=== PATIENT | female | born 1960 | race Caucasian/White ===

== ENCOUNTER 2019-04-20 16:52 | Emergency (ER) | payer OTHER, MEDICAID, SELFPAY ==
[2019-04-20 17:00] VITALS: BP 142/86; PULSE 65; RESP 19; TEMP 36.6; O2SAT 100; BMI 26.6
--- NOTE | 2019-04-20 17:09 | DI.RAD.S_ITS ---
PROCEDURE: XR CHEST 1V INDICATIONS: chest pain TECHNIQUE: One view of the chest was acquired. COMPARISON: [facility], CHEST 1 VIEW, 05/09/2011, 12:32. [facility], CHEST 2 VIEW, 08/06/2013, 12:28. FINDINGS: Surgical changes and devices: None. Lungs and pleura: Lungs are clear. No pleural effusions or pneumothorax. Mediastinum: The cardiac contours are within normal limits. The aorta demonstrates calcification and tortuosity. Bones and chest wall: No suspicious bony lesions. There is a stable presumed enchondroma seen within the left humeral neck, which is not significantly changed compared to 2011. S-shaped scoliotic curvature is seen. Age-appropriate bony degenerative changes are seen. Overlying soft tissues appear unremarkable. IMPRESSION: Portable chest within normal limits. Dictated by: Rayray Szymanski M.D. on 04/20/2019 at 16:28 Approved by: Rayray Szymanski M.D. on 04/20/2019 at 16:29
--- NOTE | 2019-04-20 17:09 | PC.NURSE ---
states, started taking metoprolol 25mg twice a day, for the last 5 days. for pvc's
[2019-04-20 17:12] VITALS: BP 143/78; PULSE 59; RESP 16; O2SAT 98
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
[2019-04-20] MEDS: SODIUM CHLORIDE 0.9% 1,000 ML 150 ML IV (17:16)
[2019-04-20] MEDS: MAG HYDROX/ALUMINUM/SIMETH SUS 20 ML, LIDOCAINE VISCOUS 2% 15 ML PO (17:16)
[2019-04-20] MEDS: ASPIRIN 81 MG TAB 324 MG PO (17:17)
[2019-04-20 17:18] LABS: Add Manual Diff / Slide Review NO; Basophils Absolute Auto 100 /uL (0-100); Eosinophils Absolute Auto 200 /uL (0-450); Eosinophils Percent Auto 2.5 % (2-4); Hematocrit 42.1 % (36-46); Hemoglobin 14.4 g/dL (12.0-16.0); Lymphocytes Absolute Auto 3500 /uL (1100-4500); Lymphocytes Percent Auto 49.1 % (25-40); Mean Corpuscular HGB Conc 34.2 % (30-36); Mean Corpuscular Hemoglobin 33.1 PG (26-34); Mean Corpuscular Volume 96.6 fL (80-100); Monocytes Absolute Auto 800 /uL (0-900); Monocytes Percent Auto 10.8 % (3-14); Neutrophils Absolute Auto 2600 /uL (1500-7000); Neutrophils Percent Auto 36.6 % (50-75); Platelet Count 239 X10^3/uL (150-400); Red Blood Cell Count 4.36 X10^6/uL (4.0-5.2); Red Cell Distribution Width 13.8 % (11.6-14.8); White Blood Cell Count 7.2 X10^3/uL (4.5-11.0)
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
[2019-04-20 17:24] LABS: D Dimer 364 ng/mL (<230)
[2019-04-20 17:26] LABS: Alanine Aminotransferase 65 IU/L (9-52); Albumin 4.5 g/dL (3.5-5.0); Albumin Globulin Ratio 1.3 (1.0-2.8); Alkaline Phosphatase 94 U/L (38-126); Aspartate Aminotransferase 45 IU/L (14-36); BUN Creatinine Ratio 18.3 (6-22); Bilirubin Total 0.3 mg/dL (0.2-1.3); Blood Urea Nitrogen 11 mg/dL (7-17); Carbon Dioxide 29 mmol/L (22-32); Chloride 104 mmol/L (98-107); Creatine Kinase 71 U/L (30-135); Estimated Glomerular Filt Rate > 60.0 mL/min (>60); Globulin 3.4 g/dL (1.7-4.1); Glucose 103 mg/dL (70-100); HEMOLYSIS < 15 (0-50); Lipase 210 U/L (23-300); Potassium 4.6 mmol/L (3.4-5.1); Sodium 139 mmol/L (137-145); Total Protein 7.9 g/dL (6.3-8.2)
[2019-04-20 17:38] LABS: Troponin I < 0.012 ng/mL (0.01-0.034)
[2019-04-20 17:45] VITALS: BP 126/64; PULSE 54; RESP 19; O2SAT 97
[2019-04-20 18:05] VITALS: BP 124/82; PULSE 50; RESP 14; O2SAT 97
[2019-04-20 18:46] VITALS: BP 121/76; PULSE 54; RESP 13; O2SAT 96
[2019-04-20 19:33] LABS: Troponin I < 0.012 ng/mL (0.01-0.034)
[2019-04-20 19:53] VITALS: BP 126/80; PULSE 56; RESP 18; O2SAT 97
--- NOTE | 2019-05-05 19:00 | PC.NURSE ---
Late entry: fluids started at 1717 running at 150 cc /hour d/c'd @ 194. Approx 375 cc infused. No ill effect.
== END 2019-04-20 20:04 | disposition home or self-care (01) ==
PROVIDERS: Emergency Provider Internal Medicine; Family Provider Internal Medicine; PCP Internal Medicine
DX: R07.89 Other chest pain (principal); K22.4 Dyskinesia of esophagus
CPT/HCPCS: 36415; 36591; 71045; 80053; 82550; 83690; 84484; 85025; 85379; 93005; 93041; 96360; 96361; 99284; 99285

== ENCOUNTER 2019-06-08 04:33 | Emergency (ER) | payer OTHER, MEDICAID, SELFPAY ==
[2019-06-08 04:41] VITALS: BP 143/78; PULSE 60; RESP 18; O2SAT 100; BMI 26.6
--- NOTE | 2019-06-08 04:50 | DI.RAD.S_ITS ---
PROCEDURE: XR CHEST 1V INDICATIONS: chest pain TECHNIQUE: One view of the chest was acquired. COMPARISON: [facility], CR, CHEST 2 VIEW, 08/06/2013, 12:28. [facility], CR, CHEST 2VW, 05/09/2008, 16:35. [facility], CR, CHEST 2VW, 06/09/2007, 12:54. [facility], CR, CHEST 1 VIEW, 05/09/2011, 12:32. [facility], CR, XR CHEST 2V AP/PA AND LAT, 10/07/2016, 1:37 PM. [facility], CR, XR CHEST 1V, 04/20/2019, 17:15. FINDINGS: Surgical changes and devices: None. Lungs and pleura: Mild interstitial prominence appears unchanged. No focal consolidations. No pleural effusions or pneumothorax. Mediastinum: Mediastinal contours appear normal. Heart size is normal. Bones and chest wall: There is a stable sclerotic lesion in the proximal left humerus with serpiginous calcification, most likely an enchondroma. Overlying soft tissues appear unremarkable. IMPRESSION: 1. No acute cardiopulmonary disease. Dictated by: Maryann Melo M.D. on 06/08/2019 at 8:42 Approved by: Maryann Melo M.D. on 06/08/2019 at 8:45
[2019-06-08 04:51] VITALS: BP 122/71; PULSE 56
[2019-06-08] MEDS: NITROGLYCERIN 0.4 MG SL TAB SL ×2 (04:51→04:56)
[2019-06-08] MEDS: ASPIRIN 81 MG TAB 324 MG PO (04:52)
[2019-06-08] MEDS: SODIUM CHLORIDE 0.9% 1,000 ML 150 ML IV (04:54)
[2019-06-08 04:56] VITALS: BP 124/82; PULSE 55
[2019-06-08 05:02] LABS: Add Manual Diff / Slide Review NO; Basophils Absolute Auto 0 /uL (0-100); Basophils Percent Auto 0.6 % (0-2); Eosinophils Absolute Auto 200 /uL (0-450); Eosinophils Percent Auto 3.4 % (2-4); Hemoglobin 14.9 g/dL (12.0-16.0); Lymphocytes Absolute Auto 2500 /uL (1100-4500); Lymphocytes Percent Auto 44.2 % (25-40); Mean Corpuscular HGB Conc 33.8 % (30-36); Mean Corpuscular Hemoglobin 32.8 PG (26-34); Mean Corpuscular Volume 97.1 fL (80-100); Monocytes Absolute Auto 700 /uL (0-900); Monocytes Percent Auto 13.1 % (3-14); Neutrophils Absolute Auto 2200 /uL (1500-7000); Neutrophils Percent Auto 38.7 % (50-75); Platelet Count 213 X10^3/uL (150-400); Red Blood Cell Count 4.53 X10^6/uL (4.0-5.2); Red Cell Distribution Width 13.5 % (11.6-14.8); White Blood Cell Count 5.7 X10^3/uL (4.5-11.0)
[2019-06-08 05:05] LABS: D Dimer 335 ng/mL (<230)
[2019-06-08 05:06] VITALS: BP 108/69; PULSE 56; RESP 18; O2SAT 96
[2019-06-08 05:06] LABS: Alanine Aminotransferase 48 IU/L (9-52); Albumin 4.2 g/dL (3.5-5.0); Albumin Globulin Ratio 1.2 (1.0-2.8); Alkaline Phosphatase 104 U/L (38-126); Aspartate Aminotransferase 35 IU/L (14-36); BUN Creatinine Ratio 18.3 (6-22); Bilirubin Total 0.5 mg/dL (0.2-1.3); Blood Urea Nitrogen 11 mg/dL (7-17); Calcium 8.8 mg/dL (8.4-10.2); Carbon Dioxide 27 mmol/L (22-32); Chloride 105 mmol/L (98-107); Creatine Kinase 54 U/L (30-135); Estimated Glomerular Filt Rate > 60.0 mL/min (>60); Globulin 3.6 g/dL (1.7-4.1); Glucose 107 mg/dL (70-100); HEMOLYSIS 30 (0-50); Lipase 153 U/L (23-300); Potassium 4.1 mmol/L (3.4-5.1); Sodium 140 mmol/L (137-145); Total Protein 7.8 g/dL (6.3-8.2)
[2019-06-08 05:18] LABS: Troponin I < 0.012 ng/mL (0.01-0.034)
--- NOTE | 2019-06-08 05:59 | ED.CHESTPAIN ---
HPI - Chest Pain General Chief Complaint: Chest Pain Stated Complaint: CHEST PAIN, CANT BREATHE Time Seen by Provider: 06/08/19 04:40 Source: patient and family Mode of arrival: ambulatory Limitations: no limitations History of Present Illness HPI narrative: 58-year-old female former smoker presents with her significant other in the chief complaint of sharp and stabbing anterior chest wall pain that may have woken her from sleep. It is much worse with a deep breath and palpation. She denies other provocation. She has no radiation. She denies associated symptoms such as dizziness, weakness or lightheadedness. She denies any nausea, vomiting or diaphoresis. She denies any change with exertion. She denies recent travel, history of cancer or surgery. She denies any cardiac history other than PVCs. She had a normal stress test a few months ago and was here under similar circumstances in April. MD complaint: chest pain Onset (ago): hour(s) Duration: constant Onset: during rest Pain location: substernal Severity: moderate Quality: sharp Pain radiation: none Relieving factors: nothing Exacerbating factors: inspiration, palpation and movement Treatments prior to arrival chest pain: none Related Data On Oral Contraceptives: No Home Medications Medication Instructions Recorded Confirmed ESOMEPRAZOLE SODIUM (NEXIUM) 20 mg PO QDAY #0 cap 08/06/13 ibuprofen [Advil] 600 mg PO TIDP PRN #0 08/06/13 levothyroxine [Synthroid] 50 mcg PO QDAY #0 tab 08/06/13 Allergies Allergy/AdvReac Type Severity Reaction Status Date / Time butalbital [From Fiorinal] Allergy Unknown Verified 04/20/19 17:06 caffeine [From Fiorinal] Allergy Unknown Verified 04/20/19 17:06 RED PEPPER Allergy Unknown Uncoded 04/20/19 17:06 Review of Systems Constitutional Denies chills, Denies fever(s), Denies lethargy and Denies weakness Eyes Denies change in vision, Denies eye discharge, Denies irritation and Denies loss of vision ENT Ears, Nose, Mouth, and Throat: Denies change in voice, Denies neck pain and Denies sore throat Cardiovascular Reports chest pain, Denies irregular heart rhythm, Denies lightheadedness, Denies palpitations, Denies dyspnea, Denies dyspnea on exertion and Denies orthopnea Respiratory Denies cough, Reports pain on inspiration, Reports pain with cough, Denies dyspnea, Denies dyspnea on exertion and Denies wheezing Gastrointestinal Gastrointestinal: Denies abdominal pain, Denies change in bowel habits, Denies diarrhea, Denies nausea and Denies vomiting Genitourinary Denies hematuria, Denies flank pain, Denies urinary incontinence and Denies urinary urgency Musculoskeletal Denies neck pain Integumentary/Breasts Denies pruritus, Denies erythema, Denies rash and Denies wounds Neurologic Denies confusion, Denies loss of vision and Denies weakness Psychiatric Denies anxiety, Denies confusion, Denies depression, Denies homicidal ideation and Denies suicidal ideation Endocrine Denies palpitations Hematologic/Lymphatic Denies easy bruising Allergic/Immunologic Denies wheezing [facility] Medical History Cash's esophagus (Chronic) GERD (gastroesophageal reflux disease) (Chronic) Hypothyroidism (Chronic) PVCs (premature ventricular contractions) (Chronic) Personal history of PE (pulmonary embolism) (Resolved) Surgical History Status post hysterectomy (Resolved) Status post thyroidectomy (Resolved) Social History Smoking Status: Former smoker Social History Smoking Status: Former smoker Exam Narrative Exam Narrative: GENERAL: 58-year-old female appears stated age, obviously uncomfortable in clearly anxious HEAD: Atraumatic. Normocephalic. No temporal or scalp tenderness. EYES: Pupils equal round and reactive. Extraocular motions intact. No scleral icterus. No injection or drainage. ENT: Nose without bleeding, purulent drainage or septal hematoma. Throat without erythema, tonsillar hypertrophy or exudate. Uvula midline. Airway patent. NECK: Trachea midline. No JVD or lymphadenopathy. Supple, nontender, no meningeal signs. CARDIOVASCULAR: Sharp and stabbing anterior chest pain to palpation, this worsens the pain that woke her up and brought her in. Regular rate and rhythm without murmurs, gallops, or rubs. RESPIRATORY: Clear to auscultation. Breath sounds equal bilaterally. No wheezes, rales, or rhonchi. GASTROINTESTINAL: Abdomen soft, non-tender, nondistended. No hepato-splenomegaly, or palpable masses. No guarding. EXTREMITIES: No clubbing, cyanosis, or edema. No joint tenderness, effusion, or edema noted. BACK: Nontender without deformity or crepitance. No flank tenderness. NEURO: AOx3. SKIN: No rash or erythema. Initial Vital Signs Initial Vital Signs: Vital Signs Pulse Rate 60 06/08/19 04:41 Respiratory Rate 18 06/08/19 04:41 Blood Pressure 143/78 H 06/08/19 04:41 Pulse Oximetry 100 06/08/19 04:41 Course Orders Ordered: Discontinued Medications Aspirin (Aspirin Chew) 324 mg PO NOW ONE Stop: 06/08/19 04:51 Last Admin: 06/08/19 04:52 Dose: 324 mg Sodium Chloride (Normal Saline 0.9%) 1,000 mls @ 150 mls/hr IV CONT KANG Last Infusion: 06/08/19 07:27 Dose: 0 mls/hr Infusion: 06/08/19 07:26 Dose: 0 mls/hr Infusion: 06/08/19 06:53 Dose: 150 mls/hr Admin: 06/08/19 04:54 Dose: 150 mls/hr Nitroglycerin (Nitrostat) 0.4 mg SL [id number] PRN PRN Reason: Chest Pain Last Admin: 06/08/19 04:56 Dose: 0.4 mg Admin: 06/08/19 04:51 Dose: 0.4 mg Vital Signs - 8 hr 06/08/19 04:41 06/08/19 04:51 06/08/19 04:56 Pulse Rate 60 56 L 55 L Respiratory Rate 18 Blood Pressure 143/78 H 122/71 124/82 Blood Pressure [Right Arm] Pulse Oximetry 100 06/08/19 05:06 Pulse Rate 56 L Respiratory Rate 18 Blood Pressure Blood Pressure [Right Arm] 108/69 Pulse Oximetry 96 MDM - Chest Pain Lab Data Result diagrams: 06/08/19 04:48 06/08/19 04:48 Lab Results 06/08/19 06/08/19 06/08/19 Range/Units 04:48 04:48 04:48 WBC 5.7 (4.5-11.0) X10^3/uL RBC 4.53 (4.0-5.2) X10^6/uL Hgb 14.9 (12.0-16.0) g/dL Hct 44.0 (36-46) % MCV 97.1 (80-100) fL MCH 32.8 (26-34) PG MCHC 33.8 (30-36) % RDW 13.5 (11.6-14.8) % Plt Count 213 (150-400) X10^3/uL Neut % (Auto) 38.7 L (50-75) % Lymph % (Auto) 44.2 H (25-40) % [place] % (Auto) 13.1 (3-14) % Eos % (Auto) 3.4 (2-4) % Baso % (Auto) 0.6 (0-2) % Neut # (Auto) 2200 (6573-8468) /uL Lymph # (Auto) 2500 (6550-7714) /uL [place] # (Auto) 700 (0-900) /uL Eos # (Auto) 200 (0-450) /uL Baso # (Auto) 0 (0-100) /uL D-Dimer 335 H (<230) ng/mL Sodium 140 (137-145) mmol/L Potassium 4.1 (3.4-5.1) mmol/L Chloride 105 (98-107) mmol/L Carbon Dioxide 27 (22-32) mmol/L BUN 11 (7-17) mg/dL Creatinine 0.60 (0.52-1.04) mg/dL Estimated GFR > 60.0 (>60) mL/min BUN/Creatinine Ratio 18.3 (6-22) Glucose 107 H (70-100) mg/dL Calcium 8.8 (8.4-10.2) mg/dL Total Bilirubin 0.5 (0.2-1.3) mg/dL AST 35 (14-36) IU/L ALT 48 (9-52) IU/L Alkaline Phosphatase 104 (38-126) U/L Total Creatine Kinase 54 (30-135) U/L CK-MB (CK-2) TNP CK-MB (CK-2) Rel Index TNP Troponin I < 0.012 (0.01-0.034) ng/mL Total Protein 7.8 (6.3-8.2) g/dL Albumin 4.2 (3.5-5.0) g/dL Globulin 3.6 (1.7-4.1) g/dL Albumin/Globulin Ratio 1.2 (1.0-2.8) Lipase 153 (23-300) U/L 06/08/19 Range/Units 07:00 WBC (4.5-11.0) X10^3/uL RBC (4.0-5.2) X10^6/uL Hgb (12.0-16.0) g/dL Hct (36-46) % MCV (80-100) fL MCH (26-34) PG MCHC (30-36) % RDW (11.6-14.8) % Plt Count (150-400) X10^3/uL Neut % (Auto) (50-75) % Lymph % (Auto) (25-40) % [place] % (Auto) (3-14) % Eos % (Auto) (2-4) % Baso % (Auto) (0-2) % Neut # (Auto) (2050-8709) /uL Lymph # (Auto) (6533-9128) /uL [place] # (Auto) (0-900) /uL Eos # (Auto) (0-450) /uL Baso # (Auto) (0-100) /uL D-Dimer (<230) ng/mL Sodium (137-145) mmol/L Potassium (3.4-5.1) mmol/L Chloride (98-107) mmol/L Carbon Dioxide (22-32) mmol/L BUN (7-17) mg/dL Creatinine (0.52-1.04) mg/dL Estimated GFR (>60) mL/min BUN/Creatinine Ratio (6-22) Glucose (70-100) mg/dL Calcium (8.4-10.2) mg/dL Total Bilirubin (0.2-1.3) mg/dL AST (14-36) IU/L ALT (9-52) IU/L Alkaline Phosphatase (38-126) U/L Total Creatine Kinase (30-135) U/L CK-MB (CK-2) CK-MB (CK-2) Rel Index Troponin I < 0.012 (0.01-0.034) ng/mL Total Protein (6.3-8.2) g/dL Albumin (3.5-5.0) g/dL Globulin (1.7-4.1) g/dL Albumin/Globulin Ratio (1.0-2.8) Lipase (23-300) U/L Discharge Plan Departure Patient Disposition: Home Clinical Impression: Atypical chest pain Discharge Date/Time: 06/08/19 07:38 Interventions: ED Discharge Assessment Last Done: 06/08/19 07:35 Instructions: DI for Atypical Chest Pain Activity Restrictions/Additional Instructions: *You have been diagnosed with [atypical chest pain] *What to do: * continue to take medications as directed *Follow up with your primary care provider in 2-3 days, call for an appointment. Let them know you were seen in the Emergency Department and that we ask that you be seen in follow up *Return to ER if you should have any new, worsening or concerning symptoms Prescriptions: No Action levothyroxine [Synthroid] 50 MCG tablet 50 mcg PO QDAY Qty: 0 RF: 0 ibuprofen [Advil] 200 MG tablet 600 mg PO TIDP PRNQty: 0 RF: 0 ESOMEPRAZOLE SODIUM (NEXIUM) 20 mg PO QDAY Qty: 0 RF: 0 Referrals: Claudia Simmons [Primary Care Provider] -
[2019-06-08 06:06] VITALS: BP 101/67; PULSE 48; RESP 18; O2SAT 98
--- NOTE | 2019-06-08 06:32 | ED_ITS ---
HPI - Chest Pain General Chief Complaint: Chest Pain Stated Complaint: CHEST PAIN, CANT BREATHE Time Seen by Provider: 06/08/19 04:40 Source: patient and family Mode of arrival: ambulatory Limitations: no limitations History of Present Illness HPI narrative: 58-year-old female former smoker presents with her significant other in the chief complaint of sharp and stabbing anterior chest wall pain that may have woken her from sleep. It is much worse with a deep breath and palpation. She denies other provocation. She has no radiation. She denies associated symptoms such as dizziness, weakness or lightheadedness. She denies any nausea, vomiting or diaphoresis. She denies any change with exertion. She denies recent travel, history of cancer or surgery. She denies any cardiac history other than PVCs. She had a normal stress test a few months ago and was here under similar circumstances in April. MD complaint: chest pain Onset (ago): hour(s) Duration: constant Onset: during rest Pain location: substernal Severity: moderate Quality: sharp Pain radiation: none Relieving factors: nothing Exacerbating factors: inspiration, palpation and movement Treatments prior to arrival chest pain: none Related Data On Oral Contraceptives: No Home Medications Medication Instructions Recorded Confirmed ESOMEPRAZOLE SODIUM (NEXIUM) 20 mg PO QDAY #0 cap 08/06/13 ibuprofen [Advil] 600 mg PO TIDP PRN #0 08/06/13 levothyroxine [Synthroid] 50 mcg PO QDAY #0 tab 08/06/13 Allergies Allergy/AdvReac Type Severity Reaction Status Date / Time butalbital [From Fiorinal] Allergy Unknown Verified 04/20/19 17:06 caffeine [From Fiorinal] Allergy Unknown Verified 04/20/19 17:06 RED PEPPER Allergy Unknown Uncoded 04/20/19 17:06 Review of Systems Constitutional Denies chills, Denies fever(s), Denies lethargy and Denies weakness Eyes Denies change in vision, Denies eye discharge, Denies irritation and Denies loss of vision ENT Ears, Nose, Mouth, and Throat: Denies change in voice, Denies neck pain and Denies sore throat Cardiovascular Reports chest pain, Denies irregular heart rhythm, Denies lightheadedness, Den ies palpitations, Denies dyspnea, Denies dyspnea on exertion and Denies orthopnea Respiratory Denies cough, Reports pain on inspiration, Reports pain with cough, Denies dyspnea, Denies dyspnea on exertion and Denies wheezing Gastrointestinal Gastrointestinal: Denies abdominal pain, Denies change in bowel habits, Denies diarrhea, Denies nausea and Denies vomiting Genitourinary Denies hematuria, Denies flank pain, Denies urinary incontinence and Denies ur inary urgency Musculoskeletal Denies neck pain Integumentary/Breasts Denies pruritus, Denies erythema, Denies rash and Denies wounds Neurologic Denies confusion, Denies loss of vision and Denies weakness Psychiatric Denies anxiety, Denies confusion, Denies depression, Denies homicidal ideation and Denies suicidal ideation Endocrine Denies palpitations Hematologic/Lymphatic Denies easy bruising Allergic/Immunologic Denies wheezing [facility] Medical History Cash's esophagus (Chronic) GERD (gastroesophageal reflux disease) (Chronic) Hypothyroidism (Chronic) PVCs (premature ventricular contractions) (Chronic) Personal history of PE (pulmonary embolism) (Resolved) Surgical History Status post hysterectomy (Resolved) Status post thyroidectomy (Resolved) Social History Smoking Status: Former smoker Social History Smoking Status: Former smoker Exam Narrative Exam Narrative: GENERAL: 58-year-old female appears stated age, obviously uncomfortable in clearly anxious HEAD: Atraumatic. Normocephalic. No temporal or scalp tenderness. EYES: Pupils equal round and reactive. Extraocular motions intact. No scleral icterus. No injection or drainage. ENT: Nose without bleeding, purulent drainage or septal hematoma. Throat without erythema, tonsillar hypertrophy or exudate. Uvula midline. Airway patent. NECK: Trachea midline. No JVD or lymphadenopathy. Supple, nontender, no meningeal signs. CARDIOVASCULAR: Sharp and stabbing anterior chest pain to palpation, this worsens the pain that woke her up and brought her in. Regular rate and rhythm without murmurs, gallops, or rubs. RESPIRATORY: Clear to auscultation. Breath sounds equal bilaterally. No wheezes, rales, or rhonchi. GASTROINTESTINAL: Abdomen soft, non-tender, nondistended. No hepato-splenomeg gisella, or palpable masses. No guarding. EXTREMITIES: No clubbing, cyanosis, or edema. No joint tenderness, effusion, or edema noted. BACK: Nontender without deformity or crepitance. No flank tenderness. NEURO: AOx3. SKIN: No rash or erythema. Initial Vital Signs Initial Vital Signs: Vital Signs Pulse Rate 60 06/08/19 04:41 Respiratory Rate 18 06/08/19 04:41 Blood Pressure 143/78 H 06/08/19 04:41 Pulse Oximetry 100 06/08/19 04:41 Course Orders Ordered: Discontinued Medications Aspirin (Aspirin Chew) 324 mg PO NOW ONE Stop: 06/08/19 04:51 Last Admin: 06/08/19 04:52 Dose: 324 mg Sodium Chloride (Normal Saline 0.9%) 1,000 mls @ 150 mls/hr IV CONT KANG Last Infusion: 06/08/19 07:27 Dose: 0 mls/hr Infusion: 06/08/19 07:26 Dose: 0 mls/hr Infusion: 06/08/19 06:53 Dose: 150 mls/hr Admin: 06/08/19 04:54 Dose: 150 mls/hr Nitroglycerin (Nitrostat) 0.4 mg SL [id number] PRN PRN Reason: Chest Pain Last Admin: 06/08/19 04:56 Dose: 0.4 mg Admin: 06/08/19 04:51 Dose: 0.4 mg Vital Signs - 8 hr 06/08/19 04:41 06/08/19 04:51 06/08/19 04:56 Pulse Rate 60 56 L 55 L Respiratory Rate 18 Blood Pressure 143/78 H 122/71 124/82 Blood Pressure [Right Arm] Pulse Oximetry 100 06/08/19 05:06 Pulse Rate 56 L Respiratory Rate 18 Blood Pressure Blood Pressure [Right Arm] 108/69 Pulse Oximetry 96 MDM - Chest Pain Lab Data Result diagrams: 06/08/19 04:48 06/08/19 04:48 Lab Results 06/08/19 06/08/19 06/08/19 Range/Units 04:48 04:48 04:48 WBC 5.7 (4.5-11.0) X10^3/uL RBC 4.53 (4.0-5.2) X10^6/uL Hgb 14.9 (12.0-16.0) g/dL Hct 44.0 (36-46) % MCV 97.1 (80-100) fL MCH 32.8 (26-34) PG MCHC 33.8 (30-36) % RDW 13.5 (11.6-14.8) % Plt Count 213 (150-400) X10^3/uL Neut % (Auto) 38.7 L (50-75) % Lymph % (Auto) 44.2 H (25-40) % [place] % (Auto) 13.1 (3-14) % Eos % (Auto) 3.4 (2-4) % Baso % (Auto) 0.6 (0-2) % Neut # (Auto) 2200 (8080-5739) /uL Lymph # (Auto) 2500 (6310-6556) /uL [place] # (Auto) 700 (0-900) /uL Eos # (Auto) 200 (0-450) /uL Baso # (Auto) 0 (0-100) /uL D-Dimer 335 H (<230) ng/mL Sodium 140 (137-145) mmol/L Potassium 4.1 (3.4-5.1) mmol/L Chloride 105 (98-107) mmol/L Carbon Dioxide 27 (22-32) mmol/L BUN 11 (7-17) mg/dL Creatinine 0.60 (0.52-1.04) mg/dL Estimated GFR > 60.0 (>60) mL/min BUN/Creatinine Ratio 18.3 (6-22) Glucose 107 H (70-100) mg/dL Calcium 8.8 (8.4-10.2) mg/dL Total Bilirubin 0.5 (0.2-1.3) mg/dL AST 35 (14-36) IU/L ALT 48 (9-52) IU/L Alkaline Phosphatase 104 (38-126) U/L Total Creatine Kinase 54 (30-135) U/L CK-MB (CK-2) TNP CK-MB (CK-2) Rel Index TNP Troponin I < 0.012 (0.01-0.034) ng/mL Total Protein 7.8 (6.3-8.2) g/dL Albumin 4.2 (3.5-5.0) g/dL Globulin 3.6 (1.7-4.1) g/dL Albumin/Globulin Ratio 1.2 (1.0-2.8) Lipase 153 (23-300) U/L 06/08/ Range/Units 07:00 WBC (4.5-11.0) X10^3/uL RBC (4.0-5.2) X10^6/uL Hgb (12.0-16.0) g/dL Hct (36-46) % MCV (80-100) fL MCH (26-34) PG MCHC (30-36) % RDW (11.6-14.8) % Plt Count (150-400) X10^3/uL Neut % (Auto) (50-75) % Lymph % (Auto) (25-40) % [place] % (Auto) (3-14) % Eos % (Auto) (2-4) % Baso % (Auto) (0-2) % Neut # (Auto) (2583-4656) /uL Lymph # (Auto) (9562-3573) /uL [place] # (Auto) (0-900) /uL Eos # (Auto) (0-450) /uL Baso # (Auto) (0-100) /uL D-Dimer (<230) ng/mL Sodium (137-145) mmol/L Potassium (3.4-5.1) mmol/L Chloride (98-107) mmol/L Carbon Dioxide (22-32) mmol/L BUN (7-17) mg/dL Creatinine (0.52-1.04) mg/dL Estimated GFR (>60) mL/min BUN/Creatinine Ratio (6-22) Glucose (70-100) mg/dL Calcium (8.4-10.2) mg/dL Total Bilirubin (0.2-1.3) mg/dL AST (14-36) IU/L ALT (9-52) IU/L Alkaline Phosphatase (38-126) U/L Total Creatine Kinase (30-135) U/L CK-MB (CK-2) CK-MB (CK-2) Rel Index Troponin I < 0.012 (0.01-0.034) ng/mL Total Protein (6.3-8.2) g/dL Albumin (3.5-5.0) g/dL Globulin (1.7-4.1) g/dL Albumin/Globulin Ratio (1.0-2.8) Lipase (23-300) U/L Discharge Plan Departure Patient Disposition: Home Clinical Impression: Atypical chest pain Discharge Date/Time: 06/08/19 07:38 Interventions: ED Discharge Assessment Last Done: 06/08/19 07:35 Instructions: DI for Atypical Chest Pain Activity Restrictions/Additional Instructions: *You have been diagnosed with [atypical chest pain] *What to do: * continue to take medications as directed *Follow up with your primary care provider in 2-3 days, call for an appointment. Let them know you were seen in the Emergency Department and that we ask that you be seen in follow up *Return to ER if you should have any new, worsening or concerning symptoms Prescriptions: No Action levothyroxine [Synthroid] 50 MCG tablet 50 mcg PO QDAY Qty: 0 RF: 0 ibuprofen [Advil] 200 MG tablet 600 mg PO TIDP PRNQty: 0 RF: 0 ESOMEPRAZOLE SODIUM (NEXIUM) 20 mg PO QDAY Qty: 0 RF: 0 Referrals: Claudia Simmons [Primary Care Provider] -
[2019-06-08 07:27] LABS: Troponin I < 0.012 ng/mL (0.01-0.034)
[2019-06-08 07:35] VITALS: BP 111/85; PULSE 45; RESP 18; O2SAT 96
== END 2019-06-08 07:38 | disposition home or self-care (01) ==
PROVIDERS: Emergency Provider Emergency Medicine; Family Provider Internal Medicine; PCP Internal Medicine
DX: R07.89 Other chest pain (principal)
CPT/HCPCS: 36415; 36591; 71045; 80053; 82550; 83690; 84484; 85025; 85379; 93005; 93041; 96360; 96361; 99284; 99285

== ENCOUNTER 2019-06-10 16:30 | Emergency (ER) | payer OTHER, MEDICAID, SELFPAY ==
[2019-06-10 16:49] VITALS: BP 137/83; PULSE 60; RESP 13; TEMP 36.8; O2SAT 98
--- NOTE | 2019-06-10 17:14 | PC.NURSE ---
pt reports, evaluated last for chest pain. yesterday onset of coughing thougt it was phlemn, but coughing up dark red blood. denies fever,nausea or vomiting. denies anticoagulant, denies injuries.
--- NOTE | 2019-06-10 17:35 | DI.RAD.S_ITS ---
PROCEDURE: XR CHEST 2V INDICATIONS: cough TECHNIQUE: 2 views of the chest were acquired. COMPARISON: None. FINDINGS: Surgical changes and devices: None. Lungs and pleura: Lungs are clear. No pleural effusions or pneumothorax. Mediastinum: Mediastinal contours are normal. Heart size is normal. Bones and chest wall: No suspicious bony abnormalities. Soft tissues appear unremarkable. IMPRESSION: No acute cardiopulmonary findings. Dictated by: La Kulkarni M.D. on 06/10/2019 at 17:10 Approved by: La Kulkarni M.D. on 06/10/2019 at 17:10
[2019-06-10 17:38] LABS: Add Manual Diff / Slide Review NO; Basophils Absolute Auto 100 /uL (0-100); Basophils Percent Auto 1.3 % (0-2); Eosinophils Absolute Auto 200 /uL (0-450); Eosinophils Percent Auto 2.8 % (2-4); Hematocrit 40.4 % (36-46); Hemoglobin 13.8 g/dL (12.0-16.0); Lymphocytes Absolute Auto 3300 /uL (1100-4500); Lymphocytes Percent Auto 51.9 % (25-40); Mean Corpuscular HGB Conc 34.1 % (30-36); Mean Corpuscular Hemoglobin 32.7 PG (26-34); Mean Corpuscular Volume 95.9 fL (80-100); Monocytes Absolute Auto 700 /uL (0-900); Monocytes Percent Auto 11.5 % (3-14); Neutrophils Absolute Auto 2000 /uL (1500-7000); Neutrophils Percent Auto 32.5 % (50-75); Platelet Count 204 X10^3/uL (150-400); Red Blood Cell Count 4.21 X10^6/uL (4.0-5.2); Red Cell Distribution Width 13.3 % (11.6-14.8); White Blood Cell Count 6.3 X10^3/uL (4.5-11.0)
[2019-06-10 17:47] LABS: Alanine Aminotransferase 47 IU/L (9-52); Albumin Globulin Ratio 1.3 (1.0-2.8); Alkaline Phosphatase 93 U/L (38-126); Aspartate Aminotransferase 30 IU/L (14-36); BUN Creatinine Ratio 13.3 (6-22); Bilirubin Total 0.4 mg/dL (0.2-1.3); Blood Urea Nitrogen 8 mg/dL (7-17); Calcium 8.8 mg/dL (8.4-10.2); Carbon Dioxide 26 mmol/L (22-32); Chloride 108 mmol/L (98-107); Estimated Glomerular Filt Rate > 60.0 mL/min (>60); Globulin 3.2 g/dL (1.7-4.1); Glucose 93 mg/dL (70-100); HEMOLYSIS < 15 (0-50); Potassium 4.1 mmol/L (3.4-5.1); Sodium 142 mmol/L (137-145); Total Protein 7.2 g/dL (6.3-8.2)
--- NOTE | 2019-06-10 18:14 | ED_ITS ---
HPI - URI/Sore Throat <WISAM Beaver - Last Filed: 06/11/19 01:40> General Chief Complaint: Upper Respiratory Symptoms Stated Complaint: coughing up blood Time Seen by Provider: 06/10/19 17:35 Source: patient and other (the best friend) Mode of arrival: ambulatory Limitations: no limitations History of Present Illness HPI Narrative: This is a 58-year-old female, former smoker, presents with her best friend the chief complaint of hemoptysis. He started 3 hours after getting up this morning expected rating dark color blood than this progressed to a bright red color mucous when she is trying to remove phlegm. She was seen here 2 days ago with atypical chest pain and swelling to upper chest. She had negative chest pain workup done, she felt improved chest pain and discharged to home. She denies of recurring chest pain. She denies fever, chills, nausea, vomiting, chest pain, breathing trouble, coughing, abdominal pain, throat pain. She does reports mild weakness with this. She has a history of PE, lupus, ankylosis spondylitis, thyroidectomy, H pylori which had not been treated, Cash's esophagus and takes esomeprazole 20 mg daily. She denies dark stool, bright red rectal bleeding. Her best friend was concerned of her condition and she was brought in for an evaluation. Related Data Home Medications Medication Instructions Recorded Confirmed ESOMEPRAZOLE SODIUM (NEXIUM) 20 mg PO QDAY #0 cap 08/06/13 ibuprofen [Advil] 600 mg PO TIDP PRN #0 08/06/13 levothyroxine [Synthroid] 50 mcg PO QDAY #0 tab 08/06/13 Previous Rx's Medication Instructions Recorded levofloxacin [Levaquin] 750 mg PO DAILY 6 Days tab 06/10/19 Allergies Allergy/AdvReac Type Severity Reaction Status Date / Time butalbital [From Fiorinal] Allergy Unknown Verified 04/20/19 17:06 caffeine [From Fiorinal] Allergy Unknown Verified 04/20/19 17:06 RED PEPPER Allergy Unknown Uncoded 04/20/19 17:06 Review of Systems <WISAM Beaver - Last Filed: 06/11/19 01:40> Review of Systems General: See HPI HEENT: Denies sinus pain, ear pain, sore throat, difficulty swallowing, dizziness. Respiratory: See HPI. Denies dyspnea, cough, wheezing. Cardiovascular: Denies chest pain, palpitations, orthopnea, edema. Gastrointestinal: See HPI : Denies dysuria, frequency, incontinence, hematuria, urinary retention. Musculoskeletal: Denies worsening weakness, joint pain or bony pain. Skin: Denies rash, skin lesions, or other. Neurologic: Denies weakness, headache, numbness, change in speech, confusion, seizures, incoordination. Psychiatric: No concerning psychosocial issues. 12-point review of systems is negative except for those stated above. PFSH <WISAM Beaver - Last Filed: 06/11/19 01:40> Medical History Cash's esophagus (Chronic) GERD (gastroesophageal reflux disease) (Chronic) Hypothyroidism (Chronic) PVCs (premature ventricular contractions) (Chronic) Personal history of PE (pulmonary embolism) (Resolved) Surgical History Status post hysterectomy (Resolved) Status post thyroidectomy (Resolved) Social History Smoking Status: Former smoker Social History Smoking Status: Former smoker Exam <WISAM Beaver - Last Filed: 06/11/19 01:40> Narrative Exam Narrative: GEN: Alert, oriented x 3, well appearing and nourished, and in no acute distress. Witnessed intermittently expectorating bright red mucous when clearing throat into a tissue. Head: Normal cephalic, atraumatic. No scalp or temporal tenderness, palpable mass or rash. EYES: Pupils are equal, round, and reactive to light and accommodation. Extraocular muscles are intact bilaterally. There is no subconjunctival hemorrhage, exudate and sclera non-icteric. ENT: Bilateral auditory canals and tympanic membranes. Hearing grossly intact. Nose without bleeding, purulent discharge, septal hematoma or deviation. Turbinate without erythema or swelling. Facial sinuses nontender to palpate. Mucous membrane moist, no mucosal lesion. Throat without erythema, tonsillar hypertrophy or exudate. Uvula in midline, airway patent. Neck: Trachea in midline. No JVD, non-tender without lymphadenopathy. No mas ses or thyroid megaly. Supple, non-tender and meningeal signs. CARDIAC: Normal regular rate and rhythm without murmurs, gallops, or rubs. No chest wall tenderness. No peripheral edema, cyanosis or pallor. Capillary refill is less than 2 seconds. RESPIRATORY: Lungs are cleat to auscultate bilaterally. No cough, wheezes, rales, or rhonchi. No stridor, respiratory distress, increase work of br eathing, or accessary muscle used. ABD: Abdomen soft, nontender and non-distended. No guarding or rebound tenderness to palpate. Bowel sounds are normal in all 4 quadrants. There is no palpable masses or organomegaly. EXT: Full painless ROM of all extremities with no loss of sensation, strength, effusion or edema. SKIN: Warm, dry, normal color for patient. No erythema, lesions or rash. BACK: Nontender without deformity or crepitance. No flank tenderness. NEUROLOGICAL: Alert and oriented to place, time and person. Sensation and motor function intact bilaterally. No facial droops, dysphasia. PSYCHIATRIC: Good judgement and reason, without hallucinations, abnormal affect or abnormal behaviors during the examination. Patient is not suicidal. Initial Vital Signs Initial Vital Signs: Vital Signs Temperature 98.2 F 06/10/19 16:49 Pulse Rate 60 06/10/19 16:49 Respiratory Rate 13 06/10/19 16:49 Blood Pressure 137/83 06/10/19 16:49 Pulse Oximetry 98 06/10/19 16:49 <Ahsan Cano DO - Last Filed: 06/11/19 01:49> Initial Vital Signs Initial Vital Signs: Vital Signs Temperature 98.2 F 06/10/19 16:49 Pulse Rate 60 06/10/19 16:49 Respiratory Rate 13 06/10/19 16:49 Blood Pressure 137/83 06/10/19 16:49 Pulse Oximetry 98 06/10/19 16:49 Course <WISAM Beaver - Last Filed: 06/11/19 01:40> Orders Ordered: ED Orders 06/10/19 17:30 CMP [Comprehensive Metabolic Panel] Stat Complete Blood Count AUTO DIFF Stat D Dimer Stat Prothrombin Time INR Stat Troponin & CK Cardiac Panel Stat 06/10/19 17:35 XR chest 2V Stat 06/10/19 18:49 CT angio chest PE protocol Stat Discontinued Medications Levofloxacin (Levaquin) 750 mg PO NOW ONE Stop: 06/10/19 20:32 Last Admin: 06/10/19 20:38 Dose: 750 mg Vital Signs - 8 hr 06/10/19 18:46 06/10/19 20:45 Pulse Rate 57 L 52 L Respiratory Rate 18 16 Blood Pressure [Left Arm] 121/72 138/80 Pulse Oximetry 95 100 <Ahsan Cano DO - Last Filed: 06/11/19 01:49> Orders Ordered: ED Orders 06/10/19 17:30 CMP [Comprehensive Metabolic Panel] Stat Complete Blood Count AUTO DIFF Stat D Dimer Stat Prothrombin Time INR Stat Troponin & CK Cardiac Panel Stat 06/10/19 17:35 XR chest 2V Stat 06/10/19 18:49 CT angio chest PE protocol Stat Discontinued Medications Levofloxacin (Levaquin) 750 mg PO NOW ONE Stop: 06/10/19 20:32 Last Admin: 06/10/19 20:38 Dose: 750 mg Vital Signs - 8 hr 06/10/19 18:46 06/10/19 20:45 Pulse Rate 57 L 52 L Respiratory Rate 18 16 Blood Pressure [Left Arm] 121/72 138/80 Pulse Oximetry 95 100 MDM - URI/Sore Throat <WISAM Beaver - Last Filed: 06/11/19 01:40> Differential Diagnosis Differential diagnosis: Likely upper respiratory infection, bronchitis and other (PE, Upper GI bleed, gastric ulcer, esophageal varices, martine valencia tear) Medical Records Attestation: I reviewed the patient's medical records. Lab Data Attestation: I reviewed the patient's lab results. Result diagrams: 06/10/19 17:30 06/10/19 17:30 Lab Results 06/10/19 06/10/19 06/10/19 Range/Units 17:30 17:30 17:30 WBC 6.3 (4.5-11.0) X10^3/uL RBC 4.21 (4.0-5.2) X10^6/uL Hgb 13.8 (12.0-16.0) g/dL Hct 40.4 (36-46) % MCV 95.9 (80-100) fL MCH 32.7 (26-34) PG MCHC 34.1 (30-36) % RDW 13.3 (11.6-14.8) % Plt Count 204 (150-400) X10^3/uL Neut % (Auto) 32.5 L (50-75) % Lymph % (Auto) 51.9 H (25-40) % [place] % (Auto) 11.5 (3-14) % Eos % (Auto) 2.8 (2-4) % Baso % (Auto) 1.3 (0-2) % Neut # (Auto) 2000 (9647-1471) /uL Lymph # (Auto) 3300 (0855-4714) /uL [place] # (Auto) 700 (0-900) /uL Eos # (Auto) 200 (0-450) /uL Baso # (Auto) 100 (0-100) /uL PT 10.7 (10.1-12.7) SECONDS INR 0.9 (0.9-1.3) D-Dimer 337 H (<230) ng/mL Sodium 142 (137-145) mmol/L Potassium 4.1 (3.4-5.1) mmol/L Chloride 108 H (98-107) mmol/L Carbon Dioxide 26 (22-32) mmol/L BUN 8 (7-17) mg/dL Creatinine 0.60 (0.52-1.04) mg/dL Estimated GFR > 60.0 (>60) mL/min BUN/Creatinine Ratio 13.3 (6-22) Glucose 93 (70-100) mg/dL Calcium 8.8 (8.4-10.2) mg/dL Total Bilirubin 0.4 (0.2-1.3) mg/dL AST 30 (14-36) IU/L ALT 47 (9-52) IU/L Alkaline Phosphatase 93 (38-126) U/L Total Creatine Kinase (30-135) U/L CK-MB (CK-2) CK-MB (CK-2) Rel Index Troponin I (0.01-0.034) ng/mL Total Protein 7.2 (6.3-8.2) g/dL Albumin 4.0 (3.5-5.0) g/dL Globulin 3.2 (1.7-4.1) g/dL Albumin/Globulin Ratio 1.3 (1.0-2.8) // Range/Units 17:30 WBC (4.5-11.0) X10^3/uL RBC (4.0-5.2) X10^6/uL Hgb (12.0-16.0) g/dL Hct (36-46) % MCV (80-100) fL MCH (26-34) PG MCHC (30-36) % RDW (11.6-14.8) % Plt Count (150-400) X10^3/uL Neut % (Auto) (50-75) % Lymph % (Auto) (25-40) % [place] % (Auto) (3-14) % Eos % (Auto) (2-4) % Baso % (Auto) (0-2) % Neut # (Auto) (9600-5094) /uL Lymph # (Auto) (9804-3940) /uL [place] # (Auto) (0-900) /uL Eos # (Auto) (0-450) /uL Baso # (Auto) (0-100) /uL PT (10.1-12.7) SECONDS INR (0.9-1.3) D-Dimer (<230) ng/mL Sodium (137-145) mmol/L Potassium (3.4-5.1) mmol/L Chloride (98-107) mmol/L Carbon Dioxide (22-32) mmol/L BUN (7-17) mg/dL Creatinine (0.52-1.04) mg/dL Estimated GFR (>60) mL/min BUN/Creatinine Ratio (6-22) Glucose (70-100) mg/dL Calcium (8.4-10.2) mg/dL Total Bilirubin (0.2-1.3) mg/dL AST (14-36) IU/L ALT (9-52) IU/L Alkaline Phosphatase (38-126) U/L Total Creatine Kinase 61 (30-135) U/L CK-MB (CK-2) TNP CK-MB (CK-2) Rel Index TNP Troponin I < 0.012 (0.01-0.034) ng/mL Total Protein (6.3-8.2) g/dL Albumin (3.5-5.0) g/dL Globulin (1.7-4.1) g/dL Albumin/Globulin Ratio (1.0-2.8) Imaging Data Chest x-ray: Radiologist's impression: [address] [address] XRay Report Signed Patient: Rakel Purdy#: [id number] : 1960cct:[id number] Age/Sex: 58 / FDate of Service: 06/10/19 Loc: ED Accession Number: [id number] Procedure: XR chest 2V Ordering Provider: Anna Marie Arora D.O. PROCEDURE: XR CHEST 2V INDICATIONS: cough TECHNIQUE: 2 views of the chest were acquired. COMPARISON: None. FINDINGS: Surgical changes and devices: None. Lungs and pleura: Lungs are clear. No pleural effusions or pneumothorax. Mediastinum: Mediastinal contours are normal. Heart size is normal. Bones and chest wall: No suspicious bony abnormalities. Soft tissues appear unremarkable. IMPRESSION: No acute cardiopulmonary findings. Dictated by: La Kulkarni M.D. on 06/10/2019 at 17:10 Approved by: La Kulkarni M.D. on 06/10/2019 at 17:10 CT scan - chest: Radiologist's impression: Rakel Purdy 58 F [address] [address] [address] Scan Report Signed Patient: Rakel Purdy#: [id number] : 1Acct:[id number] Age/Sex: 58 / FDate of Service: 06/10/19 Loc: ED Accession Number: [id number] Procedure: CT angio chest PE protocol Ordering Provider: Christiano Jamison PROCEDURE: CT ANGIO CHEST PE PROTOCOL INDICATIONS: coughing up blood, had chest pain, hx of PE TECHNIQUE: After the administration of intravenous contrast, 2 mm thick sections acquired from the pulmonary apices to the posterior costophrenic angles. 3-dimensional maximum intensity projection (MIP) coronal and sagittal reformats were then acquired through the thorax. For radiation dose reduction, the following was used: automated exposure control, adjustment of mA and/or kV according to patient size. [facility], 06/10/2019, 17:40. CT of cervical spine 11/19/2014. CXR 08/06/2013. FINDINGS: Image quality: Excellent. Pulmonary arteries: Pulmonary arteries are normal in size, and demonstrate no intraluminal filling defects to suggest central pulmonary embolism. Lungs and pleura: Small patches of groundglass opacity, (5/126, 85). No mass or pulmonary nodule. No pleural effusions or pneumothorax. Central and peripheral airways are patent. Mediastinum: Anterior mediastinal heterogeneously enhancing mass with small calcifications measuring 6 x 5 cm, (axial 4/65) and 6.4 cm in craniocaudal dimension, (6/26). The lesion does not appear to invade into adjacent structures. Heart size is normal, without pericardial effusion. No mediastinal or hilar adenopathy. Small mediastinal nodes. Thoracic aorta is normal in caliber and enhancement. No dissection. Esophagus is normal in caliber. Small hiatal hernia. Bones and chest wall: Chondroid appearing lesion in the left proximal humerus, (4/13) possibly an enchondroma. No aggressive appearing lesion. Thyroid gland is atrophic. Question of subcentimeter hypodense thyroid nodule on the right, (4/3). No axillary or supraclavicular adenopathy. Abdomen: Hypodense focus in the liver. For example: -Left lobe (4/167); Segment 4, (4/145); Segment 8, (4/133). Question of a subcentimeter hypodense lesion in the splenic hilum. Nodular thickening of the left adrenal gland, (4/150). No free fluid in the upper abdomen. IMPRESSION: 1. Mild groundglass opacities in the right upper lobe is suspicious for multifocal pneumonia. 2. No pulmonary embolism. 3. Newly identified anterior mediastinal heterogeneously enhancing mass measuring 6 cm. Primary diagnostic considerations include teratoma and lymphoma. 4. Indeterminate small hepatic hypodensities. Liver MRI or multiphase liver CT could be considered for further evaluation. Comment: Findings were discussed with WISAM Tello at the time of dictation. Dictated by: Harshal Doll M.D. on 06/10/2019 at 19:38 Approved by: Harshal Doll M.D. on 06/10/2019 at 20:05 MDM Narrative Medical decision making narrative: This is a 58-year-old female presents today with expectorating bright red blood started today with history of Cash's esophagus, history of PE, atypical chest pain. The patient denies abdominal pain, throat pain, forceful cough, forceful vomiting, chest pain, brething trouble, fainting. Given patient has a history of PE, returning from a visit 2 days ago with atypical chest pain, CT angio chest was considered to rule out recurring pulmonary embolism. CBC indicates with within normal H&H with elevated lymphocytes. D-dimer today was 337. The cardiac enzymes were normal. Initial two-view chest x-ray was without acute cardiopulmonary findings. CTA chest was done and Dr. Marlene Doll, the radiologist called to inform that patient has no PE but there is a new finding of anterior mediastinal heterogeneously enhancing mass measuring 6x5 mass. The primary diagnostic considerations include teratoma and lymphoma. Also according to the chest CTA, there was some mild ground-glass opacity in the right upper lobe which is suspicious for multifocal pneumonia and intermediate small hepatic hypodensities. The findings were shared with the patient and her best friend. The patient was instructed to follow with her primary care physician, Dr. Claudia Simmons, by calling her office on Wednesday for further evaluation such as radiology guided needle biopsy of the mediastinal mass. Patient reports the last EGD was in January this year and she has been compliant with the PPI medication regimen. The patient reports the last time and she expectorated her phlegm there was no blood. The patient was treated for pneumonia with Levaquin 750 mg p.o. prior to DC to home an additional 6 day course was prescribed. We discussed in length the importance of following up with her primary care provider for further evaluation also red flag symptoms such as chest pain, breathing difficulty, increasing blood expec toration, lightheadedness, abdominal pain, melena and to return to ED for further evaluation. The patient and the best friend has no further questions and agrees with the treatment plan. <Ahsan Cano, DO - Last Filed: 06/11/19 01:49> Lab Data Lab Results 06/10/19 06/10/19 06/10/19 Range/Units 17:30 17:30 17:30 WBC 6.3 (4.5-11.0) X10^3/uL RBC 4.21 (4.0-5.2) X10^6/uL Hgb 13.8 (12.0-16.0) g/dL Hct 40.4 (36-46) % MCV 95.9 (80-100) fL MCH 32.7 (26-34) PG MCHC 34.1 (30-36) % RDW 13.3 (11.6-14.8) % Plt Count 204 (150-400) X10^3/uL Neut % (Auto) 32.5 L (50-75) % Lymph % (Auto) 51.9 H (25-40) % [place] % (Auto) 11.5 (3-14) % Eos % (Auto) 2.8 (2-4) % Baso % (Auto) 1.3 (0-2) % Neut # (Auto) 2000 (8115-8538) /uL Lymph # (Auto) 3300 (3797-7605) /uL [place] # (Auto) 700 (0-900) /uL Eos # (Auto) 200 (0-450) /uL Baso # (Auto) 100 (0-100) /uL PT 10.7 (10.1-12.7) SECONDS INR 0.9 (0.9-1.3) D-Dimer 337 H (<230) ng/mL Sodium 142 (137-145) mmol/L Potassium 4.1 (3.4-5.1) mmol/L Chloride 108 H (98-107) mmol/L Carbon Dioxide 26 (22-32) mmol/L BUN 8 (7-17) mg/dL Creatinine 0.60 (0.52-1.04) mg/dL Estimated GFR > 60.0 (>60) mL/min BUN/Creatinine Ratio 13.3 (6-22) Glucose 93 (70-100) mg/dL Calcium 8.8 (8.4-10.2) mg/dL Total Bilirubin 0.4 (0.2-1.3) mg/dL AST 30 (14-36) IU/L ALT 47 (9-52) IU/L Alkaline Phosphatase 93 (38-126) U/L Total Creatine Kinase (30-135) U/L CK-MB (CK-2) CK-MB (CK-2) Rel Index Troponin I (0.01-0.034) ng/mL Total Protein 7.2 (6.3-8.2) g/dL Albumin 4.0 (3.5-5.0) g/dL Globulin 3.2 (1.7-4.1) g/dL Albumin/Globulin Ratio 1.3 (1.0-2.8) 06/10/19 Range/Units 17:30 WBC (4.5-11.0) X10^3/uL RBC (4.0-5.2) X10^6/uL Hgb (12.0-16.0) g/dL Hct (36-46) % MCV (80-100) fL MCH (26-34) PG MCHC (30-36) % RDW (11.6-14.8) % Plt Count (150-400) X10^3/uL Neut % (Auto) (50-75) % Lymph % (Auto) (25-40) % [place] % (Auto) (3-14) % Eos % (Auto) (2-4) % Baso % (Auto) (0-2) % Neut # (Auto) (6005-2281) /uL Lymph # (Auto) (8718-7951) /uL [place] # (Auto) (0-900) /uL Eos # (Auto) (0-450) /uL Baso # (Auto) (0-100) /uL PT (10.1-12.7) SECONDS INR (0.9-1.3) D-Dimer (<230) ng/mL Sodium (137-145) mmol/L Potassium (3.4-5.1) mmol/L Chloride (98-107) mmol/L Carbon Dioxide (22-32) mmol/L BUN (7-17) mg/dL Creatinine (0.52-1.04) mg/dL Estimated GFR (>60) mL/min BUN/Creatinine Ratio (6-22) Glucose (70-100) mg/dL Calcium (8.4-10.2) mg/dL Total Bilirubin (0.2-1.3) mg/dL AST (14-36) IU/L ALT (9-52) IU/L Alkaline Phosphatase (38-126) U/L Total Creatine Kinase 61 (30-135) U/L CK-MB (CK-2) TNP CK-MB (CK-2) Rel Index TNP Troponin I < 0.012 (0.01-0.034) ng/mL Total Protein (6.3-8.2) g/dL Albumin (3.5-5.0) g/dL Globulin (1.7-4.1) g/dL Albumin/Globulin Ratio (1.0-2.8) Discharge Plan Departure Patient Disposition: Home Clinical Impression: Mass in chest, Hemoptysis Pneumonia Qualifiers: Pneumonia type: due to unspecified organism Laterality: right Lung location: upper lobe of lung Qualified Code(s): J18.1 - Lobar pneumonia, unspecified organism Discharge Date/Time: 06/10/19 20:56 Interventions: ED Discharge Assessment Last Done: 06/10/19 20:56 Instructions: DI for Pneumonia -- Adult, DI for Hemoptysis Activity Restrictions/Additional Instructions: You have been diagnosed with [right upper lobe to multi focal pneumonia and anterior mediastinal heterogeneously enhancing mass 6x5 cm, intermediate small hepatic hypodensities]. What to do: *Take your medications as directed- Levaquin 750 mg for next 6 more days. Initial dose has been given in ER for pneumonia. *Follow up with your primary care provider on Wednesday, call for an appointment. Let them know you were seen in the ED and that we asked you to be seen in follow up on further evaluation on a chest mass in her chest possibly with biopsy test, the pneumonia, and also for hepatic hypodensities shown in CAT scan. *Return to ED if you have any new, worsening, or concerning symptoms, such as [chest pain, difficulty breathing, dizziness, increasing blood in her mucus or any other acute concerns]. Prescriptions: New levofloxacin [Levaquin] 750 mg tablet 750 mg PO DAILY 6 Days RF: 0 No Action levothyroxine [Synthroid] 50 MCG tablet 50 mcg PO QDAY Qty: 0 RF: 0 ibuprofen [Advil] 200 MG tablet 600 mg PO TIDP PRNQty: 0 RF: 0 ESOMEPRAZOLE SODIUM (NEXIUM) 20 mg PO QDAY Qty: 0 RF: 0 Referrals: Claudia Simmons [Primary Care Provider] - <Ahsan Cano DO - Last Filed: 06/11/19 01:49> Cosign ED Attending Anthony Attestation: I was available for consultation during this patient's emergency department encounter
[2019-06-10 18:46] VITALS: BP 121/72; PULSE 57; RESP 18; O2SAT 95
--- NOTE | 2019-06-10 18:49 | DI.CT.S_ITS ---
PROCEDURE: CT ANGIO CHEST PE PROTOCOL INDICATIONS: coughing up blood, had chest pain, hx of PE TECHNIQUE: After the administration of intravenous contrast, 2 mm thick sections acquired from the pulmonary apices to the posterior costophrenic angles. 3-dimensional maximum intensity projection (MIP) coronal and sagittal reformats were then acquired through the thorax. For radiation dose reduction, the following was used: automated exposure control, adjustment of mA and/or kV according to patient size. COMPARISON: [facility], CR, XR CHEST 2V, 06/10/2019, 17:40. CT of cervical spine 11/19/2014. CXR 08/06/2013. FINDINGS: Image quality: Excellent. Pulmonary arteries: Pulmonary arteries are normal in size, and demonstrate no intraluminal filling defects to suggest central pulmonary embolism. Lungs and pleura: Small patches of groundglass opacity, (5/126, 85). No mass or pulmonary nodule. No pleural effusions or pneumothorax. Central and peripheral airways are patent. Mediastinum: Anterior mediastinal heterogeneously enhancing mass with small calcifications measuring 6 x 5 cm, (axial 4/65) and 6.4 cm in craniocaudal dimension, (6/26). The lesion does not appear to invade into adjacent structures. Heart size is normal, without pericardial effusion. No mediastinal or hilar adenopathy. Small mediastinal nodes. Thoracic aorta is normal in caliber and enhancement. No dissection. Esophagus is normal in caliber. Small hiatal hernia. Bones and chest wall: Chondroid appearing lesion in the left proximal humerus, (4/13) possibly an enchondroma. No aggressive appearing lesion. Thyroid gland is atrophic. Question of subcentimeter hypodense thyroid nodule on the right, (4/3). No axillary or supraclavicular adenopathy. Abdomen: Hypodense focus in the liver. For example: -Left lobe (4/167); Segment 4, (4/145); Segment 8, (4/133). Question of a subcentimeter hypodense lesion in the splenic hilum. Nodular thickening of the left adrenal gland, (4/150). No free fluid in the upper abdomen. IMPRESSION: 1. Mild groundglass opacities in the right upper lobe is suspicious for multifocal pneumonia. 2. No pulmonary embolism. 3. Newly identified anterior mediastinal heterogeneously enhancing mass measuring 6 cm. Primary diagnostic considerations include teratoma and lymphoma. 4. Indeterminate small hepatic hypodensities. Liver MRI or multiphase liver CT could be considered for further evaluation. Comment: Findings were discussed with WISAM Tello at the time of dictation. Dictated by: Hasrhal Doll M.D. on 06/10/2019 at 19:38 Approved by: Harshal Doll M.D. on 06/10/2019 at 20:05
[2019-06-10 19:00] LABS: INR 0.9 (0.9-1.3); Prothrombin Time 10.7 SECONDS (10.1-12.7)
[2019-06-10 19:03] LABS: Creatine Kinase 61 U/L (30-135); D Dimer 337 ng/mL (<230)
[2019-06-10 19:16] LABS: Troponin I < 0.012 ng/mL (0.01-0.034)
[2019-06-10] MEDS: levoFLOXacin 250 MG TABLET 750 MG PO (20:38)
[2019-06-10 20:45] VITALS: BP 138/80; PULSE 52; RESP 16; O2SAT 100
== END 2019-06-10 20:56 | disposition home or self-care (01) ==
PROVIDERS: Emergency Medicine; Emergency Provider Nurse Practitioner Family; Family Provider Internal Medicine; PCP Internal Medicine
DX: R04.2 Hemoptysis (principal); R22.2 Localized swelling, mass and lump, trunk; J18.9 Pneumonia, unspecified organism; Z86.711 Personal history of pulmonary embolism
CPT/HCPCS: 36415; 71046; 71275; 80053; 82550; 84484; 85025; 85379; 85610; 99282; 99284; Q9967

== ENCOUNTER 2019-06-30 19:49 | Emergency (ER) | payer OTHER, MEDICAID, SELFPAY ==
--- NOTE | 2019-06-30 19:50 | DI.RAD.S_ITS ---
PROCEDURE: XR CHEST 2V INDICATIONS: sob/ recent chest biopsyh TECHNIQUE: 2 views of the chest were acquired. COMPARISON: [facility], CR, XR CHEST 2V, 06/10/2019, 17:40. [facility], CR, XR CHEST 1V, 06/08/2019, 4:55. FINDINGS: Surgical changes and devices: None. Lungs and pleura: Lungs are abnormal with a chronic interstitial prominence and large lung volumes bilaterally with relative flattening of the hemidiaphragms. No pleural effusions or pneumothorax. Mediastinum: Mediastinal contours are abnormal with prominence of the central pulmonary arteries bilaterally potentially a manifestation of central pulmonary artery hypertension in the setting of COPD. Please correlate clinically. Heart size is normal. Bones and chest wall: No suspicious bony abnormalities. Soft tissues appear unremarkable. IMPRESSION: Suspect COPD, central pulmonary arteries relatively prominent possibly related to central pulmonary artery hypertension. Dictated by: Antonio Anderson M.D. on 06/30/2019 at 20:02 Approved by: Antonio Anderson M.D. on 06/30/2019 at 20:03
[2019-06-30 20:06] LABS: Add Manual Diff / Slide Review NO; Basophils Absolute Auto 100 /uL (0-100); Basophils Percent Auto 0.8 % (0-2); Eosinophils Absolute Auto 200 /uL (0-450); Hematocrit 43.3 % (36-46); Hemoglobin 14.9 g/dL (12.0-16.0); Lymphocytes Absolute Auto 3800 /uL (1100-4500); Mean Corpuscular HGB Conc 34.3 % (30-36); Mean Corpuscular Hemoglobin 33.4 PG (26-34); Mean Corpuscular Volume 97.2 fL (80-100); Monocytes Absolute Auto 700 /uL (0-900); Monocytes Percent Auto 9.7 % (3-14); Neutrophils Absolute Auto 2600 /uL (1500-7000); Neutrophils Percent Auto 35.5 % (50-75); Platelet Count 209 X10^3/uL (150-400); Red Blood Cell Count 4.45 X10^6/uL (4.0-5.2); Red Cell Distribution Width 13.6 % (11.6-14.8); White Blood Cell Count 7.5 X10^3/uL (4.5-11.0)
[2019-06-30 20:08] VITALS: BP 116/60; PULSE 57; RESP 20; O2SAT 96
[2019-06-30 20:10] VITALS: BP 116/60; PULSE 55; RESP 15
[2019-06-30 20:20] LABS: INR 0.9 (0.9-1.3); Prothrombin Time 10.4 SECONDS (10.1-12.7)
[2019-06-30 20:23] LABS: Alanine Aminotransferase 33 IU/L (9-52); Albumin 4.1 g/dL (3.5-5.0); Albumin Globulin Ratio 1.2 (1.0-2.8); Alkaline Phosphatase 100 U/L (38-126); Aspartate Aminotransferase 33 IU/L (14-36); BUN Creatinine Ratio 12.5 (6-22); Bilirubin Total 0.4 mg/dL (0.2-1.3); Blood Urea Nitrogen 10 mg/dL (7-17); Calcium 8.7 mg/dL (8.4-10.2); Carbon Dioxide 25 mmol/L (22-32); Chloride 108 mmol/L (98-107); D Dimer 506 ng/mL (<230); Estimated Glomerular Filt Rate > 60.0 mL/min (>60); Globulin 3.4 g/dL (1.7-4.1); Glucose 105 mg/dL (70-100); HEMOLYSIS 25 (0-50); Potassium 4.3 mmol/L (3.4-5.1); Sodium 141 mmol/L (137-145); Total Protein 7.5 g/dL (6.3-8.2)
[2019-06-30 20:27] VITALS: PULSE 58; RESP 18
[2019-06-30 20:35] VITALS: BP 100/56; PULSE 60; RESP 18; O2SAT 98
--- NOTE | 2019-06-30 20:39 | ED.SOB ---
HPI - SOB/Dyspnea General Chief Complaint: Shortness of Breath/Dyspnea Stated Complaint: Chest pain, SOB Time Seen by Provider: 06/30/19 19:55 Source: patient Mode of arrival: ambulatory Limitations: no limitations History of Present Illness The patient was seen here last month due to dyspnea. She was thought to have pneumonia, a left mediastinal mass was noted. she has a 40 pack-year smoking history, she does not smoke at this time. She was seen at [facility] and [place], [place] yesterday. A needle biopsy of the mass was performed yesterday. When she was seen here last month she came in due to dyspnea. She a developed dyspnea again today, worse than before. She has no associated chest pain or productive cough. She has no fever or chills. she denies headache, sore throat or sinus drainage. she has no history of cardiac or respiratory disease. She does take medications for hypertension, GERD and hypothyroidism. She has no prior history of angina type pain, she has never undergone cardiac testing. She does have a prior history of PE, he has no hemoptysis or leg pain. Related Data Home Medications Medication Instructions Recorded Confirmed ibuprofen [Advil] 600 mg PO TIDP PRN #0 08/06/13 06/30/19 levothyroxine 75 mcg PO DAILY 06/30/19 06/30/19 metoprolol tartrate 25 mg PO BID 06/30/19 06/30/19 omeprazole 20 mg PO DAILY 06/30/19 06/30/19 Allergies Allergy/AdvReac Type Severity Reaction Status Date / Time butalbital [From Fiorinal] Allergy Unknown Verified 06/30/19 20:22 RED PEPPER Allergy Unknown Uncoded 04/20/19 17:06 Review of Systems Review of Systems ROS Unobtainable: All systems reviewed & are unremarkable except as noted in HPI and below Constitutional Denies chills, Denies fever(s), Denies lethargy and Denies weakness ENT Ears, Nose, Mouth, and Throat: Denies change in voice, Denies vertigo, Denies dizziness, Denies neck pain and Denies sore throat Cardiovascular Denies chest pain, Denies lightheadedness, Denies palpitations, Reports dyspnea and Denies orthopnea Respiratory Denies change in phlegm color, Denies chest congestion, Denies cough, Denies hemoptysis, Denies pain with cough, Reports dyspnea, Denies stridor and Denies wheezing Gastrointestinal Gastrointestinal: Denies abdominal pain, Denies nausea and Denies vomiting Musculoskeletal Denies back pain and Denies neck pain Integumentary/Breasts Denies erythema and Denies rash Neurologic Denies confusion, Denies vertigo, Denies dizziness and Denies weakness Psychiatric Denies confusion Endocrine Denies palpitations Allergic/Immunologic Denies wheezing [facility] Medical History Hypertension (Acute) Cash's esophagus (Chronic) GERD (gastroesophageal reflux disease) (Chronic) Hypothyroidism (Chronic) PVCs (premature ventricular contractions) (Chronic) Personal history of PE (pulmonary embolism) (Resolved) Surgical History Status post hysterectomy (Resolved) Status post thyroidectomy (Resolved) Social History Smoking Status: Former smoker Social History Smoking Status: Former smoker Exam Initial Vital Signs Initial Vital Signs: Vital Signs Pulse Rate 57 L 06/30/19 20:08 Respiratory Rate 20 06/30/19 20:08 Blood Pressure 116/60 06/30/19 20:08 Pulse Oximetry 96 06/30/19 20:08 Const General: cooperative and well developed Nutritional Appearance: well nourished Orientation: alert, awake and oriented x3 HENMT Head: normocephalic and atraumatic Face and sinus: sinuses nontender and face symmetric Mouth: moist mucous membranes Throat: tonsils normal Eyes Conjunctivae: conjunctivae normal Sclera: sclerae normal Neck Neck: No lymphadenopathy and No JVD Chest Chest: normal inspection of the chest Resp Other: Decreased breath sounds in left upper lung with wheezing. No rales. Cardio Rate: regular rate Rhythm: regular rhythm Heart Sounds: no click, no gallops, no murmurs and no rubs Pulses: normal peripheral pulses GI Inspection: non-distended Palpation: soft, no hepatosplenomegaly, No guarding and No tender Auscultation: normal bowel sounds Back/Spine/Pelvis Back: No CVA tenderness Skin General: no rashes or lesions noted Neuro General: alert, oriented x3, gait normal and no focal motor deficits Extrem General: no pedal edema and no calf tenderness Psych Appearance: well kempt Mental Status: mental status grossly normal Attitude: cooperative Thought Content: normal Judgment: judgment good Course Course Narrative: The patient is a former smoker. She was recently diagnosed with a left mediastinal mass, and underwent biopsy yesterday. She returns to dyspnea. Initial exam revealed decreased breath sounds with wheezes in the left lung, no absence of breath sounds. dyspnea was relieved with a DuoNeb. Her lungs are clear to clear to auscultation. CXR did not reveal any evidence no of pneumothorax, but is consistent with COPD. She will be discharged on albuterol. Orders Ordered: ED Orders 06/30/19 19:45 Complete Blood Count AUTO DIFF Stat Comprehensive Metabolic Panel Stat D Dimer Stat Prothrombin Time INR Stat 06/30/19 19:50 XR chest 2V Stat 06/30/19 19:55 EKG-12 Lead Stat RT Consult Eval and Treat Now 06/30/19 20:10 Lactate (Lactic Acid) Stat 06/30/19 21:35 Troponin & CK Cardiac Panel Stat Discontinued Medications Albuterol (Ventolin) 2.5 mg INH NOW ONE Stop: 06/30/19 20:21 Last Admin: 06/30/19 21:03 Dose: Not Given Albuterol (Ventolin Hfa Prepack) 1 box MISC SEEINSTR ONE Stop: 06/30/19 20:48 Last Admin: 06/30/19 20:51 Dose: 1 box Albuterol (Ventolin Hfa Prepack) 1 box MISC SEEINSTR ONE Stop: 06/30/19 20:49 Last Admin: 06/30/19 21:04 Dose: Not Given Vital Signs - 8 hr 06/30/19 20:08 06/30/19 20:10 06/30/19 20:27 Pulse Rate 57 L 55 L 58 L Respiratory Rate 20 15 18 Blood Pressure 116/60 Blood Pressure [Left Arm] 116/60 Pulse Oximetry 96 06/30/19 20:35 06/30/19 21:55 Pulse Rate 60 60 Respiratory Rate 18 15 Blood Pressure Blood Pressure [Left Arm] 100/56 L 108/52 L Pulse Oximetry 98 96 MDM - SOB/Dyspnea Lab Data Result diagrams: 06/30/19 19:45 06/30/19 19:45 Lab Results 06/30/19 06/30/19 06/30/19 Range/Units 19:45 19:45 19:45 WBC 7.5 (4.5-11.0) X10^3/uL RBC 4.45 (4.0-5.2) X10^6/uL Hgb 14.9 (12.0-16.0) g/dL Hct 43.3 (36-46) % MCV 97.2 (80-100) fL MCH 33.4 (26-34) PG MCHC 34.3 (30-36) % RDW 13.6 (11.6-14.8) % Plt Count 209 (150-400) X10^3/uL Neut % (Auto) 35.5 L (50-75) % Lymph % (Auto) 51.0 H (25-40) % [place] % (Auto) 9.7 (3-14) % Eos % (Auto) 3.0 (2-4) % Baso % (Auto) 0.8 (0-2) % Neut # (Auto) 2600 (5775-0186) /uL Lymph # (Auto) 3800 (1327-2056) /uL [place] # (Auto) 700 (0-900) /uL Eos # (Auto) 200 (0-450) /uL Baso # (Auto) 100 (0-100) /uL PT 10.4 (10.1-12.7) SECONDS INR 0.9 (0.9-1.3) D-Dimer 506 H (<230) ng/mL Sodium 141 (137-145) mmol/L Potassium 4.3 (3.4-5.1) mmol/L Chloride 108 H (98-107) mmol/L Carbon Dioxide 25 (22-32) mmol/L BUN 10 (7-17) mg/dL Creatinine 0.80 (0.52-1.04) mg/dL Estimated GFR > 60.0 (>60) mL/min BUN/Creatinine Ratio 12.5 (6-22) Glucose 105 H (70-100) mg/dL Lactate (0.7-2.1) mmol/L Calcium 8.7 (8.4-10.2) mg/dL Total Bilirubin 0.4 (0.2-1.3) mg/dL AST 33 (14-36) IU/L ALT 33 (9-52) IU/L Alkaline Phosphatase 100 (38-126) U/L Total Creatine Kinase (30-135) U/L CK-MB (CK-2) CK-MB (CK-2) Rel Index Troponin I (0.01-0.034) ng/mL Total Protein 7.5 (6.3-8.2) g/dL Albumin 4.1 (3.5-5.0) g/dL Globulin 3.4 (1.7-4.1) g/dL Albumin/Globulin Ratio 1.2 (1.0-2.8) 06/30/19 06/30/19 Range/Units 20:10 21:35 WBC (4.5-11.0) X10^3/uL RBC (4.0-5.2) X10^6/uL Hgb (12.0-16.0) g/dL Hct (36-46) % MCV (80-100) fL MCH (26-34) PG MCHC (30-36) % RDW (11.6-14.8) % Plt Count (150-400) X10^3/uL Neut % (Auto) (50-75) % Lymph % (Auto) (25-40) % [place] % (Auto) (3-14) % Eos % (Auto) (2-4) % Baso % (Auto) (0-2) % Neut # (Auto) (2753-6525) /uL Lymph # (Auto) (2237-7633) /uL [place] # (Auto) (0-900) /uL Eos # (Auto) (0-450) /uL Baso # (Auto) (0-100) /uL PT (10.1-12.7) SECONDS INR (0.9-1.3) D-Dimer (<230) ng/mL Sodium (137-145) mmol/L Potassium (3.4-5.1) mmol/L Chloride (98-107) mmol/L Carbon Dioxide (22-32) mmol/L BUN (7-17) mg/dL Creatinine (0.52-1.04) mg/dL Estimated GFR (>60) mL/min BUN/Creatinine Ratio (6-22) Glucose (70-100) mg/dL Lactate 1.4 (0.7-2.1) mmol/L Calcium (8.4-10.2) mg/dL Total Bilirubin (0.2-1.3) mg/dL AST (14-36) IU/L ALT (9-52) IU/L Alkaline Phosphatase (38-126) U/L Total Creatine Kinase 93 (30-135) U/L CK-MB (CK-2) TNP CK-MB (CK-2) Rel Index TNP Troponin I < 0.012 (0.01-0.034) ng/mL Total Protein (6.3-8.2) g/dL Albumin (3.5-5.0) g/dL Globulin (1.7-4.1) g/dL Albumin/Globulin Ratio (1.0-2.8) Imaging Data Chest x-ray: Radiologist's impression: COPD with evidence of pulmonary hypertension. Discharge Plan Departure Patient Disposition: Home Clinical Impression: COPD (chronic obstructive pulmonary disease) Discharge Date/Time: 06/30/19 22:43 Instructions: Chronic Obstructive Pulmonary Disease Activity Restrictions/Additional Instructions: Use the Albuterol inhaler 2 puffs every 4 hours as needed for cough or difficulty breathing. Follow-up with her doctor in 1-2 weeks to recheck her breathing. Return here if symptoms escalate. Prescriptions: No Action ibuprofen [Advil] 200 MG tablet 600 mg PO TIDP PRN (Reason: Pain (Scale Score 4-6)) Qty: 0 RF: 0 levothyroxine 75 mcg tablet 75 mcg PO DAILY RF: 0 omeprazole 20 mg capsule,delayed release(DR/EC) 20 mg PO DAILY RF: 0 metoprolol tartrate 25 mg tablet 25 mg PO BID RF: 0 Referrals: Claudia Simmons [Primary Care Provider] -
[2019-06-30] MEDS: ALBUTEROL 2.5 MG/3 ML NEB (ADULT) INH (20:50)
[2019-06-30] MEDS: ALBUTEROL HFA PREPACK 1 BOX MISC (20:51)
[2019-06-30 20:53] LABS: Lactate (Lactic Acid) 1.4 mmol/L (0.7-2.1)
[2019-06-30 21:47] LABS: Creatine Kinase 93 U/L (30-135)
[2019-06-30 21:55] VITALS: BP 108/52; PULSE 60; RESP 15; O2SAT 96
[2019-06-30 22:00] LABS: Troponin I < 0.012 ng/mL (0.01-0.034)
== END 2019-06-30 22:43 | disposition home or self-care (01) ==
PROVIDERS: Emergency Provider Emergency Medicine; Family Provider Internal Medicine; PCP Internal Medicine
DX: J44.9 Chronic obstructive pulmonary disease, unspecified (principal)
CPT/HCPCS: 36415; 36591; 71046; 80053; 82550; 83605; 84484; 85025; 85379; 85610; 93005; 93010; 94640; 99283; 99285; J7613

== ENCOUNTER 2019-07-02 15:54 | Emergency (ER) | payer OTHER, MEDICAID, SELFPAY ==
[2019-07-02 16:00] VITALS: BP 116/64; PULSE 66; RESP 17; TEMP 36.6; O2SAT 96; BMI 26.6
[2019-07-02 16:09] VITALS: PULSE 67; RESP 16; O2SAT 97
[2019-07-02] MEDS: ALBUTEROL/IPRATROPIUM 3 ML AMPUL INH (16:09)
--- NOTE | 2019-07-02 16:39 | DI.RAD.S_ITS ---
PROCEDURE: XR CHEST 2V INDICATIONS: shortness of breath TECHNIQUE: 2 views of the chest were acquired. COMPARISON: [facility], CR, XR CHEST 1V, 04/20/2019, 17:15. [facility], CT, C-SPINE WITHOUT CONTRAST, 11/19/2014, 15:17. [facility], US, ABDOMEN COMPLETE, 07/12/2014, 16:50. [facility], CR, CHEST 2 VIEW, 08/06/2013, 12:28. [facility], CR, XR CHEST 1V, 06/08/2019, 4:55. [facility], CR, XR CHEST 2V, 06/10/2019, 17:40. [facility], CT, CT ANGIO CHEST PE PROTOCOL, 06/10/2019, 18:58. [facility], CR, XR CHEST 2V, 06/30/2019, 19:48. FINDINGS: Surgical changes and devices: None. Lungs and pleura: Lungs are clear. No pleural effusions or pneumothorax. Mediastinum: The cardiac contours are within normal limits. The aorta demonstrates calcification and tortuosity. There is partial visualization of this patient's known left mediastinal mass. Bones and chest wall: No suspicious bony abnormalities. Age-appropriate bony degenerative changes are seen. There is a chondroid matrix lesion seen within the left humeral head, which is unchanged compared to 2013. Soft tissues appear unremarkable. IMPRESSION: No acute cardiopulmonary process is seen. The patient's known left mediastinal mass is partially seen on the study, which is much better seen on the recent prior CT. 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 Dictated by: Rayray Szymanski M.D. on 07/02/2019 at 16:00 Approved by: Rayray Szymanski M.D. on 07/02/2019 at 16:02
--- NOTE | 2019-07-02 16:44 | PC.NURSE ---
IV started but very painful and it was pulled prior to any blood draw due to pts reaction of severe pain
[2019-07-02 17:14] LABS: Add Manual Diff / Slide Review NO; Basophils Absolute Auto 100 /uL (0-100); Basophils Percent Auto 1.9 % (0-2); Eosinophils Absolute Auto 200 /uL (0-450); Eosinophils Percent Auto 2.9 % (2-4); Hematocrit 42.9 % (36-46); Hemoglobin 14.5 g/dL (12.0-16.0); Lymphocytes Absolute Auto 2500 /uL (1100-4500); Lymphocytes Percent Auto 46.2 % (25-40); Mean Corpuscular HGB Conc 33.9 % (30-36); Mean Corpuscular Hemoglobin 32.9 PG (26-34); Mean Corpuscular Volume 97.2 fL (80-100); Monocytes Absolute Auto 700 /uL (0-900); Neutrophils Absolute Auto 2000 /uL (1500-7000); Platelet Count 210 X10^3/uL (150-400); Red Blood Cell Count 4.42 X10^6/uL (4.0-5.2); Red Cell Distribution Width 13.3 % (11.6-14.8); White Blood Cell Count 5.5 X10^3/uL (4.5-11.0)
[2019-07-02 17:20] LABS: INR 0.9 (0.9-1.3); Prothrombin Time 10.7 SECONDS (10.1-12.7)
[2019-07-02 17:26] LABS: Alanine Aminotransferase 31 IU/L (9-52); Albumin 4.2 g/dL (3.5-5.0); Albumin Globulin Ratio 1.2 (1.0-2.8); Alkaline Phosphatase 102 U/L (38-126); Amylase 93 U/L (30-110); Aspartate Aminotransferase 31 IU/L (14-36); Bilirubin Total 0.4 mg/dL (0.2-1.3); Blood Urea Nitrogen 12 mg/dL (7-17); Calcium 8.8 mg/dL (8.4-10.2); Carbon Dioxide 24 mmol/L (22-32); Chloride 108 mmol/L (98-107); Creatine Kinase 71 U/L (30-135); Estimated Glomerular Filt Rate > 60.0 mL/min (>60); Globulin 3.6 g/dL (1.7-4.1); Glucose 95 mg/dL (70-100); HEMOLYSIS 16 (0-50); Lipase 155 U/L (23-300); Potassium 4.1 mmol/L (3.4-5.1); Sodium 140 mmol/L (137-145); Total Protein 7.8 g/dL (6.3-8.2)
--- NOTE | 2019-07-02 17:32 | DI.CT.S_ITS ---
PROCEDURE: CT ANGIO CHEST PE PROTOCOL INDICATIONS: sob, hx pe, chest mass TECHNIQUE: After the administration of intravenous contrast, 2 mm thick sections acquired from the pulmonary apices to the posterior costophrenic angles. 3-dimensional maximum intensity projection (MIP) coronal and sagittal reformats were then acquired through the thorax. For radiation dose reduction, the following was used: automated exposure control, adjustment of mA and/or kV according to patient size. COMPARISON: [facility], CT, CT ANGIO CHEST PE PROTOCOL, 06/10/2019, 18:58. FINDINGS: Image quality: Excellent. Pulmonary arteries: Pulmonary arteries are normal in size, and demonstrate no intraluminal filling defects to suggest central pulmonary embolism. Lungs and pleura: Lungs are improved, with resolution of several patchy areas of subtle solid radiodensity, and no discrete malignant appearing lung mass is found. No pleural effusions or pneumothorax. Central and peripheral airways are patent. Mediastinum: Heart size is normal, without pericardial effusion. No mediastinal or hilar adenopathy. The heterogeneously enhancing solid mass at the anterior mediastinum centered at and to the left of midline is slightly enlarged, from 06/10/19. This mass had measured 6.0 cm transverse and 4.1 cm AP and now measures 6.4 x 4.5 cm in the same areas. No malignant appearing adenopathy has L. Thoracic aorta is normal in caliber and enhancement. Esophagus is normal in caliber, without hiatal hernia. Bones and chest wall: No suspicious bony lesions. Ribs and thoracic spine appear intact throughout. Thyroid gland appears normal where well visualized. No axillary or supraclavicular adenopathy. Abdomen: Visualized upper abdominal solid organs appear normal in the early arterial phase of enhancement. IMPRESSION: Slight interval enlargement in size of a heterogeneous partially calcified mass in the anterior mediastinum which reportedly was recently biopsied. No central necrosis is associated. In addition to the potential etiologies previously reported 06/10/19 thymoma and thymic carcinoma should be considered. Several areas of solid focal radiodensities were present within the lung parenchyma on the prior study and these have resolved. No pulmonary metastatic disease is found. The prior CT also that raise concern for several relatively subtle small areas of increased radiodensity within the liver parenchyma medial hepatic segment, seen previously on series 4 image 145 and currently visible faintly on series 4 image 129.. Dictated by: Antonio Anderson M.D. on 07/02/2019 at 18:47 Approved by: Antonio Anderson M.D. on 07/02/2019 at 19:00
[2019-07-02 17:37] LABS: Troponin I < 0.012 ng/mL (0.01-0.034)
[2019-07-02] MEDS: methylPREDNISolone 125 MG/2 ML VIAL IV (17:38)
[2019-07-02 17:39] VITALS: BP 122/69; PULSE 61; RESP 14; O2SAT 100
[2019-07-02 18:30] VITALS: BP 127/73; PULSE 56; RESP 15; O2SAT 98
--- NOTE | 2019-07-02 18:40 | ED_ITS ---
HPI - URI/Sore Throat <ROBSON Rodriguez - Last Filed: 07/02/19 19:56> General Chief Complaint: Upper Respiratory Symptoms Stated Complaint: trouble breathing, medications not helping Time Seen by Provider: 07/02/19 16:15 Source: patient and family Mode of arrival: ambulatory Limitations: no limitations History of Present Illness HPI Narrative: The patient is a 59-year-old female former smoker with a 40 pack year history who presents with a chief complaint of shortness of breath. She presents with her friend, and was here 2 days ago. She was treated for COPD exacerbation and given an inhaler for the patient. The patient states that she has history of a pulmonary embolism, as well as a recent mediastinal mass. She states that this has been biopsied in the past week. Her albuterol inhaler twice. She states that she is breathing hard enough that she has pressure in her chest. She does not know the results of her mediastinal mass of biopsy at this point time. She denies any nausea vomiting or diarrhea. Related Data Home Medications Medication Instructions Recorded Confirmed ibuprofen [Advil] 600 mg PO TIDP PRN #0 08/06/13 06/30/19 levothyroxine 75 mcg PO DAILY 06/30/19 06/30/19 metoprolol tartrate 25 mg PO BID 06/30/19 06/30/19 omeprazole 20 mg PO DAILY 06/30/19 06/30/19 Previous Rx's Medication Instructions Recorded doxycycline hyclate 100 mg PO BID #20 cap 07/02/19 prednisone 50 mg PO DAILY #5 tab 07/02/19 Allergies Allergy/AdvReac Type Severity Reaction Status Date / Time butalbital [From Fiorinal] Allergy Unknown Verified 07/02/19 16:04 RED PEPPER Allergy Unknown Uncoded 07/02/19 16:04 Review of Systems <ROBSON Rodriguez - Last Filed: 07/02/19 19:56> Review of Systems GENERAL: Denies chills, fatigue, malaise, fever, sweats. HEENT: Denies sinus pain, ear pain, sore throat, difficulty swallowing, diz ziness. RESPIRATORY: See HPI CARDIOVASCULAR: Denies chest pain, palpitations, orthopnea, edema, GASTROINTESTINAL: Denies nausea, vomiting, abdominal pain, diarrhea, constipation, melena. : Denies dysuria, frequency, incontinence, hematuria, urinary retention. MUSCULOSKELETAL: denies weakness, joint pain, or bony pain SKIN: Denies rash, skin lesions, or other NEUROLOGIC: Denies weakness, headache, numbness, change in speech, confusion, seizures, incoordination. PSYCHIATRIC: No concerning psychosocial issues. 12 point review of systems is negative except for those stated above PFSH <ROBSON Rodriguez - Last Filed: 07/02/19 19:56> Medical History Hypertension (Acute) Cash's esophagus (Chronic) GERD (gastroesophageal reflux disease) (Chronic) Hypothyroidism (Chronic) PVCs (premature ventricular contractions) (Chronic) Personal history of PE (pulmonary embolism) (Resolved) Surgical History Status post hysterectomy (Resolved) Status post thyroidectomy (Resolved) Social History Smoking Status: Former smoker Social History Smoking Status: Former smoker Exam <ROBSON Rodriguez - Last Filed: 07/02/19 19:56> Narrative Exam Narrative: GENERAL: This is a well-nourished, well-developed patient, appears uncomfortable HEAD: Atraumatic. Normocephalic. No temporal or scalp tenderness. EYES: Pupils equal round and reactive. Extraocular motions intact. No scleral icterus. No injection or drainage. ENT: Nose without bleeding, purulent drainage or septal hematoma. Throat without erythema, tonsillar hypertrophy or exudate. Uvula midline. Airway patent. NECK: Trachea midline. No JVD or lymphadenopathy. Supple, nontender, no meningeal signs. CARDIOVASCULAR: Regular rate and rhythm RESPIRATORY: Diminished and coarse to auscultation. Breath sounds equal bilate rally. Occasional expiratory wheeze bilaterally. No rales or rhonchi noted. Cough noted. No accessory muscle use, retractions or stridor GASTROINTESTINAL: Abdomen soft, non-tender, nondistended. No hepato- splenomegaly, or palpable masses. No guarding. EXTREMITIES: No clubbing, cyanosis, or edema. No joint tenderness, effusion, or edema noted. BACK: Nontender without deformity or crepitance. No flank tenderness. NEURO: AOx3. SKIN: Small area of ecchymosis noted on chest at site of biopsy Initial Vital Signs Initial Vital Signs: Vital Signs Temperature 97.9 F 07/02/19 16:00 Pulse Rate 66 07/02/19 16:00 Respiratory Rate 17 07/02/19 16:00 Blood Pressure 116/64 07/02/19 16:00 Pulse Oximetry 96 07/02/19 16:00 <Anna Marie Arora DO - Last Filed: 07/03/19 07:47> Initial Vital Signs Initial Vital Signs: Vital Signs Temperature 97.9 F 07/02/19 16:00 Pulse Rate 66 07/02/19 16:00 Respiratory Rate 17 07/02/19 16:00 Blood Pressure 116/64 07/02/19 16:00 Pulse Oximetry 96 07/02/19 16:00 Course <LITA RodriguezBC - Last Filed: 07/02/19 19:56> Orders Ordered: Discontinued Medications Albuterol/Ipratropium (Duoneb) 3 ml INH NOW ONE Stop: 07/02/19 16:06 Last Admin: 07/02/19 16:09 Dose: 3 ml Doxycycline Hyclate (Vibramycin) 100 mg PO NOW ONE Stop: 07/02/19 19:25 Last Admin: 07/02/19 19:34 Dose: 100 mg Methylprednisolone (Solu-Medrol 125 Mg Vial) 125 mg IV NOW ONE Stop: 07/02/19 17:33 Last Admin: 07/02/19 17:38 Dose: 125 mg Vital Signs - 8 hr 07/02/19 16:00 07/02/19 16:09 07/02/19 17:39 Temperature 97.9 F Pulse Rate 66 67 61 Respiratory Rate 17 16 14 Blood Pressure 116/64 Blood Pressure [Right Arm] 122/69 Pulse Oximetry 96 97 100 07/02/19 18:30 07/02/19 19:39 Temperature Pulse Rate 56 L 62 Respiratory Rate 15 14 Blood Pressure Blood Pressure [Right Arm] 127/73 122/70 Pulse Oximetry 98 99 <Anna Marie Arora DO - Last Filed: 07/03/19 07:47> Orders Ordered: Discontinued Medications Albuterol/Ipratropium (Duoneb) 3 ml INH NOW ONE Stop: 07/02/19 16:06 Last Admin: 07/02/19 16:09 Dose: 3 ml Doxycycline Hyclate (Vibramycin) 100 mg PO NOW ONE Stop: 07/02/19 19:25 Last Admin: 07/02/19 19:34 Dose: 100 mg Methylprednisolone (Solu-Medrol 125 Mg Vial) 125 mg IV NOW ONE Stop: 07/02/19 17:33 Last Admin: 07/02/19 17:38 Dose: 125 mg Vital Signs - 8 hr 07/02/19 16:00 07/02/19 16:09 07/02/19 17:39 Temperature 97.9 F Pulse Rate 66 67 61 Respiratory Rate 17 16 14 Blood Pressure 116/64 Blood Pressure [Right Arm] 122/69 Pulse Oximetry 96 97 100 07/02/19 18:30 07/02/19 19:39 Temperature Pulse Rate 56 L 62 Respiratory Rate 15 14 Blood Pressure Blood Pressure [Right Arm] 127/73 122/70 Pulse Oximetry 98 99 MDM - URI/Sore Throat <HIRAM Rodriguez- - Last Filed: 07/02/19 19:56> Lab Data Result diagrams: 07/02/19 17:11 07/02/19 17:11 Lab Results 07/02/19 07/02/19 07/02/19 Range/Units 17:11 17:11 17:11 WBC 5.5 (4.5-11.0) X10^3/uL RBC 4.42 (4.0-5.2) X10^6/uL Hgb 14.5 (12.0-16.0) g/dL Hct 42.9 (36-46) % MCV 97.2 (80-100) fL MCH 32.9 (26-34) PG MCHC 33.9 (30-36) % RDW 13.3 (11.6-14.8) % Plt Count 210 (150-400) X10^3/uL Neut % (Auto) 36.0 L (50-75) % Lymph % (Auto) 46.2 H (25-40) % [place] % (Auto) 13.0 (3-14) % Eos % (Auto) 2.9 (2-4) % Baso % (Auto) 1.9 (0-2) % Neut # (Auto) 2000 (6240-7840) /uL Lymph # (Auto) 2500 (2778-3789) /uL [place] # (Auto) 700 (0-900) /uL Eos # (Auto) 200 (0-450) /uL Baso # (Auto) 100 (0-100) /uL PT 10.7 (10.1-12.7) SECONDS INR 0.9 (0.9-1.3) Sodium 140 (137-145) mmol/L Potassium 4.1 (3.4-5.1) mmol/L Chloride 108 H (98-107) mmol/L Carbon Dioxide 24 (22-32) mmol/L BUN 12 (7-17) mg/dL Creatinine 0.60 (0.52-1.04) mg/dL Estimated GFR > 60.0 (>60) mL/min BUN/Creatinine Ratio 20.0 (6-22) Glucose 95 (70-100) mg/dL Calcium 8.8 (8.4-10.2) mg/dL Total Bilirubin 0.4 (0.2-1.3) mg/dL AST 31 (14-36) IU/L ALT 31 (9-52) IU/L Alkaline Phosphatase 102 (38-126) U/L Total Creatine Kinase 71 (30-135) U/L CK-MB (CK-2) TNP CK-MB (CK-2) Rel Index TNP Troponin I < 0.012 (0.01-0.034) ng/mL B-Natriuretic Peptide (<100) Total Protein 7.8 (6.3-8.2) g/dL Albumin 4.2 (3.5-5.0) g/dL Globulin 3.6 (1.7-4.1) g/dL Albumin/Globulin Ratio 1.2 (1.0-2.8) Amylase 93 (30-110) U/L Lipase 155 (23-300) U/L 07/02/19 Range/Units 18:49 WBC (4.5-11.0) X10^3/uL RBC (4.0-5.2) X10^6/uL Hgb (12.0-16.0) g/dL Hct (36-46) % MCV (80-100) fL MCH (26-34) PG MCHC (30-36) % RDW (11.6-14.8) % Plt Count (150-400) X10^3/uL Neut % (Auto) (50-75) % Lymph % (Auto) (25-40) % [place] % (Auto) (3-14) % Eos % (Auto) (2-4) % Baso % (Auto) (0-2) % Neut # (Auto) (3513-3701) /uL Lymph # (Auto) (7740-3719) /uL [place] # (Auto) (0-900) /uL Eos # (Auto) (0-450) /uL Baso # (Auto) (0-100) /uL PT (10.1-12.7) SECONDS INR (0.9-1.3) Sodium (137-145) mmol/L Potassium (3.4-5.1) mmol/L Chloride (98-107) mmol/L Carbon Dioxide (22-32) mmol/L BUN (7-17) mg/dL Creatinine (0.52-1.04) mg/dL Estimated GFR (>60) mL/min BUN/Creatinine Ratio (6-22) Glucose (70-100) mg/dL Calcium (8.4-10.2) mg/dL Total Bilirubin (0.2-1.3) mg/dL AST (14-36) IU/L ALT (9-52) IU/L Alkaline Phosphatase (38-126) U/L Total Creatine Kinase (30-135) U/L CK-MB (CK-2) CK-MB (CK-2) Rel Index Troponin I (0.01-0.034) ng/mL B-Natriuretic Peptide < 100 (<100) Total Protein (6.3-8.2) g/dL Albumin (3.5-5.0) g/dL Globulin (1.7-4.1) g/dL Albumin/Globulin Ratio (1.0-2.8) Amylase (30-110) U/L Lipase (23-300) U/L Urine Dip Bedside Urine Glucose Negative Bedside Urine Bilirubin - Negative Bedside Urine Ketone + 15 Urine Specific [place] 1.005 Bedside Urine Occult Blood - Negative Bedside Urine pH 7.0 Bedside Urine Protein +/- 15 Bedside Urine Urobilinogen +/- 1mg Bedside Urine Nitrite - Negative Bedside Urine Leukocytes - Negative Esterase Imaging Data Chest CT a: Radiologist's impression: [address] [address] [address] Scan Report Signed Patient: Rakel Purdy#: [id number] : 1Acct:[id number] Age/Sex: 59 / FDate of Service: 07/02/19 Loc: ED Accession Number: [id number] Procedure: CT angio chest PE protocol Ordering Provider: Grace Suárez- PROCEDURE: CT ANGIO CHEST PE PROTOCOL INDICATIONS: sob, hx pe, chest mass TECHNIQUE: After the administration of intravenous contrast, 2 mm thick sections acquired from the pulmonary apices to the posterior costophrenic angles. 3-dimensional maximum intensity projection (MIP) coronal and sagittal reformats were then acquired through the thorax. For radiation dose reduction, the following was used: automated exposure control, adjustment of mA and/or kV according to patient size. COMPARISON: [facility], CT, CT ANGIO CHEST PE PROTOCOL, 06/10/2019, 18:58. FINDINGS: Image quality: Excellent. Pulmonary arteries: Pulmonary arteries are normal in size, and demonstrate no intraluminal filling defects to suggest central pulmonary embolism. Lungs and pleura: Lungs are improved, with resolution of several patchy areas of subtle solid radiodensity, and no discrete malignant appearing lung mass is found. No pleural effusions or pneumothorax. Central and peripheral airways are patent. Mediastinum: Heart size is normal, without pericardial effusion. No mediastinal or hilar adenopathy. The heterogeneously enhancing solid mass at the anterior med iastinum centered at and to the left of midline is slightly enlarged, from 06/10/19. This mass had measured 6.0 cm transverse and 4.1 cm AP and now measures 6.4 x 4.5 cm in the same areas. No malignant appearing adenopathy has L. Thoracic aorta is normal in caliber and enhancement. Esophagus is normal in caliber, without hiatal hernia. Bones and chest wall: No suspicious bony lesions. Ribs and thoracic spine appear intact throughout. Thyroid gland appears normal where well visualized. No axillary or supraclavicular adenopathy. Abdomen: Visualized upper abdominal solid organs appear normal in the early arterial phase of enhancement. IMPRESSION: Slight interval enlargement in size of a heterogeneous partially calcified mass in the anterior mediastinum which reportedly was recently biopsied. No central necrosis is associated. In addition to the potential etiologies previously reported 06/10/19 thymoma and thymic carcinoma should be considered. Several areas of solid focal radiodensities were present within the lung parenchyma on the prior study and these have resolved. No pulmonary metastatic disease is found. The prior CT also that raise concern for several relatively subtle small areas of increased radiodensity within the liver parenchyma medial hepatic segment, seen previously on series 4 image 145 and currently visible faintly on series 4 image 129.. Dictated by: Antonio Anderson M.D. on 07/02/2019 at 18:47 Approved by: Antonio Anderson M.D. on 07/02/2019 at 19:00 Chest x-ray: Radiologist's impression: RajwinderRakel 59 F [address] [address] XRay Report Signed Patient: Rakel Purdy KalenMR#: [id number] : 1960cct:[id number] Age/Sex: 59 / FDate of Service: 07/02/19 Loc: ED Accession Number: [id number] Procedure: XR chest 2V Ordering Provider: Grace Suárez- PROCEDURE: XR CHEST 2V INDICATIONS: shortness of breath TECHNIQUE: 2 views of the chest were acquired. COMPARISON: [facility], CR, XR CHEST 1V, 04/20/2019, 17:15. [facility], CT, C-SPINE WITHOUT CONTRAST, 11/19/2014, 15:17. [facility], US, ABDOMEN COMPLETE, 07/12/2014, 16:50. [facility], CR, CHEST 2 VIEW, 08/06/2013, 12:28. [facility], CR, XR CHEST 1V, 06/08/2019, 4:55. [facility], CR, XR CHEST 2V, 06/10/2019, 17:40. [facility], CT, CT ANGIO CHEST PE PROTOCOL, 06/10/2019, 18:58. [facility], CR, XR CHEST 2V, 06/30/2019, 19:48. FINDINGS: Surgical changes and devices: None. Lungs and pleura: Lungs are clear. No pleural effusions or pneumothorax. Mediastinum: The cardiac contours are within normal limits. The aorta d emonstrates calcification and tortuosity. There is partial visualization of this patient's known left mediastinal mass. Bones and chest wall: No suspicious bony abnormalities. Age-appropriate bony degenerative changes are seen. There is a chondroid matrix lesion seen within the left humeral head, which is unchanged compared to 2013. Soft tissues appear unremarkable. IMPRESSION: No acute cardiopulmonary process is seen. The patient's known left mediastinal mass is partially seen on the study, which is much better seen on the recent prior CT. 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 Dictated by: Rayray Szymanski M.D. on 07/02/2019 at 16:00 Approved by: Rayray Szymanski M.D. on 07/02/2019 at 16:02 ECG Data Attestation: I personally reviewed and interpreted this ECG as follows: Interpretation: Sinus bradycardia. Ventricular rate 58. No ST elevation depression noted. No ectopy noted. IN interval 155. QRS duration 92 MDM Narrative Medical decision making narrative: The patient is a 59-year-old female who presents with a chief complaint of shortness of breath. She was recently seen at this facility for COPD. She also has history of a pulmonary embolism, as well as a mediastinal mass with biopsy pending. Given the increase in shortness of breath, combined with her recent elevated D-dimers about 500, history of PE as well as possible cancer, elected to do a CT for PE which came back negative. She was given a DuoNeb in the emergency department felt much relief. Sputum cultures pending at this point time. We have elected to treat her as a COPD flare with steroids as well as antibiotics. I did place her on doxycycline, with strict instructions to monitor for sun exposure. She is hemodynamically stable oxygenating well throughout her stay in the emergency department. I discussed at length follow up with PCP in the next day or 2. Discussed coming back to the ER for any acute concerns such as concern of heart attack or stroke or severe respiratory distress. The patient also negative troponin and normal BNP during her hospital stay. I did discuss with the patient the mediastinal mass on her CT as well as increased radiodensity in the liver. Patient states understanding of return precautions as well as follow-up care. <Anna Marie Arora, - Last Filed: 07/03/19 07:47> Lab Data Attestation: I reviewed the patient's lab results. Lab Results 07/02/19 07/02/19 07/02/19 Range/Units 17:11 17:11 17:11 WBC 5.5 (4.5-11.0) X10^3/uL RBC 4.42 (4.0-5.2) X10^6/uL Hgb 14.5 (12.0-16.0) g/dL Hct 42.9 (36-46) % MCV 97.2 (80-100) fL MCH 32.9 (26-34) PG MCHC 33.9 (30-36) % RDW 13.3 (11.6-14.8) % Plt Count 210 (150-400) X10^3/uL Neut % (Auto) 36.0 L (50-75) % Lymph % (Auto) 46.2 H (25-40) % [place] % (Auto) 13.0 (3-14) % Eos % (Auto) 2.9 (2-4) % Baso % (Auto) 1.9 (0-2) % Neut # (Auto) 2000 (0597-2623) /uL Lymph # (Auto) 2500 (8080-4157) /uL [place] # (Auto) 700 (0-900) /uL Eos # (Auto) 200 (0-450) /uL Baso # (Auto) 100 (0-100) /uL PT 10.7 (10.1-12.7) SECONDS INR 0.9 (0.9-1.3) Sodium 140 (137-145) mmol/L Potassium 4.1 (3.4-5.1) mmol/L Chloride 108 H (98-107) mmol/L Carbon Dioxide 24 (22-32) mmol/L BUN 12 (7-17) mg/dL Creatinine 0.60 (0.52-1.04) mg/dL Estimated GFR > 60.0 (>60) mL/min BUN/Creatinine Ratio 20.0 (6-22) Glucose 95 (70-100) mg/dL Calcium 8.8 (8.4-10.2) mg/dL Total Bilirubin 0.4 (0.2-1.3) mg/dL AST 31 (14-36) IU/L ALT 31 (9-52) IU/L Alkaline Phosphatase 102 (38-126) U/L Total Creatine Kinase 71 (30-135) U/L CK-MB (CK-2) TNP CK-MB (CK-2) Rel Index TNP Troponin I < 0.012 (0.01-0.034) ng/mL B-Natriuretic Peptide (<100) Total Protein 7.8 (6.3-8.2) g/dL Albumin 4.2 (3.5-5.0) g/dL Globulin 3.6 (1.7-4.1) g/dL Albumin/Globulin Ratio 1.2 (1.0-2.8) Amylase 93 (30-110) U/L Lipase 155 (23-300) U/L 07/02/19 Range/Units 18:49 WBC (4.5-11.0) X10^3/uL RBC (4.0-5.2) X10^6/uL Hgb (12.0-16.0) g/dL Hct (36-46) % MCV (80-100) fL MCH (26-34) PG MCHC (30-36) % RDW (11.6-14.8) % Plt Count (150-400) X10^3/uL Neut % (Auto) (50-75) % Lymph % (Auto) (25-40) % [place] % (Auto) (3-14) % Eos % (Auto) (2-4) % Baso % (Auto) (0-2) % Neut # (Auto) (8625-8852) /uL Lymph # (Auto) (3268-9480) /uL [place] # (Auto) (0-900) /uL Eos # (Auto) (0-450) /uL Baso # (Auto) (0-100) /uL PT (10.1-12.7) SECONDS INR (0.9-1.3) Sodium (137-145) mmol/L Potassium (3.4-5.1) mmol/L Chloride (98-107) mmol/L Carbon Dioxide (22-32) mmol/L BUN (7-17) mg/dL Creatinine (0.52-1.04) mg/dL Estimated GFR (>60) mL/min BUN/Creatinine Ratio (6-22) Glucose (70-100) mg/dL Calcium (8.4-10.2) mg/dL Total Bilirubin (0.2-1.3) mg/dL AST (14-36) IU/L ALT (9-52) IU/L Alkaline Phosphatase (38-126) U/L Total Creatine Kinase (30-135) U/L CK-MB (CK-2) CK-MB (CK-2) Rel Index Troponin I (0.01-0.034) ng/mL B-Natriuretic Peptide < 100 (<100) Total Protein (6.3-8.2) g/dL Albumin (3.5-5.0) g/dL Globulin (1.7-4.1) g/dL Albumin/Globulin Ratio (1.0-2.8) Amylase (30-110) U/L Lipase (23-300) U/L Urine Dip Bedside Urine Glucose Negative Bedside Urine Bilirubin - Negative Bedside Urine Ketone + 15 Urine Specific [place] 1.005 Bedside Urine Occult Blood - Negative Bedside Urine pH 7.0 Bedside Urine Protein +/- 15 Bedside Urine Urobilinogen +/- 1mg Bedside Urine Nitrite - Negative Bedside Urine Leukocytes - Negative Esterase ECG Data Attestation: I personally reviewed and interpreted this ECG as follows: Prior ECG tracings: available for review Interpretation: Normal sinus rhythm rate 58 p.r. interval 177, no ST changes no T-wave inversions similar to previous EKG 2 days prior Discharge Plan Departure Patient Disposition: Home Clinical Impression: COPD (chronic obstructive pulmonary disease) Qualifiers: COPD type: COPD with acute exacerbation Qualified Code(s): J44.1 - Chronic obstructive pulmonary disease with (acute) exacerbation Discharge Date/Time: 07/02/19 20:00 Interventions: ED Discharge Assessment Last Done: 07/02/19 19:59 Instructions: Chronic Obstructive Pulmonary Disease (Alternative Therapy), DI for Chronic Obstructive Pulmonary Disease, Physical Activity for People with [place] PD Activity Restrictions/Additional Instructions: I have given her prescription of steroids as well as antibiotics. Wear sunscreen with this antibiotic. A sputum cultures pending and should result in next 48-72 hours. Please follow up with primary care provider. Please come back to the emergency department for any acute concerns such as increased respiratory difficulties, concern of heart attack or stroke. Prescriptions: New doxycycline hyclate 100 mg capsule 100 mg PO BID Qty: 20 RF: 0 prednisone 50 mg tablet 50 mg PO DAILY Qty: 5 RF: 0 No Action ibuprofen [Advil] 200 MG tablet 600 mg PO TIDP PRN (Reason: Pain (Scale Score 4-6)) Qty: 0 RF: 0 levothyroxine 75 mcg tablet 75 mcg PO DAILY RF: 0 omeprazole 20 mg capsule,delayed release(DR/EC) 20 mg PO DAILY RF: 0 metoprolol tartrate 25 mg tablet 25 mg PO BID RF: 0 Referrals: Claudia Simmons [Primary Care Provider] - <Anna Marie Arora DO - Last Filed: 07/03/19 07:47> Cosign ED Attending Sandraature Attestation: I was immediately available in the department for consultation. Documentation has been reviewed. I agree with assessment and plan.
[2019-07-02 19:07] LABS: B Type Natriuretic Peptide < 100 (<100)
[2019-07-02] MEDS: DOXYCYCLINE HYCLATE 100 MG TABLET PO (19:34)
[2019-07-02 19:39] VITALS: BP 122/70; PULSE 62; RESP 14; O2SAT 99
== END 2019-07-02 20:00 | disposition home or self-care (01) ==
PROVIDERS: Emergency Provider Nurse Practitioner Family; Family Provider Internal Medicine; PCP Internal Medicine
DX: J44.1 Chronic obstructive pulmonary disease with (acute) exacerbation (principal)
CPT/HCPCS: 36591; 71046; 71275; 80053; 81003; 82150; 82550; 83690; 83880; 84484; 85025; 85610; 93005; 94640; 96374; 99283; 99285; J2930; Q9967

== ENCOUNTER 2019-07-08 20:01 | Emergency (ER) | payer OTHER, MEDICAID, SELFPAY ==
[2019-07-08 20:11] VITALS: BP 143/75; PULSE 53; RESP 22; TEMP 36.9; O2SAT 95; BMI 26.6
--- NOTE | 2019-07-08 20:16 | DI.RAD.S_ITS ---
PROCEDURE: XR CHEST 1V INDICATIONS: chest pain TECHNIQUE: One view of the chest was acquired. COMPARISON: [facility], CR, XR CHEST 2V, 07/02/2019, 16:47. [facility], CT, CT ANGIO CHEST PE PROTOCOL, 07/02/2019, 18:27. FINDINGS: Surgical changes and devices: None. Lungs and pleura: Lungs are clear. No pleural effusions or pneumothorax. Mediastinum: Increased left anterior mediastinal mass. Heart size is normal. Bones and chest wall: No suspicious bony lesions. Overlying soft tissues appear unremarkable. IMPRESSION: 1. No acute process. 3. Increased left anterior mediastinal mass. Dictated by: Jesi Parker M.D. on 07/08/2019 at 20:39 Approved by: Jesi Parker M.D. on 07/08/2019 at 20:41
--- NOTE | 2019-07-08 20:25 | ED_ITS ---
HPI - Chest Pain General Chief Complaint: Chest Pain Stated Complaint: Trouble breathing Time Seen by Provider: 07/08/19 20:16 Source: patient Mode of arrival: ambulatory Limitations: no limitations History of Present Illness HPI narrative: Patient is a 59-year-old female with a known mediastinal lung mass. Recently had a biopsy which was reported to be ?inconclusive ?by the patient. Over the past several days/weeks she has had shortness of breath and chest pain. She had recurrence of these symptoms today. She is scheduled with an appointment with Cardiothoracic surgery on Wednesday to discuss operative remov al of this mass. time my evaluation patient was asymptomatic. Related Data Home Medications Medication Instructions Recorded Confirmed ibuprofen [Advil] 600 mg PO TIDP PRN #0 08/06/13 06/30/19 levothyroxine 75 mcg PO DAILY 06/30/19 06/30/19 metoprolol tartrate 25 mg PO BID 06/30/19 06/30/19 omeprazole 20 mg PO DAILY 06/30/19 06/30/19 Previous Rx's Medication Instructions Recorded doxycycline hyclate 100 mg PO BID #20 cap 07/02/19 prednisone 50 mg PO DAILY #5 tab 07/02/19 Allergies Allergy/AdvReac Type Severity Reaction Status Date / Time butalbital [From Fiorinal] Allergy Unknown Verified 07/02/19 16:04 RED PEPPER Allergy Unknown Uncoded 07/02/19 16:04 Review of Systems Constitutional Denies headache(s) ENT Ears, Nose, Mouth, and Throat: Denies headache(s) Cardiovascular Reports chest pain and Reports dyspnea Respiratory Reports dyspnea Gastrointestinal Gastrointestinal: Denies abdominal pain, Denies nausea and Denies vomiting Genitourinary Denies dysuria Musculoskeletal Denies myalgias and Denies arthralgias Integumentary/Breasts Denies rash Neurologic Denies behavioral changes, Denies headache(s) and Denies focal weakness Psychiatric Denies behavioral changes Hematologic/Lymphatic Denies easy bleeding and Denies easy bruising [facility] Medical History Hypertension (Acute) Cash's esophagus (Chronic) GERD (gastroesophageal reflux disease) (Chronic) Hypothyroidism (Chronic) PVCs (premature ventricular contractions) (Chronic) Personal history of PE (pulmonary embolism) (Resolved) Social History (Reviewed 07/09/19 @ 04:24 by HEAVEN Crandall Smoking Status: Former smoker Exam Initial Vital Signs Initial Vital Signs: Vital Signs Temperature 98.5 F 07/08/19 20:11 Pulse Rate 53 L 07/08/19 20:11 Respiratory Rate 22 07/08/19 20:11 Blood Pressure 143/75 H 07/08/19 20:11 Pulse Oximetry 95 07/08/19 20:11 Const General: cooperative, well developed and well groomed Orientation: alert, awake and oriented x3 HENMT Head: normal to inspection and normocephalic Chest Chest: normal inspection of the chest Resp Effort & Inspection: normal respiratory effort Auscultation: clear to auscultation bilaterally Cardio Rate: regular rate Rhythm: regular rhythm Pulses: radial pulses present GI Inspection: non-distended Palpation: soft Skin Lesions: no lesions Rashes: no rashes Neuro General: alert and awake Cognition: normal cognition Speech: speech normal Extrem General: normal to inspection and capillary refill normal Psych Appearance: grossly normal and well kempt Course Orders Ordered: ED Orders 07/08/19 20:10 Complete Blood Count AUTO DIFF Stat Comprehensive Metabolic Panel Stat Lipase Stat Partial Thromboplastin Time Stat Prothrombin Time INR Stat Troponin & CK Cardiac Panel Stat 07/08/19 20:16 XR chest 1V Stat EKG-12 Lead Stat 07/08/19 22:02 Troponin I Stat Vital Signs - 8 hr 07/08/19 20:11 07/08/19 21:00 07/08/19 21:30 Temperature 98.5 F Pulse Rate 53 L 50 L 49 L Respiratory Rate 22 14 13 Blood Pressure 143/75 H Blood Pressure [Right Arm] 119/62 105/53 L Pulse Oximetry 95 97 98 07/08/19 22:45 Temperature Pulse Rate 46 L Respiratory Rate 14 Blood Pressure 128/63 Blood Pressure [Right Arm] Pulse Oximetry 97 MDM - Chest Pain Medical Records Data Attestation: I reviewed the patient's medical records. Lab Data Attestation: I reviewed the patient's lab results. Result diagrams: 07/08/19 20:10 07/08/19 20:10 Lab Results 07/08/19 07/08/19 07/08/19 Range/Units 20:10 20:10 20:10 WBC 7.0 (4.5-11.0) X10^3/uL RBC 4.29 (4.0-5.2) X10^6/uL Hgb 14.1 (12.0-16.0) g/dL Hct 41.5 (36-46) % MCV 96.7 (80-100) fL MCH 32.9 (26-34) PG MCHC 34.1 (30-36) % RDW 13.2 (11.6-14.8) % Plt Count 213 (150-400) X10^3/uL Neut % (Auto) 34.9 L (50-75) % Lymph % (Auto) 48.3 H (25-40) % Grayson % (Auto) 12.8 (3-14) % Eos % (Auto) 3.2 (2-4) % Baso % (Auto) 0.8 (0-2) % Neut # (Auto) 2400 (1841-6163) /uL Lymph # (Auto) 3400 (5041-0787) /uL Grayson # (Auto) 900 (0-900) /uL Eos # (Auto) 200 (0-450) /uL Baso # (Auto) 100 (0-100) /uL PT 10.1 (10.1-12.7) SECONDS INR 0.9 (0.9-1.3) APTT 31 (26.4-36.2) SECONDS Sodium 140 (137-145) mmol/L Potassium 4.2 (3.4-5.1) mmol/L Chloride 105 (98-107) mmol/L Carbon Dioxide 22 (22-32) mmol/L BUN 15 (7-17) mg/dL Creatinine 0.70 (0.52-1.04) mg/dL Estimated GFR > 60.0 (>60) mL/min BUN/Creatinine Ratio 21.4 (6-22) Glucose 96 (70-100) mg/dL Calcium 8.9 (8.4-10.2) mg/dL Total Bilirubin 0.5 (0.2-1.3) mg/dL AST 35 (14-36) IU/L ALT 43 (9-52) IU/L Alkaline Phosphatase 84 (38-126) U/L Total Creatine Kinase 41 (30-135) U/L CK-MB (CK-2) TNP CK-MB (CK-2) Rel Index TNP Troponin I < 0.012 (0.01-0.034) ng/mL Total Protein 7.5 (6.3-8.2) g/dL Albumin 4.1 (3.5-5.0) g/dL Globulin 3.4 (1.7-4.1) g/dL Albumin/Globulin Ratio 1.2 (1.0-2.8) Lipase 290 D (23-300) U/L // Range/Units 22:02 WBC (4.5-11.0) X10^3/uL RBC (4.0-5.2) X10^6/uL Hgb (12.0-16.0) g/dL Hct (36-46) % MCV (80-100) fL MCH (26-34) PG MCHC (30-36) % RDW (11.6-14.8) % Plt Count (150-400) X10^3/uL Neut % (Auto) (50-75) % Lymph % (Auto) (25-40) % Grayson % (Auto) (3-14) % Eos % (Auto) (2-4) % Baso % (Auto) (0-2) % Neut # (Auto) (8271-8541) /uL Lymph # (Auto) (1460-6986) /uL Grayson # (Auto) (0-900) /uL Eos # (Auto) (0-450) /uL Baso # (Auto) (0-100) /uL PT (10.1-12.7) SECONDS INR (0.9-1.3) APTT (26.4-36.2) SECONDS Sodium (137-145) mmol/L Potassium (3.4-5.1) mmol/L Chloride (98-107) mmol/L Carbon Dioxide (22-32) mmol/L BUN (7-17) mg/dL Creatinine (0.52-1.04) mg/dL Estimated GFR (>60) mL/min BUN/Creatinine Ratio (6-22) Glucose (70-100) mg/dL Calcium (8.4-10.2) mg/dL Total Bilirubin (0.2-1.3) mg/dL AST (14-36) IU/L ALT (9-52) IU/L Alkaline Phosphatase (38-126) U/L Total Creatine Kinase (30-135) U/L CK-MB (CK-2) CK-MB (CK-2) Rel Index Troponin I < 0.012 (0.01-0.034) ng/mL Total Protein (6.3-8.2) g/dL Albumin (3.5-5.0) g/dL Globulin (1.7-4.1) g/dL Albumin/Globulin Ratio (1.0-2.8) Lipase (23-300) U/L Imaging Data Chest x-ray: Radiologist's impression: [address] [id number] XRay Report Signed Patient: Rakel Purdy#: [id number] : [id number]:[id number] Age/Sex: 59 / FDate of Service: 07/08/19 Loc: ED Accession Number: [id number] Procedure: XR chest 1V Ordering Provider: Ahsan Cano D.O. PROCEDURE: XR CHEST 1V INDICATIONS: chest pain TECHNIQUE: One view of the chest was acquired. COMPARISON: [facility], CR, XR CHEST 2V, 07/02/2019, 16:47. [facility], CT, CT ANGIO CHEST PE PROTOCOL, 07/02/2019, 18:27. FINDINGS: Surgical changes and devices: None. Lungs and pleura: Lungs are clear. No pleural effusions or pneumothorax. Mediastinum: Increased left anterior mediastinal mass. Heart size is normal. Bones and chest wall: No suspicious bony lesions. Overlying soft tissues appear unremarkable. IMPRESSION: 1. No acute process. 3. Increased left anterior mediastinal mass. Dictated by: Jesi Parker M.D. on 07/08/2019 at 20:39 Approved by: Jesi Parker M.D. on 07/08/2019 at 20:41 ECG Data Attestation: I personally reviewed and interpreted this ECG as follows: Prior ECG tracings: not available for review Interpretation: Sinus bradycardia Ventricular rate of 56 Normal axis Normal QRS QTC No ST T wave changes MDM Narrative Medical decision making narrative: Patient has a normal EKG. Troponins negative x2. Chest x-ray does show the mediastinal mass. She has an appointment on Wednesday for follow-up of this. Low suspicion for PE. Not in any respiratory distress. I do suspect that her symptoms related to this mass. will hold on further workup for now. I have the patient follow up on Wednesday as already scheduled. She was given return precautions and follow-up instructions. She expressed understanding and agreement with plan. Discharge Plan Departure Patient Disposition: Home Clinical Impression: Shortness of breath Discharge Date/Time: 07/08/19 22:45 Interventions: ED Discharge Assessment Last Done: 07/08/19 22:45 Instructions: DI for Shortness of Breath Activity Restrictions/Additional Instructions: Recommend you continue all of your medications as directed. Keep your scheduled medical appointment on Wednesday with the cardiothoracic surgeon. Return to the emergency department for any new or worsening symptoms Prescriptions: No Action ibuprofen [Advil] 200 MG tablet 600 mg PO TIDP PRN (Reason: Pain (Scale Score 4-6)) Qty: 0 RF: 0 doxycycline hyclate 100 mg capsule 100 mg PO BID Qty: 20 RF: 0 prednisone 50 mg tablet 50 mg PO DAILY Qty: 5 RF: 0 levothyroxine 75 mcg tablet 75 mcg PO DAILY RF: 0 omeprazole 20 mg capsule,delayed release(DR/EC) 20 mg PO DAILY RF: 0 metoprolol tartrate 25 mg tablet 25 mg PO BID RF: 0 Referrals: Claudia Simmons [Primary Care Provider] -
[2019-07-08 20:42] LABS: Add Manual Diff / Slide Review NO; Basophils Absolute Auto 100 /uL (0-100); Basophils Percent Auto 0.8 % (0-2); Eosinophils Absolute Auto 200 /uL (0-450); Eosinophils Percent Auto 3.2 % (2-4); Hematocrit 41.5 % (36-46); Hemoglobin 14.1 g/dL (12.0-16.0); Lymphocytes Absolute Auto 3400 /uL (1100-4500); Lymphocytes Percent Auto 48.3 % (25-40); Mean Corpuscular HGB Conc 34.1 % (30-36); Mean Corpuscular Hemoglobin 32.9 PG (26-34); Mean Corpuscular Volume 96.7 fL (80-100); Monocytes Absolute Auto 900 /uL (0-900); Monocytes Percent Auto 12.8 % (3-14); Neutrophils Absolute Auto 2400 /uL (1500-7000); Neutrophils Percent Auto 34.9 % (50-75); Platelet Count 213 X10^3/uL (150-400); Red Blood Cell Count 4.29 X10^6/uL (4.0-5.2); Red Cell Distribution Width 13.2 % (11.6-14.8)
[2019-07-08 20:43] LABS: INR 0.9 (0.9-1.3); Prothrombin Time 10.1 SECONDS (10.1-12.7)
[2019-07-08 20:45] LABS: PTT Partial Thromboplastin Tim 31 SECONDS (26.4-36.2)
[2019-07-08 20:47] LABS: Alanine Aminotransferase 43 IU/L (9-52); Albumin 4.1 g/dL (3.5-5.0); Albumin Globulin Ratio 1.2 (1.0-2.8); Alkaline Phosphatase 84 U/L (38-126); Aspartate Aminotransferase 35 IU/L (14-36); BUN Creatinine Ratio 21.4 (6-22); Bilirubin Total 0.5 mg/dL (0.2-1.3); Blood Urea Nitrogen 15 mg/dL (7-17); Calcium 8.9 mg/dL (8.4-10.2); Carbon Dioxide 22 mmol/L (22-32); Chloride 105 mmol/L (98-107); Creatine Kinase 41 U/L (30-135); Estimated Glomerular Filt Rate > 60.0 mL/min (>60); Globulin 3.4 g/dL (1.7-4.1); Glucose 96 mg/dL (70-100); HEMOLYSIS 48 (0-50); Lipase 290 U/L (23-300); Potassium 4.2 mmol/L (3.4-5.1); Sodium 140 mmol/L (137-145); Total Protein 7.5 g/dL (6.3-8.2)
[2019-07-08 20:58] LABS: Troponin I < 0.012 ng/mL (0.01-0.034)
[2019-07-08 21:00] VITALS: BP 119/62; PULSE 50; RESP 14; O2SAT 97
[2019-07-08 21:30] VITALS: BP 105/53; PULSE 49; RESP 13; O2SAT 98
[2019-07-08 22:33] LABS: Troponin I < 0.012 ng/mL (0.01-0.034)
[2019-07-08 22:45] VITALS: BP 128/63; PULSE 46; RESP 14; O2SAT 97
== END 2019-07-08 22:45 | disposition home or self-care (01) ==
PROVIDERS: Emergency Provider Emergency Medicine; Family Provider Internal Medicine; PCP Internal Medicine
DX: R06.02 Shortness of breath (principal)
CPT/HCPCS: 36415; 36591; 71045; 80053; 82550; 83690; 84484; 85025; 85610; 85730; 93005; 99283; 99285

== ENCOUNTER 2019-08-04 15:57 | Emergency (ER) | payer OTHER, MEDICAID, SELFPAY ==
[2019-08-04 16:00] VITALS: BP 115/72; PULSE 61; RESP 16; TEMP 37.5; O2SAT 97; BMI 26.7
--- NOTE | 2019-08-04 16:01 | ED.CHESTPAIN ---
HPI - Chest Pain General Chief Complaint: Chest Pain Stated Complaint: Sternum pain,s/p 10 days post op Time Seen by Provider: 08/04/19 15:57 Source: patient and EMS Mode of arrival: EMS Limitations: no limitations History of Present Illness HPI narrative: 59F former smoker with hx of PE, hypothyroid with recent sternotomy presents with severe chest pain which radiates to her back that has been worsening over the course of the day. She thinks that she may have felt a pop yesterday but really is unclear about the history. She denies fever or chills. Her pain is worse with a deep breath, cough or motion. She does feel as if she is having some difficulty with breathing and does have a history of pulmonary embolism. Her surgery was at [facility] to remove a retrosternal mass. Related Data Home Medications Medication Instructions Recorded Confirmed levothyroxine 75 mcg PO DAILY 06/30/19 08/04/19 metoprolol tartrate 25 mg PO BID 06/30/19 08/04/19 omeprazole 20 mg PO BID 06/30/19 08/04/19 acetaminophen 500 mg PO Q6H PRN 08/04/19 08/04/19 aspirin 81 mg PO DAILY 08/04/19 08/04/19 furosemide See Rx Instructions .ROUTE .COMPLEX 08/04/19 08/04/19 hydrocodone-acetaminophen 1 - 2 tab PO Q4H PRN 08/04/19 08/04/19 oxycodone 5 mg PO Q6H PRN 08/04/19 08/04/19 potassium chloride See Rx Instructions .ROUTE .COMPLEX 08/04/19 08/04/19 Allergies Allergy/AdvReac Type Severity Reaction Status Date / Time butalbital [From Fiorinal] Allergy Unknown Verified 08/04/19 16:05 Sulfa (Sulfonamide Allergy Verified 08/04/19 16:05 Antibiotics) RED PEPPER Allergy Unknown Uncoded 07/02/19 16:04 Review of Systems Constitutional Constitutional: Denies chills, Denies fatigue, Denies fever(s), Denies frequent falls, Denies lethargy and Denies weakness Eyes Eyes: Denies change in vision, Denies eye discharge, Denies irritation and Denies loss of vision ENT Ears, Nose, Mouth, and Throat: Denies change in voice, Denies dizziness, Denies neck pain, Denies sore throat and Denies throat swelling Cardiovascular Cardiovascular: Reports chest pain, Denies irregular heart rhythm, Denies lightheadedness, Denies palpitations, Denies dyspnea, Denies dyspnea on exertion and Denies orthopnea Respiratory Respiratory: Denies cough, Denies dyspnea, Denies dyspnea on exertion and Denies wheezing Gastrointestinal Gastrointestinal: Denies abdominal pain, Denies change in bowel habits, Denies diarrhea, Denies nausea and Denies vomiting Genitourinary Genitourinary: Denies hematuria, Denies flank pain, Denies urinary incontinence and Denies urinary urgency Musculoskeletal Musculoskeletal: Denies back pain, Denies muscle weakness, Denies neck pain, Denies numbness and Denies tingling Integumentary/Breasts Skin/Breast: Denies pruritus, Denies erythema, Denies rash and Denies wounds Neurologic Neurologic: Denies behavioral changes, Denies confusion, Denies dizziness, Denies frequent falls, Denies loss of vision, Denies numbness, Denies tingling and Denies weakness Psychiatric Psychiatric: Denies anxiety, Denies behavioral changes, Denies confusion, Denies depression, Denies homicidal ideation and Denies suicidal ideation Endocrine Endocrine: Denies fatigue, Denies flushing and Denies palpitations Hematologic/Lymphatic Hematologic/Lymphatic: Denies easy bruising Allergic/Immunologic Allergic/Immunologic: Denies urticaria, Denies throat swelling and Denies wheezing PFSH Medical History Cash's esophagus (Chronic) GERD (gastroesophageal reflux disease) (Chronic) Hypertension (Acute) Hypothyroidism (Chronic) Personal history of PE (pulmonary embolism) (Resolved) PVCs (premature ventricular contractions) (Chronic) Surgical History Status post hysterectomy (Resolved) Status post thyroidectomy (Resolved) Social History Smoking Status: Former smoker Social History Smoking Status: Former smoker Exam Narrative Exam Narrative: GENERAL: [59] year old patient appears stated age. Well-nourished, well-developed patient, in mild distress. HEAD: Atraumatic. Normocephalic. EYES: Pupils equal round and reactive. Extraocular motions intact. No scleral icterus. No injection or drainage. ENT: Nose without bleeding, purulent drainage. Throat without erythema, tonsillar hypertrophy or exudate. Airway patent. NECK: Trachea midline. Non tender CARDIOVASCULAR: Regular rate and rhythm without murmurs, gallops, or rubs. RESPIRATORY: Clear to auscultation. Breath sounds equal bilaterally. No wheezes, rales, or rhonchi. GASTROINTESTINAL: Abdomen soft, non-tender, nondistended. EXTREMITIES: No edema or joint tenderness. BACK: Nontender without deformity or crepitance. No flank tenderness. NEURO: AOx3. SKIN: No rash or erythema of visible areas Initial Vital Signs Initial Vital Signs: Vital Signs Temperature 99.5 F 08/04/19 16:00 Pulse Rate 61 08/04/19 16:00 Respiratory Rate 16 08/04/19 16:00 Blood Pressure 115/72 08/04/19 16:00 Pulse Oximetry 97 08/04/19 16:00 Const General: cooperative and well developed Nutritional Appearance: well nourished Orientation: alert, awake, oriented x3 and not confused [facility] Head: normocephalic and atraumatic Ears: external ears normal and TM's normal bilaterally Nose: external nose normal and No nasal discharge Face and sinus: sinuses nontender, face symmetric, no sinus tenderness and No dry mucous membranes Mouth: oral mucosae normal and moist mucous membranes Teeth and gingiva: dentition normal Throat: tonsils normal and uvula midline Eyes General: appearance normal, both eyes and all related structures Eyelids: eyelids normal Conjunctivae: conjunctivae normal Sclera: sclerae normal Pupils: PERRL EOM: EOM intact bilaterally Neck Neck: normal visual inspection, trachea midline, No lymphadenopathy, No midline deformity and No JVD Lymphatic: No lymphedema Chest Chest: normal inspection of the chest Resp Effort & Inspection: normal respiratory effort, able to speak in complete sentences, no respiratory distress and no use of accessory muscles Auscultation: clear to auscultation bilaterally, no rales, no rhonchi and no wheezes Cardio Rate: regular rate Rhythm: regular rhythm Heart Sounds: no click, no gallops, no murmurs and no rubs Pulses: normal peripheral pulses GI Inspection: non-distended Palpation: soft, no hepatosplenomegaly, No guarding, No pulsatile mass and No tender Auscultation: normal bowel sounds Back/Spine/Pelvis Back: No CVA tenderness Cervical Spine: cervical ROM normal and No pain with cervical ROM Thoracic/Lumbar Spine: thoracic and lumbar spine normal to inspection Skin General: no rashes or lesions noted, No jaundice and No petechiae Neuro General: alert, oriented x3, gait normal and no focal motor deficits Speech: speech normal Extrem General: full ROM, no clubbing, cyanosis or edema, no pedal edema and no calf tenderness Psych Appearance: well kempt Mental Status: mental status grossly normal Attitude: cooperative Thought Content: normal and suicidality Judgment: judgment good Course Orders Ordered: ED Orders 08/04/19 15:50 Basic Metabolic Panel Stat Complete Blood Count AUTO DIFF Stat Partial Thromboplastin Time Stat Prothrombin Time INR Stat Troponin & CK Cardiac Panel Stat 08/04/19 16:09 EKG-12 Lead Routine 08/04/19 16:17 XR chest 1V Stat 08/04/19 17:46 CT angio chest PE protocol Stat Consultations Consultation #1: call to [facility] for consult with Dr. Sears his partner Dr. Marina returned the call and after discussion of case he shares opinion that patient is safe and appropriate for discharge. Vital Signs Vital signs: Vital Signs - 8 hr 08/04/19 16:00 Temperature 99.5 F Pulse Rate 61 Respiratory Rate 16 Blood Pressure 115/72 Pulse Oximetry 97 MDM - Chest Pain Lab Data Result diagrams: 08/04/19 15:50 08/04/19 15:50 Labs: Lab Results 08/04/19 08/04/19 08/04/19 Range/Units 15:50 15:50 15:50 WBC 6.3 (4.5-11.0) X10^3/uL RBC 3.99 L (4.0-5.2) X10^6/uL Hgb 13.0 (12.0-16.0) g/dL Hct 38.4 (36-46) % MCV 96.2 (80-100) fL MCH 32.6 (26-34) PG MCHC 33.9 (30-36) % RDW 13.5 (11.6-14.8) % Plt Count 392 (150-400) X10^3/uL Neut % (Auto) 39.1 L (50-75) % Lymph % (Auto) 44.3 H (25-40) % Lamar % (Auto) 12.5 (3-14) % Eos % (Auto) 3.1 (2-4) % Baso % (Auto) 1.0 (0-2) % Neut # (Auto) 2500 (4313-4008) /uL Lymph # (Auto) 2800 (2081-6427) /uL Lamar # (Auto) 800 (0-900) /uL Eos # (Auto) 200 (0-450) /uL Baso # (Auto) 100 (0-100) /uL PT 10.9 (10.1-12.7) SECONDS INR 1.0 (0.9-1.3) APTT 32 (26.4-36.2) SECONDS Sodium 140 (137-145) mmol/L Potassium 4.0 (3.4-5.1) mmol/L Chloride 102 (98-107) mmol/L Carbon Dioxide 26 (22-32) mmol/L BUN 7 (7-17) mg/dL Creatinine 0.70 (0.52-1.04) mg/dL Estimated GFR > 60.0 (>60) mL/min BUN/Creatinine Ratio 10.0 (6-22) Glucose 109 H (70-100) mg/dL Calcium 8.8 (8.4-10.2) mg/dL Total Creatine Kinase (30-135) U/L CK-MB (CK-2) CK-MB (CK-2) Rel Index Troponin I (0.01-0.034) ng/mL 08/04/19 Range/Units 15:50 WBC (4.5-11.0) X10^3/uL RBC (4.0-5.2) X10^6/uL Hgb (12.0-16.0) g/dL Hct (36-46) % MCV (80-100) fL MCH (26-34) PG MCHC (30-36) % RDW (11.6-14.8) % Plt Count (150-400) X10^3/uL Neut % (Auto) (50-75) % Lymph % (Auto) (25-40) % Lamar % (Auto) (3-14) % Eos % (Auto) (2-4) % Baso % (Auto) (0-2) % Neut # (Auto) (3704-8703) /uL Lymph # (Auto) (1590-9312) /uL Lamar # (Auto) (0-900) /uL Eos # (Auto) (0-450) /uL Baso # (Auto) (0-100) /uL PT (10.1-12.7) SECONDS INR (0.9-1.3) APTT (26.4-36.2) SECONDS Sodium (137-145) mmol/L Potassium (3.4-5.1) mmol/L Chloride (98-107) mmol/L Carbon Dioxide (22-32) mmol/L BUN (7-17) mg/dL Creatinine (0.52-1.04) mg/dL Estimated GFR (>60) mL/min BUN/Creatinine Ratio (6-22) Glucose (70-100) mg/dL Calcium (8.4-10.2) mg/dL Total Creatine Kinase 69 (30-135) U/L CK-MB (CK-2) TNP CK-MB (CK-2) Rel Index TNP Troponin I < 0.012 (0.01-0.034) ng/mL Imaging Data CT scan - chest: Radiologist's impression: [place] [address] CT Scan Report Signed Patient: Rakel Purdy#: [id number] : 1Acct:[id number] Age/Sex: 59 / FDate of Service: 08/04/19 Loc: ED Accession Number: [id number] Procedure: CT angio chest PE protocol Ordering Provider: Amrit Dinh D.O. PROCEDURE: CT ANGIO CHEST PE PROTOCOL INDICATIONS: severe chest pain, recent sternotomy for excision of mass TECHNIQUE: After the administration of intravenous contrast, 2 mm thick sections acquired from the pulmonary apices to the posterior costophrenic angles. 3-dimensional maximum intensity projection (MIP) coronal and sagittal reformats were then acquired through the thorax. For radiation dose reduction, the following was used: automated exposure control, adjustment of mA and/or kV according to patient size. COMPARISON: [facility], CR, XR CHEST 1V, 08/04/2019, 16:27. [facility], CR, XR CHEST 1V, 07/08/2019, 20:26. [facility], CR, XR CHEST 2V, 07/02/2019, 16:47. [facility], CR, XR CHEST 2V, 06/30/2019, 19:48. [facility], CT, CT ANGIO CHEST PE PROTOCOL, 06/10/2019, 18:58. [facility], CT, CT ANGIO CHEST PE PROTOCOL, 07/02/2019, 18:27. FINDINGS: Image quality: Excellent. Pulmonary arteries: Pulmonary arteries are normal in size, and demonstrate no intraluminal filling defects to suggest central pulmonary embolism. Lungs and pleura: Mild dependent atelectasis can be seen, which is more prominent on the left than on the right. No pneumothorax. There is a trace left-sided pleural effusion. Central and peripheral airways are patent. Mediastinum: Sternotomy wires are seen. The previously seen anterior mediastinal mass has been removed. Heart size is normal, without pericardial effusion. No mediastinal or hilar adenopathy. Thoracic aorta is normal in caliber and enhancement. Esophagus is normal in caliber. There is a small hiatal hernia. Bones and chest wall: No suspicious bony lesions. Age-appropriate bony degenerative changes are seen. Mild dextroconvex scoliotic curvature is seen. Ribs and thoracic spine appear intact throughout. Thyroid gland is not definitely seen. No axillary or supraclavicular adenopathy. Abdomen: Diffuse fatty liver infiltration is noted. Low-density liver lesions are seen, which measure water density and are attributed to cysts. A water density right renal cyst can also be seen superiorly and posteriorly measuring 1.4 cm. The visualized portions of the upper abdominal structures are otherwise unremarkable for imaging technique. IMPRESSION: Negative for pulmonary embolism. Interval removal of the previously seen anterior mediastinal mass. Trace left-sided pleural effusion. Lung base atelectasis, left worse than right. Incidental note is made of: Small hiatal hernia Fatty liver infiltration Liver and renal cysts Dextroconvex scoliotic curvature Dictated by: Rayray Szymanski M.D. on 08/04/2019 at 18:52 Approved by: Rayray Szymanski M.D. on 08/04/2019 at 18:57 MDM Narrative Medical decision making narrative: Multiple etiologies for patient's symptoms considered including: [Postsurgical hematoma versus pulmonary embolism versus rib fracture versus other] Patient's symptoms improved or duration of stay with above-stated therapies. Findings and discharge diagnosis discussed with patient/family followed by verbalization of understanding Return precautions discussed with patient/family whom verbalize understanding. Critical Care Time Critical Care Time Critical Care Time: Yes Total Critical Care Time: 30 Attestation: The high probability of a clinically significant, sudden or life threatening deterioration of the [CV] system(s) required my full and direct attention, intervention and personal management. The aggregate critical care time was [30] minutes. This time is in addition to time spent performing reported procedures but includes the following: [x] Data Review and interpretation [x] Patient assessment and monitoring of vital signs [x] Documentation [x] Medication orders and management Discharge Plan Departure Patient Disposition: Home Clinical Impression: Atypical chest pain Instructions: DI for Atypical Chest Pain Activity Restrictions/Additional Instructions: *You have been diagnosed with [postsurgical chest wall pain. CT scan and labs were very reassuring. I have discussed with your surgeon's partner whom shares the opinion that you're very appropriate and safe to send home] *What to do: *Take medications as directed *Follow up with your primary care provider in 2-3 days, call for an appointment. Let them know you were seen in the Emergency Department and that we ask that you be seen in follow up *Return to ER if you should have any new, worsening or concerning symptoms Prescriptions: No Action hydrocodone-acetaminophen 5-325 mg tablet 1 - 2 tab PO Q4H PRN (Reason: pain) RF: 0 furosemide 20 mg tablet See Rx Instructions .ROUTE .COMPLEX RF: 0 oxycodone 5 mg tablet 5 mg PO Q6H PRN (Reason: pain) RF: 0 potassium chloride 20 mEq Tablet Extended Release See Rx Instructions .ROUTE .COMPLEX RF: 0 aspirin 81 mg Tablet,Delayed Release (Dr/Ec) 81 mg PO DAILY RF: 0 acetaminophen 500 mg Capsule 500 mg PO Q6H PRN (Reason: pain) RF: 0 levothyroxine 75 mcg tablet 75 mcg PO DAILY RF: 0 omeprazole 20 mg capsule,delayed release(DR/EC) 20 mg PO BID RF: 0 metoprolol tartrate 25 mg tablet 25 mg PO BID RF: 0 Referrals: Claudia Simmons [Primary Care Provider] -
--- NOTE | 2019-08-04 16:17 | DI.RAD.S_ITS ---
PROCEDURE: XR CHEST 1V INDICATIONS: chest pain, recent chest surgery, SOB TECHNIQUE: One view of the chest was acquired. COMPARISON: [facility], CR, CHEST 1 VIEW, 05/09/2011, 12:32. [facility], CR, CHEST 2 VIEW, 08/06/2013, 12:28. [facility], CR, XR CHEST 2V, 06/10/2019, 17:40. [facility], CR, CHEST 2VW, 05/09/2008, 16:35. [facility], CT, CT ANGIO CHEST PE PROTOCOL, 07/02/2019, 18:27. [facility], CR, XR CHEST 2V, 07/02/2019, 16:47. [facility], CR, XR CHEST 1V, 07/08/2019, 20:26. FINDINGS: Surgical changes and devices: Sternotomy. Lungs and pleura: Mild left hemidiaphragmatic elevation and bibasilar scar/atelectasis. Lungs are clear. No pleural effusions or pneumothorax. Mediastinum: Mediastinal contours appear normal. Heart size is normal. Tortuous aorta appears unchanged. Bones and chest wall: A sclerotic lesion in the left humeral head/neck. Overlying soft tissues appear unremarkable. IMPRESSION: 1. Left hemidiaphragmatic and bibasilar scar/atelectasis. 2. Sternotomy. 3. A sclerotic lesion in the left humeral head and neck, most likely represent bone infarct or an enchondroma. Dictated by: Maryann Melo M.D. on 08/04/2019 at 17:28 Approved by: Maryann Melo M.D. on 08/04/2019 at 17:34
[2019-08-04 16:22] LABS: Add Manual Diff / Slide Review NO; Basophils Absolute Auto 100 /uL (0-100); Eosinophils Absolute Auto 200 /uL (0-450); Eosinophils Percent Auto 3.1 % (2-4); Hematocrit 38.4 % (36-46); Lymphocytes Absolute Auto 2800 /uL (1100-4500); Lymphocytes Percent Auto 44.3 % (25-40); Mean Corpuscular HGB Conc 33.9 % (30-36); Mean Corpuscular Hemoglobin 32.6 PG (26-34); Mean Corpuscular Volume 96.2 fL (80-100); Monocytes Absolute Auto 800 /uL (0-900); Monocytes Percent Auto 12.5 % (3-14); Neutrophils Absolute Auto 2500 /uL (1500-7000); Neutrophils Percent Auto 39.1 % (50-75); Platelet Count 392 X10^3/uL (150-400); Red Blood Cell Count 3.99 X10^6/uL (4.0-5.2); Red Cell Distribution Width 13.5 % (11.6-14.8); White Blood Cell Count 6.3 X10^3/uL (4.5-11.0)
[2019-08-04 16:24] LABS: Prothrombin Time 10.9 SECONDS (10.1-12.7)
[2019-08-04 16:27] LABS: PTT Partial Thromboplastin Tim 32 SECONDS (26.4-36.2)
[2019-08-04 16:28] LABS: Creatine Kinase 69 U/L (30-135)
[2019-08-04 16:30] LABS: Blood Urea Nitrogen 7 mg/dL (7-17); Calcium 8.8 mg/dL (8.4-10.2); Carbon Dioxide 26 mmol/L (22-32); Chloride 102 mmol/L (98-107); Estimated Glomerular Filt Rate > 60.0 mL/min (>60); Glucose 109 mg/dL (70-100); HEMOLYSIS 66 (0-50); Sodium 140 mmol/L (137-145)
[2019-08-04 16:41] LABS: Troponin I < 0.012 ng/mL (0.01-0.034)
--- NOTE | 2019-08-04 17:46 | DI.CT.S_ITS ---
PROCEDURE: CT ANGIO CHEST PE PROTOCOL INDICATIONS: severe chest pain, recent sternotomy for excision of mass TECHNIQUE: After the administration of intravenous contrast, 2 mm thick sections acquired from the pulmonary apices to the posterior costophrenic angles. 3-dimensional maximum intensity projection (MIP) coronal and sagittal reformats were then acquired through the thorax. For radiation dose reduction, the following was used: automated exposure control, adjustment of mA and/or kV according to patient size. COMPARISON: [facility], CR, XR CHEST 1V, 08/04/2019, 16:27. [facility], CR, XR CHEST 1V, 07/08/2019, 20:26. [facility], CR, XR CHEST 2V, 07/02/2019, 16:47. [facility], CR, XR CHEST 2V, 06/30/2019, 19:48. [facility], CT, CT ANGIO CHEST PE PROTOCOL, 06/10/2019, 18:58. [facility], CT, CT ANGIO CHEST PE PROTOCOL, 07/02/2019, 18:27. FINDINGS: Image quality: Excellent. Pulmonary arteries: Pulmonary arteries are normal in size, and demonstrate no intraluminal filling defects to suggest central pulmonary embolism. Lungs and pleura: Mild dependent atelectasis can be seen, which is more prominent on the left than on the right. No pneumothorax. There is a trace left-sided pleural effusion. Central and peripheral airways are patent. Mediastinum: Sternotomy wires are seen. The previously seen anterior mediastinal mass has been removed. Heart size is normal, without pericardial effusion. No mediastinal or hilar adenopathy. Thoracic aorta is normal in caliber and enhancement. Esophagus is normal in caliber. There is a small hiatal hernia. Bones and chest wall: No suspicious bony lesions. Age-appropriate bony degenerative changes are seen. Mild dextroconvex scoliotic curvature is seen. Ribs and thoracic spine appear intact throughout. Thyroid gland is not definitely seen. No axillary or supraclavicular adenopathy. Abdomen: Diffuse fatty liver infiltration is noted. Low-density liver lesions are seen, which measure water density and are attributed to cysts. A water density right renal cyst can also be seen superiorly and posteriorly measuring 1.4 cm. The visualized portions of the upper abdominal structures are otherwise unremarkable for imaging technique. IMPRESSION: Negative for pulmonary embolism. Interval removal of the previously seen anterior mediastinal mass. Trace left-sided pleural effusion. Lung base atelectasis, left worse than right. Incidental note is made of: Small hiatal hernia Fatty liver infiltration Liver and renal cysts Dextroconvex scoliotic curvature Dictated by: Rayray Szymanski M.D. on 08/04/2019 at 18:52 Approved by: Rayray Szymanski M.D. on 08/04/2019 at 18:57
[2019-08-04 18:00] VITALS: BP 119/71; PULSE 64; RESP 16
--- NOTE | 2019-08-04 18:16 | CM.SWNOTE ---
LAB INSTRUCTOR met with pt to offer support. 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 She shared that she has been renting a room from her ex- and his mother, and that he had initially promised to take care of her following her surgery, which apparently did not happen. He was with her when she checked in, but became angry and abruptly left the ED after she told the doctor that she needed more caregiving, and wasn't getting the care that she needed. LAB INSTRUCTOR offered listening support as she shared her story building up to the surgery. Her d/c plan tonight is for her dtr to pick her up and take pt to (dtr's) home in order to get the care that she is needing. She has a f/u appt. on Wednesday with her doctor in order to discuss the pathology and plan should the tumor removed be identified as malignant. No further needs identified at this time.
[2019-08-04 20:13] VITALS: BP 112/75; PULSE 61; RESP 13; O2SAT 100
== END 2019-08-04 20:13 | disposition home or self-care (01) ==
PROVIDERS: Emergency Provider Emergency Medicine; Family Provider Internal Medicine; PCP Internal Medicine
DX: R07.89 Other chest pain (principal)
CPT/HCPCS: 36591; 71045; 71275; 80048; 82550; 84484; 85025; 85610; 85730; 93005; 99282; 99285; Q9967

== ENCOUNTER 2019-08-06 15:28 | Emergency (ER) | payer OTHER, MEDICAID, SELFPAY ==
[2019-08-06 15:30] VITALS: BP 121/53; PULSE 72; RESP 22; TEMP 36.5; O2SAT 99; BMI 26.6
--- NOTE | 2019-08-06 15:41 | DI.RAD.S_ITS ---
PROCEDURE: XR CHEST 2V INDICATIONS: chest pain, ongoing, return visit, recent chest surgery TECHNIQUE: 2 views of the chest were acquired. COMPARISON: [facility], CR, XR CHEST 1V, 04/20/2019, 17:15. [facility], CR, XR CHEST 1V, 08/04/2019, 16:27. FINDINGS: Surgical changes and devices: Postsurgical changes are redemonstrated in the mediastinum. Lungs and pleura: There are linear opacities redemonstrated in the lung bases likely representing atelectasis. No definite focal consolidation. There is mild blunting of left costophrenic angle likely representing pleural thickening. No definite pleural effusions or pneumothorax. Mediastinum: Mediastinal contours are normal. Heart size is normal. Bones and chest wall: No suspicious bony abnormalities. Soft tissues appear unremarkable. IMPRESSION: 1. Probable atelectasis in the lung bases. No definite acute cardiopulmonary disease. Dictated by: Max Barbour M.D. on 08/06/2019 at 15:34 Approved by: Max Barbour M.D. on 08/06/2019 at 15:35
--- NOTE | 2019-08-06 16:05 | ED_ITS ---
HPI - Chest Pain General Chief Complaint: Chest Pain Stated Complaint: Chest pain s/p tumor removal Time Seen by Provider: 08/06/19 15:32 Source: patient Mode of arrival: EMS Limitations: no limitations History of Present Illness HPI narrative: 59-year-old former smoker with history of PE, hypothyroid and recent sternotomy for removal of a chest mass returns for evaluation of severe chest pain which radiates to her back. She was seen and evaluated on 08/04/19 for the same. She had an extensive workup including labs, chest x-ray and even CTA to rule out pulmonary embolism, pleural effusion, trouble with sternotomy wires etc. This all checked out, patient felt better, consultation was performed with cardiothoracic surgery and patient returned home. Patient denies any worsening or improvement of pain. She is not dizzy nor weak or lightheaded, merely complains of the same. Related Data Home Medications Medication Instructions Recorded Confirmed levothyroxine 75 mcg PO DAILY 06/30/19 08/04/19 metoprolol tartrate 25 mg PO BID 06/30/19 08/04/19 omeprazole 20 mg PO BID 06/30/19 08/04/19 acetaminophen 500 mg PO Q6H PRN 08/04/19 08/04/19 aspirin 81 mg PO DAILY 08/04/19 08/04/19 furosemide See Rx Instructions .ROUTE .COMPLEX 08/04/19 08/04/19 hydrocodone-acetaminophen 1 - 2 tab PO Q4H PRN 08/04/19 08/04/19 oxycodone 5 mg PO Q6H PRN 08/04/19 08/04/19 potassium chloride See Rx Instructions .ROUTE .COMPLEX 08/04/19 08/04/19 Allergies Allergy/AdvReac Type Severity Reaction Status Date / Time butalbital [From Fiorinal] Allergy Unknown Verified 08/06/19 15:47 Sulfa (Sulfonamide Allergy Verified 08/06/19 15:47 Antibiotics) RED PEPPER Allergy Unknown Uncoded 08/06/19 15:47 Review of Systems Constitutional Constitutional: Denies chills, Denies fatigue, Denies fever(s), Denies frequent falls, Denies lethargy and Denies weakness Eyes Eyes: Denies change in vision, Denies eye discharge, Denies irritation and Den ies loss of vision ENT Ears, Nose, Mouth, and Throat: Denies change in voice, Denies dizziness, Denies neck pain, Denies sore throat and Denies throat swelling Cardiovascular Cardiovascular: Reports chest pain, Denies irregular heart rhythm, Denies lightheadedness, Denies palpitations, Denies dyspnea, Denies dyspnea on exertion and Denies orthopnea Respiratory Respiratory: Denies cough, Denies dyspnea, Denies dyspnea on exertion and Denies wheezing Gastrointestinal Gastrointestinal: Denies abdominal pain, Denies change in bowel habits, Denies diarrhea, Denies nausea and Denies vomiting Genitourinary Genitourinary: Denies hematuria, Denies flank pain, Denies urinary incontinence and Denies urinary urgency Musculoskeletal Musculoskeletal: Denies back pain, Denies muscle weakness, Denies neck pain, Den ies numbness and Denies tingling Integumentary/Breasts Skin/Breast: Denies pruritus, Denies erythema, Denies rash and Denies wounds Neurologic Neurologic: Denies behavioral changes, Denies confusion, Denies dizziness, Denies frequent falls, Denies loss of vision, Denies numbness, Denies tingling and Denies weakness Psychiatric Psychiatric: Denies anxiety, Denies behavioral changes, Denies confusion, Denies depression, Denies homicidal ideation and Denies suicidal ideation Endocrine Endocrine: Denies fatigue, Denies flushing and Denies palpitations Hematologic/Lymphatic Hematologic/Lymphatic: Denies easy bruising Allergic/Immunologic Allergic/Immunologic: Denies urticaria, Denies throat swelling and Denies wheezing [facility] Medical History Cash's esophagus (Chronic) GERD (gastroesophageal reflux disease) (Chronic) Hypertension (Acute) Hypothyroidism (Chronic) Personal history of PE (pulmonary embolism) (Resolved) PVCs (premature ventricular contractions) (Chronic) Surgical History Status post hysterectomy (Resolved) Status post thyroidectomy (Resolved) Social History Smoking Status: Former smoker Social History Smoking Status: Former smoker Exam Narrative Exam Narrative: GEN: AOx3 and in mild distress EYES: Pupils are equal, round, and reactive to light and accommodation. Extraoccular muscles are intact bilaterally. There is no subconjunctival hemorrhage or exudate. CHEST: Lungs are clear to auscultation bilaterally and free of wheezes, rales, or rhonchi. Heart rate is regular rhythm, there are no murmurs, clicks, rubs, or gallops. Anterior chest pain tenderness to palpate, incision clean, dry and intact ABD: Abdomen is soft and nontender. There is no guarding or rebound. Bowel sounds are normal in all 4 quadrants. There is no mass or organomegaly. EXT: Full painless ROM of all extremities with no loss of sensation or strength. SKIN: Warm, pink, and dry. No erythema or rash Initial Vital Signs Initial Vital Signs: Vital Signs Temperature 97.7 F 08/06/19 15:30 Pulse Rate 72 08/06/19 15:30 Respiratory Rate 22 08/06/19 15:30 Blood Pressure 121/53 L 08/06/19 15:30 Pulse Oximetry 99 08/06/19 15:30 Course Orders Ordered: ED Orders 08/06/19 15:41 XR chest 2V Stat EKG-12 Lead Stat 08/06/19 16:15 Complete Blood Count AUTO DIFF Stat Comprehensive Metabolic Panel Stat Lipase Stat Troponin & CK Cardiac Panel Stat Consultations Consultation #1: Discussion with cardiothoracic surgery at [facility], no significant additions, recommend reassurance. Patient has upcoming ap pointment Vital Signs Vital signs: Vital Signs - 8 hr 08/06/19 15:30 Temperature 97.7 F Pulse Rate 72 Respiratory Rate 22 Blood Pressure 121/53 L Pulse Oximetry 99 MDM - Chest Pain Lab Data Result diagrams: 08/06/19 16:15 08/06/19 16:15 Labs: Lab Results 08/06/19 08/06/19 Range/Units 16:15 16:15 WBC 5.4 (4.5-11.0) X10^3/uL RBC 3.80 L (4.0-5.2) X10^6/uL Hgb 12.5 (12.0-16.0) g/dL Hct 36.3 (36-46) % MCV 95.5 (80-100) fL MCH 33.0 (26-34) PG MCHC 34.6 (30-36) % RDW 13.4 (11.6-14.8) % Plt Count 391 (150-400) X10^3/uL Neut % (Auto) 50.3 (50-75) % Lymph % (Auto) 37.2 (25-40) % [place] % (Auto) 10.4 (3-14) % Eos % (Auto) 1.4 L (2-4) % Baso % (Auto) 0.7 (0-2) % Neut # (Auto) 2700 (6066-1854) /uL Lymph # (Auto) 2000 (2183-8673) /uL [place] # (Auto) 600 (0-900) /uL Eos # (Auto) 100 (0-450) /uL Baso # (Auto) 0 (0-100) /uL Sodium 140 (137-145) mmol/L Potassium 3.7 (3.4-5.1) mmol/L Chloride 107 (98-107) mmol/L Carbon Dioxide 21 L (22-32) mmol/L BUN 7 (7-17) mg/dL Creatinine 0.60 (0.52-1.04) mg/dL Estimated GFR > 60.0 (>60) mL/min BUN/Creatinine Ratio 11.7 (6-22) Glucose 101 H (70-100) mg/dL Calcium 9.0 (8.4-10.2) mg/dL Total Bilirubin 0.3 (0.2-1.3) mg/dL AST 28 (14-36) IU/L ALT 14 (9-52) IU/L Alkaline Phosphatase 128 H (38-126) U/L Total Creatine Kinase 51 (30-135) U/L CK-MB (CK-2) TNP CK-MB (CK-2) Rel Index TNP Troponin I < 0.012 (0.01-0.034) ng/mL Total Protein 7.7 (6.3-8.2) g/dL Albumin 4.1 (3.5-5.0) g/dL Globulin 3.6 (1.7-4.1) g/dL Albumin/Globulin Ratio 1.1 (1.0-2.8) Lipase 485 H (23-300) U/L Discharge Plan Departure Patient Disposition: Home Clinical Impression: Atypical chest pain Discharge Date/Time: 08/06/19 19:34 Instructions: DI for Atypical Chest Pain Activity Restrictions/Additional Instructions: *You have been diagnosed with [atypical chest pain] *What to do: *Take medications as directed *Follow up with your primary care provider in 2-3 days, call for an appointment. Let them know you were seen in the Emergency Department and that we ask that you be seen in follow up *Return to ER if you should have any new, worsening or concerning symptoms Prescriptions: No Action hydrocodone-acetaminophen 5-325 mg tablet 1 - 2 tab PO Q4H PRN (Reason: pain) RF: 0 furosemide 20 mg tablet See Rx Instructions .ROUTE .COMPLEX RF: 0 oxycodone 5 mg tablet 5 mg PO Q6H PRN (Reason: pain) RF: 0 potassium chloride 20 mEq Tablet Extended Release See Rx Instructions .ROUTE .COMPLEX RF: 0 aspirin 81 mg Tablet,Delayed Release (Dr/Ec) 81 mg PO DAILY RF: 0 acetaminophen 500 mg Capsule 500 mg PO Q6H PRN (Reason: pain) RF: 0 levothyroxine 75 mcg tablet 75 mcg PO DAILY RF: 0 omeprazole 20 mg capsule,delayed release(DR/EC) 20 mg PO BID RF: 0 metoprolol tartrate 25 mg tablet 25 mg PO BID RF: 0 Referrals: Claudia Simmons [Primary Care Provider] -
[2019-08-06 16:34] LABS: Add Manual Diff / Slide Review NO; Basophils Absolute Auto 0 /uL (0-100); Basophils Percent Auto 0.7 % (0-2); Eosinophils Absolute Auto 100 /uL (0-450); Eosinophils Percent Auto 1.4 % (2-4); Hematocrit 36.3 % (36-46); Hemoglobin 12.5 g/dL (12.0-16.0); Lymphocytes Absolute Auto 2000 /uL (1100-4500); Lymphocytes Percent Auto 37.2 % (25-40); Mean Corpuscular HGB Conc 34.6 % (30-36); Mean Corpuscular Volume 95.5 fL (80-100); Monocytes Absolute Auto 600 /uL (0-900); Monocytes Percent Auto 10.4 % (3-14); Neutrophils Absolute Auto 2700 /uL (1500-7000); Neutrophils Percent Auto 50.3 % (50-75); Platelet Count 391 X10^3/uL (150-400); Red Cell Distribution Width 13.4 % (11.6-14.8); White Blood Cell Count 5.4 X10^3/uL (4.5-11.0)
[2019-08-06 16:53] LABS: Alanine Aminotransferase 14 IU/L (9-52); Albumin 4.1 g/dL (3.5-5.0); Albumin Globulin Ratio 1.1 (1.0-2.8); Alkaline Phosphatase 128 U/L (38-126); Aspartate Aminotransferase 28 IU/L (14-36); BUN Creatinine Ratio 11.7 (6-22); Bilirubin Total 0.3 mg/dL (0.2-1.3); Blood Urea Nitrogen 7 mg/dL (7-17); Carbon Dioxide 21 mmol/L (22-32); Chloride 107 mmol/L (98-107); Creatine Kinase 51 U/L (30-135); Estimated Glomerular Filt Rate > 60.0 mL/min (>60); Globulin 3.6 g/dL (1.7-4.1); Glucose 101 mg/dL (70-100); HEMOLYSIS < 15 (0-50); Lipase 485 U/L (23-300); Potassium 3.7 mmol/L (3.4-5.1); Sodium 140 mmol/L (137-145); Total Protein 7.7 g/dL (6.3-8.2)
[2019-08-06 17:04] LABS: Troponin I < 0.012 ng/mL (0.01-0.034)
--- NOTE | 2019-08-06 17:15 | CM.SWNOTE ---
ED W[employer] BALL M[employer]DER Note Pt is a 59 yo woman with frequent ED visits who presents today with chest pain. She is S/P tumor removal from her chest. Introduced myself and explained SW role. Pt's daughter Lincoln was at her mother's bedside. According to pt, she had an agreement with her ex- that he would assist with her medical care post surgery. She stated that this did not happen. She has been renting a room from her ex and his mother, but it is a stressful situation. She reported frequent arguments, and stated that she is not able to care for herself at this time. Pt's daughter reported that on Wednesday she encouraged her mother to come home with her, but her mother refused. Pt stated that she did not want to be a burden, but is in agreement with that plan now. Pt's daughter reported that her mother will stay with her as long as she needs to. Pt reported that her daughter will help her to find an apartment that she can afford. Pt reported that someone from [facility] comes out to see her on a monthly basis. They do not provide any specific care other than to provide pads for her incontinence. She stated that they also could help to arrange glasses as needed. It was not clear if pt met the criteria for HH although she appears to. Pt had gone out in the past, but currently does not. She also reported that she showers on her own, but fears falling, so needs someone to be near her when she showers. She also does not grocery shop and is not able to care for her home. WAX B[employer] MOLDER encouraged pt and daughter to discuss HH with pt's PCP Dr Hopper. Plan: Pt to discharge to her daughter's home in [facility]. WAX BALL MOLDER gave them the Senior Resource handbook. No further SW needs identified. Discharge Planning/Care Management ED Crisis Response Assessment Start: 08/06/19 17:13 Freq: Status: Active Protocol: Document 08/06/19 17:13 (Rec: 08/06/19 17:14 [id number]) ED Crisis Response Assessment [employer] Assessment Type Other Reason for W[employer]DER Referral Resources Referred by ED nursing staff Presenting Problem Pt has had several ED visits. Stressors at home. Pt is post- op s/p tumor removal Mental health diagnosis Pt reported PTSD [facility] No Relevant Medical History Lupus Crisis Plan Pt is discharging to daughter' s home
--- NOTE | 2019-08-06 17:28 | DI.US.S_ITS ---
PROCEDURE: US ABDOMEN LIMITED INDICATIONS: EPIGASTRIC PAIN, PANCREATITIS TECHNIQUE: Real-time focused scanning was performed of the abdomen, with image documentation. COMPARISON: Merged With [facility], CT, CT ANGIO CHEST PE PROTOCOL, 08/04/2019, 18:02. FINDINGS: Increased echogenicity of the liver is consistent with hepatic steatosis. Gallbladder is unremarkable. No gallstones or gallbladder wall thickening or fluid around the gallbladder or pain on examination. Biliary tree is nondilated. Common duct measures 5.4 mm. Visualized portions of the pancreas are unremarkable. IMPRESSION: 1. Hepatic steatosis. 2. No gallstones identified. 3. Visualized portions the pancreas unremarkable. However, consider CT with IV contrast if clinically suspect acute pancreatitis. Dictated by: Ron Heredia M.D. on 08/06/2019 at 18:51 Approved by: Ron Heredia M.D. on 08/06/2019 at 18:54
[2019-08-06 19:33] VITALS: BP 130/74; PULSE 64; RESP 12; O2SAT 99
== END 2019-08-06 19:34 | disposition home or self-care (01) ==
PROVIDERS: Emergency Provider Emergency Medicine; Family Provider Internal Medicine; PCP Internal Medicine
DX: R07.89 Other chest pain (principal)
CPT/HCPCS: 36415; 71046; 76705; 80053; 82550; 83690; 84484; 85025; 93005; 93010; 93041; 99283; 99285

== ENCOUNTER 2021-10-17 08:35 | Emergency (ER) | payer OTHER, MEDICAID, SELFPAY ==
[2021-10-17 08:56] VITALS: BP 134/78
[2021-10-17 08:57] VITALS: O2SAT 97
[2021-10-17 09:01] VITALS: BP 134/78; PULSE 87; RESP 18; TEMP 36.9; O2SAT 98; BMI 25.1
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
[2021-10-17 10:32] LABS: COVID19 -Nasal RAPID Negative (Negative)
== END 2021-10-17 11:14 | disposition home or self-care (01) ==
PROVIDERS: Emergency Provider Emergency Medicine; Family Provider Internal Medicine; PCP Internal Medicine
DX: J30.9 Allergic rhinitis, unspecified (principal); Z20.822 Contact with and (suspected) exposure to COVID-19; Z87.891 Personal history of nicotine dependence
CPT/HCPCS: 87635; 99281; 99282; C9803

== ENCOUNTER 2022-04-03 02:15 | Emergency (ER) | payer OTHER, MEDICAID, SELFPAY ==
[2022-04-03 02:47] VITALS: BP 143/84; PULSE 81; RESP 17; TEMP 37.1; O2SAT 98; BMI 26.4
--- NOTE | 2022-04-03 02:56 | ED_ITS ---
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 She typically takes Xanax prior to eating to prevent this. She also has a history of Cash's esophagus for which she uses [id number] Tagamet. Six days ago she saw her anesthesiology physician assistant and was started on Neurontin for lower extremity pain and by laces rash developing to the feet. She took a single dose on Wednesday on Wednesday she noticed some numbness and tenderness burning pain in the right paraspinous area lumbar spine radiating into the right flank. By Wednesday it was radiating across her abdomen. She took gabapentin Wednesday evening and has not taken any since (3 days without medications now). She continues to complain of worsening right low back/flank pain now involving her entire pelvis right lower quadrant and right upper quadrant. She does not have rebound or guarding. She has tried regular strength aspirin initially to had helped and now she is find 3 at a time are no longer offering any relief. She has not noticed any skin changes to her abdomen. She is complaining no chest pain, cough, fevers, chills, palpitations, headaches. She does note increasing persistent violaceous changes to the skin of her distal toes moving more proximal which initiated the referral to her anesthesiology physician assistant. She has a distant history of lupus and workup is re-initiated. Over the last week she has noticed some similar discoloration over the very tips of her fingers. Related Data Home Medications Medication Instructions Recorded Confirmed levothyroxine 75 mcg tablet 75 mcg PO DAILY 06/30/19 08/04/19 metoprolol tartrate 25 mg tablet 25 mg PO BID 06/30/19 08/04/19 omeprazole 20 mg capsule,delayed 20 mg PO BID 06/30/19 08/04/19 release acetaminophen 500 mg capsule 500 mg PO Q6H PRN 08/04/19 08/04/19 aspirin 81 mg tablet,delayed 81 mg PO DAILY 08/04/19 08/04/19 release furosemide 20 mg tablet See Rx Instructions .ROUTE .COMPLEX 08/04/19 08/04/19 hydrocodone 5 mg-acetaminophen 325 1 - 2 tab PO Q4H PRN 08/04/19 08/04/19 mg tablet oxycodone 5 mg tablet 5 mg PO Q6H PRN 08/04/19 08/04/19 potassium chloride 20 mEq See Rx Instructions .ROUTE .COMPLEX 08/04/19 08/04/19 tablet,extended release Previous Rx's Medication Instructions Recorded amoxicillin 875 mg-potassium 1 tab PO BID #20 tab 04/03/22 clavulanate 125 mg tablet Allergies Allergy/AdvReac Type Severity Reaction Status Date / Time butalbital [From Fiorinal] Allergy Unknown Verified 08/06/19 15:47 latex Allergy Verified 04/03/22 02:46 Sulfa (Sulfonamide Allergy Verified 08/06/19 15:47 Antibiotics) RED PEPPER Allergy Unknown Uncoded 08/06/19 15:47 Review of Systems Review of Systems Narrative: Remainder of complete review of systems is otherwise unremarkable except for that included in the HPI. Patient History Medical History (Updated 04/03/22 @ 04:47 by Tina Blanchard MD) Cash's esophagus GERD (gastroesophageal reflux disease) Hypertension Hypothyroidism Personal history of PE (pulmonary embolism) PVCs (premature ventricular contractions) Surgical History Status post hysterectomy Status post thyroidectomy Social History Smoking Status: Former smoker Smoking Status: Former smoker alcohol intake frequency: holidays/special occasions only Substance Use Type: does not use Exam Initial Vital Signs Initial Vital Signs: Vital Signs Temperature 98.7 F 04/03/22 02:47 Pulse Rate 81 04/03/22 02:47 Respiratory Rate 17 04/03/22 02:47 Blood Pressure 143/84 H 04/03/22 02:47 Pulse Oximetry 98 04/03/22 02:47 General: Appears fatigued and chronically ill but in no acute distress. Able to give a complete and coherent history. HEENT: Moist mucous membranes, normal sclera with reactive pupils, small contusion the lateral left eye lower eyelid without any eye pain or scleral changes. Neck: No JVD, supple. She is somewhat hoarse thyroid scar and upper mediastinal scar are well-healed with no tenderness to palpation or masses under. Respiratory: Lungs are clear to auscultation, no wheezing no rales no rhonchi. Full and symmetrical air movement Cardiac: Regular rate and rhythm no murmurs no bruits Abdomen: Soft, tender from the right upper quadrant on the right side right lower quadrant through the entire pelvis without rebound or guarding. Mild right flank pain. Good bowel tones. Spine: Tenderness right paraspinous area from T12 through L5 without muscle spasm or skin changes Skin: Warm and dry, violaceous non branching discoloration to distal feet and toes with good capillary refill. Neurologic: Globally weak butGrossly neurologically intact with no obvious asymmetries or abnormalities Extremities: No trauma, Psych: Cooperative, appropriate insight and affect Course Orders Ordered: ED Orders 04/03/22 03:12 CT abdomen pelvis w con Stat 04/03/22 03:15 Complete Blood Count AUTO DIFF Stat Comprehensive Metabolic Panel Stat Lipase Stat Magnesium Stat Hydromorphone HCl (Hydromorphone 0.5 Mg Inj) 0.5 mg IV Q15MIN PRN PRN Reason: Pain, Last Admin: 04/03/22 04:11 Dose: 0.5 mg Documented by: Admin: 04/03/22 03:36 Dose: 0.5 mg Documented by: DORINA Discontinued Medications Sodium Chloride (Normal Saline 0.9%) 1,000 mls @ 1,000 mls/hr IV BOLUS ONE Stop: 04/03/22 04:10 Last Admin: 04/03/22 03:36 Dose: 1,000 mls/hr Documented by: DORINA Ondansetron HCl (Ondansetron 4 Mg/2 Ml Inj) 4 mg IV NOW ONE Stop: 04/03/22 03:12 Last Admin: 04/03/22 03:35 Dose: 4 mg Documented by: DORINA Vital Signs Vital signs: Vital Signs - 8 hr 04/03/22 02:47 Temperature 98.7 F Pulse Rate 81 Respiratory Rate 17 Blood Pressure 143/84 H Pulse Oximetry 98 MDM - Back Pain/Injury Lab Data Result diagrams: 04/03/22 03:15 04/03/22 03:15 Labs: Lab Results 04/03/22 04/03/22 Range/Units 03:15 03:15 WBC 5.8 (4.5-11.0) X10^3/uL RBC 4.30 (4.0-5.2) X10^6/uL Hgb 14.1 (12.0-16.0) g/dL Hct 40.9 (36-46) % MCV 94.9 (80-100) fL MCH 32.7 (26-34) PG MCHC 34.4 (30-36) % RDW 13.9 (11.6-14.8) % Plt Count 199 (150-400) X10^3/uL Neut % (Auto) 54.8 (50-75) % Lymph % (Auto) 29.0 (25-40) % [place] % (Auto) 10.9 (3-14) % Eos % (Auto) 4.2 H (2-4) % Baso % (Auto) 1.1 (0-2) % Neut # (Auto) 3200 (5712-7312) /uL Lymph # (Auto) 1700 (6307-9672) /uL [place] # (Auto) 600 (0-900) /uL Eos # (Auto) 200 (0-450) /uL Baso # (Auto) 100 (0-100) /uL Sodium 141 (137-145) mmol/L Potassium 3.9 (3.4-5.1) mmol/L Chloride 108 H (98-107) mmol/L Carbon Dioxide 24 (22-32) mmol/L BUN 7 (7-17) mg/dL Creatinine 0.76 (0.52-1.04) mg/dL Estimated GFR > 60 (>60) mL/min BUN/Creatinine Ratio 9.2 (6-22) Glucose 95 (80-110) mg/dL Calcium 8.9 (8.4-10.2) mg/dL Magnesium 2.1 (1.6-2.3) mg/dL Total Bilirubin 0.3 (0.2-1.3) mg/dL AST 25 (14-36) IU/L ALT 21 (<35) IU/L Alkaline Phosphatase 84 (38-126) U/L Total Protein 7.6 (6.3-8.2) g/dL Albumin 4.1 (3.5-5.0) g/dL Globulin 3.5 (1.7-4.1) g/dL Albumin/Globulin Ratio 1.2 (1.0-2.8) Lipase 146 (23-300) U/L Urine Dip Bedside Urine Glucose Negative Bedside Urine Bilirubin - Negative Bedside Urine Ketone - Negative Urine Specific [place] 1.020 Bedside Urine Occult Blood - Negative Bedside Urine pH 6.0 Bedside Urine Protein - Negative Bedside Urine Urobilinogen - Negative Bedside Urine Nitrite - Negative Bedside Urine Leukocytes - Negative Esterase Imaging Data CT scan - abdomen/pelvis: Radiologist's Impression: Subtle pericolonic inflammatory changes of the mid sigmoid colon suggesting mild diverticulitis. No pericolonic focal drainable collection or pneumoperitoneum. No colitis, bowel obstruction, obstructive uropathy or acute appendicitis. Probable complex or septated cyst within the upper pole of the right kidney. Recommend renal ultrasound. Addendum, not mentioned in the original report is a low attenuation structure within the midbody of the spleen measuring 1.2 x 0.7 cm. Recommend contrast- enhanced MRI/MRCP of the abdomen for further evaluation DR Renea Sorenson MD MDM Narrative Medical decision making narrative: 61-year-old woman with history of metastatic thyroid cancer and vocal cord paralysis presents with increasing abdominal pain. CT scan shows developing mild diverticulitis. There is no evidence of sepsis, bowel obstruction, appendicitis, kidney stones, hydronephrosis. She has responded well to pain medications. Will place her on Augmentin for outpatient treatment of her diverticulitis. Discussed probiotic use to keep her healthy gut sheryl established. Percocet to use for pain control with discussion of stool softener should she have any suggestion of constipation. Incidental renal cyst is noted. This is reviewed with patient she is given a copy of the preliminary report and will share this with her primary care doctor for follow-up. This point she is safe for home discharge. Discharge Plan Departure Patient Disposition: Home Clinical Impression: Diverticulitis, Renal cyst Instructions: DI for Diverticulitis Activity Restrictions/Additional Instructions: Thank you for coming in today I believe your pain is related to developing diverticulitis. I am going to place you on Augmentin for 10 days. The antibiotic prescription has been electronically transmitted to [facility]. Antibiotics can right have ache with the healthy bacteria in your gut. I do recommend adding probiotics to help prevent this. Probiotics can can be found in fermented foods such as yogurt(read the labels to get live probiotics and low sugar content) or kombucha. You can also purchase probiotics as supplements. I am going to send you home with prescription for Percocet to help with pain. Narcotics to help with pain can also cause constipation which can exacerbate the diverticulitis pain. Please make sure that you are using stool softeners, prune juice and again, kombucha can sometimes help with constipation Incidentally found on the CT scan was a septated renal cyst as well as a small finding in the middle of the spleen that will need further follow-up as an outpatient to make sure that there is nothing to be concerned with. If you have worsening findings, increased pain, inability to pass gas or have a bowel movement, blood in your stools or other unique findings, you may need to return to the emergency department for further evaluation Prescriptions: New amoxicillin-pot clavulanate 875-125 mg tablet 1 tab PO BID Qty: 20 0RF No Action hydrocodone-acetaminophen 5-325 mg tablet 1 - 2 tab PO Q4H PRN (Reason: pain) 0RF Label Comments: take 1 to 2 tablets by mouth every 4 hours if needed furosemide 20 mg tablet See Rx Instructions .ROUTE .COMPLEX 0RF Rx Instructions: TAKE TWO TABLETS BY MOUTH DAILY FOR 5 DAYS, THEN ONE TABLET DAILY FOR5 DAYS oxycodone 5 mg tablet 5 mg PO Q6H PRN (Reason: pain) 0RF Label Comments: take 1 tablet by mouth every 6 hours if needed for pain potassium chloride 20 mEq Tablet Extended Release See Rx Instructions .ROUTE .COMPLEX 0RF Rx Instructions: Take 2 tablets daily for 5 days. Then take 1 tablet daily. aspirin 81 mg Tablet,Delayed Release (Dr/Ec) 81 mg PO DAILY 0RF acetaminophen 500 mg Capsule 500 mg PO Q6H PRN (Reason: pain) 0RF levothyroxine 75 mcg tablet 75 mcg PO DAILY 0RF omeprazole 20 mg capsule,delayed release(DR/EC) 20 mg PO BID 0RF metoprolol tartrate 25 mg tablet 25 mg PO BID 0RF Referrals: Claudia Simmons MD [Primary Care Provider] -
--- NOTE | 2022-04-03 03:12 | DI.CT.S_ITS ---
PROCEDURE: CT ABDOMEN PELVIS W CON INDICATIONS: abdominal pain TECHNIQUE: After the administration of IV contrast, axial sections were acquired from the lung bases to the pubic symphysis. Coronal and sagittal reformats were performed. For radiation dose reduction, the following was used: automated exposure control, adjustment of mA and/or kV according to patient size. COMPARISON: CT, CT ANGIO CHEST PE PROTOCOL, 08/04/2019, 18:02. FINDINGS: Image quality: Excellent. Lung bases: Bibasilar atelectasis. No pleural effusion. Heart: No significant findings. Small hiatal hernia. ABDOMEN: Liver: Multiple well-circumscribed hepatic hypodensities which have the appearance of benign cysts and again seen. Gallbladder: Unremarkable. Biliary ducts: Unremarkable. Pancreas: Subtle hypodensity in the tail of the pancreas measuring at 0.7 cm, (2/18). In retrospect this was present on the prior CT pulmonary angiogram. Spleen: No splenomegaly. Spleen measures 8.3 cm. No focal lesion is seen in the spleen. Adrenal Glands: Minimal thickening of the left adrenal gland. Kidneys and Ureters: No hydronephrosis. Small simple cyst at the superior pole the right kidney. Stomach and Bowel: Small duodenal diverticulum. No small bowel obstruction. Diverticulosis. Very subtle stranding in the pericolonic fat in the left pelvis adjacent to the sigmoid colon, (2/75). The appendix is not dilated, (2/67). Peritoneum: No abnormal intraperitoneal fluid. No free air. Ventral Wall: No hernia. Abdominal Nodes: No retroperitoneal or mesenteric adenopathy by size criteria. Vessels: Aorta and inferior vena cava are normal in size. Fvwr-sn-nvlwqjva plaque. PELVIS: Pelvic Organs: Uterus is absent. Bladder: No stones. Pelvic Nodes: No enlarged lymph nodes. Miscellaneous: No inguinal hernias are seen. Bones: No suspicious lesion. Minimal height loss at L1. Multilevel DDD. IMPRESSION: 1. Subtle stranding adjacent to the sigmoid colon in the left pelvis raises the possibility of diverticulitis. However, this could be the postmenopausal ovary or ovarian ligament. No abscess. 2. The appendix is normal in appearance. 3. Subcentimeter hypodensity in the tail the pancreas measuring 0.7 cm. This is similar in retrospect compared to CT from May 2019. This is most consistent with a pancreatic cyst or IPMN. Recommend follow-up MRI pancreas in 1 year. 4. Small hiatal hernia. This report is discordant with the overnight preliminary interpretation. The overnight amendment reports lesion in the spleen. However, this is located in the pancreas and is likely a dictation error. Comment: Findings were discussed with Anna Marie Arora at the time of dictation. Dictated by: Harshal Doll M.D. on 04/03/2022 at 8:32 Approved by: Harshal Doll M.D. on 04/03/2022 at 8:56
[2022-04-03 03:29] LABS: Add Manual Diff / Slide Review NO; Basophils Absolute Auto 100 /uL (0-100); Basophils Percent Auto 1.1 % (0-2); Eosinophils Absolute Auto 200 /uL (0-450); Eosinophils Percent Auto 4.2 % (2-4); Hematocrit 40.9 % (36-46); Hemoglobin 14.1 g/dL (12.0-16.0); Lymphocytes Absolute Auto 1700 /uL (1100-4500); Mean Corpuscular HGB Conc 34.4 % (30-36); Mean Corpuscular Hemoglobin 32.7 PG (26-34); Mean Corpuscular Volume 94.9 fL (80-100); Monocytes Absolute Auto 600 /uL (0-900); Monocytes Percent Auto 10.9 % (3-14); Neutrophils Absolute Auto 3200 /uL (1500-7000); Neutrophils Percent Auto 54.8 % (50-75); Platelet Count 199 X10^3/uL (150-400); Red Cell Distribution Width 13.9 % (11.6-14.8); White Blood Cell Count 5.8 X10^3/uL (4.5-11.0)
[2022-04-03] MEDS: ONDANSETRON 4 MG/2 ML INJ IV (03:35)
[2022-04-03] MEDS: HYDROMORPHONE 0.5 MG INJ IV ×2 (03:36→04:11)
[2022-04-03] MEDS: SODIUM CHLORIDE 0.9% 1,000 ML 1000 ML IV (03:36)
[2022-04-03 03:38] LABS: Alanine Aminotransferase 21 IU/L (<35); Albumin 4.1 g/dL (3.5-5.0); Albumin Globulin Ratio 1.2 (1.0-2.8); Alkaline Phosphatase 84 U/L (38-126); Aspartate Aminotransferase 25 IU/L (14-36); BUN Creatinine Ratio 9.2 (6-22); Bilirubin Total 0.3 mg/dL (0.2-1.3); Blood Urea Nitrogen 7 mg/dL (7-17); Calcium 8.9 mg/dL (8.4-10.2); Carbon Dioxide 24 mmol/L (22-32); Chloride 108 mmol/L (98-107); Estimated Glomerular Filt Rate > 60 mL/min (>60); Globulin 3.5 g/dL (1.7-4.1); Glucose 95 mg/dL (80-110); HEMOLYSIS 17 (0-50); Lipase 146 U/L (23-300); Magnesium 2.1 mg/dL (1.6-2.3); Potassium 3.9 mmol/L (3.4-5.1); Sodium 141 mmol/L (137-145); Total Protein 7.6 g/dL (6.3-8.2)
[2022-04-03 04:14] VITALS: PULSE 73; O2SAT 99
[2022-04-03 04:16] VITALS: BP 175/93; PULSE 75; O2SAT 98
[2022-04-03 04:30] VITALS: PULSE 71; O2SAT 97
[2022-04-03] MEDS: OXYCODONE/ACETAMINOPHEN 5/325 TABLET 1 TAB PO (04:55)
[2022-04-03] MEDS: OXYCODONE/APAP 5/325 PREPACK 1 BOTTLE MISC (04:56)
[2022-04-03] MEDS: AMOXICILLIN/CLAV 875/125 MG 1 TAB PO (04:56)
[2022-04-03 05:00] VITALS: PULSE 75; O2SAT 98
[2022-04-03 05:01] VITALS: BP 163/90; PULSE 71; O2SAT 97
== END 2022-04-03 05:09 | disposition home or self-care (01) ==
PROVIDERS: Emergency Provider Emergency Medicine; Family Provider Internal Medicine; PCP Internal Medicine
DX: K57.92 Diverticulitis of intestine, part unspecified, without perforation or abscess without bleeding (principal); N28.1 Cyst of kidney, acquired
CPT/HCPCS: 36415; 74177; 80053; 81003; 83690; 83735; 85025; 96374; 96375; 99284; J1170; J2405; Q9967

== ENCOUNTER 2022-05-12 13:17 | Emergency (ER) | payer OTHER, MEDICAID, SELFPAY ==
--- NOTE | 2022-05-12 | DI.US.S_ITS ---
PROCEDURE: US PERIPH VENOUS LOW EXTREM RT INDICATIONS: RIGHT LOWER LEG SWELLING TECHNIQUE: Real-time imaging, as well as color and pulse Doppler interrogation, were performed of the lower extremity deep veins from the inguinal ligament to the popliteal fossa. COMPARISON: None. FINDINGS: The common femoral, femoral and popliteal veins are normally compressible, and free of intraluminal thrombus. Color and pulse Doppler demonstrate normal phasic intraluminal flow. There is normal augmentation response to distal compression maneuver. IMPRESSION: No sonographic evidence of DVT. Dictated by: Chris Newman M.D. on 05/12/2022 at 14:00 Approved by: Chris Newman M.D. on 05/12/2022 at 14:00
[2022-05-12 13:21] VITALS: BP 164/79; PULSE 99; RESP 20; TEMP 36.1; O2SAT 99; BMI 25.8
--- NOTE | 2022-05-12 13:27 | DI.RAD.S_ITS ---
PROCEDURE: XR CHEST 2V INDICATIONS: shortness of breath TECHNIQUE: 2 views of the chest were acquired. COMPARISON: [facility], CR, XR CHEST 2V, 08/06/2019, 15:51. FINDINGS: Surgical changes and devices: Sternal wires. Lungs and pleura: Lungs are clear. No pleural effusions or pneumothorax. Mediastinum: Mediastinal contours are normal. Heart size is normal. Bones and chest wall: No suspicious bony abnormalities. Soft tissues appear unremarkable. IMPRESSION: No acute pulmonary process. Dictated by: Annabel Pruitt M.D. on 05/12/2022 at 14:32 Approved by: Annabel Pruitt M.D. on 05/12/2022 at 14:33
[2022-05-12 13:47] LABS: Add Manual Diff / Slide Review NO; Basophils Absolute Auto 0 /uL (0-100); Basophils Percent Auto 0.6 % (0-2); Eosinophils Absolute Auto 100 /uL (0-450); Eosinophils Percent Auto 2.9 % (2-4); Hematocrit 41.6 % (36-46); Hemoglobin 14.2 g/dL (12.0-16.0); Lymphocytes Absolute Auto 2300 /uL (1100-4500); Lymphocytes Percent Auto 45.1 % (25-40); Mean Corpuscular Hemoglobin 32.5 PG (26-34); Mean Corpuscular Volume 95.5 fL (80-100); Monocytes Absolute Auto 700 /uL (0-900); Monocytes Percent Auto 13.6 % (3-14); Neutrophils Absolute Auto 1900 /uL (1500-7000); Neutrophils Percent Auto 37.8 % (50-75); Platelet Count 189 X10^3/uL (150-400); Red Blood Cell Count 4.35 X10^6/uL (4.0-5.2); Red Cell Distribution Width 13.3 % (11.6-14.8)
[2022-05-12 13:56] LABS: Prothrombin Time 11.3 SECONDS (10.1-12.7)
[2022-05-12 14:06] LABS: Alanine Aminotransferase 22 IU/L (<35); Albumin 4.6 g/dL (3.5-5.0); Albumin Globulin Ratio 1.3 (1.0-2.8); Alkaline Phosphatase 96 U/L (38-126); Aspartate Aminotransferase 31 IU/L (14-36); BUN Creatinine Ratio 14.3 (6-22); Bilirubin Total 0.4 mg/dL (0.2-1.3); Blood Urea Nitrogen 10 mg/dL (7-17); Carbon Dioxide 27 mmol/L (22-32); Chloride 105 mmol/L (98-107); Creatine Kinase 83 U/L (30-135); Estimated Glomerular Filt Rate > 60 mL/min (>60); Globulin 3.6 g/dL (1.7-4.1); Glucose 104 mg/dL (80-110); HEMOLYSIS < 15 (0-50); Potassium 3.8 mmol/L (3.4-5.1); Sodium 140 mmol/L (137-145); Total Protein 8.2 g/dL (6.3-8.2)
[2022-05-12 14:07] LABS: Lactate (Lactic Acid) 1.1 mmol/L (0.7-2.1)
--- NOTE | 2022-05-12 14:09 | ED_ITS ---
HPI - SOB/Dyspnea General Chief Complaint: Extremity Problem,Nontraumatic Stated Complaint: Right leg swollen and painful/ SOB, lt arm pain Time Seen by Provider: 05/12/22 13:26 Source: patient Mode of arrival: Ambulatory Limitations: no limitations History of Present Illness HPI Narrative: Patient is a 61-year-old female with possible Sjogren's syndrome or lupus presenting today with right ankle swelling. She does gotten worse over last few days she feels like her knee is swollen is while she able to walk on it she denies any injury. She says it is mostly better in the morning but not completely gone. She talked to a nurse who told her to come in. She has also noticed some increasing shortness of breath but denies any chest pain. She denies any orthopnea. She has ongoing fatigue. She thinks that she had COVID 2 weeks ago her roommates were positive but she never tested positive. She thinks she did get better but now is just really fatigued and her foot is swollen. She has chronic ongoing nausea and some stomach pain which is not any worse today. Related Data Home Medications Medication Instructions Recorded Confirmed levothyroxine 75 mcg tablet 75 mcg PO DAILY 06/30/19 08/04/19 metoprolol tartrate 25 mg tablet 25 mg PO BID 06/30/19 08/04/19 omeprazole 20 mg capsule,delayed 20 mg PO BID 06/30/19 08/04/19 release acetaminophen 500 mg capsule 500 mg PO Q6H PRN pain 08/04/19 08/04/19 aspirin 81 mg tablet,delayed 81 mg PO DAILY 08/04/19 08/04/19 release furosemide 20 mg tablet See Rx Instructions .Route .COMPLEX 08/04/19 08/04/19 hydrocodone 5 mg-acetaminophen 325 1 - 2 tab PO Q4H PRN pain 08/04/19 08/04/19 mg tablet oxycodone 5 mg tablet 5 mg PO Q6H PRN pain 08/04/19 08/04/19 potassium chloride 20 mEq See Rx Instructions .Route .COMPLEX 08/04/19 08/04/19 tablet,extended release Previous Rx's Medication Instructions Recorded amoxicillin 875 mg-potassium 1 tab PO BID #20 tabs 04/03/22 clavulanate 125 mg tablet Allergies Allergy/AdvReac Type Severity Reaction Status Date / Time butalbital [From Fiorinal] Allergy Unknown Verified 05/12/22 13:21 latex Allergy Verified 05/12/22 13:21 Sulfa (Sulfonamide Allergy Verified 05/12/22 13:21 Antibiotics) RED PEPPER Allergy Unknown Uncoded 08/06/19 15:47 Review of Systems Review of Systems Narrative: GENERAL: Denies chills, fatigue, malaise, fever, sweats, travel HEENT: Denies sinus pain, ear pain, sore throat, difficulty swallowing, neck pain RESPIRATORY: Denies dyspnea, cough, wheezing, hemoptysis, sputum. CARDIOVASCULAR: Denies chest pain, palpitations, orthopnea, edema GASTROINTESTINAL: Denies nausea, vomiting, abdominal pain, diarrhea, constipation, melena. : Denies dysuria, frequency, incontinence, hematuria, urinary retention, flank pain. MUSCULOSKELETAL: See HPI SKIN: No rash, no erythema, no pruritus NEUROLOGIC: Denies weakness, dizziness, headache, numbness, change in speech, confusion PSYCHIATRIC: No concerning psychosocial issues. 12 point review of systems is negative except for those stated above and HPI Patient History Medical History (Updated 05/12/22 @ 15:46 by Anna Marie Arora DO) Cash's esophagus GERD (gastroesophageal reflux disease) Hypertension Hypothyroidism Personal history of PE (pulmonary embolism) PVCs (premature ventricular contractions) Surgical History Status post hysterectomy Status post thyroidectomy Social History Smoking Status: Former smoker Smoking Status: Former smoker alcohol intake frequency: holidays/special occasions only Substance Use Type: does not use Exam Initial Vital Signs Initial Vital Signs: Vital Signs Temperature 97.0 F L 05/12/22 13:21 Pulse Rate 99 H 05/12/22 13:21 Respiratory Rate 20 05/12/22 13:21 Blood Pressure 164/79 H 05/12/22 13:21 Pulse Oximetry 99 05/12/22 13:21 Oxygen Delivery Method 05/12/22 13:21 GENERAL: Alert well-appearing 7-year-old female and in no acute distress. HEENT: Head atraumatic,EOMI, pupils reactive, face symmetric, moist mucous membranes CARDIOVASCULAR: Regular rate and rhythm without murmurs, rubs or gallops. RESPIRATORY: Breath sounds equal bilaterally, no wheezes rales or rhonchi. ABDOMEN: Soft, nontender. Normoactive bowel sounds all 4 quadrants. No guarding or rebound. EXTREMITIES: Normal range of motion, no clubbing or edema. Neurovascularly intact Right lower extremity ankle and foot significantly swollen strong distal pedal pulse is present Achilles tendon present. Ankle is stable. Mid swelling in the lower leg NEUROLOGICAL: Alert and oriented x4.Normal gait and speech. SKIN: Some erythema on bilateral feet it appears chronic patient says her feet look unchanged mostly her toes Course Orders Ordered: ED Orders 05/12/22 13:27 XR chest 2V Stat EKG-12 Lead Stat Measure peak expiratory flow ONCE RT Consult Eval and Treat Now 05/12/22 13:40 Complete Blood Count AUTO DIFF Stat Comprehensive Metabolic Panel Stat Lactate (Lactic Acid) Stat NT-proBNP (BNP-Adult 18+) Stat Prothrombin Time INR Stat Troponin & CK Cardiac Panel Stat 05/12/22 14:29 XR foot RT min 3V Stat COVID19 -Nasal RAPID/Pre-Proc Stat Vital Signs Vital signs: Vital Signs - 8 hr 05/12/22 13:21 Temperature 97.0 F L Pulse Rate 99 H Respiratory Rate 20 Blood Pressure 164/79 H Pulse Oximetry 99 Oxygen Delivery Method Room Air MDM - SOB/Dyspnea Lab Data Result diagrams: 05/12/22 13:40 05/12/22 13:40 Labs: Lab Results 05/12/22 05/12/22 05/12/22 Range/Units 13:40 13:40 13:40 WBC 5.0 (4.5-11.0) X10^3/uL RBC 4.35 (4.0-5.2) X10^6/uL Hgb 14.2 (12.0-16.0) g/dL Hct 41.6 (36-46) % MCV 95.5 (80-100) fL MCH 32.5 (26-34) PG MCHC 34.0 (30-36) % RDW 13.3 (11.6-14.8) % Plt Count 189 (150-400) X10^3/uL Neut % (Auto) 37.8 L (50-75) % Lymph % (Auto) 45.1 H (25-40) % [place] % (Auto) 13.6 (3-14) % Eos % (Auto) 2.9 (2-4) % Baso % (Auto) 0.6 (0-2) % Neut # (Auto) 1900 (1328-9951) /uL Lymph # (Auto) 2300 (3425-7354) /uL [place] # (Auto) 700 (0-900) /uL Eos # (Auto) 100 (0-450) /uL Baso # (Auto) 0 (0-100) /uL PT (10.1-12.7) SECONDS INR (0.9-1.3) Sodium 140 (137-145) mmol/L Potassium 3.8 (3.4-5.1) mmol/L Chloride 105 (98-107) mmol/L Carbon Dioxide 27 (22-32) mmol/L BUN 10 (7-17) mg/dL Creatinine 0.70 (0.52-1.04) mg/dL Estimated GFR > 60 (>60) mL/min BUN/Creatinine Ratio 14.3 (6-22) Glucose 104 (80-110) mg/dL Lactate 1.1 (0.7-2.1) mmol/L Calcium 9.0 (8.4-10.2) mg/dL Total Bilirubin 0.4 (0.2-1.3) mg/dL AST 31 (14-36) IU/L ALT 22 (<35) IU/L Alkaline Phosphatase 96 (38-126) U/L Total Creatine Kinase (30-135) U/L CK-MB (CK-2) CK-MB (CK-2) Rel Index Troponin I (0.01-0.034) ng/mL NT-Pro-B Natriuret Pep (<125) pg/mL Total Protein 8.2 (6.3-8.2) g/dL Albumin 4.6 (3.5-5.0) g/dL Globulin 3.6 (1.7-4.1) g/dL Albumin/Globulin Ratio 1.3 (1.0-2.8) SARS-CoV-2 (PCR) (Negative) 05/12/22 05/12/22 05/12/22 Range/Units 13:40 13:40 15:06 WBC (4.5-11.0) X10^3/uL RBC (4.0-5.2) X10^6/uL Hgb (12.0-16.0) g/dL Hct (36-46) % MCV (80-100) fL MCH (26-34) PG MCHC (30-36) % RDW (11.6-14.8) % Plt Count (150-400) X10^3/uL Neut % (Auto) (50-75) % Lymph % (Auto) (25-40) % [place] % (Auto) (3-14) % Eos % (Auto) (2-4) % Baso % (Auto) (0-2) % Neut # (Auto) (1985-8743) /uL Lymph # (Auto) (5230-7872) /uL [place] # (Auto) (0-900) /uL Eos # (Auto) (0-450) /uL Baso # (Auto) (0-100) /uL PT 11.3 (10.1-12.7) SECONDS INR 1.0 (0.9-1.3) Sodium (137-145) mmol/L Potassium (3.4-5.1) mmol/L Chloride (98-107) mmol/L Carbon Dioxide (22-32) mmol/L BUN (7-17) mg/dL Creatinine (0.52-1.04) mg/dL Estimated GFR (>60) mL/min BUN/Creatinine Ratio (6-22) Glucose (80-110) mg/dL Lactate (0.7-2.1) mmol/L Calcium (8.4-10.2) mg/dL Total Bilirubin (0.2-1.3) mg/dL AST (14-36) IU/L ALT (<35) IU/L Alkaline Phosphatase (38-126) U/L Total Creatine Kinase 83 (30-135) U/L CK-MB (CK-2) TNP CK-MB (CK-2) Rel Index TNP Troponin I < 0.012 (0.01-0.034) ng/mL NT-Pro-B Natriuret Pep 35 (<125) pg/mL Total Protein (6.3-8.2) g/dL Albumin (3.5-5.0) g/dL Globulin (1.7-4.1) g/dL Albumin/Globulin Ratio (1.0-2.8) SARS-CoV-2 (PCR) Negative (Negative) Imaging Data US - DVT: Radiologist's Impression: Signed Patient: Rakel Purdy MR#: [id number] : 1960 Acct:[id number] Age/Sex: 61 / F Date of Service: 05/12/22 Loc: ED Accession Number: [id number] ?? Procedure: US periph venous low extrem rt Ordering Provider: Anna Marie Arora D.O. PROCEDURE:? US PERIPH VENOUS LOW EXTREM RT ? INDICATIONS:? RIGHT LOWER LEG SWELLING ? TECHNIQUE:? Real-time imaging, as well as color and pulse Doppler interrogation, were perfo rmed of the lower extremity deep veins from the inguinal ligament to the popliteal fossa.? ? COMPARISON:? None. ? FINDINGS:? The common femoral, femoral and popliteal veins are normally compressible, and free of intraluminal thrombus.? Color and pulse Doppler demonstrate normal phasic intraluminal flow.? There is normal augmentation response to distal compression maneuver. ? ? IMPRESSION:? No sonographic evidence of DVT. ? ? Dictated by: Chris Newman M.D. on 05/12/2022 at 14:00 ? ? Chest x-ray: Radiologist's Impression: Signed Patient: Rakel Purdy MR#: [id number] : 1960 Acct:[id number] Age/Sex: 61 / F Date of Service: 05/12/22 Loc: ED Accession Number: [id number] ?? Procedure: XR chest 2V Ordering Provider: Anna Marie Aorra D.O. PROCEDURE:? XR CHEST 2V ? INDICATIONS:? shortness of breath ? TECHNIQUE:? 2 views of the chest were acquired.? ? COMPARISON:? [facility], , XR CHEST 2V, 08/06/2019, 15:51. ? FINDINGS:? ? Surgical changes and devices:? Sternal wires. ? Lungs and pleura:? Lungs are clear.? No pleural effusions or pneumothorax.? ? Mediastinum:? Mediastinal contours are normal.? Heart size is normal.? ? Bones and chest wall:? No suspicious bony abnormalities.? Soft tissues appear unremarkable.? ? IMPRESSION:? No acute pulmonary process. ? Dictated by: Annabel Pruitt M.D. on 05/12/2022 at 14:32 Extremity x-ray #1: Radiologist's Impression: XRay Report Signed Patient: Rakel Purdy MR#: [id number] : 1960 Acct:[id number] Age/Sex: 61 / F Date of Service: 05/12/22 Loc: ED Accession Number: [id number] ?? Procedure: XR foot RT min 3V Ordering Provider: Anna Marie Arora D.O. PROCEDURE:? XR FOOT RT MIN 3V ? INDICATIONS:? swelling ? TECHNIQUE:? 3 views of the foot were acquired.? ? COMPARISON:? None. ? FINDINGS:? ? Bones:? No fractures or dislocations.? No suspicious bony lesions.? ? Soft tissues:? Soft tissue swelling over dorsum of midfoot and forefoot is seen particularly over metatarsal bones.? No tibiotalar joint effusion.? Achilles tendon appears normal.? ? ? IMPRESSION:? Dorsal right foot soft tissue swelling.? No acute fracture or dislocation.? No radiographic evidence of osteomyelitis. ? ? Dictated by: Edgar Baxter M.D. on 05/12/2022 at 15 ECG Data Interpretation: Normal sinus rhythm rate 77 FL interval 176 QRS [address] changes no T- wave inversions MDM Narrative Medical decision making narrative: Patient has swelling in her right foot only no evidence of DVT. She is maybe has some shortness of breath but certainly does not have any conversational dyspnea. At this point recommend compression socks. X-rays negative for any fracture. Her COVID test is negative cardiac workup is negative. At this time possible sprain versus venous stasis. She really does not have any calf pain or significant swelling beyond her ankle. Very low suspicion for DVT Discharge Plan Departure Patient Disposition: Home Clinical Impression: Foot swelling Instructions: Chronic Venous Insufficiency Activity Restrictions/Additional Instructions: *You have been diagnosed with right foot swelling, possible chronic venous stasis *What to do: At this time I recommend elevating and compression socks. There is no evidence of DVT for fracture. COVID test today is negative *Continue to take medications as directed *Follow up with your primary care provider in 2-3 days or call [phone] *Return to ER if you should have increasing swelling redness pain fever, inability to walk or any new, worsening or concerning symptoms Prescriptions: No Action hydrocodone-acetaminophen 5-325 mg tablet 1 - 2 tab PO Q4H PRN (Reason: pain) Label Comments: take 1 to 2 tablets by mouth every 4 hours if needed furosemide 20 mg tablet See Rx Instructions .ROUTE .COMPLEX Rx Instructions: TAKE TWO TABLETS BY MOUTH DAILY FOR 5 DAYS, THEN ONE TABLET DAILY FOR5 DAYS oxycodone 5 mg tablet 5 mg PO Q6H PRN (Reason: pain) Label Comments: take 1 tablet by mouth every 6 hours if needed for pain potassium chloride 20 mEq Tablet Extended Release See Rx Instructions .ROUTE .COMPLEX Rx Instructions: Take 2 tablets daily for 5 days. Then take 1 tablet daily. aspirin 81 mg Tablet,Delayed Release (Dr/Ec) 81 mg PO DAILY acetaminophen 500 mg Capsule 500 mg PO Q6H PRN (Reason: pain) amoxicillin-pot clavulanate 875-125 mg tablet 1 tab PO BID Qty: 20 0RF levothyroxine 75 mcg tablet 75 mcg PO DAILY omeprazole 20 mg capsule,delayed release(DR/EC) 20 mg PO BID metoprolol tartrate 25 mg tablet 25 mg PO BID Referrals: Claudia Simmons MD [Primary Care Provider] - Visit Report Forms: Patient Portal/API
[2022-05-12 14:18] LABS: NT-proBNP (BNP-Adult 18+) 35 pg/mL (<125); Troponin I < 0.012 ng/mL (0.01-0.034)
--- NOTE | 2022-05-12 14:29 | DI.RAD.S_ITS ---
PROCEDURE: XR FOOT RT MIN 3V INDICATIONS: swelling TECHNIQUE: 3 views of the foot were acquired. COMPARISON: None. FINDINGS: Bones: No fractures or dislocations. No suspicious bony lesions. Soft tissues: Soft tissue swelling over dorsum of midfoot and forefoot is seen particularly over metatarsal bones. No tibiotalar joint effusion. Achilles tendon appears normal. IMPRESSION: Dorsal right foot soft tissue swelling. No acute fracture or dislocation. No radiographic evidence of osteomyelitis. Dictated by: Edgar Baxter M.D. on 05/12/2022 at 15:37 Approved by: Edgar Baxter M.D. on 05/12/2022 at 15:40
[2022-05-12 15:22] LABS: COVID19 -Nasal RAPID Negative (Negative)
[2022-05-12 16:03] VITALS: BP 145/78; PULSE 70; RESP 20; O2SAT 98
== END 2022-05-12 16:04 | disposition home or self-care (01) ==
PROVIDERS: Emergency Provider Emergency Medicine; Family Provider Internal Medicine; PCP Internal Medicine
DX: M79.89 Other specified soft tissue disorders (principal); R06.02 Shortness of breath; Z20.822 Contact with and (suspected) exposure to COVID-19
CPT/HCPCS: 36415; 71046; 73630; 80053; 82550; 83605; 83880; 84484; 85025; 85610; 87635; 93005; 93010; 93971; 99283; 99284; C9803

== ENCOUNTER 2022-08-06 16:53 | Emergency (ER) | payer OTHER, MEDICAID, SELFPAY ==
[2022-08-06] VITALS (7 sets, daily range): BP systolic 133–171; BP diastolic 64–81; PULSE 55–88; RESP 13–26; TEMP 36.8; O2SAT 97–99; BMI 24.0
[2022-08-06 17:38] LABS: Alanine Aminotransferase 48 IU/L (<35); Albumin 4.3 g/dL (3.5-5.0); Albumin Globulin Ratio 1.2 (1.0-2.8); Alkaline Phosphatase 84 U/L (38-126); Aspartate Aminotransferase 42 IU/L (14-36); BUN Creatinine Ratio 18.1 (6-22); Bilirubin Total 0.3 mg/dL (0.2-1.3); Blood Urea Nitrogen 13 mg/dL (7-17); Carbon Dioxide 26 mmol/L (22-32); Chloride 103 mmol/L (98-107); Estimated Glomerular Filt Rate > 60 mL/min (>60); Globulin 3.6 g/dL (1.7-4.1); Glucose 141 mg/dL (80-110); HEMOLYSIS 16 (0-50); Lipase 179 U/L (23-300); Potassium 3.8 mmol/L (3.4-5.1); Sodium 141 mmol/L (137-145); Total Protein 7.9 g/dL (6.3-8.2)
[2022-08-06 17:44] LABS: Add Manual Diff / Slide Review NO; Basophils Absolute Auto 0 /uL (0-100); Eosinophils Absolute Auto 100 /uL (0-450); Eosinophils Percent Auto 2.7 % (2-4); Hematocrit 41.3 % (36-46); Hemoglobin 14.2 g/dL (12.0-16.0); Lymphocytes Absolute Auto 1900 /uL (1100-4500); Lymphocytes Percent Auto 38.9 % (25-40); Mean Corpuscular HGB Conc 34.4 % (30-36); Mean Corpuscular Hemoglobin 32.4 PG (26-34); Mean Corpuscular Volume 94.1 fL (80-100); Monocytes Absolute Auto 400 /uL (0-900); Monocytes Percent Auto 8.5 % (3-14); Neutrophils Absolute Auto 2400 /uL (1500-7000); Neutrophils Percent Auto 48.9 % (50-75); Platelet Count 139 X10^3/uL (150-400); Red Blood Cell Count 4.39 X10^6/uL (4.0-5.2); Red Cell Distribution Width 13.2 % (11.6-14.8); White Blood Cell Count 4.9 X10^3/uL (4.5-11.0)
[2022-08-06 18:06] LABS: COVID19 -Nasal RAPID Negative (Negative)
--- NOTE | 2022-08-06 21:04 | ED.SKABFB ---
HPI - Skin/Abscess/Foreign Bdy General Chief complaint: Abdominal Pain Stated complaint: weak/sob Time Seen by Provider: 08/06/22 20:00 Source: patient Mode of arrival: Ambulatory Limitations: no limitations History of Present Illness HPI narrative: Patient is a 62-year-old female with history of PE, thyroid cancer, and lupus. She says she has had lupus for about 20 years however it has been dormant in till last 3 months. She has been seen by Rheumatology and Dermatology she tried hydrochloroquine and it caused chest discomfort so she has not taken. However or rash has erupted on her skin and has progressively gotten worse over the last few weeks. She feels like it is burning weakness painful. The pain is started feeling significantly worse today. She thinks maybe she had a panic attack. She did have some epigastric pain it did not radiate after being in the emergency department for 4 hours. She is feeling significantly better. She has no fever or chills. She has an appointment with a provider tomorrow. Related Data Home Medications Medication Instructions Recorded Confirmed levothyroxine 75 mcg tablet 75 mcg PO DAILY 06/30/19 08/04/19 metoprolol tartrate 25 mg tablet 25 mg PO BID 06/30/19 08/04/19 omeprazole 20 mg capsule,delayed 20 mg PO BID 06/30/19 08/04/19 release acetaminophen 500 mg capsule 500 mg PO Q6H PRN pain 08/04/19 08/04/19 aspirin 81 mg tablet,delayed 81 mg PO DAILY 08/04/19 08/04/19 release furosemide 20 mg tablet See Rx Instructions .Route .COMPLEX 08/04/19 08/04/19 hydrocodone 5 mg-acetaminophen 325 1 - 2 tab PO Q4H PRN pain 08/04/19 08/04/19 mg tablet oxycodone 5 mg tablet 5 mg PO Q6H PRN pain 08/04/19 08/04/19 potassium chloride 20 mEq See Rx Instructions .Route .COMPLEX 08/04/19 08/04/19 tablet,extended release Previous Rx's Medication Instructions Recorded amoxicillin 875 mg-potassium 1 tab PO BID #20 tabs 04/03/22 clavulanate 125 mg tablet prednisone 10 mg tablet 10 mg PO DAILY #30 tabs 08/06/22 Allergies Allergy/AdvReac Type Severity Reaction Status Date / Time butalbital [From Fiorinal] Allergy Unknown Verified 05/12/22 13:21 latex Allergy Verified 05/12/22 13:21 Sulfa (Sulfonamide Allergy Verified 05/12/22 13:21 Antibiotics) RED PEPPER Allergy Unknown Uncoded 08/06/19 15:47 Review of Systems Review of Systems Narrative: GENERAL: Denies chills, fatigue, malaise, fever, sweats, travel HEENT: Denies sinus pain, ear pain, sore throat, difficulty swallowing, neck pain RESPIRATORY: Denies dyspnea, cough, wheezing, hemoptysis, sputum. CARDIOVASCULAR: Denies chest pain, palpitations, orthopnea, edema GASTROINTESTINAL: Mild epigastric pain see HPI : Denies dysuria, frequency, incontinence, hematuria, urinary retention, flank pain. MUSCULOSKELETAL: Denies weakness, joint pain, or bony pain SKIN: See HPI NEUROLOGIC: Denies weakness, dizziness, headache, numbness, change in speech, confusion PSYCHIATRIC: No concerning psychosocial issues. 12 point review of systems is negative except for those stated above and HPI Patient History Medical History (Updated 08/06/22 @ 21:16 by Anna Marie Arora DO) Cash's esophagus GERD (gastroesophageal reflux disease) Hypertension Hypothyroidism Personal history of PE (pulmonary embolism) PVCs (premature ventricular contractions) Surgical History Status post hysterectomy Status post thyroidectomy Social History Smoking Status: Former smoker Smoking Status: Former smoker alcohol intake frequency: holidays/special occasions only Substance Use Type: does not use Exam Initial Vital Signs Initial Vital Signs: Vital Signs Temperature 98.2 F 08/06/22 16:56 Pulse Rate 88 08/06/22 16:56 Respiratory Rate 18 08/06/22 16:56 Blood Pressure 171/81 H 08/06/22 16:56 Pulse Oximetry 99 08/06/22 16:56 Oxygen Delivery Method 08/06/22 16:56 GENERAL: Alert pleasant 62-year-old female and in no acute distress. HEENT: Head atraumatic,EOMI, pupils reactive, face symmetric, moist mucous membranes CARDIOVASCULAR: Regular rate and rhythm without murmurs, rubs or gallops. RESPIRATORY: Breath sounds equal bilaterally, no wheezes rales or rhonchi. ABDOMEN: Soft, nontender. Normoactive bowel sounds all 4 quadrants. No guarding or rebound. EXTREMITIES: Normal range of motion, no clubbing or edema. Neurovascularly intact NEUROLOGICAL: Alert and oriented x4.Normal gait and speech. SKIN: Significant have urticarial like rash all over back chest some on her Course Orders Ordered: ED Orders 08/06/22 17:08 EKG-12 Lead Stat 08/06/22 17:14 COVID19 -Nasal RAPID/Pre-Proc Stat Complete Blood Count AUTO DIFF Stat Comprehensive Metabolic Panel Stat Lipase Stat Discontinued Medications Methylprednisolone (Methylprednisolone 125 Mg/2 Ml Vial) 125 mg IV NOW ONE Stop: 08/06/22 21:11 Last Admin: 08/06/22 21:22 Dose: 125 mg Documented By: RACHEL Vital Signs Vital signs: Vital Signs - 8 hr 08/06/22 19:52 08/06/22 19:53 08/06/22 19:53 Pulse Rate 59 L 59 L Respiratory Rate 16 14 Blood Pressure 145/70 H Pulse Oximetry 98 99 08/06/22 20:00 08/06/22 20:00 08/06/22 20:30 Pulse Rate 62 Respiratory Rate 19 Blood Pressure 149/69 H 133/64 Pulse Oximetry 99 08/06/22 20:30 08/06/22 21:00 08/06/22 21:01 Pulse Rate 55 L 64 64 Respiratory Rate 13 26 H 15 Blood Pressure Pulse Oximetry 98 97 98 08/06/22 21:01 Pulse Rate Respiratory Rate Blood Pressure 156/70 H Pulse Oximetry MDM - Skin/Abscess/Foreign Bdy Lab Data Result diagrams: 08/06/22 17:14 08/06/22 17:14 Labs: Lab Results 08/06/22 08/06/22 08/06/22 Range/Units 17:14 17:14 17:14 WBC 4.9 (4.5-11.0) X10^3/uL RBC 4.39 (4.0-5.2) X10^6/uL Hgb 14.2 (12.0-16.0) g/dL Hct 41.3 (36-46) % MCV 94.1 (80-100) fL MCH 32.4 (26-34) PG MCHC 34.4 (30-36) % RDW 13.2 (11.6-14.8) % Plt Count 139 L (150-400) X10^3/uL Neut % (Auto) 48.9 L (50-75) % Lymph % (Auto) 38.9 (25-40) % [place] % (Auto) 8.5 (3-14) % Eos % (Auto) 2.7 (2-4) % Baso % (Auto) 1.0 (0-2) % Neut # (Auto) 2400 (6222-8394) /uL Lymph # (Auto) 1900 (7791-3220) /uL [place] # (Auto) 400 (0-900) /uL Eos # (Auto) 100 (0-450) /uL Baso # (Auto) 0 (0-100) /uL Sodium 141 (137-145) mmol/L Potassium 3.8 (3.4-5.1) mmol/L Chloride 103 (98-107) mmol/L Carbon Dioxide 26 (22-32) mmol/L BUN 13 (7-17) mg/dL Creatinine 0.72 (0.52-1.04) mg/dL Estimated GFR > 60 (>60) mL/min BUN/Creatinine Ratio 18.1 (6-22) Glucose 141 H (80-110) mg/dL Calcium 9.0 (8.4-10.2) mg/dL Total Bilirubin 0.3 (0.2-1.3) mg/dL AST 42 H (14-36) IU/L ALT 48 H (<35) IU/L Alkaline Phosphatase 84 (38-126) U/L Total Protein 7.9 (6.3-8.2) g/dL Albumin 4.3 (3.5-5.0) g/dL Globulin 3.6 (1.7-4.1) g/dL Albumin/Globulin Ratio 1.2 (1.0-2.8) Lipase 179 (23-300) U/L SARS-CoV-2 (PCR) Negative (Negative) Urine Dip Bedside Urine Glucose Negative Bedside Urine Bilirubin - Negative Bedside Urine Ketone - Negative Urine Specific [place] 1.010 Bedside Urine Occult Blood - Negative Bedside Urine pH 6.0 Bedside Urine Protein - Negative Bedside Urine Urobilinogen +/- 1mg Bedside Urine Nitrite - Negative Bedside Urine Leukocytes - Negative Esterase ECG Data Interpretation: Normal sinus rhythm rate 79 FL interval 154 QRS [address] changes [facility] Narrative Medical decision making narrative: Overall feels better. She has obvious rash. She has had a biopsy of her rash which is confirmed as lupus. She has been on lupus medications but did not tolerated previously. At this time she is having significant burning. She had some mild epigastric pain today but no chest pain. Blood work is overall reassuring. Abdomen is examined in is soft. This time I see no need for any sort of imaging. She has appoint with Dermatology and Rheumatology. At this time will start her on steroid. Discharge Plan Departure Patient Disposition: Home Clinical Impression: Lupus Instructions: Systemic Lupus Erythematosus Activity Restrictions/Additional Instructions: *You have been diagnosed with lupus *What to do: Please follow-up with your senior benefits analyst *Continue to take medications as directed --> SENT TO [facility] [place] Prednisone 40 mg once a day for 3 days, 30 mg once a day for 3 days, 20 mg once a day for 3 days and 10 mg once a day for 3 *Follow up with your primary care provider in 2-3 days or call [phone] *Return to ER if you should have increasing pain worsening rash or any new, worsening or concerning symptoms Prescriptions: New prednisone 10 mg tablet 10 mg PO DAILY Qty: 30 0RF Rx Instructions: day 1-3: 40 mg once a day day 4-6: 30 mg once a day day 7-9: 20 mg once a day day 10-12: 10 mg once a day No Action hydrocodone-acetaminophen 5-325 mg tablet 1 - 2 tab PO Q4H PRN (Reason: pain) Label Comments: take 1 to 2 tablets by mouth every 4 hours if needed furosemide 20 mg tablet See Rx Instructions .ROUTE .COMPLEX Rx Instructions: TAKE TWO TABLETS BY MOUTH DAILY FOR 5 DAYS, THEN ONE TABLET DAILY FOR5 DAYS oxycodone 5 mg tablet 5 mg PO Q6H PRN (Reason: pain) Label Comments: take 1 tablet by mouth every 6 hours if needed for pain potassium chloride 20 mEq Tablet Extended Release See Rx Instructions .ROUTE .COMPLEX Rx Instructions: Take 2 tablets daily for 5 days. Then take 1 tablet daily. aspirin 81 mg Tablet,Delayed Release (Dr/Ec) 81 mg PO DAILY acetaminophen 500 mg Capsule 500 mg PO Q6H PRN (Reason: pain) amoxicillin-pot clavulanate 875-125 mg tablet 1 tab PO BID Qty: 20 0RF levothyroxine 75 mcg tablet 75 mcg PO DAILY omeprazole 20 mg capsule,delayed release(DR/EC) 20 mg PO BID metoprolol tartrate 25 mg tablet 25 mg PO BID Referrals: Claudia Simmons MD [Primary Care Provider] - Visit Report Forms: Patient Portal/API
[2022-08-06] MEDS: methylPREDNISolone 125 MG/2 ML VIAL IV (21:22)
== END 2022-08-06 21:33 | disposition home or self-care (01) ==
PROVIDERS: Emergency Medicine; Emergency Provider Emergency Medicine; Family Provider Internal Medicine; PCP Internal Medicine
DX: M32.9 Systemic lupus erythematosus, unspecified (principal); R21 Rash and other nonspecific skin eruption; R10.13 Epigastric pain
CPT/HCPCS: 36415; 80053; 81003; 83690; 85025; 87635; 93005; 93010; 96374; 99284; C9803; J2930

== ENCOUNTER 2023-02-14 15:04 | Emergency (ER) | payer OTHER, MEDICAID, SELFPAY ==
[2023-02-14 15:14] VITALS: BP 147/72; PULSE 94; RESP 16; TEMP 36.7; O2SAT 99; BMI 25.0
--- NOTE | 2023-02-14 17:48 | ED.GENADULT ---
HPI - General Adult General Chief complaint: Upper Respiratory Symptoms Stated complaint: feels like something is stuck in throat x1 Time Seen by Provider: 02/14/23 17:38 Mode of arrival: Ambulatory History of Present Illness HPI narrative: This is a 62-year-old female with prior thyroidectomy, chest mass removal, patient surgery was complicated by vocal cord paralysis, anxiety, osteoporosis and lupus on methotrexate once weekly. Patient states that today she went to eat at [employer], she had forgotten to take her 0.25 mg Xanax which she takes before each meal to help prevent laryngospasm. Patient states that she had her meal felt irritated in her throat had coughing and was unable to swallow her secretions for about shortly thereafter and persisting. Her and her friend drove here to be evaluated she lives locally. It persisted for another hour and she states she coughed up a small amount of what looks like a egg and hollidanse sauce at her symptoms improved. She then took her home Xanax dose continues to feel improved. She should can swallow fine. She denies any new changes to voice. She states she has not had issue recently and this is the 1st time she has forgotten her medications in the past 2 years. Patient states she was recently diagnosed with osteoporosis she has not been started on anything. She denies any other new symptoms. Related Data Home Medications Medication Instructions Recorded Confirmed levothyroxine 75 mcg tablet 75 mcg PO DAILY 06/30/19 08/04/19 metoprolol tartrate 25 mg tablet 25 mg PO BID 06/30/19 08/04/19 omeprazole 20 mg capsule,delayed 20 mg PO BID 06/30/19 08/04/19 release acetaminophen 500 mg capsule 500 mg PO Q6H PRN pain 08/04/19 08/04/19 aspirin 81 mg tablet,delayed 81 mg PO DAILY 08/04/19 08/04/19 release furosemide 20 mg tablet See Rx Instructions .Route .COMPLEX 08/04/19 08/04/19 hydrocodone 5 mg-acetaminophen 325 1 - 2 tab PO Q4H PRN pain 08/04/19 08/04/19 mg tablet oxycodone 5 mg tablet 5 mg PO Q6H PRN pain 08/04/19 08/04/19 potassium chloride 20 mEq See Rx Instructions .Route .COMPLEX 08/04/19 08/04/19 tablet,extended release alprazolam 0.25 mg tablet 0.25 mg PO TID PRN Anxiety 02/14/23 02/14/23 Previous Rx's Medication Instructions Recorded amoxicillin 875 mg-potassium 1 tab PO BID #20 tabs 04/03/22 clavulanate 125 mg tablet prednisone 10 mg tablet 10 mg PO DAILY #30 tabs 08/06/22 Allergies Allergy/AdvReac Type Severity Reaction Status Date / Time butalbital [From Fiorinal] Allergy Unknown Verified 02/14/23 15:20 latex Allergy Verified 02/14/23 15:20 Sulfa (Sulfonamide Allergy Verified 02/14/23 15:20 Antibiotics) RED PEPPER Allergy Unknown Uncoded 02/14/23 15:20 Review of Systems Review of Systems ROS Unobtainable: All systems reviewed & are unremarkable except as noted in HPI and below Patient History Medical History Cash's esophagus GERD (gastroesophageal reflux disease) Hypertension Hypothyroidism Personal history of PE (pulmonary embolism) PVCs (premature ventricular contractions) Surgical History Status post hysterectomy Status post thyroidectomy Social History Smoking Status: Former smoker Smoking Status: Former smoker alcohol intake frequency: holidays/special occasions only Substance Use Type: does not use Exam Narrative Exam Narrative: GEN: well nourished, well appearing female, alert and oriented x 3, patient appears to be in mild distress. HEENT: Atraumatic, pupils are equal round reactive to light, extraocular movements are intact, nares are clear. Throat is clear without any exudates, erythema, tonsillar enlargement or uvular deviation HEART: Regular rate and rhythm without murmur, clicks, rubs. No carotid bruits, patient has slightly hoarse voice she states this is her baseline. She is not having any issues with swallowing secretions were speech at this time. No muffled voice. No stridor or audible wheeze. LUNGS:Lungs clear to auscultation, no wheezes, rales, crackles, chest moves symmetrically, patient has a healed midline incision anterior upper chest. ABD:bowel sounds normal, soft, non-tender, no guarding, rebound, rigidity, no masses noted, no hepatosplenomegaly :No CVA tenderness MSCL: Non-tender, no muscle atrophy, muscles strength 5/5 upper and lower extremities, full range of motion, normal gait NEURO:CN 2-12 intact, sensation normal. SKIN: No rash, erythema or other skin changes. Initial Vital Signs Initial Vital Signs: Vital Signs Temperature 98.1 F 02/14/23 15:14 Pulse Rate 94 H 02/14/23 15:14 Respiratory Rate 16 02/14/23 15:14 Blood Pressure 147/72 H 02/14/23 15:14 Pulse Oximetry 99 02/14/23 15:14 Oxygen Delivery Method Room Air 02/14/23 15:14 Course Vital Signs Vital signs: Vital Signs - 8 hr 02/14/23 15:14 02/14/23 17:58 Temperature 98.1 F Pulse Rate 94 H 75 Respiratory Rate 16 16 Blood Pressure 147/72 H 160/99 H Pulse Oximetry 99 98 Oxygen Delivery Method Room Air Room Air Medical Decision Making MDM Narrative Medical decision making narrative: This is a 62-year-old female with history of vocal cord paralysis after complications from a thyroid and lung mass surgery remotely. Patient states she normally takes 0.25 of Xanax prior to eating but forgot today had a meal at [facility] then afterwards was having difficulty with swallowing and feeling like she was choking. When she arrived she was having some issues with secretions, she states she coughed up very small less than 1 cm amount of food and symptoms improved. She then took her home dose of Xanax as well. She states she has not been having issues regularly she typically does well has not forgotten to take her medication in almost 2 years. Patient is felt appropriate and safe for discharge home. She has had paralysis documented according to patient on scope in the past and is likely the cause of her issues today but we discussed if persisting or changing in character or nature she should be re-evaluated initially by ENT with scope and if this is negative for changes then EGD. Discharge Plan Departure Patient Disposition: Home Clinical Impression: Swallowing difficulty Activity Restrictions/Additional Instructions: Continue with your medications prior to meals has you have been normally doing. I agree it is likely that you did not take her medication today that you had symptoms but if you have recurrent symptoms despite your medication or becomes more frequent please follow-up with ENT to be re-evaluated. Referral is included below. Please return if you are having new or worsening difficulty with swallowing, chest pain, shortness of breath inability to swallow liquids or solids, sudden changes to her voice, persistent vomiting or other new or concerning changes Prescriptions: No Action hydrocodone-acetaminophen 5-325 mg tablet 1 - 2 tab PO Q4H PRN (Reason: pain) Patient Comments: take 1 to 2 tablets by mouth every 4 hours if needed furosemide 20 mg tablet See Rx Instructions .ROUTE .COMPLEX Rx Instructions: TAKE TWO TABLETS BY MOUTH DAILY FOR 5 DAYS, THEN ONE TABLET DAILY FOR5 DAYS oxycodone 5 mg tablet 5 mg PO Q6H PRN (Reason: pain) Patient Comments: take 1 tablet by mouth every 6 hours if needed for pain potassium chloride 20 mEq Tablet Extended Release See Rx Instructions .ROUTE .COMPLEX Rx Instructions: Take 2 tablets daily for 5 days. Then take 1 tablet daily. aspirin 81 mg Tablet,Delayed Release (Dr/Ec) 81 mg PO DAILY acetaminophen 500 mg Capsule 500 mg PO Q6H PRN (Reason: pain) amoxicillin-pot clavulanate 875-125 mg tablet 1 tab PO BID Qty: 20 0RF levothyroxine 75 mcg tablet 75 mcg PO DAILY omeprazole 20 mg capsule,delayed release(DR/EC) 20 mg PO BID metoprolol tartrate 25 mg tablet 25 mg PO BID prednisone 10 mg tablet 10 mg PO DAILY Qty: 30 0RF Rx Instructions: day 1-3: 40 mg once a day day 4-6: 30 mg once a day day 7-9: 20 mg once a day day 10-12: 10 mg once a day alprazolam 0.25 mg tablet 0.25 mg PO TID PRN (Reason: Anxiety) Patient Comments: take 1 by mouth tablet three times a day if needed for anxiety Referrals: Abe Ibanez MD [Physician] - Claudia Simmons MD [Primary Care Provider] - Stand Alone Forms: Patient Portal/API
[2023-02-14 17:58] VITALS: BP 160/99; PULSE 75; RESP 16; O2SAT 98
== END 2023-02-14 17:53 | disposition home or self-care (01) ==
PROVIDERS: Emergency Provider Emergency Medicine; Family Provider Internal Medicine; PCP Internal Medicine
DX: R13.10 Dysphagia, unspecified (principal)
CPT/HCPCS: 99281

== ENCOUNTER 2023-09-28 12:34 | Emergency (ER) | payer OTHER, MEDICAID, SELFPAY ==
[2023-09-28] VITALS (17 sets, daily range): BP systolic 149–211; BP diastolic 72–99; PULSE 56–72; RESP 12–24; TEMP 36.4; O2SAT 95–100; BMI 23.6
--- NOTE | 2023-09-28 12:41 | DI.RAD.S_ITS ---
PROCEDURE: XR CHEST 1V INDICATIONS: Chest pain TECHNIQUE: One view of the chest was acquired. COMPARISON: [facility], CR, XR CHEST 1V, 08/04/2019, 16:27. FINDINGS: Surgical changes and devices: Stable median sternotomy wires and surgical clips. Lungs and pleura: Lungs are clear. No pleural effusions or pneumothorax. Mediastinum: Mediastinal contours appear normal. Heart size is normal. Bones and chest wall: Stable sclerotic lesion in the proximal left humerus. Overlying soft tissues appear unremarkable. IMPRESSION: No acute cardiopulmonary disease process. Dictated by: Theresa Umana MD, PhD on 09/28/2023 at 13:17 Approved by: Theresa Umana MD, PhD on 09/28/2023 at 13:18
--- NOTE | 2023-09-28 12:46 | DI.CT.S_ITS ---
PROCEDURE: CT ANGIO HEAD AND NECK INDICATIONS: Left-sided weakness TECHNIQUE: After the administration of intravenous contrast, 1 mm thick sections acquired from the aortic arch through the [place] of [place]. 3-dimensional jwdvqde-fdwjzapwf-kzwcnqared (MIP) and/or volume rendering reformats were acquired of the central intracranial vasculature and neck separately. For radiation dose reduction, the following was used: automated exposure control, adjustment of mA and/or kV according to patient size. COMPARISON: [facility], CT, CT HEAD/BRAIN WO CON, 09/28/2023, 12:54. [facility], CR, XR CHEST 1V, 09/28/2023, 13:02. FINDINGS: Image quality: Limited by bolus timing, with venous contamination. BRAIN: CSF spaces: Ventricles are normal in size and shape. Basal cisterns are patent. No extra-axial fluid collections. Brain: No significant abnormality of the brain can be seen. Skull and face: Calvarium and facial bones appear intact, without suspicious lesions. Orbits appear normal. Sinuses: Sinuses and mastoids are clear. HEAD CT ANGIOGRAPHY: Anterior circulation: Intracranial internal carotid arteries are normal in size and flow. The flow within the paired anterior cerebral arteries is normal and symmetric. The flow within the middle cerebral arteries is normal and symmetric. The anterior communicating artery is not well seen. No aneurysms are seen. Posterior circulation: Visualized portions of the vertebral arteries demonstrate normal caliber, and join to form a normal appearing basilar artery. Flow within the posterior cerebral arteries is normal and symmetric. No aneurysms are seen. NECK CT ANGIOGRAPHY: Carotid system: The great vessels demonstrate a conventional anatomy as they arise from the aortic arch. The origins of the common carotid arteries appear patent. The common carotid arteries demonstrate normal caliber and courses. The bifurcation regions are both widely patent. The internal carotid arteries demonstrate normal calibers and courses. Posterior circulation: The origins of the vertebral arteries both appear widely patent. The more superior extracranial portions of both vertebral arteries also demonstrate normal courses and calibers. They join to form a normal appearing basilar artery. Soft tissues: Visualized neck soft tissues demonstrate no suspicious abnormalities. Emphysematous changes can be seen at the lung apices. Bones: No suspicious bony lesions. Visualized cervical spine appears normally aligned. Moderate cervical spine degenerative changes are seen. Sternotomy wires are seen. IMPRESSION: No significant intracranial arterial abnormality is seen. Within the arteries of the neck, no hemodynamically significant stenosis can be seen. Additional findings: Moderate cervical spine degenerative change Emphysematous change Sternotomy Any quantitative measurements of stenosis were performed using NASCET criteria. Dictated by: Rayray Szymanski M.D. on 09/28/2023 at 13:22 Approved by: Rayray Szymanski M.D. on 09/28/2023 at 13:26
[2023-09-28 12:53] LABS: Add Manual Diff / Slide Review NO; Basophils Absolute Auto 100 /uL (0-100); Basophils Percent Auto 1.1 % (0-2); Eosinophils Absolute Auto 100 /uL (0-450); Eosinophils Percent Auto 2.8 % (2-4); Hematocrit 41.5 % (36-46); Hemoglobin 14.1 g/dL (12.0-16.0); Lymphocytes Absolute Auto 2200 /uL (1100-4500); Lymphocytes Percent Auto 46.4 % (25-40); Mean Corpuscular HGB Conc 33.9 % (30-36); Mean Corpuscular Hemoglobin 32.5 PG (26-34); Mean Corpuscular Volume 95.8 fL (80-100); Monocytes Absolute Auto 600 /uL (0-900); Monocytes Percent Auto 11.8 % (3-14); Neutrophils Absolute Auto 1800 /uL (1500-7000); Neutrophils Percent Auto 37.9 % (50-75); Platelet Count 202 X10^3/uL (150-400); Red Blood Cell Count 4.34 X10^6/uL (4.0-5.2); Red Cell Distribution Width 13.6 % (11.6-14.8); White Blood Cell Count 4.7 X10^3/uL (4.5-11.0)
--- NOTE | 2023-09-28 12:55 | ED.CHESTPAIN ---
HPI - Chest Pain General Chief Complaint: Chest Pain Stated Complaint: CP & L sided numbness Time Seen by Provider: 09/28/23 12:40 Source: patient and EMS Mode of arrival: EMS Limitations: no limitations History of Present Illness HPI narrative: Patient is a 63-year-old female. Approximately 26 hours ago patient stated that she started to feel like her left side was becoming numb and weak. She was somewhat vague for her. It did seem to involve both her left arm and left leg. She was still able to get around normally. This morning she woke up and was feeling like the weakness and numbness was getting worse. She then started to have left-sided chest pain. Some nausea but no vomiting. No headache. No change in vision. No shortness of breath. No urinary symptoms. No change in bowel habits. No new medications. Related Data Home Medications Medication Instructions Recorded Confirmed levothyroxine 75 mcg tablet 75 mcg PO DAILY 06/30/19 08/04/19 metoprolol tartrate 25 mg tablet 25 mg PO BID 06/30/19 08/04/19 omeprazole 20 mg capsule,delayed 20 mg PO BID 06/30/19 08/04/19 release acetaminophen 500 mg capsule 500 mg PO Q6H PRN pain 08/04/19 08/04/19 aspirin 81 mg tablet,delayed 81 mg PO DAILY 08/04/19 08/04/19 release furosemide 20 mg tablet See Rx Instructions .Route .COMPLEX 08/04/19 08/04/19 hydrocodone 5 mg-acetaminophen 325 1 - 2 tab PO Q4H PRN pain 08/04/19 08/04/19 mg tablet oxycodone 5 mg tablet 5 mg PO Q6H PRN pain 08/04/19 08/04/19 potassium chloride 20 mEq See Rx Instructions .Route .COMPLEX 08/04/19 08/04/19 tablet,extended release alprazolam 0.25 mg tablet 0.25 mg PO TID PRN Anxiety 02/14/23 02/14/23 Previous Rx's Medication Instructions Recorded amoxicillin 875 mg-potassium 1 tab PO BID #20 tabs 04/03/22 clavulanate 125 mg tablet prednisone 10 mg tablet 10 mg PO DAILY #30 tabs 08/06/22 Allergies Allergy/AdvReac Type Severity Reaction Status Date / Time butalbital [From Fiorinal] Allergy Unknown Verified 09/28/23 12:50 latex Allergy Verified 09/28/23 12:50 Sulfa (Sulfonamide Allergy Verified 09/28/23 12:50 Antibiotics) RED PEPPER Allergy Unknown Uncoded 02/14/23 15:20 Review of Systems Review of Systems ROS Unobtainable: All systems reviewed & are unremarkable except as noted in HPI and below Constitutional Constitutional: Reports system reviewed and no additional complaints, except as documented Patient History Medical History (Updated 09/28/23 @ 17:04 by Ahsan Cano DO) Hypertension Personal history of PE (pulmonary embolism) Cash's esophagus GERD (gastroesophageal reflux disease) Hypothyroidism PVCs (premature ventricular contractions) Surgical History Status post hysterectomy Status post thyroidectomy Social History Smoking Status: Current some day smoker Smoking Status: Current some day smoker alcohol intake frequency: holidays/special occasions only Substance Use Type: does not use Exam Initial Vital Signs Initial Vital Signs: Vital Signs Temperature 97.5 F L 09/28/23 12:39 Pulse Rate 71 09/28/23 12:39 Respiratory Rate 18 09/28/23 12:39 Blood Pressure 211/99 H 09/28/23 12:39 Pulse Oximetry 99 09/28/23 12:39 Oxygen Delivery Method Room Air 09/28/23 12:39 HENMT Head: normal to inspection and normocephalic Eyes General: Yes appearance normal, both eyes and all related structures Chest Other: Reproducible tenderness to palpation left-sided chest Resp Effort & Inspection: normal respiratory effort Auscultation: clear to auscultation bilaterally Cardio Rate: regular rate Rhythm: regular rhythm GI Inspection: normal to inspection Skin General: no rashes or lesions noted Neuro General: patient alert, patient awake, patient oriented x3 and moves all extremities Cognition: normal cognition Speech: speech normal Sensory Exam: no sensory deficits noted Extrem General: normal to inspection and capillary refill normal Scores NIH Stroke Scale Level of Conciousness: Alert, keenly responsive Ask month/age: Answers both questions correctly. Open/close eyes, close hand: Performs both tasks correctly Best gaze horizontal: Normal Visual garza: No visual loss Facial palsy: Normal symetrical movement Left arm drift: No drift for full 10 sec Right arm drift: No drift for full 10 sec Left leg drift: No drift for full 5 sec Right leg drift: No drift for full 5 sec Limb ataxia: Absent Sensory on face/arms/legs: Normal, no sensory loss Best language: No aphasia, normal Dysarthria: Normal Extinction or inattention: No abnormality Total NIH Stroke scale score: 0 Course Orders Ordered: ED Orders 09/28/23 12:41 XR chest 1V Stat EKG-12 Lead Stat 09/28/23 12:46 CT angio head and neck Stat 09/28/23 12:47 Complete Blood Count AUTO DIFF Stat Comprehensive Metabolic Panel Stat Lipase Stat Thyroid Stimulating Hormone Stat Troponin & CK Cardiac Panel Stat 09/28/23 13:44 CT head/brain wo con Stat 09/28/23 15:33 MR head/brain wo con Stat 09/28/23 16:28 Troponin & CK Cardiac Panel Stat Vital Signs Vital signs: Vital Signs - 8 hr 09/28/23 12:39 09/28/23 12:44 09/28/23 13:02 Temperature 97.5 F L Pulse Rate 71 72 71 Respiratory Rate 18 16 Blood Pressure 211/99 H Pulse Oximetry 99 96 95 Oxygen Delivery Method Room Air 09/28/23 13:04 09/28/23 13:04 09/28/23 13:30 Temperature Pulse Rate 64 57 L Respiratory Rate 17 24 Blood Pressure 206/98 H Pulse Oximetry 98 98 Oxygen Delivery Method 09/28/23 13:31 09/28/23 13:31 09/28/23 14:07 Temperature Pulse Rate 56 L 56 L Respiratory Rate 18 20 Blood Pressure 173/83 H Pulse Oximetry 98 99 Oxygen Delivery Method 09/28/23 14:08 09/28/23 14:08 09/28/23 14:17 Temperature Pulse Rate 61 60 Respiratory Rate 19 14 Blood Pressure 187/92 H Pulse Oximetry 99 99 Oxygen Delivery Method 09/28/23 14:17 09/28/23 14:30 09/28/23 14:30 Temperature Pulse Rate 56 L Respiratory Rate 13 Blood Pressure 184/92 H 172/89 H Pulse Oximetry 98 Oxygen Delivery Method 09/28/23 15:00 09/28/23 15:01 09/28/23 15:01 Temperature Pulse Rate 57 L 61 Respiratory Rate 15 15 Blood Pressure 149/72 H Pulse Oximetry 99 99 Oxygen Delivery Method 09/28/23 15:30 09/28/23 15:30 09/28/23 16:18 Temperature Pulse Rate 57 L 63 Respiratory Rate 13 Blood Pressure 161/84 H Pulse Oximetry 100 98 Oxygen Delivery Method 09/28/23 16:24 09/28/23 16:24 09/28/23 16:30 Temperature Pulse Rate 63 60 Respiratory Rate 21 12 Blood Pressure 176/85 H Pulse Oximetry 99 99 Oxygen Delivery Method 09/28/23 16:30 09/28/23 17:00 09/28/23 17:00 Temperature Pulse Rate 57 L Respiratory Rate 15 Blood Pressure 164/72 H 157/87 H Pulse Oximetry 98 Oxygen Delivery Method MDM - Chest Pain Lab Data Attestation: I reviewed the patient's lab results. 09/28/23 12:47 09/28/23 12:47 Labs: Lab Results 09/28/23 09/28/23 Range/Units 12:47 16:28 WBC 4.7 (4.5-11.0) X10^3/uL RBC 4.34 (4.0-5.2) X10^6/uL Hgb 14.1 (12.0-16.0) g/dL Hct 41.5 (36-46) % MCV 95.8 (80-100) fL MCH 32.5 (26-34) PG MCHC 33.9 (30-36) % RDW 13.6 (11.6-14.8) % Plt Count 202 (150-400) X10^3/uL Neut % (Auto) 37.9 L (50-75) % Lymph % (Auto) 46.4 H (25-40) % [place] % (Auto) 11.8 (3-14) % Eos % (Auto) 2.8 (2-4) % Baso % (Auto) 1.1 (0-2) % Neut # (Auto) 1800 (4629-2836) /uL Lymph # (Auto) 2200 (4830-5639) /uL [place] # (Auto) 600 (0-900) /uL Eos # (Auto) 100 (0-450) /uL Baso # (Auto) 100 (0-100) /uL Sodium 136 L (137-145) mmol/L Potassium 4.1 (3.4-5.1) mmol/L Chloride 103 (98-107) mmol/L Carbon Dioxide 27 (22-32) mmol/L BUN 11 (7-17) mg/dL Creatinine 0.58 (0.52-1.04) mg/dL Estimated GFR > 60 (>60) mL/min BUN/Creatinine Ratio 19.0 (6-22) Glucose 89 (80-110) mg/dL Calcium 9.2 (8.4-10.2) mg/dL Total Bilirubin 0.7 (0.2-1.3) mg/dL AST 32 (14-36) IU/L ALT 23 (<35) IU/L Alkaline Phosphatase 96 (38-126) U/L Total Creatine Kinase 102 92 (30-135) U/L Troponin I < 0.012 < 0.012 (0.01-0.034) ng/mL Total Protein 8.5 H (6.3-8.2) g/dL Albumin 4.5 (3.5-5.0) g/dL Globulin 4.0 (1.7-4.1) g/dL Albumin/Globulin Ratio 1.1 (1.0-2.8) Lipase 115 (23-300) U/L TSH 1.20 (0.47-4.68) uIU/mL Urine Dip Bedside Urine Glucose Negative Bedside Urine Bilirubin - Negative Bedside Urine Ketone - Negative Urine Specific [place] 1.005 Bedside Urine Occult Blood - Negative Bedside Urine pH 7.0 Bedside Urine Protein - Negative Bedside Urine Urobilinogen - Negative Bedside Urine Nitrite - Negative Bedside Urine Leukocytes - Negative Esterase Imaging Data Chest x-ray: Radiologist's Impression: PROCEDURE: XR CHEST 1V INDICATIONS: Chest pain TECHNIQUE: One view of the chest was acquired. COMPARISON: [facility], , XR CHEST 1V, 08/04/2019, 16:27. FINDINGS: Surgical changes and devices: Stable median sternotomy wires and surgical clips. Lungs and pleura: Lungs are clear. No pleural effusions or pneumothorax. Mediastinum: Mediastinal contours appear normal. Heart size is normal. Bones and chest wall: Stable sclerotic lesion in the proximal left humerus. Overlying soft tissues appear unremarkable. IMPRESSION: No acute cardiopulmonary disease process. CT scan - head: Radiologist's Impression: PROCEDURE: CT HEAD/BRAIN WO CON INDICATIONS: Left-sided numbness TECHNIQUE: Noncontrast 4.5 mm thick angled axial sections acquired from the foramen magnum to the vertex, with coronal and sagittal reformats. For radiation dose reduction, the following was used: automated exposure control, adjustment of mA and/or kV according to patient size. COMPARISON: None. FINDINGS: Image quality: Excellent. CSF spaces: Basal cisterns are patent. No extra-axial fluid collections. The ventricles are symmetric in size and shape. Brain: No intracranial bleeds or masses. There is cerebral volume loss for age, with resultant ventricular and sulcal prominence. There are periventricular and deep white matter chronic small vessel ischemic changes. There is intracranial internal carotid artery atherosclerosis. Skull and face: Calvarium and visualized facial bones appear intact, without suspicious lesions. Sinuses: Visualized sinuses and mastoids are clear. IMPRESSION: No acute intracranial process is seen. No acute intracranial hemorrhage is seen. If there is strong clinical suspicion for an acute stroke, please consider a brain MRI for further evaluation, as it is more sensitive (assuming that there is no contraindication to MRI) CTA - brain/neck: Radiologist's Impression: PROCEDURE: CT ANGIO HEAD AND NECK INDICATIONS: Left-sided weakness TECHNIQUE: After the administration of intravenous contrast, 1 mm thick sections acquired from the aortic arch through the [place] of [place]. 3-dimensional fhdcmsg-pthdybaip-dmolhemizc (MIP) and/or volume rendering reformats were acquired of the central intracranial vasculature and neck separately. For radiation dose reduction, the following was used: automated exposure control, adjustment of mA and/or kV according to patient size. COMPARISON: [facility], CT, CT HEAD/BRAIN WO CON, 09/28/2023, 12:54. [facility], CR, XR CHEST 1V, 09/28/2023, 13:02. FINDINGS: Image quality: Limited by bolus timing, with venous contamination. BRAIN: CSF spaces: Ventricles are normal in size and shape. Basal cisterns are patent. No extra-axial fluid collections. Brain: No significant abnormality of the brain can be seen. Skull and face: Calvarium and facial bones appear intact, without suspicious lesions. Orbits appear normal. Sinuses: Sinuses and mastoids are clear. HEAD CT ANGIOGRAPHY: Anterior circulation: Intracranial internal carotid arteries are normal in size and flow. The flow within the paired anterior cerebral arteries is normal and symmetric. The flow within the middle cerebral arteries is normal and symmetric. The anterior communicating artery is not well seen. No aneurysms are seen. Posterior circulation: Visualized portions of the vertebral arteries demonstrate normal caliber, and join to form a normal appearing basilar artery. Flow within the posterior cerebral arteries is normal and symmetric. No aneurysms are seen. NECK CT ANGIOGRAPHY: Carotid system: The great vessels demonstrate a conventional anatomy as they arise from the aortic arch. The origins of the common carotid arteries appear patent. The common carotid arteries demonstrate normal caliber and courses. The bifurcation regions are both widely patent. The internal carotid arteries demonstrate normal calibers and courses. Posterior circulation: The origins of the vertebral arteries both appear widely patent. The more superior extracranial portions of both vertebral arteries also demonstrate normal courses and calibers. They join to form a normal appearing basilar artery. Soft tissues: Visualized neck soft tissues demonstrate no suspicious abnormalities. Emphysematous changes can be seen at the lung apices. Bones: No suspicious bony lesions. Visualized cervical spine appears normally aligned. Moderate cervical spine degenerative changes are seen. Sternotomy wires are seen. IMPRESSION: No significant intracranial arterial abnormality is seen. Within the arteries of the neck, no hemodynamically significant stenosis can be seen. Additional findings: Moderate cervical spine degenerative change Emphysematous change Sternotomy Any quantitative measurements of stenosis were performed using NASCET criteria. brain MRI: Radiologist's Impression: PROCEDURE: MR HEAD/BRAIN WO CON INDICATIONS: cva vs tia TECHNIQUE: Noncontrast axial T1 spin echo, axial T2 fast spin echo, sagittal and axial FLAIR, coronal T2 fast spin echo, axial gradient echo, axial diffusion and ADC through the brain. COMPARISON: [facility], CT, CT ANGIO HEAD AND NECK, 09/28/2023, 13:58. [facility], CT, CT HEAD/BRAIN WO CON, 09/28/2023, 12:54. FINDINGS: Image quality: Excellent. CSF Spaces: Basal cisterns are patent. No extra-axial fluid collections. Ventricles are normal in size and shape. Brain: No intracranial masses or hemorrhage. [place]/white matter interface is normal. Brainstem appears normal. Diffusion-weighted images demonstrate no acute ischemic insult. No chronic ischemic insults. Normal intravascular flow voids are present. Skull and face: Calvarium has normal marrow signal. Orbits appear normal. Sinuses: Sinuses and mastoids are clear. IMPRESSION: 1. No acute intracranial process. ECG Data Attestation: I personally reviewed and interpreted this ECG as follows: Interpretation: Sinus bradycardia Ventricular rate of 57 Normal axis Normal QRS Normal QTC No ST T wave changes MDM Narrative Medical decision making narrative: Head CT, CTA and MRI show no signs of an acute stroke. She is reproducible left-sided chest discomfort. Troponins are negative x2. She has been somewhat hypertensive here in the emergency department. She states she has been hypertensive since they took out her thyroid tumor several years ago. She is not on any medications. We discussed taking her blood pressure at home and talking with her primary doctor about this. She was given return precautions. She expressed understanding and agreement. Discharge Plan Departure Patient Disposition: Home Clinical Impression: Distal paresthesia, Hypertension Instructions: High Blood Pressure Activity Restrictions/Additional Instructions: Recommend that you continue to take all of your medications as directed. I also recommend that you take your blood pressure on a daily basis at home and record the numbers so that you can talk with your primary doctor about this. You may need to be on blood pressure medications. Return to the emergency department for new or worsening symptoms. Prescriptions: No Action hydrocodone-acetaminophen 5-325 mg tablet 1 - 2 tab PO Q4H PRN (Reason: pain) Patient Comments: take 1 to 2 tablets by mouth every 4 hours if needed furosemide 20 mg tablet See Rx Instructions .ROUTE .COMPLEX Rx Instructions: TAKE TWO TABLETS BY MOUTH DAILY FOR 5 DAYS, THEN ONE TABLET DAILY FOR5 DAYS oxycodone 5 mg tablet 5 mg PO Q6H PRN (Reason: pain) Patient Comments: take 1 tablet by mouth every 6 hours if needed for pain potassium chloride 20 mEq Tablet Extended Release See Rx Instructions .ROUTE .COMPLEX Rx Instructions: Take 2 tablets daily for 5 days. Then take 1 tablet daily. aspirin 81 mg Tablet,Delayed Release (Dr/Ec) 81 mg PO DAILY acetaminophen 500 mg Capsule 500 mg PO Q6H PRN (Reason: pain) amoxicillin-pot clavulanate 875-125 mg tablet 1 tab PO BID Qty: 20 0RF levothyroxine 75 mcg tablet 75 mcg PO DAILY omeprazole 20 mg capsule,delayed release(DR/EC) 20 mg PO BID metoprolol tartrate 25 mg tablet 25 mg PO BID prednisone 10 mg tablet 10 mg PO DAILY Qty: 30 0RF Rx Instructions: day 1-3: 40 mg once a day day 4-6: 30 mg once a day day 7-9: 20 mg once a day day 10-12: 10 mg once a day alprazolam 0.25 mg tablet 0.25 mg PO TID PRN (Reason: Anxiety) Patient Comments: take 1 by mouth tablet three times a day if needed for anxiety Referrals: Claudia Simmons MD [Primary Care Provider] - Stand Alone Forms: Patient Portal/API
--- NOTE | 2023-09-28 13:01 | PC.NURSE ---
Addendum entered by hGazala Membreno CNA 09/28/23 13:05: 1305 Pt ambulated to bathroom with stand by assist with [employer] LOC[employer]IVE ENGINEER. DIESEL LOCOMOTIVE ENGINEER reported that pt stated that she felt like shit did when she called ems with increasing chest pain and dizziness. Upon return to pt's room bp 206/98. dr urias notified. Original Note: Pt reports having numbness and weakness on left side yesterday. this morning pt began to have some substernal cp and worsening weakness. pt describes pain as 7/10 and throbbing pressure. pt a&ox4. some focal weakness noted on left lower extremity.
[2023-09-28 13:27] LABS: Troponin I < 0.012 ng/mL (0.01-0.034)
[2023-09-28 13:37] LABS: Alanine Aminotransferase 23 IU/L (<35); Albumin 4.5 g/dL (3.5-5.0); Albumin Globulin Ratio 1.1 (1.0-2.8); Alkaline Phosphatase 96 U/L (38-126); Aspartate Aminotransferase 32 IU/L (14-36); Bilirubin Total 0.7 mg/dL (0.2-1.3); Blood Urea Nitrogen 11 mg/dL (7-17); Calcium 9.2 mg/dL (8.4-10.2); Carbon Dioxide 27 mmol/L (22-32); Chloride 103 mmol/L (98-107); Creatine Kinase 102 U/L (30-135); Estimated Glomerular Filt Rate > 60 mL/min (>60); Glucose 89 mg/dL (80-110); HEMOLYSIS 70 (0-50); Lipase 115 U/L (23-300); Potassium 4.1 mmol/L (3.4-5.1); Sodium 136 mmol/L (137-145); Total Protein 8.5 g/dL (6.3-8.2)
--- NOTE | 2023-09-28 13:44 | DI.CT.S_ITS ---
PROCEDURE: CT HEAD/BRAIN WO CON INDICATIONS: Left-sided numbness TECHNIQUE: Noncontrast 4.5 mm thick angled axial sections acquired from the foramen magnum to the vertex, with coronal and sagittal reformats. For radiation dose reduction, the following was used: automated exposure control, adjustment of mA and/or kV according to patient size. COMPARISON: None. FINDINGS: Image quality: Excellent. CSF spaces: Basal cisterns are patent. No extra-axial fluid collections. The ventricles are symmetric in size and shape. Brain: No intracranial bleeds or masses. There is cerebral volume loss for age, with resultant ventricular and sulcal prominence. There are periventricular and deep white matter chronic small vessel ischemic changes. There is intracranial internal carotid artery atherosclerosis. Skull and face: Calvarium and visualized facial bones appear intact, without suspicious lesions. Sinuses: Visualized sinuses and mastoids are clear. IMPRESSION: No acute intracranial process is seen. No acute intracranial hemorrhage is seen. If there is strong clinical suspicion for an acute stroke, please consider a brain MRI for further evaluation, as it is more sensitive (assuming that there is no contraindication to MRI). Dictated by: Rayray Szymanski M.D. on 09/28/2023 at 13:21 Approved by: Rayray Szymanski M.D. on 09/28/2023 at 13:22
--- NOTE | 2023-09-28 15:33 | DI.MRI.S_ITS ---
PROCEDURE: MR HEAD/BRAIN WO CON INDICATIONS: cva vs tia TECHNIQUE: Noncontrast axial T1 spin echo, axial T2 fast spin echo, sagittal and axial FLAIR, coronal T2 fast spin echo, axial gradient echo, axial diffusion and ADC through the brain. COMPARISON: [facility], CT, CT ANGIO HEAD AND NECK, 09/28/2023, 13:58. [facility], CT, CT HEAD/BRAIN WO CON, 09/28/2023, 12:54. FINDINGS: Image quality: Excellent. CSF Spaces: Basal cisterns are patent. No extra-axial fluid collections. Ventricles are normal in size and shape. Brain: No intracranial masses or hemorrhage. [place]/white matter interface is normal. Brainstem appears normal. Diffusion-weighted images demonstrate no acute ischemic insult. No chronic ischemic insults. Normal intravascular flow voids are present. Skull and face: Calvarium has normal marrow signal. Orbits appear normal. Sinuses: Sinuses and mastoids are clear. IMPRESSION: 1. No acute intracranial process. Dictated by: Annabel Pruitt M.D. on 09/28/2023 at 16:32 Approved by: Annabel Pruitt M.D. on 09/28/2023 at 16:32
[2023-09-28 16:46] LABS: Creatine Kinase 92 U/L (30-135)
[2023-09-28 16:58] LABS: Troponin I < 0.012 ng/mL (0.01-0.034)
== END 2023-09-28 17:17 | disposition home or self-care (01) ==
PROVIDERS: Emergency Provider Emergency Medicine; Family Provider Internal Medicine; PCP Internal Medicine
DX: R20.2 Paresthesia of skin (principal); I10 Essential (primary) hypertension; R07.9 Chest pain, unspecified; R00.1 Bradycardia, unspecified; R11.0 Nausea; Z79.01 Long term (current) use of anticoagulants; R29.700 NIHSS score 0
CPT/HCPCS: 36415; 70450; 70496; 70498; 70551; 71045; 80053; 81003; 82550; 83690; 84443; 84484; 85025; 93005; 93010; 99284

== ENCOUNTER 2025-07-19 09:40 | Inpatient (IN) | payer OTHER, SELFPAY ==
[2025-07-19] VITALS (18 sets, daily range): BP systolic 89–154; BP diastolic 52–85; PULSE 65–78; RESP 13–21; TEMP 36.2–36.5; O2SAT 92–99; BMI 24.3; BMI 28.3
[2025-07-19 10:13] LABS: Add Manual Diff / Slide Review NO; Hematocrit 38.4 % (36-46); Hemoglobin 12.8 g/dL (12.0-16.0); Lymphocytes Absolute Auto 900 /uL (1100-4500); Mean Corpuscular HGB Conc 33.2 % (30-36); Mean Corpuscular Hemoglobin 32.1 PG (26-34); Mean Corpuscular Volume 96.6 fL (80-100); Platelet Count 198 X10^3/uL (150-400)
--- NOTE | 2025-07-19 10:16 | ED_ITS ---
HPI - GI Bleed General Chief complaint: GI Bleed Stated complaint: cramping bleeding from rectum Time Seen by Provider: 07/19/25 10:14 Source: patient Mode of arrival: Ambulatory History of Present Illness HPI Narrative: PMHx significant for GERD, HTN, hypothyroidism, hypokalemia, anxiety, diverticulitis, multiple polyps, bladder and rectal prolapse s/p surgeries in the last 12 months. Pt presents to the ER with complaints of severe lower abdominal cramping and significant rectal bleeding. This morning at 3 AM, the patient had a normal bowel movement. Subsequently, she developed severe cramping across her lower abdomen. While attempting to make coffee, she experienced a sudden, large amount of bloody discharge with clots. This episode repeated when she used the toilet, filling it with blood and clotty material. The patient denies fever, chest pain, cough, or shortness of breath. She reports nausea with minimal vomiting (approximately 1/8 cup). There is no pain with urination, though the patient notes difficulty with urination since her recent bladder surgery, requiring concentration to void. Patient has had recent surgeries for rectal and bladder prolapse in October and January, respectively. The patient's last colonoscopy was in April 2023, revealing 14 polyps. She denies alcohol use or recreational drug use. The patient still has her gallbladder and appendix. She reports an allergy to sulfa-based antibiotics. She's not on blood thinners. Related Data Home Medications ?Medication ?Instructions ?Recorded ?Confirmed metoprolol tartrate 25 mg tablet 25 mg PO BID 06/30/19 07/19/25 alprazolam 0.25 mg tablet 0.25 mg PO TID PRN Anxiety 0 02/14/23 07/19/25 alprazolam 0.25 mg tablet (Xanax) 0.25 mg PO BID-TID P RN anxiety 07/19/25 07/19/25 amitriptyline 100 mg tablet 100 mg PO DAILY 07/19/25 0 07/19/25 fluoxetine 40 mg capsule 40 mg PO DAILY 07/19/2503/09 levothyroxine 88 mcg tablet 88 mcg PO DAILY 07/19/25 0 07/19/25 omeprazole 40 mg capsule,delayed 40 mg PO QAM 07/19/25 07/19/25 release Allergies Allergy/AdvReac Type Severity Reaction Status Date / Time butalbital (From Fiorinal) Allergy Unknown Verified 07/19/25 09:46 latex Allergy Verified 07/19/25 09:46 Sulfa (Sulfonamide Allergy Verified 07/19/25 09:46 Antibiotics) RED PEPPER Allergy Unknown Uncoded 07/19/25 09:46 Patient History Medical History (Updated 07/19/25 @ 19:13 by Mike Falk MD) Hypertension Personal history of PE (pulmonary embolism) Cash's esophagus GERD (gastroesophageal reflux disease) Hypothyroidism PVCs (premature ventricular contractions) Surgical History Status post hysterectomy Status post thyroidectomy Social History household members: none Smoking Status: Former smoker alcohol intake: never Smoking Status: Unknown if ever smoked alcohol intake frequency: holidays/special occasions only Exam Narrative Exam Narrative: VS as noted above Focused physical exam as follows: General: Well developed, well nourished, no acute distress HEENT: pink palpebral conjunctiva, anicteric sclera, KAVIN, moist mucous membranes, no JVD, no cervical lymphadenopathy Lungs: no respiratory distress, clear to auscultation without wheezes or crackles; equal breath sounds Heart: normal rate, regular rhythm, no appreciable murmurs Abdomen: soft, nontender, no rebound or rigidity Rectum - occult blood positive; no external hemorrhoids; no significant sphincter tone but no obvious prolapsed rectum Musculoskeletal: no gross deformities with full ROM in all extremities, no pedal edema Skin: pink, warm; no rashes Neuro: ?AAOx3, GCS 15, nonfocal exam Psyche: no SI/HI, normal affect Initial Vital Signs Initial Vital Signs: Vital Signs Temperature 97.7 F 07/19/25 09:46 Pulse Rate 78 07/19/25 09:46 Respiratory Rate 14 07/19/25 09:46 Blood Pressure 123/75 07/19/25 09:46 Pulse Oximetry 99 07/19/25 09:46 Oxygen Delivery Method Room Air 07/19/25 09:46 Course Orders Ordered: Acetaminophen (Acetaminophen 325 Mg Tablet) 325 mg PO Q6H PRN PRN Reason: Fever/Mild Pain (1-3) Acetaminophen (Acetaminophen 325 Mg Tablet) 650 mg PO Q6H PRN PRN Reason: Fever/Mild Pain (1-3) Alprazolam (Alprazolam 0.25 Mg Tablet) 0.25 mg PO TID PRN PRN Reason: Anxiety Last Admin: 07/20/25 07:47 Dose: 0.25 mg Documented By: Admin: 07/19/25 22:44 Dose: 0.25 mg Documented By: [facility] Admin: 07/19/25 17:06 Dose: 0.25 mg Documented By: Hydromorphone HCl (Hydromorphone Hcl 0.5 Mg/0.5 Ml Syringe) 0.5 mg IV Q2HR [facility] Last Admin: 07/20/25 10:12 Dose: Not Given Documented By: Admin: 07/20/25 07:05 Dose: 0.5 mg Documented By: Admin: 07/20/25 05:20 Dose: 0.5 mg Documented By: [facility] Admin: 07/20/25 03:50 Dose: 0.5 mg Documented By: [facility] Admin: 07/20/25 01:22 Dose: 0.5 mg Documented By: [facility] Admin: 07/20/25 00:01 Dose: Not Given Documented By: [facility] Admin: 07/19/25 21:55 Dose: 0.5 mg Documented By: [facility] Admin: 07/19/25 19:50 Dose: 0.5 mg Documented By: [facility] Admin: 07/19/25 17:06 Dose: 0.5 mg Documented By: Hydromorphone HCl (Hydromorphone 1 Mg/Ml Syringe) 1 mg IV Q2H PRN PRN Reason: Pain, Severe (7-10) Metronidazole (Flagyl) 500 mg in 100 mls @ 100 mls/hr IV Q8H [facility] Last Infusion: 07/20/25 07:07 Dose: Infused Documented By: [facility] Admin: 07/20/25 03:50 Dose: 100 mls/hr Documented By: [facility] Infusion: 07/19/25 22:17 Dose: Infused Documented By: [facility] Admin: 07/19/25 19:50 Dose: 100 mls/hr Documented By: PUNETE Ciprofloxacin (Cipro) 400 mg in 200 mls @ 200 mls/hr IV Q12H [facility] Last Infusion: 07/20/25 07:00 Dose: Infused Documented By: Admin: 07/19/25 22:44 Dose: 200 mls/hr Documented By: PUNEET Sodium Chloride (Normal Saline 0.9%) 1,000 mls @ 150 mls/hr IV CONT [facility] Last Admin: 07/20/25 08:56 Dose: 150 mls/hr Documented By: Infusion: 07/20/25 08:03 Dose: Infused Documented By: Admin: 07/20/25 01:22 Dose: 150 mls/hr Documented By: Infusion: 07/19/25 23:49 Dose: Infused Documented By: Admin: 07/19/25 17:08 Dose: 150 mls/hr Documented By: Levothyroxine Sodium (Levothyroxine 75 Mcg Tablet) 75 mcg PO DAILY@0600 [facility] Last Admin: 07/20/25 05:19 Dose: 75 mcg Documented By: PUNEET Metoprolol Tartrate (Metoprolol Ir 25 Mg Tablet) 25 mg PO BID [facility] Last Admin: 07/20/25 09:09 Dose: Not Given Documented By: Admin: 07/19/25 22:07 Dose: Not Given Documented By: PUNEET Naloxone HCl (Naloxone 0.4 Mg/Ml Vial) 0.2 mg IV Q2MIN PRN PRN Reason: Opiate Reversal Ondansetron HCl (Ondansetron 4 Mg/2 Ml Inj) 4 mg IV Q4HR PRN PRN Reason: Nausea And Vomiting Last Admin: 07/19/25 21:55 Dose: 4 mg Documented By: PUNEET Oxycodone HCl (Oxycodone Ir 5 Mg Tablet) 5 mg PO Q3H PRN PRN Reason: Pain, Moderate (4-6) Pantoprazole Sodium (Pantoprazole 40 Mg Vial) 40 mg IV 0600 [facility] Last Admin: 07/20/25 07:06 Dose: 40 mg Documented By: Admin: 07/19/25 15:58 Dose: 40 mg Documented By: DERECK Phenyleph/Shark Oil/Min Oil/Petrol (Phenyleph/Mineral Oil/Petrolat 57 Gm Oint) 1 applic GA PRN PRN PRN Reason: Hemorrhoids Prednisone (Prednisone 5 Mg Tablet) 10 mg PO DAILY [facility] Last Admin: 07/20/25 08:56 Dose: 10 mg Documented By: EDWAR Discontinued Medications Hydromorphone HCl (Hydromorphone Hcl 0.5 Mg/0.5 Ml Syringe) 0.5 mg IV NOW ONE Stop: 07/19/25 10:26 Last Admin: 07/19/25 10:33 Dose: 0.5 mg Documented By: DERECK Hydromorphone HCl (Hydromorphone Hcl 0.5 Mg/0.5 Ml Syringe) 0.5 mg IV NOW ONE Stop: 07/19/25 14:20 Last Admin: 07/19/25 14:22 Dose: 0.5 mg Documented By: DERECK Ciprofloxacin (Cipro) 200 mg in 100 mls @ 100 mls/hr IV Q12H [facility] Last Infusion: 07/19/25 17:25 Dose: Infused Documented By: Admin: 07/19/25 16:25 Dose: 100 mls/hr Documented By: Metronidazole (Flagyl) 250 mg in 50 mls @ 100 mls/hr IV Q8H [facility] Last Infusion: 07/19/25 16:19 Dose: Infused Documented By: Admin: 07/19/25 15:49 Dose: 100 mls/hr Documented By: DERECK Lactated Ringer's (Lactated Ringers) 1,000 mls @ 150 mls/hr IV CONT [facility] Last Admin: 07/19/25 17:38 Dose: Not Given Documented By: Ondansetron HCl (Ondansetron 4 Mg/2 Ml Inj) 4 mg IV NOW ONE Stop: 07/19/25 10:26 Last Admin: 07/19/25 10:33 Dose: 4 mg Documented By: DERECK Ondansetron HCl (Ondansetron 4 Mg/2 Ml Inj) 4 mg IV Q8HR PRN PRN Reason: Nausea And Vomiting Vital Signs Vital signs: Vital Signs - 8 hr 07/19/25 09:46 07/19/25 09:59 07/19/25 10:00 Temperature 97.7 F Pulse Rate 78 72 71 Respiratory Rate 14 Blood Pressure 123/75 Pulse Oximetry 99 98 98 Oxygen Delivery Method Room Air 07/19/25 10:01 07/19/25 10:01 07/19/25 10:30 Temperature Pulse Rate 72 69 Respiratory Rate 13 20 Blood Pressure 136/82 Pulse Oximetry 98 98 Oxygen Delivery Method 07/19/25 10:30 07/19/25 11:00 Temperature Pulse Rate 74 Respiratory Rate 18 Blood Pressure 154/75 H Pulse Oximetry 93 Oxygen Delivery Method MDM - GI Bleed Lab Data 07/20/25 04:37 07/20/25 04:37 Labs: Lab Results 07/19/25 07/19/25 07/19/25 Range/Units 10:00 10:06 13:35 WBC 11.5 H (4.5-11.0) X10^3/uL RBC 3.97 L (4.0-5.2) X10^6/uL Hgb 12.8 (12.0-16.0) g/dL Hct 38.4 (36-46) % MCV 96.6 (80-100) fL MCH 32.1 (26-34) PG MCHC 33.2 (30-36) % RDW 14.8 (11.6-14.8) % Plt Count 198 (150-400) X10^3/uL Neut % (Auto) 84.1 H (50-75) % Lymph % (Auto) 7.8 L (25-40) % [place] % (Auto) 7.6 (3-14) % Eos % (Auto) 0.1 L (2-4) % Baso % (Auto) 0.4 (0-2) % Neut # (Auto) 9700 H (3490-3156) /uL Lymph # (Auto) 900 L (8018-4390) /uL [place] # (Auto) 900 (0-900) /uL Eos # (Auto) 0 (0-450) /uL Baso # (Auto) 0 (0-100) /uL PT 11.1 (9.4-12.5) SECONDS INR 1.0 (0.9-1.3) APTT 28 (25.1-36.5) SECONDS Sodium 137 (137-145) mmol/L Potassium 4.3 (3.4-5.1) mmol/L Chloride 104 (98-107) mmol/L Carbon Dioxide 21 L (22-32) mmol/L BUN 9 (7-17) mg/dL Creatinine 0.69 (0.52-1.04) mg/dL Estimated GFR > 60 (>60) mL/min BUN/Creatinine Ratio 13.0 (6-22) Glucose 145 H (70-99) mg/dL Calcium 8.6 (8.4-10.2) mg/dL Total Bilirubin 0.5 (0.2-1.3) mg/dL AST 37 H (14-36) IU/L ALT 35 H (<35) IU/L Alkaline Phosphatase 94 (38-126) U/L Total Protein 7.9 (6.3-8.2) g/dL Albumin 4.3 (3.5-5.0) g/dL Globulin 3.6 (1.7-4.1) g/dL Albumin/Globulin Ratio 1.2 (1.0-2.8) Urine Color Yellow Urine Appearance Clear Urine pH 5.5 (4.5-8.0) Ur Specific [place] <=1.005 (1.000-1.035) Urine Protein Negative (Negative) Urine Glucose (UA) Negative (Negative) g/dL Urine Ketones Negative (NEGATIVE) Urine Occult Blood Trace-intact (Negative) Urine Nitrate Negative (Negative) Urine Bilirubin Negative (NEGATIVE) Urine Urobilinogen 0.2 (0.2) E.U./dL Ur Leukocyte Esterase Negative (NEGATIVE) Urine RBC 0-1/hpf (0-5/HPF) Urine WBC None seen (0-5/HPF) Ur Squamous Epith Cells 1-5 /hpf (0-5/HPF) Urine Bacteria None seen (None) Ur Culture Indicated? Cult not indicated Vol Urine Centrifuged 10ml (spun) Blood Type A Positive Antibody Screen Negative Point of Care Testing Stool Occult Blood Positive MDM Narrative Medical decision making narrative: HPI, PMHx, PSHx, Medication list, Allergies, ROS and Focused exam were reviewed above. ?Differential diagnosis as noted below. ?Social determinants affecting care considered. ?All of these were taken into consideration warranting above listed work up. ?Consultations as deemed necessary were documented below (if listed). Labs (if ordered and noted) were independently reviewed by me. Imaging studies (if ordered and noted) were independently reviewed by me EKG (if noted) was independently reviewed by me External documents (if reviewed) are documented above Initial VS noted above. ? Differential diagnosis considered include (but not limited to) the following: lower GI bleed, bleeding diathesis, symptomatic anemia, colonic neoplasm, diverticulitis, colitis, hemorrhoids, UTI, pyelo, ureteral calculus, gastritis, gastric ulcer, pancreatitis, cholelithiasis/cystitis, appendicitis, liver or kidney failure, electrolyte imbalance Pt interviewed and examined. Rectal exam done with nurse pastry artist - no active rectal bleeding but was heme positive. Work up initiated. Labs reviewed - Mild leukocytosis. Hgb of 11.4. Coags normal. Will proceed with CT abd/pelvis. CT abd/pelvis results reviewed. IMPRESSION: Colitis secondary to diverticulitis. No evidence of abscess or free air. No visualized active hemorrhage. No further rectal bleeding noted during her ER stay. Discussed case with Dr. Park (surgeon) regarding plan of care considering degree of rectal bleeding. He will come down to evaluate pt at bedside. See Dr. Park's consultation note. He agreed pt should be admitted to hospitalist, Abx for colitis (not diverticulitis) and followed for any further bleeding. Discussed case with Dr. Perla - semaj. Discharge Plan Departure Patient Disposition: Admitted As Inpatient Clinical Impression: Lower gastrointestinal bleed, Rectal prolapse, Colitis Admit Date/Time: 07/19/25 14:58 Admit Provider: Antonio Perla
[2025-07-19 10:20] LABS: INR 1.0 (0.9-1.3); Prothrombin Time 11.1 SECONDS (9.4-12.5)
[2025-07-19 10:23] LABS: PTT Partial Thromboplastin Tim 28 SECONDS (25.1-36.5)
[2025-07-19 10:26] LABS: Alanine Aminotransferase 35 IU/L (<35); Albumin 4.3 g/dL (3.5-5.0); Albumin Globulin Ratio 1.2 (1.0-2.8); Alkaline Phosphatase 94 U/L (38-126); Blood Urea Nitrogen 9 mg/dL (7-17); Calcium 8.6 mg/dL (8.4-10.2); Carbon Dioxide 21 mmol/L (22-32); Chloride 104 mmol/L (98-107); Estimated Glomerular Filt Rate > 60 mL/min (>60); Globulin 3.6 g/dL (1.7-4.1); Glucose 145 mg/dL (70-99); HEMOLYSIS < 15 (0-50); Potassium 4.3 mmol/L (3.4-5.1); Sodium 137 mmol/L (137-145); Total Protein 7.9 g/dL (6.3-8.2)
[2025-07-19] MEDS: ONDANSETRON 4 MG/2 ML INJ IV ×2 (10:33→21:55)
--- NOTE | 2025-07-19 11:01 | DI.CT.S_ITS ---
PROCEDURE: CT ANGIO ABD/PEL GI BLEED INDICATIONS: rectal bleeding TECHNIQUE: After the administration of intravenous contrast, 2.5 mm thick sections acquired from the diaphragm to the symphysis. 10 mm maximum-intensity projection (MIP) reformats were then acquired. For radiation dose reduction, the following was used: automated exposure control. COMPARISON: [facility], CT, CT ABDOMEN PELVIS W CON, 04/03/2022, 3:55. FINDINGS: Image Quality: Diagnostic. Abdominal aorta: No areas of hemodynamically significant stenosis, , dissection vascular occlusion or aneurysmal dilation within the aorta. No evidence of active extravasation. Mesenteric arteries: Patent without hemodynamically significant stenosis. Renal arteries: Patent without hemodynamically significant stenosis. OTHER: Lower Chest: No significant findings. Liver: Low-attenuation foci most consistent with cysts are unchanged. Gallbladder: No radiopaque gallstones or wall thickening. Biliary ducts: No biliary dilation. Pancreas: No ductal dilation. Subcentimeter hypodensity within the pancreatic tail is stable. Spleen: Size is within normal limits. Adrenal Glands: No adrenal nodules. Kidneys and Ureters: No hydronephrosis. No solid mass. No complex renal cystic lesion which requires follow up. Stomach and Bowel: No obstruction. There is thickening within the transverse and descending colon with surrounding inflammatory change. Diverticular present. No evidence of abscess. No free air. Peritoneum: No abnormal intraperitoneal fluid. No free air. Ventral Wall: Fat containing ventral hernia. Abdominal Nodes: No retroperitoneal or mesenteric adenopathy by size criteria. Vessels: Aorta and inferior vena cava are normal in size. PELVIS: Pelvic Organs: Unremarkable. Bladder: Unremarkable. Pelvic Nodes: No enlarged lymph nodes. Miscellaneous: No inguinal hernias are seen. Bones: No aggressive osseous abnormality. L1 superior endplate compression deformity, unchanged. IMPRESSION: Colitis secondary to diverticulitis. No evidence of abscess or free air. No visualized active hemorrhage. Dictated by: Annabel Pruitt M.D. on 07/19/2025 at 12:05 Approved by: Annabel Pruitt M.D. on 07/19/2025 at 12:15
[2025-07-19 13:59] LABS: Appearance Urine UA CLEAR; Bilirubin Urine UA NEGATIVE (NEGATIVE); Color Urine UA YELLOW; Glucose Urine UA NEGATIVE (Negative); Ketones Urine UA NEGATIVE (NEGATIVE); Leukocyte Esterase Urine UA NEGATIVE (NEGATIVE); Nitrite Urine UA NEGATIVE (Negative); Occult Blood Urine UA TRACE-INTACT (Negative); Protein Urine UA NEGATIVE (Negative); Specific Gravity Urine UA <=1.005 (1.000-1.035); Urobilinogen Urine UA 0.2 E.U./dL (0.2); pH Urine UA 5.5 (4.5-8.0)
[2025-07-19 14:05] LABS: Culture Indicated Urine Cult Not Indicated
--- NOTE | 2025-07-19 14:20 | PC.NURSE ---
concrete block mason for rectal exam with Dr Burnett, gen surg. Pt tolerated well. Agreeable to admission.
--- NOTE | 2025-07-19 14:45 | PM.HP.IH.1 ---
History of Present Illness History of Present Illness Date Patient Seen: 07/19/25 Time Patient Seen: 13:00 Date of Onset of Symptoms: 07/19/25 Chief complaint: cramping bleeding from rectum Narrative: Patient is a 65-year-old white female presents to the emergency room with lower colicky to constant abdominal pain with a massive rectal bleeding. Patient states that she awoke at approximately 3:00 a.m. to have a bowel movement later was in the kitchen felt the need to pass gas and had a spontaneous large rectal bleeding that filled the floor of her kitchen. Patient has subsequently had another episode of rectal bleeding but has had none since she has been here in the emergency room. Patient denies any fever chills any other problems. Patient has had a recent history of incontinence of gas and stool. Patient states she had a rectal prolapse surgery in October of 2024 and then had a cystocele repaired in January of 2025. And noticed a reoccurrence of her rectal prolapse in February of 2025. Patient states that she is afraid to go outside or go to the store as she is incontinent. Patient had a CT scan performed in the emergency room which shows a left small hepatic cyst sigmoid diverticuli without any signs of diverticulitis mild colitis noted in the transverse and proximal descending colon with thickening of the wall but no rivera colonic inflammation is noted. The patient noted to have a normal appendix and gallbladder. Absent uterus ovaries could not be visualized patient has a large hiatal hernia and a very small umbilical hernia. The patient's admitting laboratory shows a WBC of 11.5 hemoglobin is 12.8 hematocrit is 38.4 platelets 198,000 PT is 11.1 PTT is 28 total bilirubin is 0.5 AST is 37 ALT is 35 alkaline phosphatase 94 sodium is 137 potassium 4.3 chloride 104 bicarb is 21 BUN of 9 creatinine 0.69 random blood sugar is 145. Allergies: Fiorinal, latex, sulfa, red pepper Medications see med sheet: Patient denies any anticoagulation or aspirin products Past medical history: Corrective lenses, dentures, 3 para 3 ab 0, anxiety, depression, obesity, hypertension, hypothyroidism secondary to thyroidectomy, history of GERD with Cash's esophagus with hiatal hernia, history of PVCs, history of PE in her 40s secondary to a crush injury from a large truck tire, lupus, osteoporosis, degenerative joint disease with ankylosing spondylitis, history of colon polyps, diverticulosis. Patient has had a history of rectal prolapse with reoccurrence. Patient denies any other heart lungs digestive musculoskeletal neurological seizure disorder psychiatric problems risks of Infectious diseases HIV or AIDS. Past surgical history: Thyroidectomy benign, followed by a thymectomy, JAMIE with ovaries intact, sternal biopsy, history of a rectal prolapse surgery October of 2024 without sigmoid colon resection, cystocele repair and January of 2025, colonoscopy with polypectomy in 2022. Social history: History of tobacco abuse 1 pack per day times 45 years. Seven years ago, denies any alcohol, denies any recreational drugs other than marijuana use in high school. Vitals: Temperature is 97.7? pulse 67 respirations 16 BP is 146/85 SaO2 is 95% on room air. Patient is 5 ft tall 8 in, 160 lb. Head is normocephalic eyes PERRLA EOMI is intact nares are clear oropharyngeal cavity dentures are in place oropharyngeal soft tissues are moist. Heart regular rate and rhythm without murmurs. Lungs clear to auscultation no rales rhonchi or wheezes noted poor inspiratory and expiratory effort poor chest wall motion noted. Abdomen is soft nondistended negative Walker's Schulte great turns Lara's McBurney's no masses or peritoneal signs patient has some lower abdominal pain but no rebound or guarding. CT scan showed possible umbilical hernia but none is noted on physical examination. Extremities moderate muscle tone and strength equal bilaterally no gross deficits are elicited. Patient was examined in the prone position with nurse in attendance. The patient was noted to have a slight prolapse of the anal mucosa with straining this was more pronounced. No tumors masses nodules polyps or blood noted on the examining finger no gross hemorrhoids were noted. Patient states that the prolapse is sometimes the size of 3-4 inches. And she asked to spontaneously reduce this. Impression: Abdominal pain with rectal bleeding CT scan showing transverse and proximal descending colitis without any diverticulitis. Recurrent rectal prolapse no active bleeding is noted. Reduced Hypertension Hypothyroidism Hiatal hernia with GERD and Cash's metaplasia History of colon polyps and diverticulosis last colonoscopy 2022 History of tobacco abuse 1 pack per day times 45 years stopped 7 years ago Anxiety and depression History of lupus, osteoporosis, degenerative joint disease with ankylosing spondylitis Plan: Discussed with patient the findings recommend being admitted for observation of the bleeding issue continues may warrant colonoscopy with possible biopsy of the colitis. We will treat for nonspecific diarrhea check a stool cultures. Also discussed with patient the reoccurring rectal prolapse would recommend a treatment at 8 colorectal area of specialty for the reoccurrence would warrant possible sigmoid colon resection with high sacral pexy but if she continues to have problems most likely would be incontinent of gas or stool may warrant even possible colostomy all procedures risks and complications were fully explained the patient will be set up on an outpatient basis for evaluation at the [facility]. All questions were answered to patient's satisfaction. [facility]LY [facility] Medical History (Updated 10/13/23 @ 00:01 by ) Hypertension Personal history of PE (pulmonary embolism) Cash's esophagus GERD (gastroesophageal reflux disease) Hypothyroidism PVCs (premature ventricular contractions) Surgical History Status post hysterectomy Status post thyroidectomy Social History Smoking Status: Unknown if ever smoked Meds Home Medications and Allergies Home Medications ?Medication ?Instructions ?Recorded ?Confirmed ?Type levothyroxine 75 mcg tablet 75 mcg PO DAILY 06/30/19 08/04/19 History metoprolol tartrate 25 mg tablet 25 mg PO BID 06/30/19 08/04/19 History omeprazole 20 mg capsule,delayed 20 mg PO BID 06/30/19 08/04/19 History release acetaminophen 500 mg capsule 500 mg PO Q6H PRN pain 08/04/19 08/04/19 History aspirin 81 mg tablet,delayed 81 mg PO DAILY 08/04/19 08/04/19 History release furosemide 20 mg tablet See Rx Instructions .Route .COMPLEX 08/04/19 08/04/19 History hydrocodone 5 mg-acetaminophen 325 1 - 2 tab PO Q4H PRN pain 08/04/19 08/04/19 History mg tablet oxycodone 5 mg tablet 5 mg PO Q6H PRN pain 08/04/19 08/04/19 History potassium chloride 20 mEq See Rx Instructions .Route .COMPLEX 08/04/19 08/04/19 History tablet,extended release amoxicillin 875 mg-potassium 1 tab PO BID #20 tabs 04/03/22 Rx clavulanate 125 mg tablet prednisone 10 mg tablet 10 mg PO DAILY #30 tabs 08/06/22 Rx alprazolam 0.25 mg tablet 0.25 mg PO TID PRN Anxiety 02/14/23 02/14/23 History Allergies Allergy/AdvReac Type Severity Reaction Status Date / Time butalbital (From [facility]) Allergy Unknown Verified 07/19/25 09:46 latex Allergy Verified 07/19/25 09:46 Sulfa (Sulfonamide Allergy Verified 07/19/25 09:46 Antibiotics) RED PEPPER Allergy Unknown Uncoded 07/19/25 09:46 Exam Vital Signs (past 8 hours): - 07/19/25 09:46 07/19/25 09:59 07/19/25 10:00 Temperature 97.7 F Pulse Rate 78 72 71 Respiratory Rate 14 Blood Pressure 123/75 Pulse Oximetry 99 98 98 Oxygen Delivery Method Room Air 07/19/25 10:01 07/19/25 10:01 07/19/25 10:30 Temperature Pulse Rate 72 69 Respiratory Rate 13 20 Blood Pressure 136/82 Pulse Oximetry 98 98 Oxygen Delivery Method 07/19/25 10:30 07/19/25 11:00 07/19/25 11:00 Temperature Pulse Rate 74 Respiratory Rate 18 Blood Pressure 154/75 H 117/65 Pulse Oximetry 93 Oxygen Delivery Method 07/19/25 11:37 07/19/25 11:38 07/19/25 11:38 Temperature Pulse Rate 71 71 Respiratory Rate 15 Blood Pressure 143/77 H Pulse Oximetry 92 97 Oxygen Delivery Method 07/19/25 12:00 07/19/25 12:00 07/19/25 12:30 Temperature Pulse Rate 67 66 Respiratory Rate 13 19 Blood Pressure 145/74 H Pulse Oximetry 94 94 Oxygen Delivery Method 07/19/25 12:31 07/19/25 12:31 07/19/25 13:00 Temperature Pulse Rate 65 67 Respiratory Rate 21 16 Blood Pressure 150/82 H Pulse Oximetry 94 95 Oxygen Delivery Method 07/19/25 13:00 Temperature Pulse Rate Respiratory Rate Blood Pressure 146/85 H Pulse Oximetry Oxygen Delivery Method Oxygen Delivery Method Room Air Objective Labs 07/19/25 10:00 07/19/25 10:00 Labs: Laboratory Results - last 24 hr 07/19/25 07/19/25 07/19/25 10:00 10:06 13:35 WBC 11.5 H RBC 3.97 L Hgb 12.8 Hct 38.4 MCV 96.6 MCH 32.1 MCHC 33.2 RDW 14.8 Plt Count 198 Neut % (Auto) 84.1 H Lymph % (Auto) 7.8 L [place] % (Auto) 7.6 Eos % (Auto) 0.1 L Baso % (Auto) 0.4 Neut # (Auto) 9700 H Lymph # (Auto) 900 L [place] # (Auto) 900 Eos # (Auto) 0 Baso # (Auto) 0 PT 11.1 INR 1.0 APTT 28 Sodium 137 Potassium 4.3 Chloride 104 Carbon Dioxide 21 L BUN 9 Creatinine 0.69 Estimated GFR > 60 BUN/Creatinine Ratio 13.0 Glucose 145 H Calcium 8.6 Total Bilirubin 0.5 AST 37 H ALT 35 H Alkaline Phosphatase 94 Total Protein 7.9 Albumin 4.3 Globulin 3.6 Albumin/Globulin Ratio 1.2 Urine Color Yellow Urine Appearance Clear Urine pH 5.5 Ur Specific [place] <=1.005 Urine Protein Negative Urine Glucose (UA) Negative Urine Ketones Negative Urine Occult Blood Trace-intact Urine Nitrate Negative Urine Bilirubin Negative Urine Urobilinogen 0.2 Ur Leukocyte Esterase Negative Urine RBC 0-1/hpf Urine WBC None seen Ur Squamous Epith Cells 1-5 /hpf Urine Bacteria None seen Ur Culture Indicated? Cult not indicated Vol Urine Centrifuged 10ml (spun) Blood Type A Positive Antibody Screen Negative Assessment & Plan Time-Based Coding :: [TOTAL MINUTES] spent with patient and on the chart (including review of chart, obtaining history, exam, reviewing outside data, placing orders, documenting exam and treatment plan, and counseling patient) on [DATE]. PROFEE Clinical Documentation Spec Document charge(s): Yes
[2025-07-19] MEDS: metroNIDAZOLE 250 MG/50 ML PIGGYBACK 100 MG IV (15:49)
[2025-07-19] MEDS: PANTOPRAZOLE 40 MG VIAL IV (15:58)
--- NOTE | 2025-07-19 16:14 | P.HP_ITS ---
History of Present Illness History of Present Illness Date Patient Seen: 07/19/25 Chief complaint: cramping bleeding from rectum Narrative: Chief complaint: Incontinence with rectal bleeding with abdominal cramping and colitis on CT History of present illness: 07/19: 65-year-old female had some tenesmus and feeling gaseous and thought she was passing flatus but then had large bloody liquid stool with severe cramping. Past medical history signals for a rectal prolapse surgery in 2023 and a cystocele repair in January of 2025 recurrence of the rectal prolapse in February 2025. Patient is now incontinent of stool Findings emergency department significant for CT findings of colitis in the transverse and proximal descending colon with sigmoid diverticulosis but without signs of diverticulitis White blood cell count 11.5 hemoglobin 12.8 platelets 200 bilirubin and transaminases unremarkable potassium 137 potassium 4.3 chloride 104 BUN is 9 creatinine 0.7 Past medical and surgical history: Hypertension Personal history of PE (pulmonary embolism) Cash's esophagus GERD (gastroesophageal reflux disease) Hypothyroidism following thyroidectomy for thyroid carcinoma PVCs (premature ventricular contractions) Status post hysterectomy Status post thyroidectomy Medications please see the bottom of the note Review of systems: No chest pain palpitations shortness for breath No fevers chills No change in appetite No weight loss or weight gain No paresthesia or paresis Physical examination: Pleasant elderly female in no acute distress HEENT unremarkable Heart rate and rhythm regular no murmurs Lungs clear Abdomen is distended soft bowel sounds present Extremities no edema Neurologic nonfocal Assessment and plan: Colitis with bloody diarrhea and ankita blood findings on CT localizing in the transverse and proximal descending colon infectious versus ischemic * Empiric ciprofloxacin metronidazole * GI film panel * Appreciate surgery expertise and comanagement * IV fluid resuscitation (to prevent ischemia of watershed regions) * Monitor H&H q.8 hours Chronic medical conditions: * Hypertension * Personal history of PE (pulmonary embolism) * Cash's esophagus * GERD (gastroesophageal reflux disease) * Hypothyroidism following thyroidectomy for thyroid carcinoma * PVCs (premature ventricular contractions) * Status post hysterectomy * Status post thyroidectomy * Rectal prolapse surgery * Cystocele surgery DVT prophylaxis * Not indicated Disposition: * Admit to inpatient care monitor H&H q.6 hours anticipate 2-3 days of hospitalization 55 minutes were involved in the management of this patient including [id number] evaluation discussion with surgery emergency room provider patient direct physical examination direct evaluation of objective laboratory and imaging findings and discussion with nursing care team on the floor FOR[facility]LY [facility] Medical History (Updated 07/19/25 @ 15:15 by Hemal Park DO) Hypertension Personal history of PE (pulmonary embolism) Cash's esophagus GERD (gastroesophageal reflux disease) Hypothyroidism PVCs (premature ventricular contractions) Surgical History Status post hysterectomy Status post thyroidectomy Social History Smoking Status: Unknown if ever smoked Meds Home Medications and Allergies Home Medications ?Medication ?Instructions ?Recorded ?Confirmed ?Type levothyroxine 75 mcg tablet 75 mcg PO DAILY 06/30/19 0 08/04/19 History metoprolol tartrate 25 mg tablet 25 mg PO BID 06/30/19 08/04/19 History omeprazole 20 mg capsule,delayed 20 mg PO BID 06/30/19 08/04/19 History release acetaminophen 500 mg capsule 500 mg PO Q6H PRN pain 08/04/19 History aspirin 81 mg tablet,delayed 81 mg PO DAILY 08/04/19 0 08/04/19 History release furosemide 20 mg tablet See Rx Instructions .Route . COMPLEX 08/04/19 08/04/19 History hydrocodone 5 mg-acetaminophen 325 1 - 2 tab PO Q4H NC N pain 08/04/19 08/04/19 History mg tablet oxycodone 5 mg tablet 5 mg PO Q6H PRN pain 9 08/04/19 History potassium chloride 20 mEq See Rx Instructions .Route . COMPLEX 08/04/19 08/04/19 History tablet,extended release amoxicillin 875 mg-potassium 1 tab PO BID #20 tabs Rx clavulanate 125 mg tablet prednisone 10 mg tablet 10 mg PO DAILY #30 tabs 07/17 01/06 Rx alprazolam 0.25 mg tablet 0.25 mg PO TID PRN Anxiety 0 02/14/23 02/14/23 History Allergies Allergy/AdvReac Type Severity Reaction Status Date / Time butalbital (From Fiorinal) Allergy Unknown Verified 07/19/25 09:46 latex Allergy Verified 07/19/25 09:46 Sulfa (Sulfonamide Allergy Verified 07/19/25 09:46 Antibiotics) RED PEPPER Allergy Unknown Uncoded 07/19/25 09:46 Exam Vital Signs (past 8 hours): - 07/19/25 09:46 07/19/25 09:59 07/19/25 10:00 Temperature 97.7 F Pulse Rate 78 72 71 Respiratory Rate 14 Blood Pressure 123/75 Pulse Oximetry 99 98 98 Oxygen Delivery Method Room Air 07/19/25 10:01 07/19/25 10:01 07/19/25 10:30 Temperature Pulse Rate 72 69 Respiratory Rate 13 20 Blood Pressure 136/82 Pulse Oximetry 98 98 Oxygen Delivery Method 07/19/25 10:30 07/19/25 11:00 07/19/25 11:00 Temperature Pulse Rate 74 Respiratory Rate 18 Blood Pressure 154/75 H 117/65 Pulse Oximetry 93 Oxygen Delivery Method 07/19/25 11:37 07/19/25 11:38 07/19/25 11:38 Temperature Pulse Rate 71 71 Respiratory Rate 15 Blood Pressure 143/77 H Pulse Oximetry 92 97 Oxygen Delivery Method 07/19/25 12:00 07/19/25 12:00 07/19/25 12:30 Temperature Pulse Rate 67 66 Respiratory Rate 13 19 Blood Pressure 145/74 H Pulse Oximetry 94 94 Oxygen Delivery Method 07/19/25 12:31 07/19/25 12:31 07/19/25 13:00 Temperature Pulse Rate 65 67 Respiratory Rate 21 16 Blood Pressure 150/82 H Pulse Oximetry 94 95 Oxygen Delivery Method 07/19/25 13:00 07/19/25 15:53 07/19/25 16:00 Temperature Pulse Rate 75 73 Respiratory Rate 21 Blood Pressure 146/85 H Pulse Oximetry 98 Oxygen Delivery Method 07/19/25 16:01 07/19/25 16:01 Temperature Pulse Rate 72 Respiratory Rate Blood Pressure 109/70 Pulse Oximetry Oxygen Delivery Method Oxygen Delivery Method Room Air Objective Labs 07/19/25 10:00 07/19/25 10:00 Labs: Laboratory Results - last 24 hr 07/19/25 07/19/25 07/19/25 10:00 10:06 13:35 WBC 11.5 H RBC 3.97 L Hgb 12.8 Hct 38.4 MCV 96.6 MCH 32.1 MCHC 33.2 RDW 14.8 Plt Count 198 Neut % (Auto) 84.1 H Lymph % (Auto) 7.8 L [place] % (Auto) 7.6 Eos % (Auto) 0.1 L Baso % (Auto) 0.4 Neut # (Auto) 9700 H Lymph # (Auto) 900 L [place] # (Auto) 900 Eos # (Auto) 0 Baso # (Auto) 0 PT 11.1 INR 1.0 APTT 28 Sodium 137 Potassium 4.3 Chloride 104 Carbon Dioxide 21 L BUN 9 Creatinine 0.69 Estimated GFR > 60 BUN/Creatinine Ratio 13.0 Glucose 145 H Calcium 8.6 Total Bilirubin 0.5 AST 37 H ALT 35 H Alkaline Phosphatase 94 Total Protein 7.9 Albumin 4.3 Globulin 3.6 Albumin/Globulin Ratio 1.2 Urine Color Yellow Urine Appearance Clear Urine pH 5.5 Ur Specific [place] <=1.005 Urine Protein Negative Urine Glucose (UA) Negative Urine Ketones Negative Urine Occult Blood Trace-intact Urine Nitrate Negative Urine Bilirubin Negative Urine Urobilinogen 0.2 Ur Leukocyte Esterase Negative Urine RBC 0-1/hpf Urine WBC None seen Ur Squamous Epith Cells 1-5 /hpf Urine Bacteria None seen Ur Culture Indicated? Cult not indicated Vol Urine Centrifuged 10ml (spun) Blood Type A Positive Antibody Screen Negative Assessment & Plan Time-Based Coding :: [TOTAL MINUTES] spent with patient and on the chart (including review of chart, obtaining history, exam, reviewing outside data, placing orders, documenting exam and treatment plan, and counseling patient) on [DATE].
[2025-07-19] MEDS: CIPROFLOXACIN 200 MG/100 ML PIGGYBACK 100 MG IV (16:25)
[2025-07-19] MEDS: SODIUM CHLORIDE 0.9% 1,000 ML 150 ML IV (17:08)
[2025-07-19 17:48] LABS: Add Manual Diff / Slide Review NO; Hematocrit 37.6 % (36-46); Hemoglobin 12.6 g/dL (12.0-16.0); Lymphocytes Absolute Auto 1300 /uL (1100-4500); Mean Corpuscular HGB Conc 33.7 % (30-36); Mean Corpuscular Hemoglobin 32.2 PG (26-34); Mean Corpuscular Volume 95.6 fL (80-100); Platelet Count 193 X10^3/uL (150-400)
[2025-07-19 17:48] LABS: MRSA (Nasal) PCR NOT DETECTED (Not Detect)
[2025-07-19] MEDS: metroNIDAZOLE 500 MG/100 ML PIGGYBACK 100 MG IV (19:50)
[2025-07-19] MEDS: CIPROFLOXACIN 400 MG/200 ML PIGGYBACK 200 MG IV (22:44)
[2025-07-20] VITALS (12 sets, daily range): BP systolic 92–126; BP diastolic 54–62; PULSE 74–80; RESP 13–20; TEMP 36.4–37; O2SAT 89–95
[2025-07-20] MEDS: SODIUM CHLORIDE 0.9% 1,000 ML 150 ML IV ×4 (01:22→23:50)
[2025-07-20] MEDS: metroNIDAZOLE 500 MG/100 ML PIGGYBACK 100 MG IV ×3 (03:50→20:17)
[2025-07-20] MEDS: LEVOTHYROXINE 75 MCG TABLET PO (05:19)
[2025-07-20 05:29] LABS: Hematocrit 33.3 % (36-46); Hemoglobin 11.4 g/dL (12.0-16.0); Mean Corpuscular HGB Conc 34.1 % (30-36); Mean Corpuscular Hemoglobin 32.6 PG (26-34); Mean Corpuscular Volume 95.7 fL (80-100); Platelet Count 166 X10^3/uL (150-400)
[2025-07-20 05:45] LABS: Alanine Aminotransferase 25 IU/L (<35); Albumin 3.7 g/dL (3.5-5.0); Albumin Globulin Ratio 1.1 (1.0-2.8); Alkaline Phosphatase 92 U/L (38-126); Blood Urea Nitrogen 10 mg/dL (7-17); Calcium 7.7 mg/dL (8.4-10.2); Carbon Dioxide 21 mmol/L (22-32); Chloride 104 mmol/L (98-107); Estimated Glomerular Filt Rate > 60 mL/min (>60); Globulin 3.3 g/dL (1.7-4.1); Glucose 116 mg/dL (70-99); HEMOLYSIS < 15 (0-50); Potassium 4.1 mmol/L (3.4-5.1); Sodium 131 mmol/L (137-145); Total Protein 7.0 g/dL (6.3-8.2)
[2025-07-20] MEDS: PANTOPRAZOLE 40 MG VIAL IV (07:06)
--- NOTE | 2025-07-20 08:23 | PM.PN.IH.1 ---
Subjective Subjective Date Patient Seen: 07/20/25 Time Patient Seen: 08:00 Interval history: Patient is a 65-year-old white female resting comfortably at the bedside states she has had no further rectal bleeding since she has been admitted to the hospital. The patient denies any abdominal pain at this time tolerating liquids well. Discussed with patient the findings awaiting results of cultures. She states she would not like to undergo the surgery for the rectal prolapse if she needed she would just rather go to the colostomy. Discussed with her is not emergency at this time could be done electively but would refer to a tertiary hospital since she has already had 1 colon surgery within 1 year. Patient's morning laboratories WBC is 12.8 hemoglobin 11.4 hematocrit is 33 point 5 platelets a 166,000 sodium is 131 potassium 4.1 chloride 104 bicarb is 21 BUN of 10 creatinine 0.92 random blood sugar is 116 normal LFTs. Vitals: Temperature is 98.3? pulse 77 respirations 16 BP is 100/57 SaO2 is 95% on room air Heart regular rate and rhythm without murmurs. Lungs are clear to auscultation no rales rhonchi or wheezes noted poor inspiratory and expiratory effort poor chest wall motion noted. Abdomen is soft nondistended good active bowel sounds no masses or peritoneal signs are elicited. Impression: Rectal bleeding resolved diarrhea resolved Reoccurrence of rectal prolapse reduced at this time. Multiple coexisting medical problems Plan: We will recheck laboratory advance diet follow patient closely patient continues to have diarrhea or bleeding may warrant a colonoscopy to evaluate the colitis in the transverse and proximal descending colon. If diverticulitis would avoid doing colonoscopy for approximately 2-3 months unless emergent. The patient has been discussed the findings of the recurrent rectal prolapse she states she would probably like to go ahead and have a colostomy versus having another prolapse surgery done. We will refer patient to a tertiary center. All questions were answered to patient's satisfaction. Exam Vital Signs (past 8 hours): - 07/20/25 04:00 07/20/25 07:40 07/20/25 07:40 Temperature 97.6 F 98.3 F Pulse Rate 77 Respiratory Rate 16 Blood Pressure 100/57 L Pulse Oximetry 95 Oxygen Delivery Method Room Air Oxygen Flow Rate 0 Oxygen Delivery Method Room Air Oxygen Flow Rate 0 Objective Labs 07/20/25 04:37 07/20/25 04:37 Labs: Laboratory Results - last 24 hr 07/19/25 07/19/25 07/19/25 10:00 10:06 13:35 WBC 11.5 H RBC 3.97 L Hgb 12.8 Hct 38.4 MCV 96.6 MCH 32.1 MCHC 33.2 RDW 14.8 Plt Count 198 Neut % (Auto) 84.1 H Lymph % (Auto) 7.8 L [place] % (Auto) 7.6 Eos % (Auto) 0.1 L Baso % (Auto) 0.4 Neut # (Auto) 9700 H Lymph # (Auto) 900 L [place] # (Auto) 900 Eos # (Auto) 0 Baso # (Auto) 0 PT 11.1 INR 1.0 APTT 28 Sodium 137 Potassium 4.3 Chloride 104 Carbon Dioxide 21 L BUN 9 Creatinine 0.69 Estimated GFR > 60 BUN/Creatinine Ratio 13.0 Glucose 145 H Calcium 8.6 Total Bilirubin 0.5 AST 37 H ALT 35 H Alkaline Phosphatase 94 Total Protein 7.9 Albumin 4.3 Globulin 3.6 Albumin/Globulin Ratio 1.2 Urine Color Yellow Urine Appearance Clear Urine pH 5.5 Ur Specific [place] <=1.005 Urine Protein Negative Urine Glucose (UA) Negative Urine Ketones Negative Urine Occult Blood Trace-intact Urine Nitrate Negative Urine Bilirubin Negative Urine Urobilinogen 0.2 Ur Leukocyte Esterase Negative Urine RBC 0-1/hpf Urine WBC None seen Ur Squamous Epith Cells 1-5 /hpf Urine Bacteria None seen Ur Culture Indicated? Cult not indicated Vol Urine Centrifuged 10ml (spun) Nasal Screen MRSA (PCR) Blood Type A Positive Antibody Screen Negative 07/19/25 07/19/25 07/20/25 16:16 17:40 04:37 WBC 10.6 12.8 H RBC 3.93 L 3.48 L Hgb 12.6 11.4 L Hct 37.6 33.3 L MCV 95.6 95.7 MCH 32.2 32.6 MCHC 33.7 34.1 RDW 14.7 15.0 H Plt Count 193 166 Neut % (Auto) 79.5 H Lymph % (Auto) 12.2 L [place] % (Auto) 7.6 Eos % (Auto) 0.1 L Baso % (Auto) 0.6 Neut # (Auto) 8400 H Lymph # (Auto) 1300 [place] # (Auto) 800 Eos # (Auto) 0 Baso # (Auto) 100 PT INR APTT Sodium 131 L Potassium 4.1 Chloride 104 Carbon Dioxide 21 L BUN 10 Creatinine 0.92 Estimated GFR > 60 BUN/Creatinine Ratio 10.9 Glucose 116 H Calcium 7.7 L Total Bilirubin 0.6 AST 29 ALT 25 Alkaline Phosphatase 92 Total Protein 7.0 Albumin 3.7 Globulin 3.3 Albumin/Globulin Ratio 1.1 Urine Color Urine Appearance Urine pH Ur Specific [place] Urine Protein Urine Glucose (UA) Urine Ketones Urine Occult Blood Urine Nitrate Urine Bilirubin Urine Urobilinogen Ur Leukocyte Esterase Urine RBC Urine WBC Ur Squamous Epith Cells Urine Bacteria Ur Culture Indicated? Vol Urine Centrifuged Nasal Screen MRSA (PCR) Not detected Blood Type Antibody Screen [facility] Medical History (Updated 07/19/25 @ 19:13 by Mike Falk MD) Hypertension Personal history of PE (pulmonary embolism) Cash's esophagus GERD (gastroesophageal reflux disease) Hypothyroidism PVCs (premature ventricular contractions) Surgical History Status post hysterectomy Status post thyroidectomy Social History household members: none Smoking Status: Former smoker alcohol intake: never Assessment & Plan Time-Based Coding :: [TOTAL MINUTES] spent with patient and on the chart (including review of chart, obtaining history, exam, reviewing outside data, placing orders, documenting exam and treatment plan, and counseling patient) on [DATE]. Quality VTE Deep Vein Thrombosis/Pulmonary Embolism Present on Admission: No [facility] PROFEE [employer] Quality Inspector Document charge(s): Yes
--- NOTE | 2025-07-20 09:09 | CM.DANOTE ---
Initial DCP Assessment Note Pt is a 65 yo female, resident at [facility] low income housing apartments in [place], admitted for further work up of GI bleed. Hospitalist attending, surgery consulted. Diet being advanced - potential for colonoscopy depending on improvement of sx. PCP: Claudia Simmons Payer: [employer]arson [employer] Options Reviewed chart, patient has her own apt at [facility], mostly indp. Need to discuss past and current services with patient at bedside this morning after multi-disciplinary rounds. Patient may be a good candidate for HH. Social work team will plan to follow clinical course closely in case any DC needs or concerns arise. JOHN Bowling Discharge Planning/Care Management CM Discharge Assessment Start: 07/19/25 15:16 Freq: Status: Active Protocol: Document 07/20/25 08:54 LEEROY (Rec: 07/20/25 09:09 LEEROY [id number]) Discharge Planning Assessment Assigned Discharge JOHN Frye Insurance Associate DPOA/Assigned Rylee Faulkner, daughter Designee Name Contact Information [phone] Advance Directives? Yes Advance Directives No on File History Provided By Patient,Medical Record Prior Living Apartment/Condo Arrangements Household Members none Type of Drives own vehicle transporation used prior to admit Independent with ADL Yes 's Is patient alert and Yes oriented? Discharge Plan Home Transportation Friend or family Arrangement Referrals Initiated None needed
[2025-07-20] MEDS: CIPROFLOXACIN 400 MG/200 ML PIGGYBACK 200 MG IV ×2 (10:19→23:50)
--- NOTE | 2025-07-20 13:29 | P.PN_ITS ---
Subjective Subjective Date Patient Seen: 07/20/25 Time Patient Seen: 12:30 Interval history: Chief complaint: Incontinence with rectal bleeding with abdominal cramping and colitis on CT History of present illness: 65-year-old female had some tenesmus and feeling gaseous and thought she was passing flatus but then had large bloody liquid stool with severe cramping. Past medical history signals for a rectal prolapse surgery in 2023 and a cystocele repair in January of 2025 recurrence of the rectal prolapse in February 2025. Patient is now incontinent of stool Findings emergency department significant for CT findings of colitis in the transverse and proximal descending colon with sigmoid diverticulosis but without signs of diverticulitis White blood cell count 11.5 hemoglobin 12.8 platelets 200 bilirubin and transaminases unremarkable potassium 137 potassium 4.3 chloride 104 BUN is 9 creatinine 0.7 Interval history: 07/20: the patient reports no further bleeding. She has persistent lower abdominal pain. No nausea or vomiting. She is sitting up eating lunch. Exam Vital Signs (past 8 hours): - 07/20/25 07:40 07/20/25 07:40 07/20/25 11:49 Temperature 98.3 F 97.6 F Pulse Rate 77 74 Respiratory Rate 16 20 Blood Pressure 100/57 L 115/57 L Pulse Oximetry 95 93 Oxygen Delivery Method Room Air Oxygen Flow Rate 0 0 Oxygen Delivery Method Room Air Oxygen Flow Rate 0 Narrative Exam Narrative: GENERAL: This is a well-nourished, well-developed patient, in no apparent distress. EYES: Pupils equal round and reactive. Extraocular motions intact. No scleral icterus. No injection or drainage. ENT: Mucous membranes pink and moist. NECK: Trachea midline. No JVD, bruits or lymphadenopathy. Supple, nontender, no meningeal signs. CARDIOVASCULAR: Regular rate and rhythm without murmurs, gallops, or rubs. RESPIRATORY: Clear to auscultation. GASTROINTESTINAL: Abdomen soft, mildly distended, mild lower abdominal tenderness, no guarding, rebound or rigidity. EXTREMITIES: No clubbing, cyanosis, or edema. BACK: Nontender without deformity or crepitance. No flank tenderness. NEUROLOGIC: Alert, oriented, speech fluent, full upper and lower motor strength, no focal deficits evident. DERMATOLOGIC: No rashes or skin lesions. Objective Imaging Abdomen pelvis CT angiogram 07/19/2025:: Radiologist's impression: Colitis secondary to diverticulitis. No evidence of abscess or free air. No visualized active hemorrhage. Labs 07/20/25 04:37 07/20/25 04:37 Labs: Laboratory Results - last 24 hr 07/19/25 07/19/25 07/19/25 13:35 16:16 17:40 WBC 10.6 RBC 3.93 L Hgb 12.6 Hct 37.6 MCV 95.6 MCH 32.2 MCHC 33.7 RDW 14.7 Plt Count 193 Neut % (Auto) 79.5 H Lymph % (Auto) 12.2 L [place] % (Auto) 7.6 Eos % (Auto) 0.1 L Baso % (Auto) 0.6 Neut # (Auto) 8400 H Lymph # (Auto) 1300 [place] # (Auto) 800 Eos # (Auto) 0 Baso # (Auto) 100 Sodium Potassium Chloride Carbon Dioxide BUN Creatinine Estimated GFR BUN/Creatinine Ratio Glucose Calcium Total Bilirubin AST ALT Alkaline Phosphatase Total Protein Albumin Globulin Albumin/Globulin Ratio Urine Color Yellow Urine Appearance Clear Urine pH 5.5 Ur Specific [place] <=1.005 Urine Protein Negative Urine Glucose (UA) Negative Urine Ketones Negative Urine Occult Blood Trace-intact Urine Nitrate Negative Urine Bilirubin Negative Urine Urobilinogen 0.2 Ur Leukocyte Esterase Negative Urine RBC 0-1/hpf Urine WBC None seen Ur Squamous Epith Cells 1-5 /hpf Urine Bacteria None seen Ur Culture Indicated? Cult not indicated Vol Urine Centrifuged 10ml (spun) Nasal Screen MRSA (PCR) Not detected 07/20/25 04:37 WBC 12.8 H RBC 3.48 L Hgb 11.4 L Hct 33.3 L MCV 95.7 MCH 32.6 MCHC 34.1 RDW 15.0 H Plt Count 166 Neut % (Auto) Lymph % (Auto) [place] % (Auto) Eos % (Auto) Baso % (Auto) Neut # (Auto) Lymph # (Auto) [place] # (Auto) Eos # (Auto) Baso # (Auto) Sodium 131 L Potassium 4.1 Chloride 104 Carbon Dioxide 21 L BUN 10 Creatinine 0.92 Estimated GFR > 60 BUN/Creatinine Ratio 10.9 Glucose 116 H Calcium 7.7 L Total Bilirubin 0.6 AST 29 ALT 25 Alkaline Phosphatase 92 Total Protein 7.0 Albumin 3.7 Globulin 3.3 Albumin/Globulin Ratio 1.1 Urine Color Urine Appearance Urine pH Ur Specific [place] Urine Protein Urine Glucose (UA) Urine Ketones Urine Occult Blood Urine Nitrate Urine Bilirubin Urine Urobilinogen Ur Leukocyte Esterase Urine RBC Urine WBC Ur Squamous Epith Cells Urine Bacteria Ur Culture Indicated? Vol Urine Centrifuged Nasal Screen MRSA (PCR) PFSH Medical History Cash's esophagus GERD (gastroesophageal reflux disease) Hypertension Hypothyroidism Personal history of PE (pulmonary embolism) PVCs (premature ventricular contractions) Surgical History Status post hysterectomy Status post thyroidectomy Social History household members: none Smoking Status: Former smoker alcohol intake: never Assessment & Plan Assessment & Plan narrative: Colitis with bloody diarrhea and ankita blood findings on CT localizing in the transverse and proximal descending colon infectious versus ischemic colitis. * Empiric ciprofloxacin and metronidazole * GI film panel * Appreciate surgery expertise and comanagement * IV fluid resuscitation (to prevent ischemia of watershed regions) Acute blood loss anemia due to colitis * Monitor H&H q.8 hours Chronic medical conditions: * Hypertension * Personal history of PE (pulmonary embolism) * Cash's esophagus * GERD (gastroesophageal reflux disease) * Hypothyroidism following thyroidectomy for thyroid carcinoma * PVCs (premature ventricular contractions) * Status post hysterectomy * Status post thyroidectomy * Rectal prolapse surgery * Cystocele surgery DVT prophylaxis * Not indicated Disposition: * Admit to inpatient care anticipate 2-3 days of hospitalization Quality VTE Deep Vein Thrombosis/Pulmonary Embolism Present on Admission: No IH PROFEE Rust Proofer Document charge(s): No Charge Codes Subsequent inpatient/observation care: [id number]
--- NOTE | 2025-07-20 14:16 | CM.DPNOTE ---
KARIME Ceja Met w/patient who confirms she has a ground level apartment at [facility] that she loves. Patient lives alone, no VELIA managed care coordinator. Patient is able to complete all ADLs on her own, poor endurance related to complex medical history. Patient's daughter recently moved to [place], patient says daughter would come to help her if I really needed it. Patient is on disability benefits, has Lupus which often appears with painful skin irritation around her body, triggered with any sun exposure or heat. Patient does not drive and walks to [employer] for groceries or has a neighbor drive her. Discussed home health; patient admits she has struggled throughout her life with severe anxiety and does not like when strangers come into her home. Patient receives home visits from Ludwig, an RN health navigator through [employer], that helps in the navigation of outpatient care and resources. Patient plans to return home to her apt via friend to transport. Denies needs from this SW team currently. LEEROY
--- NOTE | 2025-07-20 19:19 | PC.NURSE ---
PT ALERT/ORIENTED X 4. REMAINED ON ROOM AIR WITH NO C/O SOB OR S/S OF RESPI DISTRESS. C/O PAIN UP TO 8/10 IN LOWER ABDOMEN. SEE EMAR FOR PAIN MEDS GIVEN. DR GILLILAND ROUNDED ON PATIENT. PLAN TO CONTINUE IV ATBX AND REASSESS WBC BEFORE CONSIDERING POSSIBLE SURGERY. IVF CONTINUED. PT UP INDEPENTLY TO RESTROOM WITH VOIDS X4. ALL QUESTIONS ANSWERED. COMFORTABLE IN BED AT THIS TIME. CARE ONGOING.
[2025-07-21] VITALS (33 sets, daily range): BP systolic 111–147; BP diastolic 58–73; PULSE 70–87; RESP 15–20; TEMP 36.6–38; O2SAT 87–95
[2025-07-21] MEDS: PANTOPRAZOLE 40 MG VIAL IV (05:01)
[2025-07-21] MEDS: metroNIDAZOLE 500 MG/100 ML PIGGYBACK 100 MG IV ×3 (05:01→20:00)
[2025-07-21] MEDS: LEVOTHYROXINE 75 MCG TABLET PO (05:01)
[2025-07-21 05:36] LABS: Hematocrit 32.3 % (36-46); Hemoglobin 11.0 g/dL (12.0-16.0); Mean Corpuscular HGB Conc 33.9 % (30-36); Mean Corpuscular Hemoglobin 32.4 PG (26-34); Mean Corpuscular Volume 95.5 fL (80-100); Platelet Count 157 X10^3/uL (150-400)
[2025-07-21 05:45] LABS: Alanine Aminotransferase 21 IU/L (<35); Albumin 3.5 g/dL (3.5-5.0); Albumin Globulin Ratio 1.1 (1.0-2.8); Alkaline Phosphatase 88 U/L (38-126); Blood Urea Nitrogen 6 mg/dL (7-17); Calcium 7.5 mg/dL (8.4-10.2); Carbon Dioxide 20 mmol/L (22-32); Chloride 106 mmol/L (98-107); Estimated Glomerular Filt Rate > 60 mL/min (>60); Globulin 3.2 g/dL (1.7-4.1); Glucose 97 mg/dL (70-99); HEMOLYSIS < 15 (0-50); Potassium 3.8 mmol/L (3.4-5.1); Sodium 135 mmol/L (137-145); Total Protein 6.7 g/dL (6.3-8.2)
--- NOTE | 2025-07-21 10:00 | DI.RAD.S_ITS ---
PROCEDURE: XR CHEST 1V INDICATIONS: Hemoptysis TECHNIQUE: One view of the chest was acquired. COMPARISON: [facility], CT, CT ANGIO ABD/PEL GI BLEED, 07/19/2025, 11:33. [facility], CR, XR CHEST 2V, 05/12/2022, 13:56. [facility], CR, XR CHEST 1V, 09/28/2023, 13:02. FINDINGS: Surgical changes and devices: Sternotomy wires are seen. Lungs and pleura: Low lung volumes are noted. This causes a crowded appearance to the lung markings and limits evaluation. Mild generalized interstitial prominence can be seen. There is streaky opacity at the left lung base. Mediastinum: The cardiac contours are within normal limits. The aorta demonstrates calcification and tortuosity. Bones and chest wall: There is a stable presumed enchondroma within the left humeral neck. Age-appropriate bony degenerative changes are seen. Overlying soft tissues appear unremarkable. IMPRESSION: Low lung volumes, with likely streaky atelectasis at the left lung base. There is mild generalized interstitial prominence. Please consider artifact from the low lung volumes versus mild pulmonary edema. Postoperative and degenerative changes are seen. For this patient's presenting history of hemoptysis, please consider a dedicated chest CT with contrast for further evaluation. Dictated by: Rayray Szymanski M.D. on 07/21/2025 at 10:04 Approved by: Rayray Szymanski M.D. on 07/21/2025 at 10:06
--- NOTE | 2025-07-21 10:01 | PM.PN.IH.1 ---
Subjective Subjective Date Patient Seen: 07/21/25 Time Patient Seen: 10:00 Interval history: Patient is resting comfortably in bed needing. Patient states she has had no further diarrhea or rectal bleeding since admitted to the hospital. Unsure whether she has collected a stool culture. Patient states she did have an episode of coughing states she thinks she coughed up blood we will obtain a chest x-ray. Morning laboratory shows WBC of 15.0 hemoglobin is 11.0 hematocrit is 32.3 platelets 157,000 sodium is 135 potassium 3.8 chloride 106 bicarb is 20 BUN of 6 creatinine 0.69 random blood sugar is 97 normal LFTs. Vitals: Temperature is 97.8? pulse 73 respirations 18 BP is 117/72 SaO2 is 92% on room air Heart regular rate and rhythm without murmurs. Lungs clear to auscultation no rales rhonchi or wheezes noted. Abdomen is soft nondistended no masses or peritoneal signs decreased tenderness. Impression: Massive rectal bleeding resolved with CT scan showing colitis of the transverse and proximal descending colon no signs of diverticulitis Recurrent rectal prolapse reduced Coughing this morning with hemoptysis Plan: Discussed with patient the findings she refuses a repeat rectal prolapse surgery desires to have a end colostomy which she understands would be permanent. Since she has already had 1 previous surgery recommend she be done at a tertiary center. All questions were answered patient's satisfaction. We will check chest x-ray for the hemoptysis patient states she has been tested for TB and has been negative. We will recheck laboratory. Advance diet as tolerated no need for emergent surgical intervention at this time. No need for emergent colonoscopy at this time. Awaiting stool cultures. Exam Vital Signs (past 8 hours): - 07/21/25 02:30 07/21/25 03:00 07/21/25 03:07 Pulse Rate 81 87 Respiratory Rate 18 Blood Pressure 135/63 Pulse Oximetry 89 L 92 Oxygen Delivery Method 07/21/25 03:07 07/21/25 03:30 07/21/25 04:00 Pulse Rate 82 79 79 Respiratory Rate Blood Pressure Pulse Oximetry 93 91 92 Oxygen Delivery Method 07/21/25 04:30 07/21/25 05:00 07/21/25 05:30 Pulse Rate 80 80 78 Respiratory Rate Blood Pressure Pulse Oximetry 93 93 91 Oxygen Delivery Method 07/21/25 06:00 07/21/25 06:30 07/21/25 07:00 Pulse Rate 78 73 73 Respiratory Rate Blood Pressure Pulse Oximetry 91 92 92 Oxygen Delivery Method 07/21/25 08:00 07/21/25 08:07 Pulse Rate Respiratory Rate Blood Pressure 117/72 Pulse Oximetry Oxygen Delivery Method Room Air Oxygen Delivery Method Room Air Oxygen Flow Rate 0 Objective Labs 07/21/25 04:30 07/21/25 04:30 Labs: Laboratory Results - last 24 hr 07/21/25 04:30 WBC 15.0 H RBC 3.38 L Hgb 11.0 L Hct 32.3 L MCV 95.5 MCH 32.4 MCHC 33.9 RDW 14.7 Plt Count 157 Sodium 135 L Potassium 3.8 Chloride 106 Carbon Dioxide 20 L BUN 6 L Creatinine 0.69 Estimated GFR > 60 BUN/Creatinine Ratio 8.7 Glucose 97 Calcium 7.5 L Total Bilirubin 0.6 AST 30 ALT 21 Alkaline Phosphatase 88 Total Protein 6.7 Albumin 3.5 Globulin 3.2 Albumin/Globulin Ratio 1.1 [facility] Medical History Hypertension Personal history of PE (pulmonary embolism) Cash's esophagus GERD (gastroesophageal reflux disease) Hypothyroidism PVCs (premature ventricular contractions) Surgical History Status post hysterectomy Status post thyroidectomy Social History household members: none Smoking Status: Former smoker alcohol intake: never Assessment & Plan Time-Based Coding :: [TOTAL MINUTES] spent with patient and on the chart (including review of chart, obtaining history, exam, reviewing outside data, placing orders, documenting exam and treatment plan, and counseling patient) on [DATE]. Quality VTE Deep Vein Thrombosis/Pulmonary Embolism Present on Admission: No IH PROFEE Application Helper Document charge(s): Yes
[2025-07-21] MEDS: CIPROFLOXACIN 400 MG/200 ML PIGGYBACK 200 MG IV ×2 (10:43→23:22)
--- NOTE | 2025-07-21 12:24 | P.PN_ITS ---
Subjective Subjective Date Patient Seen: 07/21/25 Time Patient Seen: 08:04 Interval history: Chief complaint: Incontinence with rectal bleeding with abdominal cramping and colitis on CT History of present illness: 65-year-old female had some tenesmus and feeling gaseous and thought she was passing flatus but then had large bloody liquid stool with severe cramping. Past medical history signals for a rectal prolapse surgery in 2023 and a cystocele repair in January of 2025 recurrence of the rectal prolapse in February 2025. Patient is now incontinent of stool Findings emergency department significant for CT findings of colitis in the transverse and proximal descending colon with sigmoid diverticulosis but without signs of diverticulitis White blood cell count 11.5 hemoglobin 12.8 platelets 200 bilirubin and transaminases unremarkable potassium 137 potassium 4.3 chloride 104 BUN is 9 creatinine 0.7 Interval history: 07/20: The patient reports no further bleeding. She has persistent lower abdominal pain. No nausea or vomiting. She is sitting up eating lunch. 07/21: She denies rectal bleeding but notes she coughed up some blood this morning. No abdominal pain from nausea or vomiting. She is tolerating her diet well. Exam Vital Signs (past 8 hours): - 07/21/25 04:30 07/21/25 05:00 07/21/25 05:30 Pulse Rate 80 80 78 Respiratory Rate Blood Pressure Pulse Oximetry 93 93 91 Oxygen Delivery Method 07/21/25 06:00 07/21/25 06:30 07/21/25 07:00 Pulse Rate 78 73 73 Respiratory Rate Blood Pressure Pulse Oximetry 91 92 92 Oxygen Delivery Method 07/21/25 08:00 07/21/25 08:07 07/21/25 11:00 Pulse Rate 80 Respiratory Rate 20 Blood Pressure 117/72 147/70 H Pulse Oximetry 92 Oxygen Delivery Method Room Air Oxygen Delivery Method Room Air Oxygen Flow Rate 0 Narrative Exam Narrative: GENERAL: This is a well-nourished, well-developed patient, in no apparent distress. EYES: Pupils equal round and reactive. Extraocular motions intact. No scleral icterus. No injection or drainage. ENT: Mucous membranes pink and moist. NECK: Trachea midline. No JVD, bruits or lymphadenopathy. Supple, nontender, no meningeal signs. CARDIOVASCULAR: Regular rate and rhythm without murmurs, gallops, or rubs. RESPIRATORY: Clear to auscultation. GASTROINTESTINAL: Abdomen soft, nondistended, mild lower abdominal tenderness, no guarding, rebound or rigidity. EXTREMITIES: No clubbing, cyanosis, or edema. NEUROLOGIC: Alert, oriented, speech fluent, full upper and lower motor strength, no focal deficits evident. DERMATOLOGIC: No rashes or skin lesions. Objective Imaging Abdomen pelvis CT angiogram 07/19/2025:: Radiologist's impression: Colitis secondary to diverticulitis. No evidence of abscess or free air. No visualized active hemorrhage. Chest xray 07/21/2025:: Radiologist's impression: Low lung volumes, with likely streaky atelectasis at the left lung base. There is mild generalized interstitial prominence. Please consider artifact from the low lung volumes versus mild pulmonary edema. Postoperative and degenerative changes are seen. For this patient's presenting history of hemoptysis, please consider a dedicated chest CT with contrast for further evaluation. Labs 07/21/25 04:30 07/21/25 04:30 Labs: Laboratory Results - last 24 hr 07/21/25 04:30 WBC 15.0 H RBC 3.38 L Hgb 11.0 L Hct 32.3 L MCV 95.5 MCH 32.4 MCHC 33.9 RDW 14.7 Plt Count 157 Sodium 135 L Potassium 3.8 Chloride 106 Carbon Dioxide 20 L BUN 6 L Creatinine 0.69 Estimated GFR > 60 BUN/Creatinine Ratio 8.7 Glucose 97 Calcium 7.5 L Total Bilirubin 0.6 AST 30 ALT 21 Alkaline Phosphatase 88 Total Protein 6.7 Albumin 3.5 Globulin 3.2 Albumin/Globulin Ratio 1.1 [facility] Medical History Cash's esophagus GERD (gastroesophageal reflux disease) Hypertension Hypothyroidism Personal history of PE (pulmonary embolism) PVCs (premature ventricular contractions) Surgical History Status post hysterectomy Status post thyroidectomy Social History household members: none Smoking Status: Former smoker alcohol intake: never Assessment & Plan Assessment & Plan narrative: Colitis with bloody diarrhea and ankita blood findings on CT localizing in the transverse and proximal descending colon infectious versus ischemic colitis. * Empiric ciprofloxacin and metronidazole * GI film panel * Appreciate surgery expertise and comanagement * IV fluid resuscitation (to prevent ischemia of watershed regions) Acute blood loss anemia due to colitis * Monitor H&H daily Hemoptysis * Unremarkable chest xray, consider CT if recurrent * No history of TB Rectal prolapse * Outpatient consultation planned for repair versus colostomy Chronic medical conditions: * Hypertension * Personal history of PE (pulmonary embolism) * Cash's esophagus * GERD (gastroesophageal reflux disease) * Hypothyroidism following thyroidectomy for thyroid carcinoma * PVCs (premature ventricular contractions) * Status post hysterectomy * Status post thyroidectomy * Rectal prolapse surgery * Cystocele surgery DVT prophylaxis * Anticoagulation contraindicated * SCDs Disposition: * Admit to inpatient care anticipate 2-3 days of hospitalization, possible DC tomorrow Quality VTE Deep Vein Thrombosis/Pulmonary Embolism Present on Admission: No IH PROFEE Smog Technician Document charge(s): No Charge Codes Subsequent inpatient/observation care: [id number]
[2025-07-21] MEDS: METOPROLOL IR 25 MG TABLET PO (20:01)
[2025-07-21] MEDS: ACETAMINOPHEN 325 MG TABLET 650 MG PO (20:03)
[2025-07-22] VITALS (26 sets, daily range): BP systolic 108–141; BP diastolic 55–84; PULSE 61–89; RESP 15–26; TEMP 36.9–39.4; O2SAT 86–96
[2025-07-22] MEDS: ACETAMINOPHEN 325 MG TABLET 650 MG PO ×3 (00:28→23:40)
[2025-07-22] MEDS: metroNIDAZOLE 500 MG/100 ML PIGGYBACK 100 MG IV ×3 (04:41→20:43)
[2025-07-22 05:35] LABS: Hematocrit 31.5 % (36-46); Hemoglobin 10.7 g/dL (12.0-16.0); Mean Corpuscular HGB Conc 33.8 % (30-36); Mean Corpuscular Hemoglobin 32.4 PG (26-34); Mean Corpuscular Volume 96.0 fL (80-100); Platelet Count 161 X10^3/uL (150-400)
[2025-07-22] MEDS: PANTOPRAZOLE 40 MG VIAL IV (05:55)
[2025-07-22] MEDS: LEVOTHYROXINE 75 MCG TABLET PO (05:55)
[2025-07-22 05:56] LABS: Alanine Aminotransferase 19 IU/L (<35); Albumin 3.3 g/dL (3.5-5.0); Albumin Globulin Ratio 1.1 (1.0-2.8); Alkaline Phosphatase 84 U/L (38-126); Blood Urea Nitrogen 6 mg/dL (7-17); Calcium 7.7 mg/dL (8.4-10.2); Carbon Dioxide 23 mmol/L (22-32); Chloride 103 mmol/L (98-107); Estimated Glomerular Filt Rate > 60 mL/min (>60); Globulin 3.1 g/dL (1.7-4.1); Glucose 90 mg/dL (70-99); HEMOLYSIS < 15 (0-50); Potassium 3.6 mmol/L (3.4-5.1); Sodium 134 mmol/L (137-145); Total Protein 6.4 g/dL (6.3-8.2)
[2025-07-22] MEDS: METOPROLOL IR 25 MG TABLET PO ×2 (08:17→20:44)
--- NOTE | 2025-07-22 08:35 | DI.CT.S_ITS ---
PROCEDURE: CT ANGIO CHEST PE PROTOCOL INDICATIONS: fever, cough, hypoxia TECHNIQUE: After the administration of intravenous contrast, 2 mm thick sections acquired from the pulmonary apices to the posterior costophrenic angles. 3-dimensional maximum intensity projection (MIP) coronal and sagittal reformats were then acquired through the thorax. For radiation dose reduction, the following was used: automated exposure control, adjustment of mA and/or kV according to patient size. COMPARISON: [facility], CT, CT ANGIO ABD/PEL GI BLEED, 07/19/2025, 11:33. [facility], CT, CT ANGIO CHEST PE PROTOCOL, 07/02/2019, 18:27. [facility], CR, XR CHEST 1V, 07/21/2025, 10:40. [facility], CT, CT ANGIO CHEST PE PROTOCOL, 08/04/2019, 18:02. FINDINGS: Image quality: There is streak artifact seen through the level of the shoulders. Pulmonary arteries: Pulmonary arteries are normal in size, and demonstrate no intraluminal filling defects to suggest central pulmonary embolism. Lower Neck: No enlarged lymph nodes. Thyroid: The thyroid is not definitely seen. Axillae: No enlarged lymph nodes. Chest Wall: Sternotomy wires are seen. Bones: S-shaped scoliotic curvature is seen. Age-appropriate bony degenerative changes are seen. Lungs and Pleura: Patchy, poorly defined infiltrates star seen. Trace bilateral pleural effusions are seen. Overlying atelectasis can be seen. No pneumothorax. Heart: Heart size is mildly enlarged. No pericardial effusion. Thoracic Vessels: No aortic aneurysm. Mediastinum and Sandee: No enlarged lymph nodes. No recurrent mediastinal mass is seen. Esophagus: No wall thickening. There is a moderate hiatal hernia. Upper Abdomen: Inflammatory change can be seen adjacent to the visualized colon, with moderate colonic wall thickening. Generalized thickening is seen of the adrenal glands, yet without focal adrenal nodules. The visualized portions of the upper abdominal structures are otherwise unremarkable for imaging technique. IMPRESSION: No pulmonary embolus. Patchy interstitial type infiltrates can be seen. There is mild cardiomegaly. Likely colitis partially seen within the upper abdomen. No recurrent mediastinal mass can be seen. Additional findings: Thyroid not definitely seen Sternotomy change Moderate hiatal hernia Dictated by: Rayray Szymanski M.D. on 07/22/2025 at 8:16 Approved by: Rayray Szymanski M.D. on 07/22/2025 at 8:21
--- NOTE | 2025-07-22 09:48 | PM.PN.IH.1 ---
Subjective Subjective Date Patient Seen: 07/22/25 Time Patient Seen: 09:45 Interval history: Patient is resting quietly in bed knitting. States she has some mild abdominal pain but it is improving. The patient did have a bloody diarrhea earlier but stool specimen was not collected. Patient states she was having some shortness of breath elevated temperature and states she had hemoptysis. Chest x-ray shows possible atelectasis CTA was performed which report is pending but patient is has no signs of PE pulmonary consolidations patient is noted to have atelectasis right and left lungs and a large hiatal hernia. The patient's colitis is noted again on the chest CTA but it appears to be slightly improved. Morning laboratory shows WBC of 13.1 hemoglobin 10.7 hematocrit is 31.5 platelets a 161,000 sodium is 134 potassium 3.6 chloride 103 bicarb is 23 BUN of 6 creatinine 0.72 random blood sugar is 90 normal LFTs. Stool culture is still pending Vitals: Temperature is 98.7? pulse 61 respirations 17 BP is 108/58 SaO2 is 91% on room air. Heart regular rate and rhythm without murmurs lungs are diminished in the bases no rales rhonchi or wheezes noted. Abdomen is soft nondistended with good active bowel sounds no masses or peritoneal signs tenderness is noted but no rebound or guarding. Impression: Rectal bleeding with diarrhea with CT scan showing colitis rule out diverticulitis Hemoglobin is 10.7 hematocrit is 31.5 Recurrent rectal prolapse failed prolapse surgery from October 2024 Hemoptysis no pathology noted on chest x-ray or CTA Plan: Patient does have a colitis but possible diverticulitis discussed with the patient with a rectal bleeding that any colonoscopy with acute diverticulitis could possibly cause a perforation. But she continues to have problems may warrant doing a colonoscopy and assume the risks. The patient has a reoccurring rectal prolapse with incontinence of gas and stool patient refuses to have a repeat rectal prolapse surgery desires to have a end colostomy. The patient needs to get through the current medical problems schedule a elective permanent end colostomy. Patient has had a recent pelvic surgery for cystocele and also a recent rectal prolapse plication without colon resection. Discussed the findings with the patient all questions are answered satisfaction we will check a urine no need for emergent colostomy at this time. Exam Vital Signs (past 8 hours): - 07/22/25 04:53 07/22/25 04:53 07/22/25 08:04 Temperature 98.7 F Pulse Rate 61 80 Respiratory Rate 17 Blood Pressure 108/58 L Pulse Oximetry 91 94 Oxygen Delivery Method Oxygen Flow Rate 07/22/25 08:05 07/22/25 08:05 07/22/25 08:09 Temperature 98.4 F Pulse Rate 77 Respiratory Rate 26 H Blood Pressure 127/84 Pulse Oximetry 94 Oxygen Delivery Method Room Air Oxygen Flow Rate 0 07/22/25 08:20 Temperature Pulse Rate Respiratory Rate Blood Pressure Pulse Oximetry 92 Oxygen Delivery Method Oxygen Flow Rate 0 Oxygen Delivery Method Room Air Oxygen Flow Rate 0 Objective Labs 07/22/25 04:40 07/22/25 04:40 Labs: Laboratory Results - last 24 hr 07/22/25 04:40 WBC 13.1 H RBC 3.29 L Hgb 10.7 L Hct 31.5 L MCV 96.0 MCH 32.4 MCHC 33.8 RDW 14.4 Plt Count 161 Sodium 134 L Potassium 3.6 Chloride 103 Carbon Dioxide 23 BUN 6 L Creatinine 0.72 Estimated GFR > 60 BUN/Creatinine Ratio 8.3 Glucose 90 Calcium 7.7 L Total Bilirubin 0.7 AST 28 ALT 19 Alkaline Phosphatase 84 Total Protein 6.4 Albumin 3.3 L Globulin 3.1 Albumin/Globulin Ratio 1.1 [facility] Medical History Hypertension Personal history of PE (pulmonary embolism) Cash's esophagus GERD (gastroesophageal reflux disease) Hypothyroidism PVCs (premature ventricular contractions) Surgical History Status post hysterectomy Status post thyroidectomy Social History household members: none Smoking Status: Former smoker alcohol intake: never Assessment & Plan Time-Based Coding :: [TOTAL MINUTES] spent with patient and on the chart (including review of chart, obtaining history, exam, reviewing outside data, placing orders, documenting exam and treatment plan, and counseling patient) on [DATE]. Quality VTE Deep Vein Thrombosis/Pulmonary Embolism Present on Admission: No IH PROFEE Outcomes Analyst Document charge(s): Yes
--- NOTE | 2025-07-22 11:01 | P.PN_ITS ---
Subjective Subjective Date Patient Seen: 07/22/25 Time Patient Seen: 08:03 Interval history: Chief complaint: Incontinence with rectal bleeding with abdominal cramping and colitis on CT History of present illness: 65-year-old female had some tenesmus and feeling gaseous and thought she was passing flatus but then had large bloody liquid stool with severe cramping. Past medical history signals for a rectal prolapse surgery in 2023 and a cystocele repair in January of 2025 recurrence of the rectal prolapse in February 2025. Patient is now incontinent of stool Findings emergency department significant for CT findings of colitis in the transverse and proximal descending colon with sigmoid diverticulosis but without signs of diverticulitis White blood cell count 11.5 hemoglobin 12.8 platelets 200 bilirubin and transaminases unremarkable potassium 137 potassium 4.3 chloride 104 BUN is 9 creatinine 0.7 Interval history: 07/20: The patient reports no further bleeding. She has persistent lower abdominal pain. No nausea or vomiting. She is sitting up eating lunch. 07/21: She denies rectal bleeding but notes she coughed up some blood this morning. No abdominal pain from nausea or vomiting. She is tolerating her diet well. 07/22: The patient had a fever to 102? overnight, occasional coughing and states more rectal bleeding. Denies further episodes of hemoptysis. She also has intermittent increase in lower abdominal pain. CTA ruled out PE. Exam Vital Signs (past 8 hours): - 07/22/25 04:53 07/22/25 04:53 07/22/25 08:04 Temperature 98.7 F Pulse Rate 61 80 Respiratory Rate 17 Blood Pressure 108/58 L Pulse Oximetry 91 94 Oxygen Delivery Method Oxygen Flow Rate 07/22/25 08:05 07/22/25 08:05 07/22/25 08:09 Temperature 98.4 F Pulse Rate 77 Respiratory Rate 26 H Blood Pressure 127/84 Pulse Oximetry 94 Oxygen Delivery Method Room Air Oxygen Flow Rate 0 07/22/25 08:20 Temperature Pulse Rate Respiratory Rate Blood Pressure Pulse Oximetry 92 Oxygen Delivery Method Oxygen Flow Rate 0 Oxygen Delivery Method Room Air Oxygen Flow Rate 0 Narrative Exam Narrative: GENERAL: This is a well-nourished, well-developed patient, in no apparent distress. EYES: Pupils equal round and reactive. Extraocular motions intact. No scleral icterus. No injection or drainage. ENT: Mucous membranes pink and moist. NECK: Trachea midline. No JVD, bruits or lymphadenopathy. Supple, nontender, no meningeal signs. CARDIOVASCULAR: Regular rate and rhythm without murmurs, gallops, or rubs. RESPIRATORY: Clear to auscultation. GASTROINTESTINAL: Abdomen soft, nondistended, mild lower abdominal tenderness, no guarding, rebound or rigidity. EXTREMITIES: No clubbing, cyanosis, or edema. NEUROLOGIC: Alert, oriented, speech fluent, full upper and lower motor strength, no focal deficits evident. DERMATOLOGIC: No rashes or skin lesions. Objective Imaging Abdomen pelvis CT angiogram 07/19/2025:: Radiologist's impression: Colitis secondary to diverticulitis. No evidence of abscess or free air. No visualized active hemorrhage. Chest xray 07/21/2025:: Radiologist's impression: Low lung volumes, with likely streaky atelectasis at the left lung base. There is mild generalized interstitial prominence. Please consider artifact from the low lung volumes versus mild pulmonary edema. Postoperative and degenerative changes are seen. For this patient's presenting history of hemoptysis, please consider a dedicated chest CT with contrast for further evaluation. Chest CTA 07/22/2025:: Radiologist's impression: No pulmonary embolus. Patchy interstitial type infiltrates can be seen. There is mild cardiomegaly. Likely colitis partially seen within the upper abdomen. No recurrent mediastinal mass can be seen. Additional findings: Thyroid not definitely seen Sternotomy change Moderate hiatal hernia Labs 07/22/25 04:40 07/22/25 04:40 Labs: Laboratory Results - last 24 hr 07/22/25 04:40 WBC 13.1 H RBC 3.29 L Hgb 10.7 L Hct 31.5 L MCV 96.0 MCH 32.4 MCHC 33.8 RDW 14.4 Plt Count 161 Sodium 134 L Potassium 3.6 Chloride 103 Carbon Dioxide 23 BUN 6 L Creatinine 0.72 Estimated GFR > 60 BUN/Creatinine Ratio 8.3 Glucose 90 Calcium 7.7 L Total Bilirubin 0.7 AST 28 ALT 19 Alkaline Phosphatase 84 Total Protein 6.4 Albumin 3.3 L Globulin 3.1 Albumin/Globulin Ratio 1.1 [facility] Medical History Cash's esophagus GERD (gastroesophageal reflux disease) Hypertension Hypothyroidism Personal history of PE (pulmonary embolism) PVCs (premature ventricular contractions) Surgical History Status post hysterectomy Status post thyroidectomy Social History household members: none Smoking Status: Former smoker alcohol intake: never Assessment & Plan Assessment & Plan narrative: Colitis with bloody diarrhea and ankita blood findings on CT localizing in the transverse and proximal descending colon infectious versus ischemic colitis. * Empiric ciprofloxacin and metronidazole * GI panel and O&P ordered, not yet collected, pending. * Appreciate surgery expertise and comanagement * Continue to advance diet off IVF Acute blood loss anemia due to colitis * Monitor H&H daily Hemoptysis * Unremarkable chest xray and CTA, ruled out PE * No history of TB * Resolved Rectal prolapse * Outpatient consultation planned for repair versus colostomy Chronic medical conditions: * Hypertension * Personal history of PE (pulmonary embolism) * Cash's esophagus * GERD (gastroesophageal reflux disease) * Hypothyroidism following thyroidectomy for thyroid carcinoma * PVCs (premature ventricular contractions) * Status post hysterectomy * Status post thyroidectomy * Rectal prolapse surgery * Cystocele surgery DVT prophylaxis * Anticoagulation contraindicated * SCDs Disposition: * Admit to inpatient care anticipate 2-3 days of hospitalization, possible DC tomorrow Quality VTE Deep Vein Thrombosis/Pulmonary Embolism Present on Admission: No IH PROFEE Plastic Joint Maker Document charge(s): No Charge Codes Subsequent inpatient/observation care: [id number]
[2025-07-22] MEDS: CIPROFLOXACIN 400 MG/200 ML PIGGYBACK 200 MG IV ×2 (11:22→22:48)
[2025-07-22 12:53] LABS: Clostridium difficile toxin AB Detected (Not Detect); Enteroaggregative E.coli Not Detected (Not Detect); Enteropathogenic E.coli Not Detected (Not Detect); Enterotoxigenic E.coli It/st Not Detected (Not Detect); Plesiomonsa shigelloides Not Detected (Not Detect); Shiga-like toxin-prod E.coli Not Detected (Not Detect)
[2025-07-22] MEDS: VANCOMYCIN 125 MG CAPSULE PO ×2 (14:00→19:03)
[2025-07-22 18:38] LABS: Hematocrit 34.3 % (36-46); Hemoglobin 11.4 g/dL (12.0-16.0); Mean Corpuscular HGB Conc 33.3 % (30-36); Mean Corpuscular Hemoglobin 32.0 PG (26-34); Mean Corpuscular Volume 95.8 fL (80-100); Platelet Count 195 X10^3/uL (150-400)
[2025-07-22 18:48] LABS: Alanine Aminotransferase 20 IU/L (<35); Albumin 3.8 g/dL (3.5-5.0); Albumin Globulin Ratio 1.2 (1.0-2.8); Alkaline Phosphatase 87 U/L (38-126); Blood Urea Nitrogen 5 mg/dL (7-17); Calcium 8.1 mg/dL (8.4-10.2); Carbon Dioxide 22 mmol/L (22-32); Chloride 100 mmol/L (98-107); Estimated Glomerular Filt Rate > 60 mL/min (>60); Globulin 3.3 g/dL (1.7-4.1); Glucose 172 mg/dL (70-99); HEMOLYSIS < 15 (0-50); Potassium 3.8 mmol/L (3.4-5.1); Sodium 131 mmol/L (137-145); Total Protein 7.1 g/dL (6.3-8.2)
[2025-07-23] VITALS (28 sets, daily range): BP systolic 112–123; BP diastolic 58–60; PULSE 57–82; RESP 17–22; TEMP 36.9–39.4; O2SAT 89–95
[2025-07-23] MEDS: VANCOMYCIN 125 MG CAPSULE PO ×4 (01:56→18:32)
[2025-07-23] MEDS: metroNIDAZOLE 500 MG/100 ML PIGGYBACK 100 MG IV ×3 (04:54→20:44)
[2025-07-23 05:30] LABS: Hematocrit 32.0 % (36-46); Hemoglobin 11.1 g/dL (12.0-16.0); Mean Corpuscular HGB Conc 34.5 % (30-36); Mean Corpuscular Hemoglobin 32.8 PG (26-34); Mean Corpuscular Volume 95.0 fL (80-100); Platelet Count 178 X10^3/uL (150-400)
[2025-07-23 05:44] LABS: Alanine Aminotransferase 17 IU/L (<35); Albumin 3.3 g/dL (3.5-5.0); Albumin Globulin Ratio 1.0 (1.0-2.8); Alkaline Phosphatase 81 U/L (38-126); Blood Urea Nitrogen 6 mg/dL (7-17); Calcium 7.8 mg/dL (8.4-10.2); Carbon Dioxide 24 mmol/L (22-32); Chloride 101 mmol/L (98-107); Estimated Glomerular Filt Rate > 60 mL/min (>60); Globulin 3.2 g/dL (1.7-4.1); Glucose 108 mg/dL (70-99); HEMOLYSIS < 15 (0-50); Potassium 3.8 mmol/L (3.4-5.1); Sodium 133 mmol/L (137-145); Total Protein 6.5 g/dL (6.3-8.2)
[2025-07-23] MEDS: LEVOTHYROXINE 75 MCG TABLET PO (06:15)
[2025-07-23] MEDS: PANTOPRAZOLE 40 MG VIAL IV (06:47)
--- NOTE | 2025-07-23 08:50 | P.PN_ITS ---
Subjective Subjective Date Patient Seen: 07/23/25 Time Patient Seen: 08:50 Interval history: Patient states she is still not feeling well she has had no further rectal bleeding was stools but has a little bit of blood when she wipes her rectal prolapse. Patient is positive for C diff but her stools are becoming more formed. Patient still has some pulmonary issues. Patient's chest x-ray and CTA of her chest were both negative other than atelectasis. Discussed with patient the findings need to check for H flu and COVID. WBC is 9.5 hemoglobin 11.1 hematocrit is 32.0 platelets 178,000 sodium is 133 potassium 3.8 chloride 101 bicarb is 24 BUN of 6 creatinine 0.7 random blood sugar is 108 total bilirubin is 0.6 AST is 29 ALT is 17 alkaline phosphatase 81. Vitals: Temperature is 98.5? pulse 66 respirations 18 BP is 120/60 SaO2 is 92% on room air Heart regular rate and rhythm without murmurs lungs occasional rhonchi some clearing with cough poor inspiratory and expiratory effort. Abdomen is soft nondistended no masses or peritoneal signs Impression: Resolving diarrhea and rectal bleeding positive for C diff Recurrent rectal prolapse Pulmonary issues negative chest x-ray CTA Plan: We will continue with current medical management as per hospitalist no need for surgical intervention. Discussed with patient the findings of hospital redo rectal prolapse surgery she refuses desires to have a end colostomy we will refer to a tertiary institution since she has had 2 recent pelvic surgeries. All questions were answered the patient's satisfaction. We will check H flu and COVID. Exam Vital Signs (past 8 hours): - 07/23/25 01:00 07/23/25 01:30 07/23/25 02:00 Temperature Pulse Rate 64 65 65 Respiratory Rate Blood Pressure Pulse Oximetry 92 93 93 07/23/25 02:30 07/23/25 03:00 07/23/25 03:30 Temperature Pulse Rate 63 57 L 58 L Respiratory Rate Blood Pressure Pulse Oximetry 94 95 92 07/23/25 04:00 07/23/25 04:30 07/23/25 04:39 Temperature Pulse Rate 58 L 58 L Respiratory Rate Blood Pressure Pulse Oximetry 94 94 93 07/23/25 04:52 07/23/25 05:01 07/23/25 05:30 Temperature 98.5 F Pulse Rate 62 62 Respiratory Rate 18 Blood Pressure 120/60 Pulse Oximetry 93 93 07/23/25 06:20 Temperature Pulse Rate 66 Respiratory Rate Blood Pressure Pulse Oximetry 92 Oxygen Delivery Method Room Air,Nasal Cannula Oxygen Flow Rate 0 Objective Labs 07/23/25 04:37 07/23/25 04:37 Labs: Laboratory Results - last 24 hr 07/22/25 07/22/25 07/22/25 11:00 11:00 11:00 WBC RBC Hgb Hct MCV MCH MCHC RDW Plt Count Sodium Potassium Chloride Carbon Dioxide BUN Creatinine Estimated GFR BUN/Creatinine Ratio Glucose Calcium Total Bilirubin AST ALT Alkaline Phosphatase Total Protein Albumin Globulin Albumin/Globulin Ratio Stool Culture Cancelled Cancelled Cancelled Stool Susceptiblility Stl C. cayetanensis PCR Stool Rotavirus (PCR) Stool Adenovirus (PCR) Stool Astrovirus (PCR) Stool Cryptosporidium PCR Stl E.coli Shiga Tox PCR St Sh/Enteroin Ecoli PCR Stl Enterotoxigenic E PCR Stool EPEC (PCR) Stl E. histolytica PCR Stool Giardia Lamblia PCR Stool Sapovirus (PCR) Stl P. shigelloides PCR St Y.enterocolitica PCR Stool Vibrio (PCR) Stl Vibrio cholerae PCR Stl Enteroaggr Ecoli PCR Stl Norovirus GI/GII PCR Campylobacter Culture Campylobacter Suscept Campylobacter (PCR) C. difficile Tox (PCR) E.coli Shiga Toxins Salmonella/Shigella Salmonella (PCR) 07/22/25 07/22/25 07/22/25 11:00 11:00 11:00 WBC RBC Hgb Hct MCV MCH MCHC RDW Plt Count Sodium Potassium Chloride Carbon Dioxide BUN Creatinine Estimated GFR BUN/Creatinine Ratio Glucose Calcium Total Bilirubin AST ALT Alkaline Phosphatase Total Protein Albumin Globulin Albumin/Globulin Ratio Stool Culture Cancelled Stool Susceptiblility Cancelled Stl C. cayetanensis PCR Not detected Stool Rotavirus (PCR) Not detected Stool Adenovirus (PCR) Not detected Stool Astrovirus (PCR) Not detected Stool Cryptosporidium PCR Not detected Stl E.coli Shiga Tox PCR Not detected St Sh/Enteroin Ecoli PCR Not detected Stl Enterotoxigenic E PCR Not detected Stool EPEC (PCR) Not detected Stl E. histolytica PCR Not detected Stool Giardia Lamblia PCR Not detected Stool Sapovirus (PCR) Not detected Stl P. shigelloides PCR Not detected St Y.enterocolitica PCR Not detected Stool Vibrio (PCR) Not detected Stl Vibrio cholerae PCR Not detected Stl Enteroaggr Ecoli PCR Not detected Stl Norovirus GI/GII PCR Not detected Campylobacter Culture Cancelled Cancelled Cancelled Campylobacter Suscept Campylobacter (PCR) C. difficile Tox (PCR) E.coli Shiga Toxins Salmonella/Shigella Salmonella (PCR) 07/22/25 07/22/25 07/22/25 11:00 11:00 18:18 WBC 11.3 H RBC 3.57 L Hgb 11.4 L Hct 34.3 L MCV 95.8 MCH 32.0 MCHC 33.3 RDW 14.4 Plt Count 195 Sodium 131 L Potassium 3.8 Chloride 100 Carbon Dioxide 22 BUN 5 L Creatinine 0.74 Estimated GFR > 60 BUN/Creatinine Ratio 6.8 Glucose 172 H Calcium 8.1 L Total Bilirubin 0.6 AST 27 ALT 20 Alkaline Phosphatase 87 Total Protein 7.1 Albumin 3.8 Globulin 3.3 Albumin/Globulin Ratio 1.2 Stool Culture Stool Susceptiblility Stl C. cayetanensis PCR Stool Rotavirus (PCR) Stool Adenovirus (PCR) Stool Astrovirus (PCR) Stool Cryptosporidium PCR Stl E.coli Shiga Tox PCR St Sh/Enteroin Ecoli PCR Stl Enterotoxigenic E PCR Stool EPEC (PCR) Stl E. histolytica PCR Stool Giardia Lamblia PCR Stool Sapovirus (PCR) Stl P. shigelloides PCR St Y.enterocolitica PCR Stool Vibrio (PCR) Stl Vibrio cholerae PCR Stl Enteroaggr Ecoli PCR Stl Norovirus GI/GII PCR Campylobacter Culture Cancelled Cancelled Campylobacter Suscept Cancelled Campylobacter (PCR) Not detected C. difficile Tox (PCR) Detected H E.coli Shiga Toxins Cancelled Salmonella/Shigella Cancelled Salmonella (PCR) Not detected 07/23/25 04:37 WBC 9.5 RBC 3.37 L Hgb 11.1 L Hct 32.0 L MCV 95.0 MCH 32.8 MCHC 34.5 RDW 14.4 Plt Count 178 Sodium 133 L Potassium 3.8 Chloride 101 Carbon Dioxide 24 BUN 6 L Creatinine 0.70 Estimated GFR > 60 BUN/Creatinine Ratio 8.6 Glucose 108 H Calcium 7.8 L Total Bilirubin 0.6 AST 29 ALT 17 Alkaline Phosphatase 81 Total Protein 6.5 Albumin 3.3 L Globulin 3.2 Albumin/Globulin Ratio 1.0 Stool Culture Stool Susceptiblility Stl C. cayetanensis PCR Stool Rotavirus (PCR) Stool Adenovirus (PCR) Stool Astrovirus (PCR) Stool Cryptosporidium PCR Stl E.coli Shiga Tox PCR St Sh/Enteroin Ecoli PCR Stl Enterotoxigenic E PCR Stool EPEC (PCR) Stl E. histolytica PCR Stool Giardia Lamblia PCR Stool Sapovirus (PCR) Stl P. shigelloides PCR St Y.enterocolitica PCR Stool Vibrio (PCR) Stl Vibrio cholerae PCR Stl Enteroaggr Ecoli PCR Stl Norovirus GI/GII PCR Campylobacter Culture Campylobacter Suscept Campylobacter (PCR) C. difficile Tox (PCR) E.coli Shiga Toxins Salmonella/Shigella Salmonella (PCR) [facility] Medical History Hypertension Personal history of PE (pulmonary embolism) Cash's esophagus GERD (gastroesophageal reflux disease) Hypothyroidism PVCs (premature ventricular contractions) Surgical History Status post hysterectomy Status post thyroidectomy Social History household members: none Smoking Status: Former smoker alcohol intake: never Assessment & Plan Time-Based Coding :: [TOTAL MINUTES] spent with patient and on the chart (including review of chart, obtaining history, exam, reviewing outside data, placing orders, documenting exam and treatment plan, and counseling patient) on [DATE]. Quality VTE Deep Vein Thrombosis/Pulmonary Embolism Present on Admission: No IH PROFEE Tool Tender Document charge(s): Yes
[2025-07-23 10:08] LABS: Coronavirus NL 63 Not Detected (Not Detect); SARS- CoV-2 Not Detected (Not Detecte)
[2025-07-23] MEDS: CIPROFLOXACIN 400 MG/200 ML PIGGYBACK 200 MG IV ×2 (11:44→22:51)
--- NOTE | 2025-07-23 12:05 | CM.DPNOTE ---
DCP Cont Reviewed chart. Patient discussed in multidisciplinary rounds. Patient is expected to remain admitted for at least another 24-48 hrs for continued medical management. Plan remains discharge home to [facility] apt w/friend to transport, w/close outpatient follow up. Patient has politely declined HH referral so far, revisit the topic if provider recommends HH [place]. Social work team following clinical course closely in case any discharge needs or concerns arise. JW
--- NOTE | 2025-07-23 15:50 | P.PN_ITS ---
Subjective Subjective Interval history: Interval history: 07/20: The patient reports no further bleeding. She has persistent lower abdominal pain. No nausea or vomiting. She is sitting up eating lunch. 07/21: She denies rectal bleeding but notes she coughed up some blood this morning. No abdominal pain from nausea or vomiting. She is tolerating her diet well. 07/22: The patient had a fever to 102? overnight, occasional coughing and states more rectal bleeding. Denies further episodes of hemoptysis. She also has intermittent increase in lower abdominal pain. CTA ruled out PE. S: She feels tired and has some lower abdominal pain. No diarrhea and minimal rectal bleeding. She had a brown stool with blood in the tissue only. Exam Vital Signs (past 8 hours): - 07/23/25 08:00 07/23/25 08:00 07/23/25 08:04 Temperature 98.8 F Pulse Rate Blood Pressure 112/59 L Pulse Oximetry Oxygen Delivery Method Room Air 07/23/25 08:05 07/23/25 11:58 07/23/25 11:58 Temperature Pulse Rate 69 74 Blood Pressure 119/59 L Pulse Oximetry 91 94 Oxygen Delivery Method 07/23/25 12:00 Temperature 98.7 F Pulse Rate Blood Pressure Pulse Oximetry Oxygen Delivery Method Oxygen Delivery Method Room Air Oxygen Flow Rate 0 Narrative Exam Narrative: NAD, alert and oriented. Fluent speech. Lungs are clear, normal rate and effort. Heart is regular, no murmur gallop or rub. Abdomen is soft, non distended. Some RLQ tenderness. Extremities are free of edema. Objective Imaging Multiple studies:: Radiologist's impression: Abdomen pelvis CT angiogram 07/19/2025:: Radiologist's impression: Colitis secondary to diverticulitis. No evidence of abscess or free air. No visualized active hemorrhage. Chest xray 07/21/2025:: Radiologist's impression: Low lung volumes, with likely streaky atelectasis at the left lung base. There is mild generalized interstitial prominence. Please consider artifact from the low lung volumes versus mild pulmonary edema. Postoperative and degenerative changes are seen. For this patient's presenting history of hemoptysis, please consider a dedicated chest CT with contrast for further evaluation. Chest CTA 07/22/2025:: Radiologist's impression: No pulmonary embolus. Patchy interstitial type infiltrates can be seen. There is mild cardiomegaly. Likely colitis partially seen within the upper abdomen. No recurrent mediastinal mass can be seen. Additional findings: Thyroid not definitely seen Sternotomy change Moderate hiatal hernia Labs 07/23/25 04:37 07/23/25 04:37 Labs: Laboratory Results - last 24 hr 07/22/25 07/23/25 07/23/25 18:18 04:37 09:00 WBC 11.3 H 9.5 RBC 3.57 L 3.37 L Hgb 11.4 L 11.1 L Hct 34.3 L 32.0 L MCV 95.8 95.0 MCH 32.0 32.8 MCHC 33.3 34.5 RDW 14.4 14.4 Plt Count 195 178 Sodium 131 L 133 L Potassium 3.8 3.8 Chloride 100 101 Carbon Dioxide 22 24 BUN 5 L 6 L Creatinine 0.74 0.70 Estimated GFR > 60 > 60 BUN/Creatinine Ratio 6.8 8.6 Glucose 172 H 108 H Calcium 8.1 L 7.8 L Total Bilirubin 0.6 0.6 AST 27 29 ALT 20 17 Alkaline Phosphatase 87 81 Total Protein 7.1 6.5 Albumin 3.8 3.3 L Globulin 3.3 3.2 Albumin/Globulin Ratio 1.2 1.0 Chlamy pneumoniae PCR Not detected Adenovirus (PCR) Not detected B. pertussis DNA (PCR) Not detected B.parapertussis DNA PCR Not detected Coronavirus OC43 (PCR) Not detected Coronavirus HKU1 (PCR) Not detected Coronavirus 229E (PCR) Not detected SARS-CoV-2 (PCR) Not detected Coronavirus NL63 (PCR) Not detected Human Metapneumovir PCR Not detected Influenza Type A (PCR) Not detected Influenza Type B (PCR) Not detected M. pneumoniae (PCR) Not detected Parainfluenza 1 (PCR) Not detected Parainfluenza 2 (PCR) Not detected Parainfluenza 3 (PCR) Not detected Parainfluenza 4 (PCR) Not detected RSV (PCR) Not detected Entero/Rhino (PCR) Not detected PFSH Medical History Hypertension Personal history of PE (pulmonary embolism) Cash's esophagus GERD (gastroesophageal reflux disease) Hypothyroidism PVCs (premature ventricular contractions) Surgical History Status post hysterectomy Status post thyroidectomy Social History household members: none Smoking Status: Former smoker alcohol intake: never Assessment & Plan Assessment & Plan narrative: 1. Colitis with bloody diarrhea and ankita blood findings on CT localizing in the transverse and proximal descending colon infectious versus ischemic colitis. * Empiric ciprofloxacin and metronidazole * GI panel and O&P ordered, not yet collected, pending. * Appreciate surgery expertise and comanagement * Continue to advance diet off IVF 2. Acute blood loss anemia due to colitis * Monitor H&H daily 3. Hemoptysis * Unremarkable chest xray and CTA, ruled out PE * No history of TB * Resolved 4. Rectal prolapse * Outpatient consultation planned for repair versus colostomy Chronic medical conditions: * Hypertension * Personal history of PE (pulmonary embolism) * Cash's esophagus * GERD (gastroesophageal reflux disease) * Hypothyroidism following thyroidectomy for thyroid carcinoma * PVCs (premature ventricular contractions) * Status post hysterectomy * Status post thyroidectomy * Rectal prolapse surgery * Cystocele surgery PLAN: -encourage out of bed. -advance diet as able. Anticipate discharge on July 24. Time-Based Coding :: [TOTAL MINUTES] spent with patient and on the chart (including review of chart, obtaining history, exam, reviewing outside data, placing orders, documenting exam and treatment plan, and counseling patient) on [DATE]. Quality VTE Deep Vein Thrombosis/Pulmonary Embolism Present on Admission: No
[2025-07-23] MEDS: ACETAMINOPHEN 325 MG TABLET 650 MG PO (20:47)
[2025-07-24] VITALS (11 sets, daily range): BP systolic 103–119; BP diastolic 52–73; PULSE 70–87; RESP 18–21; TEMP 36.6–39.4; O2SAT 90–94
[2025-07-24] MEDS: VANCOMYCIN 125 MG CAPSULE PO ×4 (01:28→18:54)
[2025-07-24] MEDS: metroNIDAZOLE 500 MG/100 ML PIGGYBACK 100 MG IV ×3 (04:32→19:59)
[2025-07-24 05:24] LABS: Hematocrit 31.7 % (36-46); Hemoglobin 10.7 g/dL (12.0-16.0); Mean Corpuscular HGB Conc 33.9 % (30-36); Mean Corpuscular Hemoglobin 32.2 PG (26-34); Mean Corpuscular Volume 94.9 fL (80-100); Platelet Count 207 X10^3/uL (150-400)
[2025-07-24 05:38] LABS: Alanine Aminotransferase 15 IU/L (<35); Albumin 3.3 g/dL (3.5-5.0); Albumin Globulin Ratio 1.0 (1.0-2.8); Alkaline Phosphatase 83 U/L (38-126); Blood Urea Nitrogen 5 mg/dL (7-17); Calcium 7.8 mg/dL (8.4-10.2); Carbon Dioxide 19 mmol/L (22-32); Chloride 102 mmol/L (98-107); Estimated Glomerular Filt Rate > 60 mL/min (>60); Globulin 3.3 g/dL (1.7-4.1); Glucose 90 mg/dL (70-99); HEMOLYSIS < 15 (0-50); Potassium 3.5 mmol/L (3.4-5.1); Sodium 131 mmol/L (137-145); Total Protein 6.6 g/dL (6.3-8.2)
[2025-07-24] MEDS: LEVOTHYROXINE 75 MCG TABLET PO (05:53)
[2025-07-24] MEDS: PANTOPRAZOLE 40 MG VIAL IV (05:53)
[2025-07-24] MEDS: ACETAMINOPHEN 325 MG TABLET 650 MG PO ×2 (08:04→21:18)
[2025-07-24] MEDS: SODIUM CHLORIDE 0.9% FLUSH 10 ML IV ×2 (08:05→19:59)
--- NOTE | 2025-07-24 08:49 | DI.RAD.S_ITS ---
PROCEDURE: XR CHEST 1V INDICATIONS: dyspnea TECHNIQUE: One view of the chest was acquired. COMPARISON: [facility], CT, CT ANGIO CHEST PE PROTOCOL, 07/22/2025, 8:58. [facility], CR, XR CHEST 1V, 07/21/2025, 10:40. [facility], CR, XR CHEST 1V, 09/28/2023, 13:02. FINDINGS: Surgical changes and devices: N sternotomy wires are present. one. Lungs and pleura: Patchy mid upper lung zone opacities bilaterally. No pleural effusion or pneumothorax. Mediastinum: Mediastinal contours appear normal. Heart size is normal. Bones and chest wall: Sclerotic lesion in the left proximal humerus is likely an enchondroma. IMPRESSION: Patchy bilateral pulmonary opacities appear similar when compared to the CT from 07/22/2025. Approved by: Navid Mckeon M.D. on 07/24/2025 at 9:19
--- NOTE | 2025-07-24 09:32 | PM.PN.IH.1 ---
Subjective Subjective Date Patient Seen: 07/24/25 Time Patient Seen: 09:15 Interval history: Patient is resting comfortably in bed. Patient states she is feeling better wanting to go home. But patient developed a temperature through the night had previous hemoptysis but chest x-ray and CTA were negative. Patient's stools are formed now no further bleeding being treated for C diff. patient has rectal prolapse has not worsened. Patient's SaO2 has dropped to 90% on room air. Patient is being worked up by hospitalist for pulmonary and temperature. WBC is 8.5 hemoglobin is 10.7 hematocrit is 31.7 platelets are 207,000 sodium is 131 potassium 3 point 8 chloride 102 bicarb is 19 BUN 5 creatinine 0.57 random blood sugar is 90 normal LFTs. Vitals: Temperature is 100.3? pulse 70 respirations 20 BP is 103/57 SaO2 is 90% on room air Heart regular rate and rhythm without murmurs. Lungs are clear but diminished in the bases poor inspiratory and expiratory effort poor chest wall motion noted. Abdomen is soft nondistended no masses or peritoneal signs are elicited. Impression: Rectal bleeding and diarrhea resolved treating for C diff Recurrent rectal prolapse primary surgery done October 2024 has reoccurred needs further workup but patient refuses another prolapse surgery wants a colostomy. Elevated temperature decreased SaO2 recent hemoptysis medicine working out pulmonary aspect WBC is 8.5 Hemoglobin 10.7 hematocrit is 31.7 Plan: Continue with current C diff treatment no need for emergent surgical intervention at this time no need for colonoscopy to evaluate the C diff. patient has been discussed rectal prolapse need to be done at a tertiary center as she has had 2 pelvic surgeries done in a six-month. Should be done at a center of excellence would need to have her colon taken down to the levators to avoid further prolapse problems with end colostomy. Patient has damage anal sphincter muscle should be evaluated possible anal manometry. All questions were answered patient's satisfaction encourage pulmonary toilet and incentive spirometry no need for surgical intervention at this time all questions were answered to patient's satisfaction. Exam Vital Signs (past 8 hours): - 07/24/25 03:21 07/24/25 03:22 07/24/25 03:22 Temperature 99.9 F H Pulse Rate 71 70 Respiratory Rate 20 Blood Pressure 103/57 L Pulse Oximetry 90 L 90 L Oxygen Flow Rate 0 07/24/25 08:04 07/24/25 08:59 07/24/25 08:59 Temperature 100.3 F H Pulse Rate 82 Respiratory Rate Blood Pressure 108/73 Pulse Oximetry 92 Oxygen Flow Rate Oxygen Delivery Method Room Air Oxygen Flow Rate 0 Objective Labs 07/24/25 04:13 07/24/25 04:13 Labs: Laboratory Results - last 24 hr 07/23/25 07/24/25 09:00 04:13 WBC 8.5 RBC 3.34 L Hgb 10.7 L Hct 31.7 L MCV 94.9 MCH 32.2 MCHC 33.9 RDW 14.4 Plt Count 207 Sodium 131 L Potassium 3.5 Chloride 102 Carbon Dioxide 19 L BUN 5 L Creatinine 0.57 Estimated GFR > 60 BUN/Creatinine Ratio 8.8 Glucose 90 Calcium 7.8 L Total Bilirubin 0.8 AST 27 ALT 15 Alkaline Phosphatase 83 Total Protein 6.6 Albumin 3.3 L Globulin 3.3 Albumin/Globulin Ratio 1.0 Chlamy pneumoniae PCR Not detected Adenovirus (PCR) Not detected B. pertussis DNA (PCR) Not detected B.parapertussis DNA PCR Not detected Coronavirus OC43 (PCR) Not detected Coronavirus HKU1 (PCR) Not detected Coronavirus 229E (PCR) Not detected SARS-CoV-2 (PCR) Not detected Coronavirus NL63 (PCR) Not detected Human Metapneumovir PCR Not detected Influenza Type A (PCR) Not detected Influenza Type B (PCR) Not detected M. pneumoniae (PCR) Not detected Parainfluenza 1 (PCR) Not detected Parainfluenza 2 (PCR) Not detected Parainfluenza 3 (PCR) Not detected Parainfluenza 4 (PCR) Not detected RSV (PCR) Not detected Entero/Rhino (PCR) Not detected PFSH Medical History Hypertension Personal history of PE (pulmonary embolism) Cash's esophagus GERD (gastroesophageal reflux disease) Hypothyroidism PVCs (premature ventricular contractions) Surgical History Status post hysterectomy Status post thyroidectomy Social History household members: none Smoking Status: Former smoker alcohol intake: never Assessment & Plan Time-Based Coding :: [TOTAL MINUTES] spent with patient and on the chart (including review of chart, obtaining history, exam, reviewing outside data, placing orders, documenting exam and treatment plan, and counseling patient) on [DATE]. Quality VTE Deep Vein Thrombosis/Pulmonary Embolism Present on Admission: No [facility] [employer] Document charge(s): Yes
[2025-07-24] MEDS: POTASSIUM CHLORIDE 20 MEQ TAB 40 MEQ PO (10:15)
[2025-07-24] MEDS: CIPROFLOXACIN 400 MG/200 ML PIGGYBACK 200 MG IV ×2 (10:22→22:22)
[2025-07-24 14:09] LABS: C difficie Toxins A and B, EIA Negative (Negative)
--- NOTE | 2025-07-24 15:19 | P.PN_ITS ---
Subjective Subjective Interval history: Hospital course: 07/20: The patient reports no further bleeding. She has persistent lower abdominal pain. No nausea or vomiting. She is sitting up eating lunch. 07/21: She denies rectal bleeding but notes she coughed up some blood this morning. No abdominal pain from nausea or vomiting. She is tolerating her diet well. 07/22: The patient had a fever to 102? overnight, occasional coughing and states more rectal bleeding. Denies further episodes of hemoptysis. She also has intermittent increase in lower abdominal pain. CTA ruled out PE. 07/23: Positive bowel movements, no diarrhea. A fever throughout the day and overnight leading into July 25. No rectal bleeding. S: In spite of having a fever, she feels better and denies abdominal pain or diarrhea. She does want to go home. She did require oxygen overnight and a chest x-ray was ordered. O: VS below. NAD, alert and oriented. Fluent speech. On O2. Lungs are clear, normal rate and effort. Heart is regular, no murmur gallop or rub. Abdomen is soft, non distended. Extremities are free of edema. CXR: Patchy bilateral pulmonary opacities appear similar when compared to the CT from 07/22/2025. A/P: 1. Colitis with bloody diarrhea and ankita blood findings on CT localizing in the transverse and proximal descending colon infectious versus ischemic colitis. * Empiric ciprofloxacin and metronidazole * GI panel and O&P ordered, not yet collected, pending. 2. Acute blood loss anemia due to colitis * Monitor H&H daily 3. Hemoptysis, resolved. * Unremarkable chest xray and CTA, ruled out PE * No history of TB * Resolved 4. Rectal prolapse Chronic) * Outpatient consultation planned for repair versus colostomy 5. Persistent fever with negative respiratory PCR July 23, and negative blood cultures. Chronic medical conditions (stable): * Hypertension * Personal history of PE (pulmonary embolism) * Cash's esophagus * GERD (gastroesophageal reflux disease) * Hypothyroidism following thyroidectomy for thyroid carcinoma * PVCs (premature ventricular contractions) * Status post hysterectomy * Status post thyroidectomy * Rectal prolapse surgery * Cystocele surgery PLAN: -encouraged her to stay here another night on antibiotics pending resolution of her fever. -she is reluctantly staying. No other change to medications and anticipate possible discharge on July 24 if fevers resolved. -repeat blood cx. Exam Vital Signs (past 8 hours): - 07/24/25 08:04 07/24/25 08:59 07/24/25 08:59 Temperature 100.3 F H Pulse Rate 82 Respiratory Rate Blood Pressure 108/73 Pulse Oximetry 92 Oxygen Delivery Method 07/24/25 09:00 07/24/25 09:00 07/24/25 13:00 Temperature 100.9 F H 98.5 F Pulse Rate Respiratory Rate 21 Blood Pressure Pulse Oximetry Oxygen Delivery Method Room Air 07/24/25 13:13 07/24/25 13:13 07/24/25 13:21 Temperature 98.7 F Pulse Rate Respiratory Rate Blood Pressure 105/52 L Pulse Oximetry 94 Oxygen Delivery Method 07/24/25 13:21 Temperature 97.8 F Pulse Rate Respiratory Rate Blood Pressure Pulse Oximetry Oxygen Delivery Method Oxygen Delivery Method Room Air Oxygen Flow Rate 0 Objective Labs 07/24/25 04:13 07/24/25 04:13 Labs: Laboratory Results - last 24 hr 07/22/25 07/24/25 11:00 04:13 WBC 8.5 RBC 3.34 L Hgb 10.7 L Hct 31.7 L MCV 94.9 MCH 32.2 MCHC 33.9 RDW 14.4 Plt Count 207 Sodium 131 L Potassium 3.5 Chloride 102 Carbon Dioxide 19 L BUN 5 L Creatinine 0.57 Estimated GFR > 60 BUN/Creatinine Ratio 8.8 Glucose 90 Calcium 7.8 L Total Bilirubin 0.8 AST 27 ALT 15 Alkaline Phosphatase 83 Total Protein 6.6 Albumin 3.3 L Globulin 3.3 Albumin/Globulin Ratio 1.0 C. diff Toxin A&B (EIA) Negative [facility] Medical History Hypertension Personal history of PE (pulmonary embolism) Cash's esophagus GERD (gastroesophageal reflux disease) Hypothyroidism PVCs (premature ventricular contractions) Surgical History Status post hysterectomy Status post thyroidectomy Social History household members: none Smoking Status: Former smoker alcohol intake: never Assessment & Plan Time-Based Coding :: [TOTAL MINUTES] spent with patient and on the chart (including review of chart, obtaining history, exam, reviewing outside data, placing orders, documenting exam and treatment plan, and counseling patient) on [DATE]. Quality VTE Deep Vein Thrombosis/Pulmonary Embolism Present on Admission: No
--- NOTE | 2025-07-24 15:34 | CM.DPNOTE ---
DCP Note per hospitalist, pt had a fever overnight. wants to keep another day. per provider/RN pt eager to leave. no new CM needs at this time. P: anticipate dc tomorrow pending medial stability/no fever. CM team will continue to follow in case any DCP Needs should arise JOHN Garnica
[2025-07-24] MEDS: METOPROLOL IR 25 MG TABLET PO (21:18)
[2025-07-25] VITALS (14 sets, daily range): BP systolic 104–117; BP diastolic 55–59; PULSE 62–78; RESP 16–22; TEMP 37.5–37.9; O2SAT 90–97
[2025-07-25] MEDS: VANCOMYCIN 125 MG CAPSULE PO ×2 (01:21→07:28)
[2025-07-25] MEDS: metroNIDAZOLE 500 MG/100 ML PIGGYBACK 100 MG IV (04:36)
[2025-07-25] MEDS: LEVOTHYROXINE 75 MCG TABLET PO (05:54)
[2025-07-25] MEDS: PANTOPRAZOLE 40 MG VIAL IV (05:54)
[2025-07-25 07:36] LABS: Hematocrit 33.9 % (36-46); Hemoglobin 11.3 g/dL (12.0-16.0); Mean Corpuscular HGB Conc 33.4 % (30-36); Mean Corpuscular Hemoglobin 31.8 PG (26-34); Mean Corpuscular Volume 95.2 fL (80-100); Platelet Count 253 X10^3/uL (150-400)
[2025-07-25 07:52] LABS: Blood Urea Nitrogen 5 mg/dL (7-17); Calcium 7.9 mg/dL (8.4-10.2); Carbon Dioxide 20 mmol/L (22-32); Chloride 100 mmol/L (98-107); Estimated Glomerular Filt Rate > 60 mL/min (>60); Glucose 101 mg/dL (70-99); HEMOLYSIS 36 (0-50); Potassium 4.4 mmol/L (3.4-5.1); Sodium 130 mmol/L (137-145)
[2025-07-25] MEDS: SODIUM CHLORIDE 0.9% FLUSH 10 ML IV (09:26)
[2025-07-25] MEDS: AMITRIPTYLINE 25 MG TABLET 100 MG PO (09:26)
--- NOTE | 2025-07-25 10:46 | DI.RAD.S_ITS ---
PROCEDURE: XR CHEST 1V INDICATIONS: hypoxia TECHNIQUE: One view of the chest was acquired. COMPARISON: [facility], CR, XR CHEST 1V, 07/24/2025, 8:46. FINDINGS: Surgical changes and devices: None. Lungs and pleura: Hazy airspace opacities are again seen scattered in bilateral upper lobes concerning for bilateral upper lobe infiltrates. Overall aeration of bilateral lung garza are not significantly changed from previous day. Trace left pleural effusion with blunting of left costophrenic angle. No pneumothorax. Mediastinum: Mediastinal contours appear normal. Heart size is enlarged. Bones and chest wall: No suspicious bony lesions. Overlying soft tissues appear unremarkable. IMPRESSION: Persistent opacities predominantly in bilateral upper lobes suggestive of bilateral upper lobe infiltrates. Trace left pleural effusion. No pneumothorax. Cardiomegaly and mild pulmonary vascular congestion. Dictated by: Edgar Baxter M.D. on 07/25/2025 at 11:29 Approved by: Edgar Baxter M.D. on 07/25/2025 at 11:30
[2025-07-25] MEDS: CIPROFLOXACIN 400 MG/200 ML PIGGYBACK 200 MG IV (12:04)
--- NOTE | 2025-07-25 13:12 | PM.PN.1 ---
Subjective Subjective Date Patient Seen: 07/25/25 Interval history: Chief complaint: Incontinence with rectal bleeding with abdominal cramping and colitis on CT History of present illness: 07/19: 65-year-old female had some tenesmus and feeling gaseous and thought she was passing flatus but then had large bloody liquid stool with severe cramping. Past medical history signals for a rectal prolapse surgery in 2023 and a cystocele repair in January of 2025 recurrence of the rectal prolapse in February 2025. Patient is now incontinent of stool Findings emergency department significant for CT findings of colitis in the transverse and proximal descending colon with sigmoid diverticulosis but without signs of diverticulitis White blood cell count 11.5 hemoglobin 12.8 platelets 200 bilirubin and transaminases unremarkable potassium 137 potassium 4.3 chloride 104 BUN is 9 creatinine 0.7 Hospital course: 07/20: The patient reports no further bleeding. She has persistent lower abdominal pain. No nausea or vomiting. She is sitting up eating lunch. 07/21: She denies rectal bleeding but notes she coughed up some blood this morning. No abdominal pain from nausea or vomiting. She is tolerating her diet well. 07/22: The patient had a fever to 102? overnight, occasional coughing and states more rectal bleeding. Denies further episodes of hemoptysis. She also has intermittent increase in lower abdominal pain. CTA ruled out PE. 07/23: Positive bowel movements, no diarrhea. A fever throughout the day and overnight leading into July 25. No rectal bleeding. 07/24: In spite of having a fever, she feels better and denies abdominal pain or diarrhea. She does want to go home. She did require oxygen overnight and a chest x-ray was ordered. 07/25: No further fevers abdominal cramping is quite manageable shortness for breath is improving chest x-ray has better aeration patient discharged home on oral vancomycin and lactobacillus Review of systems: No chest pain palpitations shortness for breath No fevers chills No change in appetite No weight loss or weight gain No paresthesia or paresis Physical examination: Pleasant elderly female in no acute distress HEENT unremarkable Heart rate and rhythm regular no murmurs Lungs clear Abdomen is distended soft bowel sounds present Extremities no edema Neurologic nonfocal Assessment and plan: Colitis with bloody diarrhea and ankita blood findings on CT localizing in the transverse and proximal descending colon due to Clostridium difficile Ten days of oral vancomycin and probiotic rectal prolapse need to be done at a tertiary center as she has had 2 pelvic surgeries done in a six-month. Should be done at a center of excellence would need to have her colon taken down to the levators to avoid further prolapse problems with end colostomy. Patient has damage anal sphincter muscle should be evaluated possible anal manometry. All questions were answered patient's satisfaction encourage pulmonary toilet and incentive spirometry no need for surgical intervention at this time all questions were answered to patient's satisfaction. Chronic medical conditions: Hypertension Personal history of PE (pulmonary embolism) Cash's esophagus GERD (gastroesophageal reflux disease) Hypothyroidism following thyroidectomy for thyroid carcinoma PVCs (premature ventricular contractions) Status post hysterectomy Status post thyroidectomy Rectal prolapse surgery Disposition: Discharge to home Time based billin minutes were involved in the management of this patient including [id number] evaluation discussion with surgery emergency room provider patient direct physical examination direct evaluation of objective laboratory and imaging findings and discussion with nursing care team on the floor Exam Vital Signs (past 8 hours): - 07/25/25 07:14 07/25/25 07:20 07/25/25 07:29 Temperature 99.5 F Pulse Rate 78 71 Respiratory Rate 22 Blood Pressure 117/59 L Pulse Oximetry 92 97 Oxygen Delivery Method Nasal Cannula Oxygen Flow Rate 1 07/25/25 07:30 07/25/25 07:31 07/25/25 07:31 Temperature Pulse Rate 72 72 Respiratory Rate Blood Pressure 117/59 L Pulse Oximetry 96 94 Oxygen Delivery Method Oxygen Flow Rate 07/25/25 08:00 07/25/25 08:30 07/25/25 09:00 Temperature Pulse Rate 71 75 75 Respiratory Rate Blood Pressure Pulse Oximetry 93 93 94 Oxygen Delivery Method Oxygen Flow Rate 07/25/25 09:20 07/25/25 09:20 07/25/25 09:30 Temperature Pulse Rate 78 76 Respiratory Rate Blood Pressure 115/56 L Pulse Oximetry 92 93 Oxygen Delivery Method Oxygen Flow Rate 07/25/25 10:00 07/25/25 10:30 07/25/25 12:19 Temperature 99.9 F H Pulse Rate 73 72 62 Respiratory Rate 18 Blood Pressure 104/55 L Pulse Oximetry 92 90 L 95 Oxygen Delivery Method Oxygen Flow Rate 0 Oxygen Delivery Method Nasal Cannula Oxygen Flow Rate 0 Objective Labs 07/25/25 07:10 07/25/25 07:10 Labs: Laboratory Results - last 24 hr 07/22/25 07/25/25 11:00 07:10 WBC 10.6 RBC 3.56 L Hgb 11.3 L Hct 33.9 L MCV 95.2 MCH 31.8 MCHC 33.4 RDW 14.2 Plt Count 253 Sodium 130 L Potassium 4.4 Chloride 100 Carbon Dioxide 20 L BUN 5 L Creatinine 0.61 Estimated GFR > 60 BUN/Creatinine Ratio 8.2 Glucose 101 H Calcium 7.9 L C. diff Toxin A&B (EIA) Negative [facility] Medical History Hypertension Personal history of PE (pulmonary embolism) Cash's esophagus GERD (gastroesophageal reflux disease) Hypothyroidism PVCs (premature ventricular contractions) Surgical History Status post hysterectomy Status post thyroidectomy Social History household members: none Smoking Status: Former smoker alcohol intake: never Assessment & Plan Time-Based Coding :: [TOTAL MINUTES] spent with patient and on the chart (including review of chart, obtaining history, exam, reviewing outside data, placing orders, documenting exam and treatment plan, and counseling patient) on [DATE]. Quality VTE Deep Vein Thrombosis/Pulmonary Embolism Present on Admission: No
--- NOTE | 2025-07-25 13:17 | CM.DPNOTE ---
DC Note Discharge home today, back to apt at [facility], neighbor to transport home. Patient politely declines HH. No further needs from this SW team. LEEROY
--- NOTE | 2025-07-25 14:20 | PC.NURSE ---
IV D/C'D. DISCHARGE PAPERWORK DISCUSSED WITH PT/ FRIEND. SIG PAGE SIGNED AND PLACED IN CHART. PT WHEELED OUT AT 1418.
--- NOTE | 2025-07-26 11:47 | PM.DS.1 ---
History of Present Illness History of Present Illness Date Patient Seen: 07/25/25 Chief complaint: cramping bleeding from rectum Narrative: Chief complaint: Incontinence with rectal bleeding with abdominal cramping and colitis on CT History of present illness: 07/19: 65-year-old female had some tenesmus and feeling gaseous and thought she was passing flatus but then had large bloody liquid stool with severe cramping. Past medical history signals for a rectal prolapse surgery in 2023 and a cystocele repair in January of 2025 recurrence of the rectal prolapse in February 2025. Patient is now incontinent of stool Findings emergency department significant for CT findings of colitis in the transverse and proximal descending colon with sigmoid diverticulosis but without signs of diverticulitis White blood cell count 11.5 hemoglobin 12.8 platelets 200 bilirubin and transaminases unremarkable potassium 137 potassium 4.3 chloride 104 BUN is 9 creatinine 0.7 Hospital course: 07/20: The patient reports no further bleeding. She has persistent lower abdominal pain. No nausea or vomiting. She is sitting up eating lunch. 07/21: She denies rectal bleeding but notes she coughed up some blood this morning. No abdominal pain from nausea or vomiting. She is tolerating her diet well. 07/22: The patient had a fever to 102? overnight, occasional coughing and states more rectal bleeding. Denies further episodes of hemoptysis. She also has intermittent increase in lower abdominal pain. CTA ruled out PE. 07/23: Positive bowel movements, no diarrhea. A fever throughout the day and overnight leading into July 25. No rectal bleeding. 07/24: In spite of having a fever, she feels better and denies abdominal pain or diarrhea. She does want to go home. She did require oxygen overnight and a chest x-ray was ordered. 07/25: No further fevers abdominal cramping is quite manageable shortness for breath is improving chest x-ray has better aeration patient discharged home on oral vancomycin and lactobacillus Past medical and surgical history: Hypertension Personal history of PE (pulmonary embolism) Cash's esophagus GERD (gastroesophageal reflux disease) Hypothyroidism following thyroidectomy for thyroid carcinoma PVCs (premature ventricular contractions) Status post hysterectomy Status post thyroidectomy Medications please see the bottom of the note Review of systems: No chest pain palpitations shortness for breath No fevers chills No change in appetite No weight loss or weight gain No paresthesia or paresis Physical examination: Pleasant elderly female in no acute distress HEENT unremarkable Heart rate and rhythm regular no murmurs Lungs clear Abdomen is distended soft bowel sounds present Extremities no edema Neurologic nonfocal Assessment and plan: Colitis with bloody diarrhea and ankita blood findings on CT localizing in the transverse and proximal descending colon infectious versus ischemic Empiric ciprofloxacin metronidazoleColitis with bloody diarrhea and ankita blood findings on CT localizing in the transverse and proximal descending colon due to Clostridium difficile Ten days of oral vancomycin and probiotic rectal prolapse need to be done at a tertiary center as she has had 2 pelvic surgeries done in a six-month. Should be done at a center of excellence would need to have her colon taken down to the levators to avoid further prolapse problems with end colostomy. Patient has damage anal sphincter muscle should be evaluated possible anal manometry. All questions were answered patient's satisfaction encourage pulmonary toilet and incentive spirometry no need for surgical intervention at this time all questions were answered to patient's satisfaction. Chronic medical conditions: Hypertension Personal history of PE (pulmonary embolism) Cash's esophagus GERD (gastroesophageal reflux disease) Hypothyroidism following thyroidectomy for thyroid carcinoma PVCs (premature ventricular contractions) Status post hysterectomy Status post thyroidectomy Rectal prolapse surgery Disposition: Discharge to home Time based billin minutes were involved in the management of this patient including [id number] evaluation discussion with surgery emergency room provider patient direct physical examination direct evaluation of objective laboratory and imaging findings and discussion with nursing care team on the floor Discharge Providers Provider Date of admission: 07/19/25 14:58 Discharge Date: 07/26/25 Primary care physician: Claudia Simmons MD Discharge provider: Antonio Perla MD Exam Vital Signs (past 8 hours): Oxygen Delivery Method Nasal Cannula Oxygen Flow Rate 0 Objective Labs 07/25/25 07:10 07/25/25 07:10 Labs: Laboratory Results - last 24 hr 07/19/25 10:06 Antibody Screen Negative [facility] Medical History Hypertension Personal history of PE (pulmonary embolism) Cash's esophagus GERD (gastroesophageal reflux disease) Hypothyroidism PVCs (premature ventricular contractions) Surgical History Status post hysterectomy Status post thyroidectomy Social History household members: none Smoking Status: Former smoker alcohol intake: never Discharge Plan Discharge Plan Patient Disposition: Home Discharge orders & Medications Prescriptions: New vancomycin 125 mg Capsule 125 mg PO Q6H Qty: 30 0RF Lactobacillus acidophilus 10 billion cell capsule 100 mmu cells PO BID Qty: 60 0RF vancomycin 125 mg capsule 125 mg PO QID Qty: 40 0RF Lactobacillus acidophilus 10 billion cell capsule 10,000 mmu cells PO DAILY Qty: 30 0RF Continued fluoxetine 40 mg capsule 40 mg PO DAILY omeprazole 40 mg capsule,delayed release(DR/EC) 40 mg PO QAM levothyroxine 88 mcg tablet 88 mcg PO DAILY amitriptyline 100 mg tablet 100 mg PO DAILY alprazolam [Xanax] 0.25 mg tablet 0.25 mg PO BID-TID PRN (Reason: anxiety) metoprolol tartrate 25 mg tablet 25 mg PO BID alprazolam 0.25 mg tablet 0.25 mg PO TID PRN (Reason: Anxiety) Patient Comments: take 1 by mouth tablet three times a day if needed for anxiety Follow up/Referrals: Claudia Simmons MD [Primary Care Provider, Pediatrics] Visit Report/Discharge Packet Stand Alone Forms: Patient Portal/API, Stroke Signs & Symptoms Discharge Data Primary Care Provider: Claudia Simmons Quality VTE Deep Vein Thrombosis/Pulmonary Embolism Present on Admission: No
--- NOTE | 2025-09-14 13:36 | P.DS_ITS ---
History of Present Illness History of Present Illness Date Patient Seen: 07/25/25 Chief complaint: cramping bleeding from rectum Narrative: Chief complaint: Incontinence with rectal bleeding with abdominal cramping and colitis on CT History of present illness: 07/19: 65-year-old female had some tenesmus and feeling gaseous and thought she was passing flatus but then had large bloody liquid stool with severe cramping. Past medical history signals for a rectal prolapse surgery in 2023 and a cystocele repair in January of 2025 recurrence of the rectal prolapse in February 2025. Patient is now incontinent of stool Findings emergency department significant for CT findings of colitis in the transverse and proximal descending colon with sigmoid diverticulosis but without signs of diverticulitis White blood cell count 11.5 hemoglobin 12.8 platelets 200 bilirubin and transaminases unremarkable potassium 137 potassium 4.3 chloride 104 BUN is 9 creatinine 0.7 Hospital course: 07/20: The patient reports no further bleeding. She has persistent lower abdominal pain. No nausea or vomiting. She is sitting up eating lunch. 07/21: She denies rectal bleeding but notes she coughed up some blood this morning. No abdominal pain from nausea or vomiting. She is tolerating her diet well. 07/22: The patient had a fever to 102? overnight, occasional coughing and states more rectal bleeding. Denies further episodes of hemoptysis. She also has intermittent increase in lower abdominal pain. CTA ruled out PE. 07/23: Positive bowel movements, no diarrhea. A fever throughout the day and overnight leading into July 25. No rectal bleeding. 07/24: In spite of having a fever, she feels better and denies abdominal pain or diarrhea. She does want to go home. She did require oxygen overnight and a chest x-ray was ordered. 07/25: No further fevers abdominal cramping is quite manageable shortness for breath is improving chest x-ray has better aeration patient discharged home on oral vancomycin and lactobacillus Past medical and surgical history: Hypertension Personal history of PE (pulmonary embolism) Cash's esophagus GERD (gastroesophageal reflux disease) Hypothyroidism following thyroidectomy for thyroid carcinoma PVCs (premature ventricular contractions) Status post hysterectomy Status post thyroidectomy Medications please see the bottom of the note Review of systems: No chest pain palpitations shortness for breath No fevers chills No change in appetite No weight loss or weight gain No paresthesia or paresis Physical examination: Pleasant elderly female in no acute distress HEENT unremarkable Heart rate and rhythm regular no murmurs Lungs clear Abdomen is distended soft bowel sounds present Extremities no edema Neurologic nonfocal Assessment and plan: Colitis with bloody diarrhea and ankita blood findings on CT localizing in the transverse and proximal descending colon infectious versus ischemic * Empiric ciprofloxacin metronidazoleColitis with bloody diarrhea and ankita blood findings on CT localizing in the transverse and proximal descending colon due to Clostridium difficile * Ten days of oral vancomycin and probiotic rectal prolapse * need to be done at a tertiary center as she has had 2 pelvic surgeries done in a six-month. Should be done at a center of excellence would need to have her colon taken down to the levators to avoid further prolapse problems with end colostomy. Patient has damage anal sphincter muscle should be evaluated possible anal manometry. All questions were answered patient's satisfaction encourage pulmonary toilet and incentive spirometry no need for surgical intervention at this time all questions were answered to patient's satisfaction. Chronic medical conditions: * Hypertension * Personal history of PE (pulmonary embolism) * Cash's esophagus * GERD (gastroesophageal reflux disease) * Hypothyroidism following thyroidectomy for thyroid carcinoma * PVCs (premature ventricular contractions) * Status post hysterectomy * Status post thyroidectomy * Rectal prolapse surgery Disposition: * Discharge to home Time based billin minutes were involved in the management of this patient including [id number] evaluation discussion with surgery emergency room provider patient direct physical examination direct evaluation of objective laboratory and imaging findings and discussion with nursing care team on the floor Discharge Providers Provider Date of admission: 07/19/25 14:58 Discharge Date: 08/24/25 Primary care physician: Claudia Simmons MD Discharge provider: Antnoio Perla MD Exam Vital Signs (past 8 hours): Oxygen Delivery Method Nasal Cannula Oxygen Flow Rate 0 Objective Labs 07/25/25 07:10 07/25/25 07:10 [facility] Medical History Hypertension Personal history of PE (pulmonary embolism) Cash's esophagus GERD (gastroesophageal reflux disease) Hypothyroidism PVCs (premature ventricular contractions) Surgical History Status post hysterectomy Status post thyroidectomy Social History household members: none Smoking Status: Former smoker alcohol intake: never Discharge Plan Discharge Plan Patient Disposition: Home Discharge orders & Medications Prescriptions: New vancomycin 125 mg Capsule 125 mg PO Q6H Qty: 30 0RF Lactobacillus acidophilus 10 billion cell capsule 100 mmu cells PO BID Qty: 60 0RF vancomycin 125 mg capsule 125 mg PO QID Qty: 40 0RF Lactobacillus acidophilus 10 billion cell capsule 10,000 mmu cells PO DAILY Qty: 30 0RF Continued fluoxetine 40 mg capsule 40 mg PO DAILY omeprazole 40 mg capsule,delayed release(DR/EC) 40 mg PO QAM levothyroxine 88 mcg tablet 88 mcg PO DAILY amitriptyline 100 mg tablet 100 mg PO DAILY alprazolam [Xanax] 0.25 mg tablet 0.25 mg PO BID-TID PRN (Reason: anxiety) metoprolol tartrate 25 mg tablet 25 mg PO BID alprazolam 0.25 mg tablet 0.25 mg PO TID PRN (Reason: Anxiety) Patient Comments: take 1 by mouth tablet three times a day if needed for anxiety Follow up/Referrals: Claudia Simmons MD [Primary Care Provider, Pediatrics] Visit Report/Discharge Packet Stand Alone Forms: Patient Portal/API, Stroke Signs & Symptoms Discharge Data Primary Care Provider: Claudia Simmons Quality VTE Deep Vein Thrombosis/Pulmonary Embolism Present on Admission: No
== END 2025-07-25 14:18 | disposition home or self-care (01) | DRG 248 ==
LOC: ED 11:09 → AC 15:12 → ICU 16:06 → AC 07-20 11:43 → ICU 07-20 11:43
PROVIDERS: Hospitalist; Surgery; Admitting Provider Internal Medicine; Emergency Provider Emergency Medicine; Family Provider Internal Medicine; PCP Internal Medicine; Referring Provider Emergency Medicine; Visit Provider Internal Medicine
DX: A04.72 Enterocolitis due to Clostridium difficile, not specified as recurrent (principal); K62.3 Rectal prolapse; K62.5 Hemorrhage of anus and rectum; D62 Acute posthemorrhagic anemia; I10 Essential (primary) hypertension; K21.9 Gastro-esophageal reflux disease without esophagitis; K44.9 Diaphragmatic hernia without obstruction or gangrene; K22.70 Barrett's esophagus without dysplasia; F32.A Depression, unspecified; F41.9 Anxiety disorder, unspecified; R15.9 Full incontinence of feces; R04.2 Hemoptysis; R50.9 Fever, unspecified; I49.3 Ventricular premature depolarization; E89.0 Postprocedural hypothyroidism; Z86.711 Personal history of pulmonary embolism; Z87.891 Personal history of nicotine dependence; Z87.19 Personal history of other diseases of the digestive system; Z98.890 Other specified postprocedural states; Z79.890 Hormone replacement therapy
CPT/HCPCS: 36415; 71045; 71275; 74174; 80048; 80053; 81001; 82272; 85025; 85027; 85610; 85730; 86850; 86900; 86901; 87040; 87177; 87324; 87507; 87633; 87797; 96365; 96375; 96376; 99284; J0744; J1171; J2405; J2470; Q9967